=== PATIENT | female | born 1945 | race Caucasian/White ===

== ENCOUNTER 2019-10-31 07:00 | Outpatient (NON) | payer MEDICARE, SELFPAY ==
[2019-10-31 18:39] LABS: SARS-CoV-2 RNA PCR Positive
== END 2019-10-31 07:01 ==
PROVIDERS: Visit Provider Nurse Practitioner
DX: U07.1 COVID-19 (principal)
CPT/HCPCS: 87635; C9803; U0003

== ENCOUNTER 2020-02-21 09:40 | Outpatient (CLI) | payer MEDICARE, SELFPAY ==
--- NOTE | ~2020-02-21 | CT_ITS ---
EXAMINATION: CT abdomen pelvis wo con DATE: 02/21/2020 10:01 INDICATION: Hydronephrosis TECHNIQUE: Computed tomography (CT) of the abdomen and pelvis was performed without intravenous contr ast. Automated exposure control and iterative reconstruction technique were employed. Exam dose: 262 .96 mGy-cm total exam DLP. COMPARISON: None. FINDINGS: There are bilateral fat-containing foramen of Bochdalek hernias. The lung bases are clear of infiltrate or consolidation. Normal heart size. No pericardial or pleural effusion. The liver, gallbladder, bile ducts, spleen, pancreas and pancreatic duct are unremarkable. There is moderate bilateral hydroureteronephrosis. No renal or ureteral calculus is evident. The urinary bladder is unremarkable. There is fusiform dilatation of the infrarenal abdominal aortic procedure 0.9 cm maximal dimension. T here is extensive abdominal aortic and prominent bilateral renal artery calcification as well as prom inent iliac and femoral artery calcifications. No intraperitoneal or retroperitoneal or pelvic mass lesion or adenopathy or ascites is detected. Normal appendix. No evidence of appendicitis. There are numerous diverticula of the sigmoid and descending colon and to a lesser extent transverse and right colon; no CT evidence of diverticulitis. There is an approximately 2 cm wide ventral abdominal wall defect with herniation of a loop of nonobs tructed small bowel. No bowel obstruction, bowel wall thickening, pneumatosis or intraperitoneal free air. There is severe degenerative disc disease at L3-4. There is grade 1 anterolisthesis at L5-S1 due to d egenerative change at the apophyseal joints. Osteosclerotic lesions in the lower right ilium near the roof the acetabulum are noted, possibly bone islands. Small osteosclerotic lesion of the lateral aspect of the left acetabular roof. Several osseous chroni c lesions of the right femoral head. These are present on 11/24/2016, most likely bone islands.. IMPRESSION: Lower anterior to centimeter abdominal wall defect with small bowel herniation, no stran gulation or obstruction. This is noted unchanged since 11/24/2016 Diverticulosis of the colon Moderate bilateral hydroureteronephrosis of uncertain etiology, but stable since 11/24/2016; no urinar y tract calculi are noted. Reviewed, dictated and finalized at [facility]. Reviewed, dictated and finalized at [facility]. 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 This is noted unchanged since Diverticulosis of the colon Moderate bilateral hydroureteronephrosis of uncertain etiology, but stable sinc e 11/24/2016; no urinary tract calculi are noted.
== END 2020-02-21 09:41 | disposition home or self-care (01) ==
PROVIDERS: PCP Family Medicine; Visit Provider Nurse Practitioner Family
DX: R61 Generalized hyperhidrosis (principal); K57.30 Diverticulosis of large intestine without perforation or abscess without bleeding
CPT/HCPCS: 74176

== ENCOUNTER 2020-02-29 12:46 | Outpatient (CLI) | payer MEDICARE, SELFPAY ==
--- NOTE | ~2020-02-29 | NM_ITS ---
EXAMINATION: NM lasix renal scan DATE: 02/29/2020 14:04 INDICATION: Bilateral hydronephrosis. TECHNIQUE: 7.7 mCi Tc-99m MAG3 was administered IV. 40 mg furosemide was administered IV immediately afterward. The patient was scanned in the supine position. A posterior abdominal radionuclide angiog jasiel was obtained. A subsequent time course of static images of the kidneys, ureters, and bladder was obtained. COMPARISON: CT abdomen and pelvis 02/21/2020, Lasix renal scan 07/15/2008 FINDINGS: The posterior abdominal radionuclide angiogram and sequential static images show normal siz e, position, and morphology of the kidneys. Peak renal parenchymal uptake was 5 min in right kidney a nd 3 min in left kidney (normal peak 3-5 minutes). The relative early renal uptake was 51% on the ri ght and 49% on the left (<40% is abnormal). T1/2 for clearance of activity from the right kidney and proximal collecting system was 16 minutes. T1/2 for clearance of activity from the left kidney and proximal collecting system was 12 minutes. Notes on interpretation: T1/2 <10 minutes is normal, 10-15 minutes is low grade obstruction of questi onable clinical significance, 15-20 minutes is partial obstruction that is likely clinically signific ant, >20 minutes is high grade obstruction. Note that false positives may be seen with supine positio omar, dehydration, severely dilated nonobstructed kidney, atonic collecting system, poor renal functi on, and chronic furosemide use. IMPRESSION: 1. Symmetric kidney function. 2. Delayed contrast clearance from right kidney and proximal collecting system, consistent with part ial obstruction that is likely clinically significant. 3. Delayed contrast clearance from left kidney and proximal collecting system, consistent with low gr mariely obstruction of questionable clinical significance. Reviewed, dictated and finalized at [facility]. 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 Symmetric kidney function. 2. Delayed contrast clearance from right kidney and proximal collecting system , consistent with partial obstruction that is likely clinically significant. 3. Delayed contrast clearance from left kidney and proximal collecting system, consistent with low grade obstruction of questionable clinical significance.
== END 2020-02-29 12:47 | disposition home or self-care (01) ==
LOC: ANHIMG 12:49
PROVIDERS: PCP Family Medicine; Visit Provider Urology
DX: N13.30 Unspecified hydronephrosis (principal)
CPT/HCPCS: 78708; A9562; J1940

== ENCOUNTER 2020-08-06 08:52 | Emergency (ER) | payer MEDICARE, SELFPAY ==
--- NOTE | ~2020-08-06 | XR_ITS ---
EXAMINATION: XR hip RT min 3V w AP pelvis, XR femur RT min 2V DATE: 08/06/2020 12:20 INDICATION: Right groin and upper leg pain TECHNIQUE: 1. Anteroposterior view of the pelvis and anteroposterior, frog leg and cross-table lateral views of the affected hip were obtained. 2. Overlapping proximal and distal AP and lateral views of the right femur were obtained. COMPARISON: Right hip radiographs dated 10/01/2010 and right femur MRI dated 10/06/[address] dated and 02/21/2020 FINDINGS: Alignment is normal. No fracture or suspected avascular necrosis. Again seen are couple sclerotic bon e islands in the right supra-acetabular region. Joint space at the right hip and knee appear relative ly preserved. No right knee joint effusion. Multiple surgical clips in the pelvis consistent with lena or lymph node dissections. Small amount of gas within a loop of bowel projecting lower pelvic anterio r wall corresponding to a short segment of herniated bowel within a infraumbilical ventral hernia see n on prior CT studies. Severe facet joint osteoarthritis in the right at L5-S1. IMPRESSION: 1. Right supra-acetabular bone islands. No other osseous abnormality at the right hip or femur. 2. Short segment of gas-filled bowel within a infra umbilical ventral hernia. Reviewed, dictated and finalized at [facility]. IMPRESSION: 1. Right supra-acetabular bone islands. No other osseous abnormality at the [facility] hip or femur. 2. Short segment of gas-filled bowel within a infra umbilical ventral hernia.
--- NOTE | ~2020-08-06 | US_ITS ---
EXAMINATION: US venous doppler LE DATE: 08/06/2020 10:30 INDICATION: Right lower limb pain TECHNIQUE: Grayscale ultrasound images without and with compression and Doppler ultrasound images of the right lower extremity veins were obtained. COMPARISON: None. FINDINGS: The visualized portions of right common femoral vein, profunda (deep) femoral vein, femoral vein, pop liteal vein, peroneal trunk, posterior tibial veins, peroneal veins, gastrocnemius vein and greater s aphenous vein outflow are patent. IMPRESSION: 1. No deep venous thrombosis in the right lower limb. Reviewed, dictated and finalized at location [facility].
[2020-08-06 09:00] VITALS: BP 128/57; PULSE 101; RESP 18; TEMP 36.5; O2SAT 100
--- NOTE | 2020-08-06 10:07 | ED.EXTPRO ---
HPI - Extremity Problem General Chief complaint: Extremity Problem,Nontraumatic <Onelia Mccarty PA-C - Last Filed: 08/06/20 12:51> Stated complaint: right leg pain <EVELIN Aguirre Last Filed: 08/06/20 12:51> Time Seen by Provider: 08/06/20 09:14 <EVELIN Aguirre Last Filed: 08/06/20 12:51> Source: patient <EVELIN Aguirre Last Filed: 08/06/20 12:51> Mode of arrival: ambulatory <EVELIN Aguirre Last Filed: 08/06/20 12:51> Limitations: no limitations <EVELIN Aguirre Last Filed: 08/06/20 12:51> History of Present Illness HPI Narrative: This is a 75-year-old female that presents the emergency department for right leg pain present over the last 3 days. Reports the pain is achy in nature. It is worse when she is up on her feet. Somewhat better with rest. She has been taking anti-inflammatories with some improvement. She saw her primary for this 2 days ago. The pain changed which prompted her to be seen today. Denies any recent injuries or trauma. Does report history of non-Hodgkin's lymphoma with positive lymph nodes in her upper legs. Denies fever, numbness, weakness, edema, or erythema. <EVELIN Aguirre Last Filed: 08/06/20 12:51> Related Data Home medications: Home Medications Medication Instructions Recorded Confirmed cranberry 400 mg capsule 400 mg PO DAILY 09/05/19 multivitamin 1 cap PO DAILY 09/05/19 lactobacillus combination no.8 3 3,000 mmu cells PO DAILY 10/30/19 10/30/19 billion cell capsule cholecalciferol (vitamin D3) 50 50 mcg PO DAILY 08/04/20 mcg (2,000 unit) capsule <EVELIN Aguirre Last Filed: 08/06/20 12:51> Allergies/Adverse reactions: Allergies Allergy/AdvReac Type Severity Reaction Status Date / Time clarithromycin Allergy Severe RASH,DIARRH Verified 08/06/20 09:14 EA Penicillins Allergy Intermediate hives Verified 08/06/20 09:14 azithromycin Allergy Unknown Diarrhea Verified 08/06/20 09:14 Cephalosporins Allergy Unknown RASH,DIARRH Verified 08/06/20 09:14 EA ciprofloxacin Allergy Unknown diarrhea Verified 08/06/20 09:14 Sulfa (Sulfonamide Allergy Unknown Hives Verified 08/06/20 09:14 Antibiotics) PEANUT BUTTER AdvReac Intermediate ABD PAIN Uncoded 08/04/20 11:33 <Onelia Mccarty PA-C - Last Filed: 08/06/20 12:51> Review of Systems Review of Systems: Narrative: CONSTITUTIONAL: Denies fever CARDIOVASCULAR: Denies chest pain, or edema. RESPIRATORY: Denies dyspnea. SKIN: Denies rash MUSCULOSKELETAL: Denies back pain NEUROLOGIC: Denies numbness, or weakness. <Onelia Mccarty PA-C - Last Filed: 08/06/20 12:51> All systems reviewed & are unremarkable except as noted in HPI and below <Onelia Mccarty PA-C - Last Filed: 08/06/20 12:51> [facility] Past Medical History Medical History: Medical History (Updated 08/06/20 @ 12:51 by Onelia Mccarty PA-C) Cervical cancer GERD without esophagitis HTN (hypertension) (07/25/15) Mixed hyperlipidemia Non-Hodgkin lymphoma Postmenopausal <Onelia Mccarty PA-C - Last Filed: 08/06/20 12:51> Surgical History Surgical History: Surgical History H/O total hysterectomy 1997 Hx of section <Onelia Mccarty PA-C - Last Filed: 08/06/20 12:51> Family History Family History: Family History Mother Family history of dementia Father Cancer <Onelia Mccarty PA-C - Last Filed: 08/06/20 12:51> Social History Social History: Social History Smoking packs per day: 1 Smoking cigarettes per day: 20.0 Years smoked: 25 Smoking pack-years: 25.00 Smoking status: Former smoker Alcohol intake: current <Onelia Mccarty PA-C - Last Filed: 08/06/20 12:51> Exam Narrative: Exam Narrative: GENERAL: Well-appearing, well-nou
[2020-08-06 10:26] LABS: Basophils Absolute Auto 0.1 K/mm3 (0.0-0.1); Basophils Percent Auto 0.7 % (0.2-1.2); Eosinophils Absolute Auto 0.2 K/mm3 (0-0.3); Eosinophils Percent Auto 2.6 % (0-4.4); Hematocrit 40.8 % (37.0-47.0); Hemoglobin 13.9 g/dL (12.0-15.0); Immature Granulocyte Absolute 0.02 K/mm3 (0.00-0.031); Immature Granulocyte Percent A 0.3 % (0-0.5); Lymphocytes Absolute Auto 1.69 K/mm3 (0.9-3.2); Mean Corpuscular HGB Conc 34.1 g/dl (32-36); Mean Corpuscular Hemoglobin 29.2 pg (26-34); Mean Corpuscular Volume 85.7 fl (80-100); Mean Platelet Volume 10.1 fl (7.4-10.4); Monocytes Absolute Auto 0.9 K/mm3 (0.1-0.6); Monocytes Percent Auto 11.7 % (2.6-8.5); Neutrophils Absolute Auto 4.5 K/mm3 (1.3-6.7); Neutrophils Percent Auto 61.7 % (45.5-73.1); Platelet Count Result 243 k/mm3 (150-375); Red Blood Count 4.76 M/mm3 (4.2-5.4); Red Cell Distribution Width 11.9 % (11.5-14.5); White Blood Count 7.3 K/mm3 (4.5-10.0)
[2020-08-06] MEDS: ACETAMINOPHEN 500 MG TABLET 1000 MG PO (10:32)
[2020-08-06 10:42] LABS: INR 0.9
[2020-08-06 11:15] LABS: Alanine Aminotransferase 11 U/L (4-35); Albumin Level 4.3 g/dL (3.5-5.1); Alkaline Phosphatase 91 U/L (38-126); Anion Gap 8 mmol/L (8-16); Aspartate Amino Transferase 34 U/L (14-36); Bilirubin,Total 0.4 mg/dL (0.2-1.3); Blood Urea Nitrogen 13 mg/dL (7-17); Calcium 9.9 mg/dL (8.4-10.2); Carbon Dioxide 29 mmol/L (22-30); Chloride 103 mmol/L (98-107); Estimated CRCL calculation 62 ml/min; Estimated Glomerular Filt Rate > 60; Glucose 98 mg/dL (65-105); Magnesium 1.8 mg/dL (1.6-2.3); Sodium 140 mmol/L (137-145)
[2020-08-06 13:00] VITALS: BP 129/59; PULSE 66; RESP 16; O2SAT 97
== END 2020-08-06 13:00 | disposition home or self-care (01) ==
PROVIDERS: Physician Assistant; Emergency Provider Emergency Medicine; PCP Family Medicine
DX: M79.604 Pain in right leg (principal); K21.9 Gastro-esophageal reflux disease without esophagitis; I10 Essential (primary) hypertension; E78.5 Hyperlipidemia, unspecified
CPT/HCPCS: 36415; 73502; 73552; 80053; 83735; 85025; 85610; 85730; 93971; 99284; A9270

== ENCOUNTER 2021-10-03 12:49 | Emergency (ER) | payer MEDICARE, SELFPAY ==
--- NOTE | 2021-10-03 12:59 | ED.FEMALEGU ---
HPI - Female Genitourinary General Chief complaint: Urogenital-Female Stated complaint: uti symptoms Time Seen by Provider: 10/03/21 13:00 Source: patient Mode of arrival: ambulatory Limitations: no limitations History of Present Illness HPI Narrative: 76 yo F presents with c/o urinary frequency, urgency, dysuria, low back pain starting yesterday. Reports that she gets frequent UTIs. Last UTI was September 16 and prior to that it was August 27. Takes a low-dose of antibiotic apparently but is unsure of the name of it. Reports that she has been getting urinary tract infections for several years since getting a hysterectomy. Denies fever chills. No nausea vomiting diarrhea. Took Levaquin for urinary tract infection September 16. Patient reports that she is fairly active and the Levaquin caused her some mild leg pain. All systems reviewed and negative except as noted above. Related Data Home Medications Medication Instructions Recorded Confirmed cranberry 400 mg capsule 400 mg PO DAILY 09/05/19 08/25/21 multivitamin 1 cap PO DAILY 09/05/19 08/25/21 lactobacillus combination no.8 3 3,000 mmu cells PO DAILY 10/30/19 08/25/21 billion cell capsule (Adult Probiotic) cholecalciferol (vitamin D3) 50 50 mcg PO DAILY 08/04/20 08/25/21 mcg (2,000 unit) capsule famotidine 20 mg tablet 20 mg PO DAILY PRN 08/25/21 08/25/21 Allergies Allergy/AdvReac Type Severity Reaction Status Date / Time clarithromycin Allergy Severe RASH,DIARRH Verified 08/25/21 14:06 EA Penicillins Allergy Intermediate hives Verified 08/25/21 14:06 azithromycin Allergy Unknown Diarrhea Verified 08/25/21 14:06 Cephalosporins Allergy Unknown RASH,DIARRH Verified 08/25/21 14:06 EA ciprofloxacin Allergy Unknown diarrhea Verified 08/25/21 14:06 Sulfa (Sulfonamide Allergy Unknown Hives Verified 08/25/21 14:06 Antibiotics) PEANUT BUTTER AdvReac Intermediate ABD PAIN Uncoded 08/25/21 14:06 Review of Systems Review of Systems: CONSTITUTIONAL: Denies fever, chills, or sweats. EYES: Denies visual changes, redness, or discharge. ENT: Denies rhinorrhea, congestion, sore throat, or otalgia. CARDIOVASCULAR: Denies chest pain, palpitations, or edema. RESPIRATORY: Denies cough or dyspnea. GASTROINTESTINAL: Denies abdominal pain, nausea, vomiting, or diarrhea. GENITOURINARY: Reports dysuria, frequency, urgency. Denies hematuria. SKIN: Denies rash or itching. MUSCULOSKELETAL: Denies back pain, joint pain, or myalgia. NEUROLOGIC: Denies headache, numbness, or weakness. PSYCHIATRIC: Denies anxiety or depression. All other systems reviewed are negative, except as documented in HPI. [facility] Past Medical History Medical History Cervical cancer Claudication GERD without esophagitis HTN (hypertension) (07/25/15) Mixed hyperlipidemia Non-Hodgkin lymphoma Postmenopausal UTI (urinary tract infection) Surgical History Surgical History H/O total hysterectomy 1996 Hx of section Family History Family History Mother Family history of dementia Father Cancer Social History Social History Smoking packs per day: 1 Smoking cigarettes per day: 20.0 Years smoked: 25 Smoking pack-years: 25.00 Smoking status: Former smoker Alcohol intake: current Comments At time of signature, agree with nursing past medical, surgical, social and family history. There is no relevant family history pertinent to the presenting complaint. Exam Narrative: GENERAL: This is a well-nourished, well-developed patient, in no apparent distress. HEAD: normocephalic, atraumatic. EYES: PERRL. Sclera clear/white. Vision is grossly intact. EARS: External ears normal NOSE: External nose normal NECK: Neck supple, non-tender without lymphadenopathy, masses or thyrome
[2021-10-03 13:00] VITALS: BP 141/77; RESP 16; TEMP 37.1; O2SAT 97
== END 2021-10-03 13:30 | disposition home or self-care (01) ==
PROVIDERS: Emergency Provider Nurse Practitioner Family; PCP Family Medicine
DX: N39.0 Urinary tract infection, site not specified (principal); Z87.891 Personal history of nicotine dependence; K21.9 Gastro-esophageal reflux disease without esophagitis; I10 Essential (primary) hypertension; E78.2 Mixed hyperlipidemia; Z85.41 Personal history of malignant neoplasm of cervix uteri; Z85.72 Personal history of non-Hodgkin lymphomas; I73.9 Peripheral vascular disease, unspecified
CPT/HCPCS: 81003; 87077; 87086; 87186; 99213; G0463

== ENCOUNTER 2022-01-21 09:07 | Outpatient (CLI) | payer MEDICARE, SELFPAY ==
[2022-01-21 19:26] LABS: Basophils Absolute Auto 0.1 K/mm3 (0.0-0.1); Basophils Percent Auto 0.9 % (0.2-1.2); Eosinophils Absolute Auto 0.1 K/mm3 (0-0.3); Eosinophils Percent Auto 1.4 % (0-4.4); Hematocrit 44.5 % (37.0-47.0); Hemoglobin 14.8 g/dL (12.0-15.0); Immature Granulocyte Absolute 0.02 K/mm3 (0.00-0.031); Immature Granulocyte Percent A 0.3 % (0-0.5); Lymphocytes Absolute Auto 3.54 K/mm3 (0.9-3.2); Lymphocytes Percent Auto 45.6 % (18.3-44.2); Mean Corpuscular HGB Conc 33.3 g/dl (32-36); Mean Corpuscular Volume 87.1 fl (80-100); Monocytes Absolute Auto 0.8 K/mm3 (0.1-0.6); Monocytes Percent Auto 10.3 % (2.6-8.5); Neutrophils Absolute Auto 3.2 K/mm3 (1.3-6.7); Neutrophils Percent Auto 41.5 % (45.5-73.1); Platelet Count Result 207 k/mm3 (150-375); Red Blood Count 5.11 M/mm3 (4.2-5.4); Red Cell Distribution Width 12.8 % (11.5-14.5); White Blood Count 7.8 K/mm3 (4.5-10.0)
[2022-01-21 19:50] LABS: Alanine Aminotransferase 23 U/L (6-35); Albumin Level 4.5 g/dL (3.5-5.1); Alkaline Phosphatase 83 U/L (38-126); Anion Gap 14 mmol/L (8-16); Aspartate Amino Transferase 36 U/L (14-36); Bilirubin,Total 0.4 mg/dL (0.2-1.3); Blood Urea Nitrogen 12 mg/dL (7-17); Calcium 9.5 mg/dL (8.4-10.2); Carbon Dioxide 25 mmol/L (22-30); Chloride 101 mmol/L (98-107); Cholesterol 204 mg/dL (0-200); Estimated Glomerular Filt Rate > 60; Glucose 79 mg/dL (65-110); HDL Direct 39 mg/dL; Potassium 3.8 mmol/L (3.4-5.0); Sodium 140 mmol/L (137-145); Triglycerides 218 mg/dL (<150)
[2022-01-21 20:01] LABS: LDL Cholesterol Direct 93 mg/dL
[2022-01-21 20:02] LABS: Vitamin D 25 Hydroxy 48.5 ng/mL
== END 2022-01-21 09:08 | disposition home or self-care (01) ==
LOC: ANHGOSHLAB 09:12
PROVIDERS: PCP Family Medicine; Visit Provider Nurse Practitioner Family
DX: E78.5 Hyperlipidemia, unspecified (principal); I10 Essential (primary) hypertension; E55.9 Vitamin D deficiency, unspecified
CPT/HCPCS: 36415; 80053; 80061; 82306; 84443; 85025

== ENCOUNTER 2022-08-28 08:01 | Emergency (ER) | payer MEDICARE, SELFPAY ==
--- NOTE | 2022-08-28 08:08 | ED.FEMALEGU ---
HPI - Female Genitourinary General Chief complaint: Urogenital-Female Stated complaint: UTI SYMPTOMS Time Seen by Provider: 08/28/22 08:11 Source: patient, family, RN notes reviewed and old records reviewed Mode of arrival: ambulatory Limitations: no limitations History of Present Illness HPI Narrative: 77 year old female who [facility] with complaints of urinary tract infection symptoms for 2 days which includes urinary frequency and urgency. Patient reports that she took 2 doses of left over CIPRO and tried to get a refill through her urologist and was told they would not refill unless she had urine test. She states that she was told she needed to go to urgent care and get test. Patient also reports that she took one dose of AZO last night. Patient states that she has some perineal pressure with urination denies burning, denies any CVA tenderness but states some low back discomfort. MD elicited complaint: UTI Pertinent past history: other (UTI in past) Onset (ago): day(s) (2) Location of symptoms: urethra (pressure) and low back Treatment prior to arrival: other (2 doses of Cipro and one dose of AZO) Related Data Home Medications Medication Instructions Recorded Confirmed cranberry 400 mg capsule 400 mg PO DAILY 09/05/19 08/28/22 multivitamin 1 cap PO DAILY 09/05/19 08/28/22 lactobacillus combination no.8 3 3,000 mmu cells PO DAILY 10/30/19 08/28/22 billion cell capsule (Adult Probiotic) cholecalciferol (vitamin D3) 50 50 mcg PO DAILY 08/04/20 08/28/22 mcg (2,000 unit) capsule Allergies Allergy/AdvReac Type Severity Reaction Status Date / Time clarithromycin Allergy Severe RASH,DIARRH Verified 08/28/22 08:16 EA Penicillins Allergy Intermediate hives Verified 08/28/22 08:16 azithromycin Allergy Unknown Diarrhea Verified 08/28/22 08:16 Cephalosporins Allergy Unknown RASH,DIARRH Verified 08/28/22 08:16 EA Sulfa (Sulfonamide Allergy Unknown Hives Verified 08/28/22 08:16 Antibiotics) ciprofloxacin AdvReac Unknown diarrhea Verified 08/28/22 08:16 PEANUT BUTTER AdvReac Intermediate ABD PAIN Uncoded 08/28/22 08:16 Review of Systems Review of Systems: CONSTITUTIONAL: Denies fever, chills, did have sweats this morning CARDIOVASCULAR: Denies chest pain, palpitations, or edema. RESPIRATORY: Denies cough or dyspnea. GASTROINTESTINAL: Denies abdominal pain, nausea, vomiting, or diarrhea. GENITOURINARY: Reports perineal pressure, frequency, urgency. Denies flank pain or hematuria. SKIN: Denies rash or itching. MUSCULOSKELETAL: reports low back pain or myalgia. Denies CVA tenderness NEUROLOGIC: Denies headache All systems reviewed & are unremarkable except as noted in HPI and below PMFSH Past Medical History Medical History Cervical cancer Claudication GERD without esophagitis HTN (hypertension) (07/25/15) Mixed hyperlipidemia Non-Hodgkin lymphoma Postmenopausal UTI (urinary tract infection) Surgical History Surgical History H/O total hysterectomy 1996 Hx of section Family History Family History Mother Family history of dementia Father Cancer Social History Social History Smoking packs per day: 1 Smoking cigarettes per day: 20.0 Years smoked: 25 Smoking pack-years: 25.00 Smoking status: Former smoker Alcohol intake: current Alcohol use details: socially Substance use: never Substance use type: does not use Lack of Transportation: No Lack of Food: Never True Current Housing: I Have Housing Concerned About Future Housing: No Difficulty Paying Gas/Electric Bills: No Difficulty Paying for Meds: No Currently Unemployed: No Education: High School Diploma/GED Difficulty w/ Childcare or Family Care: No Living arr
[2022-08-28 08:22] VITALS: BP 161/76; PULSE 67; RESP 16; TEMP 36.2; O2SAT 100
== END 2022-08-28 08:40 | disposition home or self-care (01) ==
PROVIDERS: Emergency Provider Registered Nurse; PCP Family Medicine
DX: R35.0 Frequency of micturition (principal); R39.15 Urgency of urination; M54.50 Low back pain, unspecified; K21.9 Gastro-esophageal reflux disease without esophagitis; I10 Essential (primary) hypertension; E78.2 Mixed hyperlipidemia; Z85.41 Personal history of malignant neoplasm of cervix uteri; Z85.72 Personal history of non-Hodgkin lymphomas; Z90.710 Acquired absence of both cervix and uterus
CPT/HCPCS: 81003; 87086; 99213; G0463

== ENCOUNTER 2023-05-31 11:55 | Outpatient (CLI) | payer MEDICARE, SELFPAY ==
--- NOTE | ~2023-05-31 | XR_ITS ---
Right Knee Technique: AP and lateral views were obtained. Clinical History: Pain Findings: No fracture or dislocation is seen. Osseous alignment is anatomic. Joint spaces are preserv ed without degenerative or erosive change. Soft tissues are unremarkable. No joint effusion is seen. Impression: Unremarkable right knee radiographs. Reviewed, dictated and finalized at location . Impression: Unremarkable right knee radiographs.
== END 2023-05-31 11:56 ==
PROVIDERS: PCP Family Medicine; Visit Provider Nurse Practitioner Family
DX: M25.561 Pain in right knee (principal)
CPT/HCPCS: 73560

== ENCOUNTER 2023-08-02 08:21 | Outpatient (CLI) | payer MEDICARE, SELFPAY ==
[2023-08-02 18:47] LABS: Basophils Absolute Auto 0.1 K/mm3 (0.0-0.1); Basophils Percent Auto 0.9 % (0.2-1.2); Eosinophils Absolute Auto 0.3 K/mm3 (0-0.3); Eosinophils Percent Auto 4.3 % (0-4.4); Hematocrit 44.6 % (37.0-47.0); Hemoglobin 14.4 g/dL (12.0-15.0); Immature Granulocyte Absolute 0.01 K/mm3 (0.00-0.031); Immature Granulocyte Percent A 0.1 % (0-0.5); Lymphocytes Absolute Auto 2.97 K/mm3 (0.9-3.2); Mean Corpuscular HGB Conc 32.3 g/dl (32-36); Mean Corpuscular Hemoglobin 29.2 pg (26-34); Mean Corpuscular Volume 90.5 fl (80-100); Mean Platelet Volume 11.4 fl (7.4-10.4); Monocytes Absolute Auto 0.8 K/mm3 (0.1-0.6); Monocytes Percent Auto 11.1 % (2.6-8.5); Neutrophils Absolute Auto 2.8 K/mm3 (1.3-6.7); Neutrophils Percent Auto 40.6 % (45.5-73.1); Platelet Count Result 198 k/mm3 (150-375); Red Blood Count 4.93 M/mm3 (4.2-5.4); Red Cell Distribution Width 12.8 % (11.5-14.5); White Blood Count 6.9 K/mm3 (4.5-10.0)
[2023-08-02 18:58] LABS: Alanine Aminotransferase 14 U/L (6-35); Albumin Level 4.2 g/dL (3.5-5.1); Alkaline Phosphatase 79 U/L (38-126); Anion Gap 5 mmol/L (4-12); Aspartate Amino Transferase 43 U/L (14-36); Bilirubin,Total 0.5 mg/dL (0.2-1.3); Blood Urea Nitrogen 16 mg/dL (7-17); Calcium 9.3 mg/dL (8.4-10.2); Carbon Dioxide 28 mmol/L (22-30); Chloride 105 mmol/L (98-107); Cholesterol 164 mg/dL (0-200); Estimated Glomerular Filt Rate > 60; Glucose 86 mg/dL (65-110); HDL Direct 39 mg/dL; Potassium 4.4 mmol/L (3.4-5.0); Sodium 138 mmol/L (137-145); Triglycerides 186 mg/dL (<150)
[2023-08-02 19:09] LABS: LDL Cholesterol Direct 93 mg/dL
[2023-08-02 19:13] LABS: D Dimer 0.33 ug/mL (<0.48)
== END 2023-08-02 08:22 | disposition home or self-care (01) ==
PROVIDERS: PCP Family Medicine; Visit Provider Nurse Practitioner Family
DX: M79.89 Other specified soft tissue disorders (principal); Z85.72 Personal history of non-Hodgkin lymphomas; I10 Essential (primary) hypertension; E78.2 Mixed hyperlipidemia
CPT/HCPCS: 36415; 80053; 80061; 85025; 85380

== ENCOUNTER 2023-12-05 09:51 | Outpatient (CLI) | payer MEDICARE, SELFPAY ==
[2023-12-05 14:43] LABS: Hematocrit 45.7 % (37.0-47.0); Hemoglobin 15.2 g/dL (12.0-15.0); Mean Corpuscular HGB Conc 33.3 g/dl (32-36); Mean Corpuscular Volume 90.1 fl (80-100); Mean Platelet Volume 11.6 fl (7.4-10.4); Platelet Count Result 195 k/mm3 (150-375); Red Blood Count 5.07 M/mm3 (4.2-5.4); White Blood Count 7.2 K/mm3 (4.5-10.0)
[2023-12-05 15:04] LABS: Alanine Aminotransferase 14 U/L (6-35); Albumin Level 4.7 g/dL (3.5-5.1); Alkaline Phosphatase 75 U/L (38-126); Anion Gap 8 mmol/L (4-12); Aspartate Amino Transferase 36 U/L (14-36); Bilirubin,Total 0.7 mg/dL (0.2-1.3); Blood Urea Nitrogen 11 mg/dL (7-17); Calcium 9.5 mg/dL (8.4-10.2); Carbon Dioxide 28 mmol/L (22-30); Chloride 100 mmol/L (98-107); Cholesterol 177 mg/dL (0-200); Estimated Glomerular Filt Rate > 60; Glucose 74 mg/dL (65-110); HDL Direct 43 mg/dL; Sodium 136 mmol/L (137-145); Triglycerides 243 mg/dL (<150)
[2023-12-05 15:09] LABS: LDL Cholesterol Direct 84 mg/dL
[2023-12-09 13:39] LABS: Vitamin D 1,25 (OH)2 Total 35 pg/mL (18-72); Vitamin D2 1,25 (OH)2 <8 pg/mL; Vitamin D3 1,25 (OH)2 35 pg/mL
== END 2023-12-05 09:52 | disposition home or self-care (01) ==
LOC: ANHGOSHLAB 09:52
PROVIDERS: PCP Family Medicine; Visit Provider Nurse Practitioner Family
DX: E78.2 Mixed hyperlipidemia (principal); I10 Essential (primary) hypertension; Z85.72 Personal history of non-Hodgkin lymphomas; E55.9 Vitamin D deficiency, unspecified; Z78.0 Asymptomatic menopausal state
CPT/HCPCS: 36415; 80053; 80061; 82652; 84443; 85027

== ENCOUNTER 2024-03-27 07:28 | Inpatient (IN) | payer MEDICARE, SELFPAY ==
--- NOTE | ~2024-03-27 | CT_ITS ---
CT abdomen pelvis w con Ordering provider: Lara Villasenor MD History: 78 years Female with . LEFT FLANK, LEFT ABDOMINAL PAIN . Comparison: February 21, 2020 Technique: CT abdomen and pelvis with IV and without oral contrast. Automated exposure control and it erative reconstruction technique were employed. The dose-length product was 277.74 mGy-cm. 100 mL Omn ipaque 350 was given IV. Findings: VISUALIZED LOWER CHEST: Normal. UPPER ABDOMINAL ORGANS: Liver: Normal. Gallbladder: Normal. Spleen: Normal. Stomach/duodenum: Normal. Pancreas: Normal. Adrenals: Normal. Kidneys: Bilateral hydronephrotic changes with dilated ureters. No stones seen. Stenosis at the level of the ureterovesical junction cannot be excluded. PELVIC ORGANS: The bladder is normal. BOWEL AND MESENTERY: Colon: No evidence of diverticulitis. Fecal material seen in the colon suggestive of constipation. Ap pendix is not demonstrated. Small Bowel: Normal. No obstruction. Small bowel is seen in the anterior abdominal wall hernia sac. Peritoneum/mesentery: No free air or free fluid. No mesenteric lymphadenopathy. RETROPERITONEUM: Dilated mid abdominal aorta measuring 3.1 cm. Mild atheromatous disease of the abdom inal aorta. No retroperitoneal lymphadenopathy. MUSCULOSKELETAL: Superficial soft tissues: Anterior abdominal wall hernia with small bowel content. No definite obstru ction seen. The superficial soft tissues are normal. Bones: Age appropriate degenerative changes of the spine. Bilateral sacroiliacs. Sclerotic areas seen in the right acetabulum unchanged. Anterolisthesis at the level of L4-L5. IMPRESSION: 1. Bilateral hydronephrotic and the right ureter changes increased from previous examination. 2. Anterior abdominal wall hernia with small bowel content. No definite evidence of obstruction. Cli nical correlation and follow-up advised. 3. Right acetabular Sclerotic lesion unchanged from previous examination. 4. 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 Reviewed, dictated and finalized at location A. N [facility] IMPRESSION: 1. Bilateral hydronephrotic and the right ureter changes increased from previo us examination. 2. Anterior abdominal wall hernia with small bowel content. No definite eviden ce of obstruction. Clinical correlation and follow-up advised. 3. Right acetabular Sclerotic lesion unchanged from previous examination. 4. 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
[2024-03-27 07:35] VITALS: BP 184/73; PULSE 95; RESP 18; TEMP 36.6; O2SAT 99
--- NOTE | 2024-03-27 07:55 | ED_ITS ---
HPI - Female Genitourinary General Chief complaint: Urogenital-Female Stated complaint: uti? Time Seen by Provider: 03/27/24 07:54 Source: patient and family Mode of arrival: ambulatory Limitations: no limitations History of Present Illness HPI Narrative: LEFT FLANK PAIN, STEADY, GRADUALLY GETTING WORSE STARTED 24 HOURS AGO. PATIENT SHOT VOLTS NO 3 DAYS AGO. PATIENT DENIES ANY FEVER, CHILLS, NAUSEA, VOMITING, DIARRHEA, CONSTIPATION OR URINARY SYMPTOMS. PATIENT REPORTED PAIN IS DULL ACHING RADIATING TO LEFT LOWER QUADRANT. DENIES AGGRAVATING OR RELIEVING FACTORS. HISTORY OF HYPERLIPIDEMIA. Related Data Home Medications ?Medication ?Instructions ?Recorded ?Confirmed ?Last Taken ?Type multivitamin 1 cap PO DAILY 09/05/19 03/06/24 Unknown History lactobacillus combination no.8 3 3,000 mmu cells PO DAILY 10/30/19 03/06/24 Unknown History billion cell capsule (Adult Probiotic) cholecalciferol (vitamin D3) 50 50 mcg PO DAILY 08/04/20 03/06/24 Unknown History mcg (2,000 unit) capsule cranberry 400 mg capsule 400 mg PO BID 12/05/23 03/06/24 Unknown History Allergies Allergy/AdvReac Type Severity Reaction Status Date / Time clarithromycin Allergy Severe RASH,DIARRH Verified 03/27/24 07:40 EA Penicillins Allergy Intermediate hives Verified 03/27/24 07:40 azithromycin Allergy Unknown Diarrhea Verified 03/27/24 07:40 Cephalosporins Allergy Unknown RASH,DIARRH Verified 03/27/24 07:40 EA Sulfa (Sulfonamide Allergy Unknown Hives Verified 03/27/24 07:40 Antibiotics) ciprofloxacin AdvReac Unknown diarrhea Verified 03/27/24 07:40 PEANUT BUTTER AdvReac Intermediate ABD PAIN Uncoded 03/27/24 07:40 Review of Systems 2 Review of Systems: All systems reviewed & are unremarkable except as noted in HPI and below PMFSH Past Medical History Medical History Lymphedema Hx of cervical cancer (~1996) Cataract UTI (urinary tract infection) Claudication Non-Hodgkin lymphoma HTN (hypertension) (07/25/15) GERD without esophagitis Mixed hyperlipidemia Postmenopausal Surgical History Surgical History H/O total hysterectomy 1996 Hx of section Family History Family History Mother Family history of dementia Father Cancer Social History Social History Social History: Caffeine-occasionally Smoking packs per day: 1 Smoking cigarettes per day: 20.0 Years smoked: 25 Smoking pack-years: 25.00 Smoking status: Former smoker Alcohol intake: current Alcohol use details: socially Substance use: never Substance use type: does not use Lack of Transportation: No Lack of Food: Never True Current Housing: I Have Housing Concerned About Future Housing: No Difficulty Paying Gas/Electric Bills: No Difficulty Paying for Meds: No Currently Unemployed: No Education: High School Diploma/GED Difficulty w/ Childcare or Family Care: No Living arrangements: alone Occupation/Education: retired Gender identity (if verbalized by the patient): Female Agree to blood products: Yes Exam 2 Narrative: GENERAL APPEARANCE: WELL-DEVELOPED, WELL-NOURISHED SKIN: NORMAL COLOR HEAD: NORMOCEPHALIC, NONTRAUMATIC EYES: CLEAR CONJUNCTIVA ENT: OROPHARYNX NORMAL, EARS NORMAL, NOSE NORMAL NECK: SUPPLE, NONTENDER CHEST AND RESPIRATORY: AIRWAY PATENT, NO RESPIRATORY DISTRESS, NO ACCESSORY MUSCLE USE HEART: REGULAR RATE/RHYTHM ABDOMEN: SOFT, SLIGHT TENDERNESS LEFT LOWER QUADRANT, NO ORGANOMEGALY, QUIET BOWEL SOUNDS VASCULAR: NORMAL PERIPHERAL PULSES, NORMAL CAPILLARY REFILL. MUSCULOSKELETAL: DIFFUSE TENDERNESS LEFT LOWER BACK WITH PALPATION, NO BRUISES, NO RASH NEUROLOGIC: ALERT AND ORIENTED ?3, PRODUCTION GRIP IS NORMAL TESTED, NO GROSS MOTOR DEFICIT Course Vital Signs Vital signs: Vital Signs Temperature 36.6 C 03/27/24 07:35 Pulse Rate 95 03/27/24 07:35 Respiratory Rate 18 03/27/24 07:35 Blood Pressure 184/73 H 03/27/24 07:35 Pulse Oximetry 99 03/27/24 07:35 Oxygen Delivery Room Air 03/27/24 07:35 Temperature 36.6 C 03/27/24 09:54 Pulse Rate 66 03/27/24 09:54 Respiratory Rate 16 03/27/24 09:54 Blood Pressure 138/64 03/27/24 09:54 Pulse Oximetry 97 03/27/24 09:54 Oxygen Delivery Room Air 03/27/24 07:35 MDM - Female Genitourinary MDM Narrative Medical decision making narrative: PATIENT CAME TO THE ED WITH LEFT FLANK PAIN, CONSTANT, RADIATING TO LEFT LOWER QUADRANT VITAL SIGNS SHOWING BLOOD PRESSURE 184/73 OTHERWISE INSIGNIFICANT PHYSICAL EXAMINATION POSITIVE FOR LEFT FLANK TENDERNESS AND LEFT LOWER QUADRANT TENDERNESS DIFFERENTIAL DIAGNOSIS INCLUDE URINARY TRACT INFECTION, KIDNEY STONE, COLITIS, CONSTIPATION, DIVERTICULITIS, MALIGNANCY BLOOD WORKUP TODAY INCLUDES CBC, CMP, LIPASE SHOWED WBC 10.3, URINALYSIS SHOWED EVIDENCE OF URINARY TRACT INFECTION CT ABDOMEN AND PELVIS WITH IV CONTRAST SHOWED 1- Bilateral hydronephrotic and the right ureter changes increased from previous examination. 2. Anterior abdominal wall hernia with small bowel content. No definite evidence of obstruction. Clinical correlation and follow-up advised. 3. Right acetabular Sclerotic lesion unchanged from previous examination. 4. 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 ADMIT TO HOSPITALIST FOR IV ANTIBIOTIC BECAUSE OF FAILED OUTPATIENT TREATMENT Differential Diagnosis Differential diagnosis: Likely other ( ABOVE) Medical Records Attestation: I reviewed the patient's medical records. Lab Data Attestation: I reviewed the patient's lab results. 03/27/24 07:47 03/27/24 07:47 Labs: Lab Results 03/27/24 03/27/24 Range/Units 07:47 08:25 WBC 10.3 H (4.5-10.0) K/mm3 RBC 4.87 (4.2-5.4) M/mm3 Hgb 14.4 (12.0-15.0) g/dL Hct 43.4 (37.0-47.0) % MCV 89.1 (80-100) fl MCH 29.6 (26-34) pg MCHC 33.2 (32-36) g/dl RDW 12.6 (11.5-14.5) % Plt Count 210 (150-375) k/mm3 MPV 10.3 (7.4-10.4) fl Immature Gran % (Auto) 0.3 (0-0.5) % Neut % (Auto) 66.0 (45.5-73.1) % Lymph % (Auto) 23.7 (18.3-44.2) % [place] % (Auto) 8.3 (2.6-8.5) % Eos % (Auto) 1.3 (0-4.4) % Baso % (Auto) 0.4 (0.2-1.2) % Lymph # (Auto) 2.43 (0.9-3.2) K/mm3 [place] # (Auto) 0.9 H (0.1-0.6) K/mm3 Eos # (Auto) 0.1 (0-0.3) K/mm3 Baso # (Auto) 0.0 (0.0-0.1) K/mm3 Abs Immat Gran (auto) 0.03 (0.00-0.031) K/mm3 Absolute Neuts (auto) 6.8 H (1.3-6.7) K/mm3 Absolute Nucleated RBC 0.000 (0.0-0.012) K/mm3 Nucleated RBC % 0.0 (0.0-0.2) % Sodium 139 (137-145) mmol/L Potassium 4.5 (3.4-5.0) mmol/L Chloride 103 (98-107) mmol/L Carbon Dioxide 29 (22-30) mmol/L Anion Gap 7 (4-12) mmol/L BUN 12 (7-17) mg/dL Creatinine 0.64 L (0.7-1.0) mg/dL Estim Creat Clear Calc 66 ml/min Estimated GFR > 60 (59 - ) Glucose 95 (65-110) mg/dL Lactic Acid 1.4 (0.7-2.0) mmol/L Calcium 9.4 (8.4-10.2) mg/dL Total Bilirubin 0.6 (0.2-1.3) mg/dL AST 34 (14-36) U/L ALT 17 (6-35) U/L Alkaline Phosphatase 89 (38-126) U/L Total Protein 7.0 (6.3-8.2) g/dL Albumin 4.2 (3.5-5.1) g/dL Lipase 77 (23-300) U/L Urine Color Yellow (Yellow) Urine Appearance Cloudy H (Clear) Urine pH 6.5 (5.0-9.0) Ur Specific [place] 1.006 (1.001-1.035) Urine Protein 3+ H (Negative) mg/dL Urine Glucose (UA) Negative (Negative) mg/dL Urine Ketones Negative (Negative) mg/dL Ur Blood (Man) 3+ H (Negative) Urine Nitrate Negative (Negative) Urine Bilirubin Negative (Negative) Urine Urobilinogen 0.2 (<2.0) mg/dL Add Ur Microanalysis Reviewed Leukocyte Esterase Rfl 3+ H (Negative) FACUNDO/UL Urine RBC 6-10 H (0-2) /hpf Urine WBC >100 H (0-3) /hpf Ur Squamous Epith Cells None seen (Few) /hpf Urine Bacteria None seen /hpf Urine Casts 0-2 Imaging Data Radiologist's impression: Impressions Abdomen/Pelvis CT 03/27/24 09:07 IMPRESSION: 1. Bilateral hydronephrotic and the right ureter changes increased from previous examination. 2. Anterior abdominal wall hernia with small bowel content. No definite evidence of obstruction. Clinical correlation and follow-up advised. 3. Right acetabular Sclerotic lesion unchanged from previous examination. 4. 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 Critical Care Time Critical Care Time Critical Care Time: No Discharge Plan Discharge Clinical Impression: Acute pyelonephritis Patient Disposition: Still a Patient Condition: Stable Patient Language: Prydeinig Prescriptions: No Action multivitamin Capsule 1 cap PO DAILY cranberry 400 mg capsule 400 mg PO BID Rx Instructions: administer with a meal Adult Probiotic 3 billion cell capsule 3,000 mmu cells PO DAILY Rx Instructions: administer with a meal cholecalciferol (vitamin D3) 50 mcg (2,000 unit) capsule 50 mcg PO DAILY simvastatin 20 mg tablet 20 mg PO DAILY Qty: 90 3RF famotidine 20 mg tablet 20 mg PO DAILY Qty: 90 2RF Follow-up/Referrals: Jodee Wilkinson MD [Primary Care Provider] -
[2024-03-27 08:16] LABS: Basophils Percent Auto 0.4 % (0.2-1.2); Eosinophils Absolute Auto 0.1 K/mm3 (0-0.3); Eosinophils Percent Auto 1.3 % (0-4.4); Hematocrit 43.4 % (37.0-47.0); Hemoglobin 14.4 g/dL (12.0-15.0); Immature Granulocyte Absolute 0.03 K/mm3 (0.00-0.031); Immature Granulocyte Percent A 0.3 % (0-0.5); Lymphocytes Absolute Auto 2.43 K/mm3 (0.9-3.2); Lymphocytes Percent Auto 23.7 % (18.3-44.2); Mean Corpuscular HGB Conc 33.2 g/dl (32-36); Mean Corpuscular Hemoglobin 29.6 pg (26-34); Mean Corpuscular Volume 89.1 fl (80-100); Mean Platelet Volume 10.3 fl (7.4-10.4); Monocytes Absolute Auto 0.9 K/mm3 (0.1-0.6); Monocytes Percent Auto 8.3 % (2.6-8.5); Neutrophils Absolute Auto 6.8 K/mm3 (1.3-6.7); Platelet Count Result 210 k/mm3 (150-375); Red Blood Count 4.87 M/mm3 (4.2-5.4); Red Cell Distribution Width 12.6 % (11.5-14.5); White Blood Count 10.3 K/mm3 (4.5-10.0)
[2024-03-27 08:24] LABS: Alanine Aminotransferase 17 U/L (6-35); Albumin Level 4.2 g/dL (3.5-5.1); Alkaline Phosphatase 89 U/L (38-126); Anion Gap 7 mmol/L (4-12); Aspartate Amino Transferase 34 U/L (14-36); Bilirubin,Total 0.6 mg/dL (0.2-1.3); Blood Urea Nitrogen 12 mg/dL (7-17); Calcium 9.4 mg/dL (8.4-10.2); Carbon Dioxide 29 mmol/L (22-30); Chloride 103 mmol/L (98-107); Estimated CRCL calculation 66 ml/min; Estimated Glomerular Filt Rate > 60; Glucose 95 mg/dL (65-110); Potassium 4.5 mmol/L (3.4-5.0); Sodium 139 mmol/L (137-145)
[2024-03-27] MEDS: SODIUM CHLORIDE 0.9% IV 1,000 ML 999 ML IV CONT (08:30)
[2024-03-27 08:31] LABS: Add Urine Microscopic? YES; Appearance Urine Cloudy (Clear); Bacteria Urine None Seen /hpf; Bilirubin Urine Negative (Negative); Blood Urine 3+ (Negative); Color Urine Yellow (Yellow); Glucose Urine UA Negative (Negative); Ketones Urine Negative (Negative); Leukocyte Esterase Ur 3+ LEU/UL (Negative); Need Manual Microscopic Reviewed; Nitrate Urine Negative (Negative); Non Pathogenic Casts 0-2; Protein Urine 3+ mg/dL (Negative); Specific Grav Ur 1.006 (1.001-1.035); Squamous Epithelial Cell Urine None Seen /hpf (Few); Urobilinogen Urine 0.2 mg/dL (<2.0); WBC Urine >100 /hpf (0-3); pH Urine 6.5 (5.0-9.0)
[2024-03-27] MEDS: ONDANSETRON INJ 4 MG/2 ML VIAL IV PUSH (08:31)
[2024-03-27] MEDS: HYDROmorphone HCL INJ (*CRX) 1 MG/ML SYR 0.5 MG IV PUSH (08:31)
[2024-03-27 09:04] LABS: Lactic Acid Reflex 1.4 mmol/L (0.7-2.0); Lipase 77 U/L (23-300)
[2024-03-27 09:54] VITALS: BP 138/64; PULSE 66; RESP 16; TEMP 36.6; O2SAT 97
--- NOTE | 2024-03-27 11:27 | P.CONUR_ITS ---
Assessment and Plan Assessment and plan (1) Recurrent UTI: Code(s): N39.0 - Urinary tract infection, site not specified Status: Acute Assessment and Plan: Hx recurrent UTI on self-start Macrobid. Developed diarrhea last week after taking antibiotics for URI. Long history of antibiotic-induced diarrhea. UA suspicious for UTI, likely 2/2 diarrheal episode. Low suspicion for acute pyelonephritis. Urine culture pending IV ceftriaxone. (2) Bilateral hydronephrosis: Code(s): N13.30 - Unspecified hydronephrosis Status: Acute Assessment and Plan: Chronic, stable dating back to 2017. Patient asymptomatic with normal renal function. Cr 0.64, afebrile. Denies retention issues. Plan - No plan for inpatient urologic surgical intervention - Continue culture-directed antibiotics for suspected UTI - Plan to follow-up in office as an outpatient Urology Consult Note HPI Date Seen: 03/27/24 Time Seen: 11:28 Requesting Physician: Dr. Villasenor Primary Care Provider: Juan Wilkinson MD Consult Narrative Reason for consult: UTI, pyelonephritis, bilateral hydronephrosis Narrative: Salma Murray is a 78 year old female admitted 03/27/24 for evaluation and management of UTI. Patient reports worsening left low back pain after shoveling snow at home. Also with mild left lower abdominal tenderness, onset about 3-4 days ago. She was recently treated for a upper respiratory illness with antibiotics, developed diarrhea. She denies fever, nausea, vomiting, dysuria, flank pain, bloody urine. UA suspicious for UTI. CT AP W/WO CON shows bilateral hydronephrosis with stenosis at the level of UVJ, possible worsening on the right compared to previous scan, no stones, no mass, normal bladder. Pertinent labs: WBC 10.3, HGB 14.4, Cr 0.64. UA: 3+ blood, 3+ LE, 6-10 RBC, >100 WBC. Urological history significant for recurrent UTI on self-start Macrobid. Chronic bilateral hydronephrosis, stable since 2017. She was doing well at her last office visit 08/2023. Review of Systems 2 Constitutional: Constitutional: Reports no additional constitutional complaints Eyes: Eyes: Reports no additional eye complaints ENT: Reports Normal hearing present and Reports nasal congestion Cardiovascular: Cardiovascular: Reports no additional cardiovascular complaints Respiratory: Respiratory: Reports no additional respiratory complaints Gastrointestinal: Gastrointestinal: Reports abdominal pain (LLQ mild), Denies constipation, Reports diarrhea, Denies nausea and Denies vomiting Comments: Last week, now resolved Genitourinary: Genitourinary: Reports as per HPI Musculoskeletal: Musculoskeletal: Reports back pain Comments: Left low back Neurologic: Reports system reviewed and no additional complaints, except as documented Psychiatric: Psychiatric: Reports no additional psychiatric complaints [facility] Past Medical History Medical History (Updated 03/27/24 @ 12:12 by Teena Edwards APRN) Lymphedema Hx of cervical cancer (~1996) Cataract UTI (urinary tract infection) Claudication Non-Hodgkin lymphoma HTN (hypertension) (07/25/15) GERD without esophagitis Mixed hyperlipidemia Postmenopausal Surgical History Surgical History H/O total hysterectomy 1996 Hx of section Family History Family History Mother Family history of dementia Father Cancer Social History Social History Social History: Caffeine-occasionally Smoking packs per day: 1 Smoking cigarettes per day: 20.0 Years smoked: 25 Smoking pack-years: 25.00 Smoking status: Former smoker Alcohol intake: current Alcohol use details: socially Substance use: never Substance use type: does not use Lack of Transportation: No Lack of Food: Never True Current Housing: I Have Housing Concerned About Future Housing: No Difficulty Paying Gas/Electric Bills: No Difficulty Paying for Meds: No Currently Unemployed: No Education: High School Diploma/GED Difficulty w/ Childcare or Family Care: No Living arrangements: alone Occupation/Education: retired Gender identity (if verbalized by the patient): Female Agree to blood products: Yes Meds Home Medications and Allergies Home Medications ?Medication ?Instructions ?Recorded ?Confirmed ?Type multivitamin 1 cap PO DAILY 09/05/19 03/06/24 History lactobacillus combination no.8 3 3,000 mmu cells PO DAILY 10/30/19 03/06/24 History billion cell capsule (Adult Probiotic) cholecalciferol (vitamin D3) 50 50 mcg PO DAILY 08/04/20 03/06/24 History mcg (2,000 unit) capsule cranberry 400 mg capsule 400 mg PO BID 12/05/23 03/06/24 History simvastatin 20 mg tablet 20 mg PO DAILY #90 tabs 12/05/23 03/06/24 Rx famotidine 20 mg tablet 20 mg PO DAILY #90 tabs 02/07/24 03/06/24 Rx Allergies Allergy/AdvReac Type Severity Reaction Status Date / Time clarithromycin Allergy Severe RASH,DIARRH Verified 03/27/24 07:40 EA Penicillins Allergy Intermediate hives Verified 03/27/24 07:40 azithromycin Allergy Unknown Diarrhea Verified 03/27/24 07:40 Sulfa (Sulfonamide Allergy Unknown Hives Verified 03/27/24 07:40 Antibiotics) peanut AdvReac Intermediate Abdominal Verified 03/27/24 10:14 Pain Cephalosporins AdvReac Unknown Diarrhea Verified 03/27/24 10:14 ciprofloxacin AdvReac Unknown diarrhea Verified 03/27/24 07:40 Vital Signs Vital Signs - 24 hr 03/27/24 07:35 03/27/24 09:54 Temperature 97.8 F 97.9 F Pulse Rate 95 66 Respiratory Rate 18 16 Blood Pressure 184/73 H 138/64 Pulse Oximetry 99 97 Oxygen Delivery Room Air Exam 2 Const: General: no acute distress HENMT: Face/Nose/Sinus: Normal nares present Eyes: General: appearance normal, both eyes and all related structures Resp: Effort & Inspection: normal respiratory effort Other: Nasal congestion GI: Other: LLQ mildly tender to palpation : Other: Flanks nontender Skin: General skin exam: normal color Neuro: Speech: normal speech Extrem: General: normal to inspection Psych: Speech and movement: Normal speech and movement present Affect: n ormal affect Results Labs 03/27/24 07:47 03/27/24 07:47 Labs: Short CBC 03/27/24 Range/Units 07:47 WBC 10.3 H (4.5-10.0) K/mm3 Hgb 14.4 (12.0-15.0) g/dL Hct 43.4 (37.0-47.0) % Plt Count 210 (150-375) k/mm3 BMP 03/27/24 07:47 Sodium 139 Potassium 4.5 Chloride 103 Carbon Dioxide 29 BUN 12 Creatinine 0.64 L Glucose 95 Calcium 9.4 Liver Function 03/27/24 Range/Units 07:47 Total Bilirubin 0.6 (0.2-1.3) mg/dL AST 34 (14-36) U/L ALT 17 (6-35) U/L Alkaline Phosphatase 89 (38-126) U/L Albumin 4.2 (3.5-5.1) g/dL Urine 03/27/24 Range/Units 07:47 Urine Color Yellow (Yellow) Urine Appearance Cloudy H (Clear) Urine pH 6.5 (5.0-9.0) Ur Specific [place] 1.006 (1.001-1.035) Urine Protein 3+ H (Negative) mg/dL Urine Glucose (UA) Negative (Negative) mg/dL
--- NOTE | 2024-03-27 11:43 | PC.NURSE ---
Pt tolerated Rocephin without any adverse reaction.
[2024-03-27 11:50] VITALS: BP 137/64; PULSE 69; RESP 18; TEMP 36.7; O2SAT 97
--- NOTE | 2024-03-27 12:15 | ADMGEN ---
This patient, Salma Murray, was admitted to [facility] Surg Room 327-01. Patient/family oriented to hospital policies and general routines including ID bracelet, bed and alarms, visiting hours, pain management, procedures, bathroom and other care routines, personal items, smoking policy, room service/diet, and visiting hours. Information on how to activate the Rapid Response Team has been discussed. Patient/Family are encouraged to report perceived risks to care and to ask questions if they do not understand what they are told or what they should do.
[2024-03-27 12:17] VITALS: BMI 21.8
[2024-03-27] MEDS: SODIUM CHLORIDE 0.9% IV 1,000 ML 125 ML IV CONT (12:24)
--- NOTE | 2024-03-27 13:25 | PM.IMHP ---
H&P: HPI History of Present Illness Date/Time: 03/27/24 13:25 Chief Complaint: Left flank pain. Narrative: This is a 78-year-old female with history of of hypertension, hyperlipidemia, gastroesophageal reflux disease, non-Hodgkin lymphoma, and cervical cancer who presented to the emergency department via private vehicle from home for evaluation of left flank pain. The patient provides the following history. She reports a history of recurrent urinary tract infections and states that she typically gets some after completing a course of antibiotics. About a month ago she had a cut on her hand and was on clindamycin and several weeks ago she was on antibiotics for an upper respiratory infection. Not long after that she started to have urinary symptoms including dysuria and discomfort on her left side. She describes an almost burning like pain in the left lower flank, occasionally radiating into the left lower quadrant. At times it can be severe. Tylenol and heating pad provided her with little benefit. She cannot name any significant aggravating factors. Due to ongoing symptoms she came in for evaluation. With further questioning she reports that she has been shoveling over the last 1 week however she does not think it is related to that. It does not feel like muscle pain or spasm to her. She denies fever, chills, sweats, nausea, vomiting, Hematuria, rash, and pruritus. In the ED: She was afebrile on arrival with stable vital signs. CMP and CBC were pretty unremarkable though her WBC count was slightly elevated at 10.3. Lactic acid level was normal. Urinalysis was positive for 3+ protein, 3+ blood, 3+ leukocyte esterase, 6 to 10 RBC, and greater than 100 WBC. No bacteria were seen on microscopy. CT of the abdomen and pelvis showed bilateral hydronephrotic and right ureteral changes (increased from previous examination), anterior abdominal wall hernia with bowel content without definite evidence of obstruction and other incidental findings. She received ceftriaxone 1 g and is being admitted in this setting for further treatment of suspected urinary tract infection and urology consultation given the CT findings. Review of Systems Review of Systems: 12 systems were reviewed and are negative except for as per HPI. 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 Code status: Full code. Smoking packs per day: 1 Smoking cigarettes per day: 20.0 Years smoked: 25 Smoking pack-years: 25.00 Smoking status: Former smoker Alcohol intake: never Alcohol use details: socially Substance use: never Substance use type: does not use Do You Feel Safe in your Home?: Yes Lack of Transportation: No Lack of Food: Never True Current Housing: I Have Housing Concerned About Future Housing: No Difficulty Paying Gas/Electric Bills: No Difficulty Paying for Meds: No Currently Unemployed: No Education: High School Diploma/GED Difficulty w/ Childcare or Family Care: No Living arrangements: alone Occupation/Education: retired Spiritual care concerns: No (islam) Agree to blood products: Yes Meds Home Medications and Allergies Home Medications ?Medication ?Instructions ?Recorded ?Confirmed ?Type multivitamin 1 cap PO DAILY 09/05/19 03/27/24 History lactobacillus combination no.8 3 3,000 mmu cells PO DAILY 10/30/19 03/27/24 History billion cell capsule (Adult Probiotic) cholecalciferol (vitamin D3) 50 50 mcg PO DAILY 08/04/20 03/27/24 History mcg (2,000 unit) capsule cranberry 400 mg capsule 400 mg PO BID 12/05/23 03/27/24 History simvastatin 20 mg tablet 20 mg PO DAILY #90 tabs 12/05/23 03/27/24 Rx famotidine 20 mg tablet 20 mg PO DAILY PRN heartburn 03/27/24 03/27/24 History Allergies Allergy/AdvReac Type Severity Reaction Status Date / Time clarithromycin Allergy Severe RASH,DIARRH Verified 03/27/24 07:40 EA Penicillins Allergy Intermediate hives Verified 03/27/24 07:40 azithromycin Allergy Unknown Diarrhea Verified 03/27/24 07:40 Sulfa (Sulfonamide Allergy Unknown Hives Verified 03/27/24 07:40 Antibiotics) peanut AdvReac Intermediate Abdominal Verified 03/27/24 10:14 Pain Cephalosporins AdvReac Unknown Diarrhea Verified 03/27/24 10:14 ciprofloxacin AdvReac Unknown diarrhea Verified 03/27/24 07:40 Vital Signs Vital Signs - 24 hr 03/27/24 07:35 03/27/24 09:54 03/27/24 11:50 Temperature 97.8 F 97.9 F 98.0 F Pulse Rate 95 66 69 Respiratory Rate 18 16 18 Blood Pressure 184/73 H 138/64 137/64 Pulse Oximetry 99 97 97 Oxygen Delivery Room Air 03/27/24 12:47 Temperature Pulse Rate Respiratory Rate Blood Pressure Pulse Oximetry Oxygen Delivery Room Air Exam Narrative: General: Well-developed female appearing a bit younger than her stated age sitting up in bed in no distress. Weight: 69 kg. BMI: 21.8. HEENT: PERRL, EOMI. Sclera anicteric. Oral mucosa moist. Oropharynx clear. Neck: Supple. Respiratory: Lungs are clear to auscultation bilaterally. Cardiovascular: Regular rate and rhythm with S1-S2. No murmur, rub, or gallop. Gastrointestinal: Abdomen is soft and nondistended with positive bowel sounds. There is a suprapubic incisional hernia which is reducible and not tender to palpation. She has tenderness to deeper palpation in the left lower flank just above the ilium. No tenderness over the piriformis muscle. Skin: Warm and dry. No rash or lesions on limited exam. Extremities: No cyanosis, clubbing, or edema. Radial and pedal pulses intact. Neurological: Alert. Cranial nerves 2-12 are grossly intact. No gross focal deficits to casual conversation. Psychiatric: Pleasant and cooperative with normal mood and affect. Judgment and insight intact. H&P: Results Labs Labs: Short CBC 03/27/24 Range/Units 07:47 WBC 10.3 H (4.5-10.0) K/mm3 Hgb 14.4 (12.0-15.0) g/dL Hct 43.4 (37.0-47.0) % Plt Count 210 (150-375) k/mm3 [facility] 03/27/24 07:47 Sodium 139 Potassium 4.5 Chloride 103 Carbon Dioxide 29 BUN 12 Creatinine 0.64 L Glucose 95 Calcium 9.4 Liver Function 03/27/24 Range/Units 07:47 Total Bilirubin 0.6 (0.2-1.3) mg/dL AST 34 (14-36) U/L ALT 17 (6-35) U/L Alkaline Phosphatase 89 (38-126) U/L Albumin 4.2 (3.5-5.1) g/dL Urine 03/27/24 Range/Units 07:47 Urine Color Yellow (Yellow) Urine Appearance Cloudy H (Clear) Urine pH 6.5 (5.0-9.0) Ur Specific Julian 1.006 (1.001-1.035) Urine Protein 3+ H (Negative) mg/dL Urine Glucose (UA) Negative (Negative) mg/dL Impressions Abdomen/Pelvis CT 03/27/24 09:07 IMPRESSION: 1. Bilateral hydronephrotic and the right ureter changes increased from previous examination. 2. Anterior abdominal wall hernia with small bowel content. No definite evidence of obstruction. Clinical correlation and follow-up advised. 3. Right acetabular Sclerotic lesion unchanged from previous examination. 4. 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 Assessment and Plan Assessment and plan (1) Left sided abdominal pain: Code(s): R10.9 - Unspecified abdominal pain Status: Acute (2) Urinary tract infection: Code(s): N39.0 - Urinary tract infection, site not specified Status: Inactive (3) Bilateral hydronephrosis: Code(s): N13.30 - Unspecified hydronephrosis Status: Acute (4) Abdominal wall hernia: Code(s): K43.9 - Ventral hernia without obstruction or gangrene Status: Acute Plan The patient presented to the emergency department for evaluation of left flank pain as detailed in HPI. Labs, imaging, EKG, and all reports were personally reviewed. Etiology of her pain is not entirely clear however may very well be musculoskeletal as it seems to be more centered over the left hip joint. She was out shoveling over the weekend but is adamant that her pain is not related to muscle pain as it is similar to the pain she experiences with every urinary tract infection. CT scan shows bilateral hydronephrotic changes which are chronic dating back to 2017 and is not likely the cause of her pain. Pyelonephritis seems less likely. Urinalysis is positive for leukocyte esterase and an increased number of WBC per high-power field however no bacteria were seen on microscopy. Continue ceftriaxone for now, pending urine culture. Pain does not seem to be related to abdominal wall hernia. Her home medications will be reviewed and resumed as appropriate. Findings and treatment plan were discussed with the patient. Questions were solicited and answered to satisfaction. The patient's medical management will be taken over by the hospitalist team in a.m. Quality VTE Prophylaxis VTE prophylaxis: pharmacologic ordered The patient has been admitted under observation status. Hospitalist [facility] Advance Care Plan I have confirmed that the patient's Advanced Care Plan is present, code status is documented, or surrogate decision maker is listed in patient medical record.: Yes Medication Reconciliation I have utilized all available resources to obtain, update and review the patients current medications (includes all prescriptions, OTC, herbals, cannabis, and nutritional supplements).: Yes
[2024-03-27] MEDS: ACETAMINOPHEN 325 MG TABLET 650 MG PO (13:36)
[2024-03-27 14:00] VITALS: BP 142/63; PULSE 65; RESP 20; TEMP 37.1; O2SAT 98
[2024-03-27] MEDS: KETOROLAC 15 MG/ML VIAL (*BKC) IV PUSH (15:54)
[2024-03-27 22:00] VITALS: BP 142/64; PULSE 70; RESP 20; TEMP 37.1; O2SAT 97
[2024-03-28 06:00] VITALS: BP 122/56; PULSE 72; RESP 20; TEMP 37.1; O2SAT 96
[2024-03-28 07:14] LABS: Hematocrit 36.7 % (37.0-47.0); Hemoglobin 11.9 g/dL (12.0-15.0); Mean Corpuscular HGB Conc 32.4 g/dl (32-36); Mean Corpuscular Volume 89.3 fl (80-100); Mean Platelet Volume 10.5 fl (7.4-10.4); Platelet Count Result 166 k/mm3 (150-375); Red Blood Count 4.11 M/mm3 (4.2-5.4); Red Cell Distribution Width 12.7 % (11.5-14.5); White Blood Count 8.6 K/mm3 (4.5-10.0)
[2024-03-28 07:28] LABS: Anion Gap 6 mmol/L (4-12); Blood Urea Nitrogen 8 mg/dL (7-17); Calcium 8.4 mg/dL (8.4-10.2); Carbon Dioxide 26 mmol/L (22-30); Chloride 106 mmol/L (98-107); Estimated CRCL calculation 72 ml/min; Estimated Glomerular Filt Rate > 60; Glucose 91 mg/dL (65-110); Potassium 3.7 mmol/L (3.4-5.0); Sodium 138 mmol/L (137-145)
--- NOTE | 2024-03-28 08:48 | P.PNUR_ITS ---
Progress Note: A&P Assessment and Plan (1) Recurrent UTI: Code(s): N39.0 - Urinary tract infection, site not specified Status: Acute Assessment and Plan: UA suspicious for UTI, urine culture pending on IV ceftriaxone (2) Bilateral hydronephrosis: Code(s): N13.30 - Unspecified hydronephrosis Status: Acute Assessment and Plan: Chronic, stable Plan - No plan for inpatient urologic surgical intervention - Continue culture-directed antibiotics for suspected UTI - Plan to follow-up in office as an outpatient --> recommend renal ultrasound for ongoing surveillance of chronic bilateral hydronephrosis - Rest of management per primary team Urology signing off. Please call with questions. Subjective Subjective Date/Time Seen: 03/28/24 08:48 Interval history: NAEO; Patient comfortable on exam, denies complaint. Wants to go home. Afebrile Mild leukocytosis resolved, WBC 8.6 from 10.3 Renal function stable, Cr 0.6 Urine culture pending on IV ceftriaxone Exam Const: General: no acute distress HENMT: Face/Nose/Sinus: Normal nares present Eyes: General: appearance normal, both eyes and all related structures Resp: Effort & Inspection: normal respiratory effort Other: Nasal congestion GI: Other: LLQ mildly tender to palpation : Other: Flanks nontender Skin: General skin exam: normal color Neuro: Speech: normal speech Extrem: General: normal to inspection Psych: Speech and movement: Normal speech and movement present Affect: normal affect Objective Data Vital Signs Vital Signs: Vital Signs - 24 hr 03/27/24 09:54 03/27/24 11:50 03/27/24 12:47 Temperature 97.9 F 98.0 F Pulse Rate 66 69 Respiratory Rate 16 18 Blood Pressure 138/64 137/64 Pulse Oximetry 97 97 Oxygen Delivery Room Air 03/27/24 14:00 03/27/24 20:00 03/27/24 22:00 Temperature 98.7 F 98.8 F Pulse Rate 65 70 Respiratory Rate 20 20 Blood Pressure 142/63 H 142/64 H Pulse Oximetry 98 97 Oxygen Delivery Room Air 03/28/24 06:00 Temperature 98.7 F Pulse Rate 72 Respiratory Rate 20 Blood Pressure 122/56 L Pulse Oximetry 96 Oxygen Delivery Intake/Output Intake/Output: Intake & Output 03/25/24 03/26/24 03/27/2425 23:59 23:59 23:59 23:59 Intake Total 1530 550 Balance 1530 550 Meds/Results Medications: Active Medications Generic Name Dose Route Start Last Admin Trade Name Freq PRN Reason Stop Dose Admin Acetaminophen 650 mg 03/27/24 11:21 03/27/24 13:36 Acetaminophen 325 Mg Tablet PO 650 mg Q4H PRN Administration Mild Pain (1-3) or Fever Enoxaparin Sodium 40 mg 03/28/24 09:00 Enoxaparin 40 Mg/0.4 Ml Syringe SUB-Q DAILY [facility] Famotidine 20 mg 03/27/24 13:26 Famotidine 20 Mg Tablet PO DAILY PRN heartburn Ceftriaxone Sodium 1 gm in 50 mls @ 100 mls/hr 03/27/24 10:05 03/27/24 11:42 Rocephin 1 Gm/Ns 50 Ml IVPB Infused QAM [facility] Infusion Ketorolac Tromethamine 15 mg 03/27/24 22:22 Ketorolac 15 Mg/Ml Vial (*Bkc) IV PUSH Q6H PRN Pain Rated 4-6 Lactobacillus Acidophilus 4 tablet 03/27/24 09:00 03/27/24 14:44 Acidophilus/Bulgaricus Chewable Tablet BY MOUTH Not Given DAILY [facility] Multivitamins Therapeutic 1 tablet 03/28/24 09:00 Multivitamins Therapeutic Tab (*Bkc) PO DAILY [facility] Non-Formulary Medication 1 each 03/27/24 13:40 Nonformulary Nutritional Supplement XX 03/28/24 13:39 PRN PRN PROTOCOL Ondansetron HCl 4 mg 03/27/24 11:21 Ondansetron Inj 4 Mg/2 Ml Vial IV PUSH Q4H PRN Nausea Simvastatin 20 mg 03/28/24 09:00 Simvastatin 20 Mg Tablet PO DAILY [facility] Vitamin D 2,000 units 03/28/24 09:00 Cholecalciferol 1,000 Units Tablet PO DAILY [facility] Radiology Results: ITS Impressions Abdomen/Pelvis CT 03/27/24 09:07 IMPRESSION: 1. Bilateral hydronephrotic and the right ureter changes increased from previous examination. 2. Anterior abdominal wall hernia with small bowel content. No definite evidence of obstruction. Clinical correlation and follow-up advised. 3. Right acetabular Sclerotic lesion unchanged from previous examination. 4. 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 Labs Labs: Laboratory Results - last 24 hr 03/27/24 03/28/24 08:25 06:54 WBC 8.6 RBC 4.11 L Hgb 11.9 L Hct 36.7 L MCV 89.3 MCH 29.0 MCHC 32.4 RDW 12.7 Plt Count 166 MPV 10.5 H Sodium 138 Potassium 3.7 Chloride 106 Carbon Dioxide 26 Anion Gap 6 BUN 8 Creatinine 0.60 L Estim Creat Clear Calc 72 Estimated GFR > 60 Glucose 91 Lactic Acid 1.4 Calcium 8.4 Lipase 77
[2024-03-28] MEDS: SIMVASTATIN 20 MG TABLET PO (09:24)
[2024-03-28] MEDS: ACIDOPHILUS/BULGARICUS CHEWABLE TABLET 4 TABLET BY MOUTH (09:24)
[2024-03-28] MEDS: MULTIVITAMINS THERAPEUTIC TAB (*BKC) 1 TABLET PO (09:24)
[2024-03-28] MEDS: CHOLECALCIFEROL 1,000 UNITS TABLET 2000 UNITS PO (09:24)
[2024-03-28] MEDS: ENOXAPARIN 40 MG/0.4 ML SYRINGE SUB-Q (09:24)
--- NOTE | 2024-03-28 13:53 | P.PNIM_ITS ---
Progress Note: A&P Assessment and Plan (1) Left sided abdominal pain: Code(s): R10.9 - Unspecified abdominal pain Status: Acute (2) Urinary tract infection: Code(s): N39.0 - Urinary tract infection, site not specified Status: Inactive (3) Bilateral hydronephrosis: Code(s): N13.30 - Unspecified hydronephrosis Status: Acute (4) Abdominal wall hernia: Code(s): K43.9 - Ventral hernia without obstruction or gangrene Status: Acute Plan The patient presented to the emergency department for evaluation of left flank pain UTI CT scan shows bilateral hydronephrotic changes which are chronic dating back to 2017 and is not likely the cause of her pain. Urinalysis is positive for leukocyte esterase and an increased number of WBC per high-power field however no bacteria were seen on microscopy. Pyelonephritis seems possible. Continue ceftriaxone for now, pending urine culture. Appreciate urologist consultation, no surgical intervention now Subjective Date/time seen: 03/28/24 13:53 Interval history: Patient is afebrile blood pressure stable, urine culture pending. Leukocytosis resolved, hemoglobin 9.9, possible due to dehydration. Patient feels better, denies abdomen pain nausea vomiting diarrhea or back pain Exam Narrative: GENERAL: Pleasant, in no acute distress. Well-nourished. - EYES: EOMI. Anicteric. - HENT: Moist mucous membranes. - LUNGS: Clear to auscultation bilateral ly, no wheezing, rhonchi, or rales. - CARDIOVASCULAR: Regular rate and rhyth m. No murmur. No JVD. - ABDOMEN: Soft, bilateral back tenderne ss non-tender and non-distended. No palpable masses. - EXTREMITIES: No edema. Peripheral puls es 2+. Non-tender. - NEUROLOGIC: No focal neurological defi cits. CN II-XII grossly intact. - PSYCHIATRIC: Awake, Alert and oriented x 3. Appropriate mood and affect. - SKIN: No rashes or lesions. Warm. - LYMPH: No cervical lymphadenopathy. Objective Data Vital Signs Vital Signs: Vital Signs - 24 hr 03/27/24 14:00 03/27/24 20:00 03/27/24 22:00 Temperature 98.7 F 98.8 F Pulse Rate 65 70 Respiratory Rate 20 20 Blood Pressure 142/63 H 142/64 H Pulse Oximetry 98 97 Oxygen Delivery Room Air 03/28/24 06:00 Temperature 98.7 F Pulse Rate 72 Respiratory Rate 20 Blood Pressure 122/56 L Pulse Oximetry 96 Oxygen Delivery Intake/Output Intake/Output: Intake & Output 03/25/24 03/26/24 03/27/24 03/28/24 23:59 23:59 23:59 23:59 Intake Total 1530 790 Balance 1530 790 Meds/Results Medications: Active Medications Generic Name Dose Route Start Last Admin Trade Name Freq PRN Reason Stop Dose Admin Acetaminophen 650 mg 03/27/24 11:21 03/27/24 13:36 Acetaminophen 325 Mg Tablet PO 650 mg Q4H PRN Administration Mild Pain (1-3) or Fever Enoxaparin Sodium 40 mg 03/28/24 09:00 03/28/24 09:24 Enoxaparin 40 Mg/0.4 Ml Syringe SUB-Q 40 mg DAILY [facility] Administration Famotidine 20 mg 03/27/24 13:26 Famotidine 20 Mg Tablet PO DAILY PRN heartburn Ceftriaxone Sodium 1 gm in 50 mls @ 100 mls/hr 03/27/24 10:05 03/28/24 09:23 Rocephin 1 Gm/Ns 50 Ml IVPB 100 mls/hr QAM [facility] Administration Ketorolac Tromethamine 15 mg 03/27/24 22:22 Ketorolac 15 Mg/Ml Vial (*Bkc) IV PUSH Q6H PRN Pain Rated 4-6 Lactobacillus Acidophilus 4 tablet 03/27/24 09:00 03/28/24 09:24 Acidophilus/Bulgaricus Chewable Tablet BY MOUTH 4 tablet DAILY [facility] Administration Multivitamins Therapeutic 1 tablet 03/28/24 09:00 03/28/24 09:24 Multivitamins Therapeutic Tab (*Bkc) PO 1 tablet DAILY [facility] Administration Non-Formulary Medication 1 each 03/27/24 13:40 Nonformulary Nutritional Supplement XX 03/28/24 13:39 PRN PRN PROTOCOL Ondansetron HCl 4 mg 03/27/24 11:21 Ondansetron Inj 4 Mg/2 Ml Vial IV PUSH Q4H PRN Nausea Simvastatin 20 mg 03/28/24 09:00 03/28/24 09:24 Simvastatin 20 Mg Tablet PO 20 mg DAILY [facility] Administration Vitamin D 2,000 units 03/28/24 09:00 03/28/24 09:24 Cholecalciferol 1,000 Units Tablet PO 2,000 units DAILY [facility] Administration Radiology Results: ITS Impressions Abdomen/Pelvis CT 03/27/24 09:07 IMPRESSION: 1. Bilateral hydronephrotic and the right ureter changes increased from previous examination. 2. Anterior abdominal wall hernia with small bowel content. No definite evidence of obstruction. Clinical correlation and follow-up advised. 3. Right acetabular Sclerotic lesion unchanged from previous examination. 4. 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 Labs Labs: Laboratory Results - last 24 hr 03/28/24 06:54 WBC 8.6 RBC 4.11 L Hgb 11.9 L Hct 36.7 L MCV 89.3 MCH 29.0 MCHC 32.4 RDW 12.7 Plt Count 166 MPV 10.5 H Sodium 138 Potassium 3.7 Chloride 106 Carbon Dioxide 26 Anion Gap 6 BUN 8 Creatinine 0.60 L Estim Creat Clear Calc 72 Estimated GFR > 60 Glucose 91 Calcium 8.4
[2024-03-28 14:00] VITALS: BP 138/58; PULSE 72; RESP 18; TEMP 36.9; O2SAT 98
[2024-03-28 22:00] VITALS: BP 162/59; PULSE 71; RESP 20; TEMP 37.1; O2SAT 98
[2024-03-29 06:00] VITALS: BP 136/62; PULSE 71; RESP 20; TEMP 36.8; O2SAT 96
[2024-03-29] MEDS: MULTIVITAMINS THERAPEUTIC TAB (*BKC) 1 TABLET PO (08:00)
[2024-03-29] MEDS: CHOLECALCIFEROL 1,000 UNITS TABLET 2000 UNITS PO (08:00)
[2024-03-29] MEDS: SIMVASTATIN 20 MG TABLET PO (08:00)
[2024-03-29] MEDS: ACIDOPHILUS/BULGARICUS CHEWABLE TABLET 4 TABLET BY MOUTH (08:01)
--- NOTE | 2024-03-29 09:51 | P.PNIM_ITS ---
Progress Note: A&P Assessment and Plan (1) Left sided abdominal pain: Code(s): R10.9 - Unspecified abdominal pain Status: Acute (2) Urinary tract infection: Code(s): N39.0 - Urinary tract infection, site not specified Status: Inactive (3) Bilateral hydronephrosis: Code(s): N13.30 - Unspecified hydronephrosis Status: Acute (4) Abdominal wall hernia: Code(s): K43.9 - Ventral hernia without obstruction or gangrene Status: Acute Plan The patient presented to the emergency department for evaluation of left flank pain UTI CT scan shows bilateral hydronephrotic changes which are chronic dating back to 2017 and is not likely the cause of her pain. Urinalysis is positive for leukocyte esterase and an increased number of WBC per high-power field however no bacteria were seen on microscopy. Pyelonephritis seems possible. Continue ceftriaxone for now, no better grows in urine culture. Appreciate urologist consultation, no surgical intervention now Changed to cefdinir p.o. Subjective Date/time seen: 03/29/24 09:51 Interval history: Patient is afebrile blood pressure stable, urine culture pending. Leukocytosis resolved, hemoglobin 9.9, possible due to dehydration. Patient feels better, denies abdomen pain nausea vomiting diarrhea or back pain urine culture has no growth Exam Narrative: GENERAL: Pleasant, in no acute distress. Well-nourished. - EYES: EOMI. Anicteric. - HENT: Moist mucous membranes. - LUNGS: Clear to auscultation bilateral ly, no wheezing, rhonchi, or rales. - CARDIOVASCULAR: Regular rate and rhyth m. No murmur. No JVD. - ABDOMEN: Soft, non-tender and non-dist ended. No palpable masses. - EXTREMITIES: No edema. Peripheral puls es 2+. Non-tender. - NEUROLOGIC: No focal neurological defi cits. CN II-XII grossly intact. - PSYCHIATRIC: Awake, Alert and oriented x 3. Appropriate mood and affect. - SKIN: No rashes or lesions. Warm. - LYMPH: No cervical lymphadenopathy. Objective Data Vital Signs Vital Signs: Vital Signs - 24 hr 03/28/24 14:00 03/28/24 20:00 03/28/24 22:00 Temperature 98.4 F 98.8 F Pulse Rate 72 71 Respiratory Rate 18 20 Blood Pressure 138/58 L 162/59 H Pulse Oximetry 98 98 Oxygen Delivery Room Air 03/29/24 06:00 03/29/24 07:55 Temperature 98.3 F Pulse Rate 71 Respiratory Rate 20 Blood Pressure 136/62 Pulse Oximetry 96 Oxygen Delivery Room Air Intake/Output Intake/Output: Intake & Output 03/26/24 03/27/24 03/28/24 03/29/24 23:59 23:59 23:59 23:59 Intake Total 1530 1320 1380 Balance 1530 1320 1380 Meds/Results Medications: Active Medications Generic Name Dose Route Start Last Admin Trade Name Freq PRN Reason Stop Dose Admin Acetaminophen 650 mg 03/27/24 11:21 03/27/24 13:36 Acetaminophen 325 Mg Tablet PO 650 mg Q4H PRN Administration Mild Pain (1-3) or Fever Enoxaparin Sodium 40 mg 03/28/24 09:00 03/29/24 08:03 Enoxaparin 40 Mg/0.4 Ml Syringe SUB-Q Not Given DAILY [facility] Famotidine 20 mg 03/27/24 13:26 Famotidine 20 Mg Tablet PO DAILY PRN heartburn Ceftriaxone Sodium 1 gm in 50 mls @ 100 mls/hr 03/27/24 10:05 03/29/24 08:02 Rocephin 1 Gm/Ns 50 Ml IVPB 100 mls/hr QAM ANDRE Administration Ketorolac Tromethamine 15 mg 03/27/24 22:22 Ketorolac 15 Mg/Ml Vial (*Bkc) IV PUSH Q6H PRN Pain Rated 4-6 Lactobacillus Acidophilus 4 tablet 03/27/24 09:00 03/29/24 08:01 Acidophilus/Bulgaricus Chewable Tablet BY MOUTH 4 tablet DAILY ANDRE Administration Multivitamins Therapeutic 1 tablet 03/28/24 09:00 03/29/24 08:00 Multivitamins Therapeutic Tab (*Bkc) PO 1 tablet DAILY ANDRE Administration Ondansetron HCl 4 mg 03/27/24 11:21 Ondansetron Inj 4 Mg/2 Ml Vial IV PUSH Q4H PRN Nausea Simvastatin 20 mg 03/28/24 09:00 03/29/24 08:00 Simvastatin 20 Mg Tablet PO 20 mg DAILY ANDRE Administration Vitamin D 2,000 units 03/28/24 09:00 03/29/24 08:00 Cholecalciferol 1,000 Units Tablet PO 2,000 units DAILY ANDRE Administration Radiology Results: ITS Impressions Abdomen/Pelvis CT 03/27/24 09:07 IMPRESSION: 1. Bilateral hydronephrotic and the right ureter changes increased from previous examination. 2. Anterior abdominal wall hernia with small bowel content. No definite evidence of obstruction. Clinical correlation and follow-up advised. 3. Right acetabular Sclerotic lesion unchanged from previous examination. 4. 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 Labs Labs: Laboratory Results - last 24 hr 03/28/24 06:54 TSH (Reflex) 1.070
--- NOTE | 2024-03-29 09:55 | P.DS_ITS ---
DS: Admitting Diagnosis Discharge Date 03/29/24 Admitting Diagnosis (1) Left sided abdominal pain: Code(s): R10.9 - Unspecified abdominal pain Status: Acute (2) Urinary tract infection: Code(s): N39.0 - Urinary tract infection, site not specified Status: Inactive (3) Bilateral hydronephrosis: Code(s): N13.30 - Unspecified hydronephrosis Status: Acute (4) Abdominal wall hernia: Code(s): K43.9 - Ventral hernia without obstruction or gangrene Status: Acute DS: Discharge Diagnosis Discharge Diagnosis (1) Left sided abdominal pain: Code(s): R10.9 - Unspecified abdominal pain Status: Acute (2) Urinary tract infection: Code(s): N39.0 - Urinary tract infection, site not specified Status: Inactive (3) Bilateral hydronephrosis: Code(s): N13.30 - Unspecified hydronephrosis Status: Acute (4) Abdominal wall hernia: Code(s): K43.9 - Ventral hernia without obstruction or gangrene Status: Acute DS: Summary Hospital Course Hospital Course: The patient presented to the emergency department for evaluation of left flank pain.In the ED: She was afebrile on arrival with stable vital signs. CMP and CBC were pretty unremarkable though her WBC count was slightly elevated at 10.3. Lactic acid level was normal. Urinalysis was positive for 3+ protein, 3+ blood, 3+ leukocyte esterase, 6 to 10 RBC, and greater than 100 WBC. No bacteria were seen on microscopy. CT of the abdomen and pelvis showed bilateral hydronephrotic and right ureteral changes (increased from previous examination), anterior abdominal wall hernia with bowel content without definite evidence of obstruction and other incidental findings. She received ceftriaxone 1 g and is being admitted in this setting for further treatment of suspected urinary tract infection and urology consultation given the CT findings. The following med issues have been addressed during hospitalization UTI CT scan shows bilateral hydronephrotic changes which are chronic dating back to 2017 and is not likely the cause of her pain. Urinalysis is positive for leukocyte esterase and an increased number of WBC per high-power field however no bacteria were seen on microscopy. Pyelonephritis seems possible. Continue ceftriaxone for now, no better grows in urine culture. Appreciate urologist consultation, no surgical intervention now Changed to cefdinir p.o. Time Spent with Patient Time attestation: Total time spent providing and/or coordinating discharge services: Exam Narrative: GENERAL: Pleasant, in no acute distress. Well-nourished. - EYES: EOMI. Anicteric. - HENT: Moist mucous membranes. - LUNGS: Clear to auscultation bilateral ly, no wheezing, rhonchi, or rales. - CARDIOVASCULAR: Regular rate and rhyth m. No murmur. No JVD. - ABDOMEN: Soft, non-tender and non-dist ended. No palpable masses. - EXTREMITIES: No edema. Peripheral puls es 2+. Non-tender. - NEUROLOGIC: No focal neurological defi cits. CN II-XII grossly intact. - PSYCHIATRIC: Awake, Alert and oriented x 3. Appropriate mood and affect. - SKIN: No rashes or lesions. Warm. - LYMPH: No cervical lymphadenopathy. DS: Data Data Completed and Pending Labs on day of discharge: Labs from last 24 hours 03/28/24 06:54 TSH (Reflex) 1.070 Discharge Plan Discharge Attending physician on discharge: Tommy Xiao Consulting providers: Yovani Reina Discharging Clinician: Tommy Xiao Anticipated Discharge Date/Time: 03/29/24 10:56 Patient Disposition: Home, Self-Care Activity: as tolerated Diet: as tolerated and heart healthy Patient Instructions: Antibiotic Form Patient Language: Maori Stand Alone Forms: General Discharge Information Follow-up/Referrals: Jessica,JORDY Elkins [Non-Staff] - Call for Appointment (Hospital follow-up visit in 3-4 weeks.) Discharge Medications: New cefdinir 300 mg capsule 300 mg PO Q12H Qty: 8 0RF Continued multivitamin Capsule 1 cap PO DAILY cranberry 400 mg capsule 400 mg PO BID Rx Instructions: administer with a meal Adult Probiotic 3 billion cell capsule 3,000 mmu cells PO DAILY Rx Instructions: administer with a meal cholecalciferol (vitamin D3) 50 mcg (2,000 unit) capsule 50 mcg PO DAILY simvastatin 20 mg tablet 20 mg PO DAILY Qty: 90 3RF famotidine 20 mg tablet 20 mg PO DAILY PRN (Reason: heartburn) Date of admission: 03/28/24 10:49 Primary Care Provider: Jodee Wilkinson Admitting Provider: Trell Gray Attending physician on admission: Tommy Xiao Condition: Stable
--- OUTSIDE RECORDS SUMMARY | 2024-04-03 14:17 | XMS_ITS | Referral Summary ---
Author Organization [facility] Address [address] [place] [address] Phone Care Team Providers Care Gas Reverser Name Role Phone Juan Wilkinson MD Primary Care Provider Encounters Date Type Department Care Team Description 01/30/2024 Telephone [facility] Oncology [address] [place] [address] [address] [place] [address] Jonna Hanna, FROILAN 01/27/2024 Telephone [facility] Oncology [address] [place] [address] [address] [place] [address] Nicol Howe NP 01/24/2024 11:30 AM TELEPHONE APPOINTMENT CLERK Office Visit [facility] Oncology [address] [place] [phone] Nicol Howe NP History of follicular lymphoma (Primary Dx); Vitamin D deficiency; Follicular non-Hodgkin's lymphoma (HCC); Need for prophylactic vaccination and inoculation against influenza 01/24/2024 11:15 AM TELEPHONE APPOINTMENT CLERK Lab [facility] at [address] [address] History of follicular lymphoma; Vitamin D deficiency from Last 3 Months Allergies Active Allergy Reactions Criticality Noted Date Comments Penicillins Hives,Palpitations Medium Medications omeprazole (PriLOSEC) 20 mg capsule Take 1 capsule (20 mg total) by mouth daily 01/21/2022 Active simvastatin (ZOCOR) 20 mg tablet Take 1 tablet (20 mg total) by mouth daily 12/03/2021 Active Active Problems Problem Noted Date Diagnosed Date History of follicular lymphoma 01/23/2018 Immunizations Name Administration Dates Next Due Influenza, Quadrivalent, Jennifer l Culture-based MDCK, Preservative Free, Antibiotic Free, Intramuscular 01/25/2023,02/01/2022,01/30/2021,01/31,02/02/2019,01/25/2018 Influenza, Trivalent, Cell Culture-based MDCK, Preservative Free, Antibiotic Free, Intramuscular 01/24/2024 Influenza, Unspecified 01/25/2017 Social History Tobacco Use Types Packs/Day Years Used Date Smoking Tobacco: Former Cigarettes Q uit: 2013 Smokeless Tobacco: Never Alcohol Use Standard Drinks/Week Comments No 0 (1 standard drink = 0.6 oz pur e alcohol) AUDIT-C Answer Date Recorded Q1: How often do you have a drink containing alc ohol? Monthly or less 02/01/2022 Q2: How many drinks containi ng alcohol do you have on a typical day when you are drinking? 1 or 2 02/01/2022 Frequency of Binge Drinking Not on file 01/13 Comments Unknown Sex and Gender Information Value Date Recorded Sex Assigned at Not on file Legal Sex Female 12:30 AM TELEPHONE APPOINTMENT CLERK Gender Identity Not on file Sexual Orientation Not on file Last Filed Vital Signs Vital Sign Reading Time Taken Comments Blood Pressure 137/71 01/24/2024 11:40 AM TELEPHONE APPOINTMENT CLERK Pulse 68 01/24/2024 11:40 AM TELEPHONE APPOINTMENT CLERK Temperature 36.4 ??C (97.5 ??F) 01/24/2024 11:[address] Respiratory Rate 16 01/24/2024 11:40 AM TELEPHONE APPOINTMENT CLERK Oxygen Saturation 98% 01/24/2024 11:40 AM TELEPHONE APPOINTMENT CLERK Inhaled Oxygen Concentration - - Weight 68.1 kg (150 lb 3.2 oz) 01/24/2024 11:40 AM TELEPHONE APPOINTMENT CLERK Height 177.8 cm (5' 10 ) 01/25/2023 1:48 PM TELEPHONE APPOINTMENT CLERK Body Mass Index 21.55 01/25/2023 1:48 PM TELEPHONE APPOINTMENT CLERK Plan of Treatment Not on file Procedures Procedure Name Priority Date/Time Associated Diagnosis Comments EGFR Routine 01/24/2024 11:31 AM TELEPHONE APPOINTMENT CLERK History of follicular lymphoma DIFFERENTIAL AUTO Routine 01/24/2024 11: 31 AM TELEPHONE APPOINTMENT CLERK History of follicular lymphoma CBC WITH AUTO DIFFERENTIAL Routine 01/24/2024 11:31 AM TELEPHONE APPOINTMENT CLERK History of follicular lymphoma COMPREHENSIVE METABOLIC PANEL Routine 01/24/2024 11:31 AM TELEPHONE APPOINTMENT CLERK History of follicular lymphoma VITAMIN D 25 HYDROXY Routine 01/24/2024 11:31 AM TELEPHONE APPOINTMENT CLERK History of follicular lymphoma Vitamin D deficiency from Last 3 Months Results * eGFR (01/24/2024 11:31 AM TELEPHONE APPOINTMENT CLERK) eGFR >90 >=60 mL/min/1. 73 m2 Comment: Interpretive Data Reference Interval Normal ?>/= 90 mL/min/1.73m2 Mildly decreased* ? 60 - 89 mL/min/1.73m2 Mildly to moderately decreased ?45 - 59 mL/min/1.73m2 Moderately to severely decreased ??30 - 44 mL/min/1.73m2 Severely decreased ?15 - 29 mL/min/1.73m2 Kidney Failure ?< 15 ??mL/min/1.73m2 *Relative to young adult level Estimated glomerular filtration rate is determined by the 2020 CKD-EPI equation recommended by the National Kidney Foundation (A Unifying Approach to GFR Estimation: Recommendations of the NKF-ASK Task Force on Reassessing the Inclusion of Race in Diagnosing Kidney Disease, JASN 202). The CKD-EPI equation should not be used for patients with unstable renal function and has not been validated in children and those over 70. Current interpretive data was last reviewed 2021. Testing performed by: [facility], [address] [place] [address]., [address] Blood 01/24/2024 11:3 1 AM TELEPHONE APPOINTMENT CLERK 01/24/2024 11:33 AM TELEPHONE APPOINTMENT CLERK Nicol Howe NP LAB BLOOD ORDERABLES Final Result [facility] [address] [place] [address] * Differential, auto (01/24/2024 11:31 AM TELEPHONE APPOINTMENT CLERK) Neutrophil abs 3.6 1.5 - 6.5 K/cumm Comment:Testing performed by : [address] [address] Imm gran abs 0.0 0.0 - 0.1 K/cumm [place] Comment:Testing performed by : [address] [address] Lymphocyte abs 3.2 0.8 - 3.3 K/cumm [place] Comment:Testing performed by : [address] [address] Monocyte abs 0.6 0.2 - 0.8 K/cumm [place] Comment:Testing performed by : [address] [address] Eosinophil abs 0.2 0.0 - 0.5 K/cumm [place] Comment:Testing performed by : [address] [address] Basophil abs 0.1 0.0 - 0.1 K/cumm [place] Comment:Testing performed by : [address] [address] Neutrophil pct 47.2 % [facility] Comment: Interpretive Data Percent cell count reference ranges are not reported, since discordance with absolute values may lead to misinterpretation of CBC data. Current Interpretive Data was last revised on 2017. Testing performed by: [address] [address] Imm gran pct 0.3 % [facility] Comment: Interpretive Data Percent cell count reference ranges are not reported, since discordance with absolute values may lead to misinterpretation of CBC data. Current Interpretive Data was last revised on 2017. Testing performed by: [address] [address] Lymphocyte pct 41.6 % [facility] Comment: Interpretive Data Percent cell count reference ranges are not reported, since discordance with absolute values may lead to misinterpretation of CBC data. Current Interpretive Data was last revised on 2017. Testing performed by: [address] [address] Monocyte pct 8.0 % [facility] Comment: Interpretive Data Percent cell count reference ranges are not reported, since discordance with absolute values may lead to misinterpretation of CBC data. Current Interpretive Data was last revised on 2017. Testing performed by: [address] [address] Eosinophil pct 2.2 % [facility] Comment: Interpretive Data Percent cell count reference ranges are not reported, since discordance with absolute values may lead to misinterpretation of CBC data. Current Interpretive Data was last revised on 2017. Testing performed by: [address] [address] Basophil pct 0.7 % [facility] Comment: Interpretive Data Percent cell count reference ranges are not reported, since discordance with absolute values may lead to misinterpretation of CBC data. Current Interpretive Data was last revised on 2017. Testing performed by: [address] [address] Blood 01/24/2024 11:3 1 AM TELEPHONE APPOINTMENT CLERK 01/24/2024 11:33 AM TELEPHONE APPOINTMENT CLERK us Nicol Howe LEAVE MANAGER LAB BLOOD ORDERABLES Final Result [facility] [address] [place] [address] * CBC with auto differential (01/24/2024 11:31 AM TELEPHONE APPOINTMENT CLERK) WBC 7.6 3.8 - 9.9 K/cumm Comment:Testing performed by : [address] [place]., [address] Hgb 14.0 11.9 - 15.5 g/dL [place] Comment:Testing performed by : [address], [address] Hct 40.2 35.6 - 45.5 % [place] Comment:Testing performed by : [address] [address] Plt 217 150 - 400 K/cumm [place] Comment:Testing performed by : [address], [address] MPV 10.5 9.1 - 12.3 fL [place] Comment:Testing performed by : [address], [address] RBC 4.68 3.90 - 5.20 M/cumm [place] Comment:Testing performed by : [address], [address] MCV 85.9 81.3 - 96.4 fL [place] Comment:Testing performed by : [address], [address] MCH 29.9 27.1 - 33.3 pg [place] Comment:Testing performed by : [address] [address] MCHC 34.8 32.3 - 35.7 g/dL [place] Comment:Testing performed by : [address], [address] RDW CV 13.0 11.1 - 14.9 % [place] Comment:Testing performed by : [address], [address] RDW SD 40.1 35.7 - 48.1 fL [place] Comment:Testing performed by : [address], [address] NRBC abs 0.00 0.00 - 0.01 K/cumm [place] Comment:Testing performed by : [address], [address] Blood 01/24/2024 11:3 1 AM TELEPHONE APPOINTMENT CLERK 01/24/2024 11:33 AM TELEPHONE APPOINTMENT CLERK Nicol Howe LEAVE MANAGER LAB BLOOD ORDERABLES Final Result Performing Organization Address City/[facility]/ZIP Co de Phone Number [facility] [address] [address] * Vitamin D 25 hydroxy (01/24/2024 11:31 AM TELEPHONE APPOINTMENT CLERK) Pathologist [facility] Vitamin D 25-OH 35.0 30.0 - 80.0 ng/mL Blood 01/24/2024 11:3 1 AM TELEPHONE APPOINTMENT CLERK 01/24/2024 4:41 PM TELEPHONE APPOINTMENT CLERK Nicol Howe LEAVE MANAGER LAB BLOOD ORDERABLES Final Result Performing Organization Address [facility] de Phone Number [place] [address] [address] * (ABNORMAL) Comprehensive metabolic panel (01/24/2024 11:31 AM TELEPHONE APPOINTMENT CLERK) [facility] Sodium 141 135 - 145 mmol/L Comment:Testing performed by : [address] [address] Potassium, pl 4.0 3.3 - 4.9 mmol/L [place] Comment:Testing performed by : [address] [address] Chloride 104 97 - 110 mmol/L [place] Comment:Testing performed by : [address] [address] CO2 26 22 - 32 mmol/L [place] Comment:Testing performed by : [address] [address] Anion gap 11 2 - 15 mmol/L [place] Comment:Testing performed by : [address] [address] BUN 13 6 - 25 mg/dL [place] Comment:Testing performed by : [address] [address] Creatinine 0.60 0.60 - 1.10 mg/dL [place] Comment:Testing performed by : [address] [place] [address] Glucose 91 70 - 199 mg/dL [place] Comment: Interpretive Data Fasting glucose >/= 126 mg/dl is diagnostic for diabetes. ?? Fasting is defined as no caloric intake for at least 8 hours. Fasting glucose between 100 mg/dl to 125 mg/dl is diagnostic of prediabetes. In a patient with classic symptoms of hyperglycemia or hyperglycemic crisis, a random glucose >/= 200 mg/dl is diagnostic for diabetes. In the absence of unequivocal hyperglycemia, results should be confirmed by repeat testing. The classification and Diagnosis of Diabetes Diabetes Care 2021; 46: S19-S40. Current interpretive data was last revised 2022. Testing performed by: [address] [address] Calcium 9.4 8.5 - 10.3 mg/dL [place] Comment:Testing performed by : [address] [address] Bilirubin, total 0.4 0.1 - 1.2 mg/dL [place] Comment:Testing performed by : [address] [address] Protein, pl 6.3(L) 6.5 - 8.5 g/dL [place] Comment:Testing performed by : [address] [address] Albumin 4.2 3.5 - 5.0 g/dL [place] Comment:Testing performed by : [address] [address] Alk phos 81 40 - 130 Units/L [place] Comment:Testing performed by : [address] [address] ALT 14 7 - 45 Units/L [place] Comment:Testing performed by : [address] [address] AST 23 10 - 45 Units/L [place] Comment:Testing performed by : [address] [address] Blood 01/24/2024 11:3 1 AM TELEPHONE APPOINTMENT CLERK 01/24/2024 11:33 AM TELEPHONE APPOINTMENT CLERK us Nicol Howe LEAVE MANAGER LAB BLOOD ORDERABLES Final Result Performing Organization Address City/State/ZIP Co il Phone Number [facility] [address] [place] [address] from Last 3 Months Insurance [employer] SENIOR SU[employer]LEMENT MEDICARE [employer] S[employer]IOR [employer]MENT Care Teams Gas Reverser Relationship Specialty Start Date End Date Juan Wilkinson MD PCP - General Family Practice 02/01/20
--- OUTSIDE RECORDS SUMMARY | 2024-04-03 14:17 | XMS_ITS | Encounter Summary ---
Author Organization [facility] Address [address] [place] [address] Phone Care Team Providers Care Lead Ramp Service Man Name Role Phone Juan Wilkinson MD Primary Care Provider Encounter Details Date Type Department Care Team (Late st Contact Info) Description 01/30/2024 Telephone [facility] Oncology [facility] [facility] [address] [place] [phone] Jonna Hanna, FROILAN Social History Tobacco Use Types Packs/Day Years [...] on file Legal Sex Female 12:30 AM ELECTRONIC ASSEMBLER Gender Identity Not on file Sexual Orientation Not on file documented as of this encounter Miscellaneous Notes * Telephone Encounter - Jonna Hanna RN - 01/30/2024 1:43 PM ELECTRONIC ASSEMBLER Pt notified to increase Vit D dose 50mcg or 2000iu daily, verb understanding. TRONIC ASSEMBLER documented in this encounter Plan of Treatment Not on file documented as of this encounter Visit Diagnoses Not on filedocumented in this encounter Care Teams Lead Ramp Service Man Relationship Specialty Start Date End Date Juan Wilkinson MD PCP - General Family Practice 02/01/20 documented as of this encounter
--- OUTSIDE RECORDS SUMMARY | 2024-04-03 14:17 | XMS_ITS | Encounter Summary ---
Author Organization [facility] Healthcare Address [address] [place] [address] Care Team Providers Care Nougat Candy Maker Helper Name Role Phone Juan Wilkinson MD Primary Care Provider Encounter Details Date Type Department Care Team (Late st Contact Info) Description 01/24/2024 11:15 AM GERMAN TUTOR Lab [facility] at [address] [address] History of follicular lymphoma; Vitamin D deficiency Social History Tobacco Use Types Packs/Day Years [...] on file Legal Sex Female 12:30 AM GERMAN TUTOR Gender Identity Not on file Sexual Orientation Not on file documented as of this encounter Plan of Treatment Not on file documented as of this encounter Procedures Procedure Name Priority Date/Time Associated Diagnosis Comments EGFR Routine 01/24/2024 11:31 AM GERMAN TUTOR History of follicular lymphoma DIFFERENTIAL AUTO Routine 01/24/2024 11: 31 AM GERMAN TUTOR History of follicular lymphoma CBC WITH AUTO DIFFERENTIAL Routine 01/24/2024 11:31 AM GERMAN TUTOR History of follicular lymphoma VITAMIN D 25 HYDROXY Routine 01/24/2024 11:31 AM GERMAN TUTOR History of follicular lymphoma Vitamin D deficiency COMPREHENSIVE METABOLIC PANEL Routine 01/24/2024 11:31 AM GERMAN TUTOR History of follicular lymphoma documented in this encounter Results * eGFR (01/24/2024 11:31 AM GERMAN TUTOR) eGFR >90 >=60 mL/min/1. 73 m2 Comment: [...] of Race in Diagnosing Kidney Disease, JASN 2020). The CKD-EPI equation should not be used for patients with unstable renal function and has not been validated in children and those over 70. Current interpretive data was last reviewed 2021. Testing performed by: [facility], [address] [place] [address], [place]., [address] Blood 01/24/2024 11:3 1 AM GERMAN TUTOR 01/24/2024 11:33 AM GERMAN TUTOR us Nicol Howe NP LAB BLOOD ORDERABLES Final Result [facility] [address] [facility] Department [place] [address] * Differential, auto (01/24/2024 11:31 AM GERMAN TUTOR) Neutrophil abs 3.6 1.5 - 6.5 K/cumm Comment:Testing performed by : [address] [address] Imm gran abs 0.0 0.0 - 0.1 K/cumm [place] Comment:Testing performed by : [address] [address] Lymphocyte abs 3.2 0.8 - 3.3 K/cumm [place] Comment:Testing performed by : [address] [address] Monocyte abs 0.6 0.2 - 0.8 K/cumm [place] Comment:Testing performed by : [address] [address] Eosinophil abs 0.2 0.0 - 0.5 K/cumm [facility] Comment:Testing performed by : [address] [address] Basophil abs 0.1 0.0 - 0.1 K/cumm [facility] Comment:Testing performed by : [address] [address] Neutrophil pct 47.2 % [facility] Comment: Interpretive Data Percent cell count reference ranges are not reported, since discordance with absolute values may lead to misinterpretation of CBC data. Current Interpretive Data was last revised on 2017. Testing performed by: [address] [address] Imm gran pct 0.3 % [facility] Comment: Interpretive Data Percent cell count reference ranges are not reported, since discordance with absolute values may lead to misinterpretation of CBC data. Current Interpretive Data was last revised on 2017. Testing performed by: [address] [address] Lymphocyte pct 41.6 % [facility] Comment: Interpretive Data Percent cell count reference ranges are not reported, since discordance with absolute values may lead to misinterpretation of CBC data. Current Interpretive Data was last revised on 2017. Testing performed by: [address] [address] Monocyte pct 8.0 % [facility] Comment: Interpretive Data Percent cell count reference ranges are not reported, since discordance with absolute values may lead to misinterpretation of CBC data. Current Interpretive Data was last revised on 2017. Testing performed by: [address] [address] Eosinophil pct 2.2 % [facility] Comment: Interpretive Data Percent cell count reference ranges are not reported, since discordance with absolute values may lead to misinterpretation of CBC data. Current Interpretive Data was last revised on 2017. Testing performed by: [address] [address] Basophil pct 0.7 % [facility] Comment: Interpretive Data Percent cell count reference ranges are not reported, since discordance with absolute values may lead to misinterpretation of CBC data. Current Interpretive Data was last revised on 2017. Testing performed by: [address] [address] Blood 01/24/2024 11:3 1 AM GERMAN TUTOR 01/24/2024 11:33 AM GERMAN TUTOR Nicol Howe CART ATTENDANT LAB BLOOD ORDERABLES Final Result [facility] [address] [facility] Department of Laboratories [place], [place] [id number] * CBC with auto differential (01/24/2024 11:31 AM GERMAN TUTOR) WBC 7.6 3.8 - 9.9 K/cumm Comment:Testing performed by : [address] [address] Hgb 14.0 11.9 - 15.5 g/dL [facility] [place] Comment:Testing performed by : [address] [address] Hct 40.2 35.6 - 45.5 % [facility] Comment:Testing performed by : [address] [address] Plt 217 150 - 400 K/cumm [facility] Comment:Testing performed by : [address] [address] MPV 10.5 9.1 - 12.3 fL [facility] [place] Comment:Testing performed by : [address] [address] RBC 4.68 3.90 - 5.20 M/cumm [facility] Comment:Testing performed by : [address], [address] MCV 85.9 81.3 - 96.4 fL [place] Comment:Testing performed by : [address] [address] MCH 29.9 27.1 - 33.3 pg [place] Comment:Testing performed by : [address] [address] MCHC 34.8 32.3 - 35.7 g/dL [place] Comment:Testing performed by : [address], [address] RDW CV 13.0 11.1 - 14.9 % [facility] Comment:Testing performed by : [address] [address] RDW SD 40.1 35.7 - 48.1 fL [place] Comment:Testing performed by : [address] [address] NRBC abs 0.00 0.00 - 0.01 K/cumm [facility] Comment:Testing performed by : [address] [address] Blood 01/24/2024 11:3 1 AM GERMAN TUTOR 01/24/2024 11:33 AM GERMAN TUTOR us Nciol Howe CART ATTENDANT LAB BLOOD ORDERABLES Final Result [facility] [place] [address] [facility] Department [place] [address] * (ABNORMAL) Comprehensive metabolic panel (01/24/2024 11:31 AM GERMAN TUTOR) Sodium 141 135 - 145 mmol/L Comment:Testing performed by : [address] [address] Potassium, pl 4.0 3.3 - 4.9 mmol/L [place] Comment:Testing performed by : [address] [address] Chloride 104 97 - 110 mmol/L [place] Comment:Testing performed by : [address], [place]., [address] CO2 26 22 - 32 mmol/L [facility] Comment:Testing performed by : [address], [place]., [address] Anion gap 11 2 - 15 mmol/L [facility] Comment:Testing performed by : [address] [address] BUN 13 6 - 25 mg/dL [place] Comment:Testing performed by : [address], [place]., [address] Creatinine 0.60 0.60 - 1.10 mg/dL [facility] Comment:Testing performed by : [address] [address] Glucose 91 70 - 199 mg/dL [facility] [...] was last revised 2022. Testing performed by: [address] [address] Calcium 9.4 8.5 - 10.3 mg/dL [facility] Comment:Testing performed by : [address] [address] Bilirubin, total 0.4 0.1 - 1.2 mg/dL [facility] Comment:Testing performed by : [address] [address] Protein, pl 6.3(L) 6.5 - 8.5 g/dL [place] Comment:Testing performed by : [address] [address] Albumin 4.2 3.5 - 5.0 g/dL [place] Comment:Testing performed by : [address] [address] Alk phos 81 40 - 130 Units/L [place] Comment:Testing performed by : [address] [address] ALT 14 7 - 45 Units/L [place] Comment:Testing performed by : [address], [address] AST 23 10 - 45 Units/L [place] Comment:Testing performed by : [address], [address] Blood 01/24/2024 11:3 1 AM GERMAN TUTOR 01/24/2024 11:33 AM GERMAN TUTOR Nicol Howe NP LAB BLOOD ORDERABLES Final Result Performing Organization Address [facility] Co de Phone Number [place] [phone] [facility] [place] [address] * Vitamin D 25 hydroxy (01/24/2024 11:31 AM GERMAN TUTOR) [facility] Vitamin D 25-OH 35.0 30.0 - 80.0 ng/mL Blood 01/24/2024 11:3 1 AM GERMAN TUTOR 01/24/2024 4:41 PM GERMAN TUTOR Nicol Howe NP LAB BLOOD ORDERABLES Final Result Performing Organization Address City/[facility] Co de Phone Number [place] [phone] [facility] [place] [address] documented in this encounter Visit Diagnoses Diagnosis History of follicular lymphoma Vitamin D deficiency documented in this encounter Orders Appointment Requests Count Last Ordered Date Fi rst Ordered Date ONCBCN LAB APPOINTMENT 1 01/24/2024 documented in this encounter Care Teams Nougat Candy Maker Helper Relationship Specialty Start Date End Date Juan Wilkinson MD PCP - General Family Practice 02/01/20 documented as of this encounter
--- OUTSIDE RECORDS SUMMARY | 2024-04-03 14:17 | XMS_ITS | Clinical Summary ---
Author Organization [facility] Address [address] [facility] [place] [address] Phone Care Team Providers Care Production Assembly Operator Name Role Phone Juan Wilkinson MD Primary Care Provider Allergies Active Allergy Reactions Criticality Noted Date Comments Penicillins Hives,Palpitations Medium Medications omeprazole (PriLOSEC) 20 mg capsule Take 1 capsule (20 mg total) by mouth daily 01/21/2022 Active simvastatin (ZOCOR) 20 mg tablet Take 1 tablet (20 mg total) by mouth daily 12/03/2021 Active Active Problems Problem Noted Date Diagnosed Date History of follicular lymphoma 01/23/2018 Encounters Date Type Department Care Team Description 01/30/2024 Telephone [facility] [address] [place] [address] [address] [place] [address] Jonna Hanna RN 01/27/2024 Telephone [facility] [address] [place] [address] [address] [place] [address] Nicol Howe NP 01/24/2024 11:30 AM FUR OPERATOR Office Visit [facility] [address] [place] [address] [address] [place] [address] Nicol Howe NP History of follicular lymphoma (Primary Dx); Vitamin D deficiency; Follicular non-Hodgkin's lymphoma (HCC); Need for prophylactic vaccination and inoculation against influenza 01/24/2024 11:15 AM FUR OPERATOR Lab [facility] at [address] [id number] History of follicular lymphoma; Vitamin D deficiency from Last 3 Months Immunizations Name Administration Dates Next Due Influenza, Quadrivalent, Jennifer l Culture-based MDCK, Preservative Free, Antibiotic Free, Intramuscular 01/25/2023,02/01/2022,01/30/2021,01/31,02/02/2019,01/25/2018 Influenza, Trivalent, Cell Culture-based MDCK, Preservative Free, Antibiotic Free, Intramuscular 01/24/2024 Influenza, Unspecified 01/25/2017 Surgical History Surgery Date Site/Laterality Comments HYSTERECTOMY OOPHORECTOMY SECTION COLONOSCOPY Medical History Medical History Date Comments Lymphoma (HCC) Cervical cancer (CMS/HCC) (HCC) Hypercholesteremia Family History Medical History Relation Name Comments Lung cancer Father Relation Name Status Comments Father (Age 56) 54 when di agnosed Social History Tobacco Use Types Packs/Day Years [...] on file Legal Sex Female 12:30 AM FUR OPERATOR Gender Identity Not on file Sexual Orientation Not on file Obstetrics History Last Filed Vital Signs Vital Sign Reading Time Taken Comments Blood Pressure 137/71 01/24/2024 11:40 AM FUR OPERATOR Pulse 68 01/24/2024 11:40 AM FUR OPERATOR Temperature 36.4 ??C (97.5 ??F) 01/24/2024 11:[address] Respiratory Rate 16 01/24/2024 11:40 AM FUR OPERATOR Oxygen Saturation 98% 01/24/2024 11:40 AM FUR OPERATOR Inhaled Oxygen Concentration - - Weight 68.1 kg (150 lb 3.2 oz) 01/24/2024 11:40 AM FUR OPERATOR Height 177.8 cm (5' 10 ) 01/25/2023 1:48 PM FUR OPERATOR Body Mass Index 21.55 01/25/2023 1:48 PM FUR OPERATOR Plan of Treatment Health Maintenance Due Date Last Done Comments Depression Screening 1945 Fall Risk Assessment 1945 Hepatitis C Screening 1945 Osteoporosis Screening-Bone Density Scan 1945 Pneumococcal vaccine 65+ (1 of 2 - PCV) 1952 DTaP/Tdap/Td Vaccine (1 - Tdap) 1957 Hepatitis B Screening 1964 Zoster Vaccine (1 of 2) 1965 Well Visit 65+ 07/27/2011 Influenza Vaccine Completed 01/24/2024, , 02/01/2022, Additional history exists Procedures Procedure Name Priority Date/Time Associated Diagnosis Comments EGFR Routine 01/24/2024 11:31 AM FUR OPERATOR History of follicular lymphoma DIFFERENTIAL AUTO Routine 01/24/2024 11: 31 AM FUR OPERATOR History of follicular lymphoma CBC WITH AUTO DIFFERENTIAL Routine 01/24/2024 11:31 AM FUR OPERATOR History of follicular lymphoma COMPREHENSIVE METABOLIC PANEL Routine 01/24/2024 11:31 AM FUR OPERATOR History of follicular lymphoma VITAMIN D 25 HYDROXY Routine 01/24/2024 11:31 AM FUR OPERATOR History of follicular lymphoma Vitamin D deficiency from Last 3 Months Results * eGFR (01/24/2024 11:31 AM FUR OPERATOR) Pathologist [facility] eGFR >90 >=60 mL/min/1. 73 m2 Comment: [...] was last reviewed 2021. Testing performed by: [address] [address] Blood 01/24/2024 11:3 1 AM FUR OPERATOR 01/24/2024 11:33 AM FUR OPERATOR us Nicol Howe BROTHEL KEEPER LAB BLOOD ORDERABLES Final Result [facility] [address] [facility] Department [place] [address] * Differential, auto (01/24/2024 11:31 AM FUR OPERATOR) Neutrophil abs 3.6 1.5 - 6.5 K/cumm Comment:Testing performed by : [address] [address] Imm gran abs 0.0 0.0 - 0.1 K/cumm [place] Comment:Testing performed by : [address] [address] Lymphocyte abs 3.2 0.8 - 3.3 K/cumm [place] Comment:Testing performed by : [address] [address] Monocyte abs 0.6 0.2 - 0.8 K/cumm [place] Comment:Testing performed by : [address] [address] Eosinophil abs 0.2 0.0 - 0.5 K/cumm [facility] Comment:Testing performed by : [address] [address] Basophil abs 0.1 0.0 - 0.1 K/cumm [facility] Comment:Testing performed by : [address] [address] Neutrophil pct 47.2 % [facility] Comment: Interpretive Data Percent cell count reference ranges are not reported, since discordance with absolute values may lead to misinterpretation of CBC data. Current Interpretive Data was last revised on 2017. Testing performed by: [address] [address] Imm gran pct 0.3 % [facility] Comment: Interpretive Data Percent cell count reference ranges are not reported, since discordance with absolute values may lead to misinterpretation of CBC data. Current Interpretive Data was last revised on 2017. Testing performed by: [address] [address] Lymphocyte pct 41.6 % [facility] Comment: Interpretive Data Percent cell count reference ranges are not reported, since discordance with absolute values may lead to misinterpretation of CBC data. Current Interpretive Data was last revised on 2017. Testing performed by: [address] [address] Monocyte pct 8.0 % [facility] Comment: Interpretive Data Percent cell count reference ranges are not reported, since discordance with absolute values may lead to misinterpretation of CBC data. Current Interpretive Data was last revised on 2017. Testing performed by: [address] [address] Eosinophil pct 2.2 % [facility] Comment: Interpretive Data Percent cell count reference ranges are not reported, since discordance with absolute values may lead to misinterpretation of CBC data. Current Interpretive Data was last revised on 2017. Testing performed by: [address] [address] Basophil pct 0.7 % [facility] Comment: Interpretive Data Percent cell count reference ranges are not reported, since discordance with absolute values may lead to misinterpretation of CBC data. Current Interpretive Data was last revised on 2017. Testing performed by: [address] [address] Blood 01/24/2024 11:3 1 AM FUR OPERATOR 01/24/2024 11:33 AM FUR OPERATOR Nicol Howe BROTHEL KEEPER LAB BLOOD ORDERABLES Final Result [facility] [address] [facility] Department [place] [address] * CBC with auto differential (01/24/2024 11:31 AM FUR OPERATOR) WBC 7.6 3.8 - 9.9 K/cumm Comment:Testing performed by : [address] [address] Hgb 14.0 11.9 - 15.5 g/dL [facility] Comment:Testing performed by : [address] [address] Hct 40.2 35.6 - 45.5 % [facility] Comment:Testing performed by : [address] [address] Plt 217 150 - 400 K/cumm [place] Comment:Testing performed by : [address] [address] MPV 10.5 9.1 - 12.3 fL [place] Comment:Testing performed by : [address] [address] RBC 4.68 3.90 - 5.20 M/cumm [place] Comment:Testing performed by : [address] [address] MCV 85.9 81.3 - 96.4 fL [place] Comment:Testing performed by : [address] [address] MCH 29.9 27.1 - 33.3 pg [place] Comment:Testing performed by : [address] [address] MCHC 34.8 32.3 - 35.7 g/dL [facility] [place] Comment:Testing performed by : [address], [address] RDW CV 13.0 11.1 - 14.9 % [facility] [place] Comment:Testing performed by : [address] [address] RDW SD 40.1 35.7 - 48.1 fL [facility] [place] Comment:Testing performed by : [address], [address] NRBC abs 0.00 0.00 - 0.01 K/cumm [place] Comment:Testing performed by : [address], [address] Blood 01/24/2024 11:3 1 AM FUR OPERATOR 01/24/2024 11:33 AM FUR OPERATOR Nicol Howe NP LAB BLOOD ORDERABLES Final Result Performing Organization Address City/[facility] Co de Phone Number [address] [place] [address] * Vitamin D 25 hydroxy (01/24/2024 11:31 AM FUR OPERATOR) [facility] Vitamin D 25-OH 35.0 30.0 - 80.0 ng/mL Blood 01/24/2024 11:3 1 AM FUR OPERATOR 01/24/2024 4:41 PM FUR OPERATOR Nicol Howe BROTHEL KEEPER LAB BLOOD ORDERABLES Final Result Performing Organization Address City/[facility] Co de Phone Number [address] [place] [address] * (ABNORMAL) Comprehensive metabolic panel (01/24/2024 11:31 AM FUR OPERATOR) [facility] Sodium 141 135 - 145 mmol/L Comment:Testing performed by : [address], [address] Potassium, pl 4.0 3.3 - 4.9 mmol/L [place] Comment:Testing performed by : [address], [place]., [address] Chloride 104 97 - 110 mmol/L [place] Comment:Testing performed by : [address], [place]., [address] CO2 26 22 - 32 mmol/L [facility] Comment:Testing performed by : [address], [place]., [address] Anion gap 11 2 - 15 mmol/L [place] Comment:Testing performed by : [address], [place]., [address] BUN 13 6 - 25 mg/dL [facility] Comment:Testing performed by : [address], [place]., [address] Creatinine 0.60 0.60 - 1.10 mg/dL [place] Comment:Testing performed by : [address], [place]., [address] Glucose 91 70 - 199 mg/dL [facility] [...] classification and Diagnosis of Diabetes Diabetes Care 202; 46: S19-S40. Current interpretive data was last revised 2022. Testing performed by: [address] [address] Calcium 9.4 8.5 - 10.3 mg/dL [place] Comment:Testing performed by : [address] [address] Bilirubin, total 0.4 0.1 - 1.2 mg/dL [place] Comment:Testing performed by : [address], [place]., [address] Protein, pl 6.3(L) 6.5 - 8.5 g/dL [place] Comment:Testing performed by : [address], [place]., [address] Albumin 4.2 3.5 - 5.0 g/dL [place] Comment:Testing performed by : [address], [address] Alk phos 81 40 - 130 Units/L [place] Comment:Testing performed by : [address], [address] ALT 14 7 - 45 Units/L [place] Comment:Testing performed by : [address], [address] AST 23 10 - 45 Units/L [place] Comment:Testing performed by : [address], [address] Blood 01/24/2024 11:3 1 AM FUR OPERATOR 01/24/2024 11:33 AM FUR OPERATOR Nicol Howe BROTHEL KEEPER LAB BLOOD ORDERABLES Final Result [facility] [address] [facility] Department [place] [address] from Last 3 Months Insurance MEDICARE [employer]ET[employer] SENIOR SUPPLEMENT MEDICARE [employer] SENIOR SUPPLEMENT Care Teams Production Assembly Operator Relationship Specialty Start Date End Date Juan Wilkinson MD PCP - General Family Practice 02/01/20
--- OUTSIDE RECORDS SUMMARY | 2024-04-03 14:17 | XMS_ITS | Encounter Summary ---
Author Organization [facility] Address [address] [place] [address] Phone Care Team Providers Care Elementary Special Education Teacher Name Role Phone Juan Wilkinson MD Primary Care Provider Encounter Details Date Type Department Care Team (Late st Contact Info) Description 01/27/2024 Telephone [facility] Physicians [facility] Oncology [address] [address] Nicol Howe, MOOSE [address] [facility] [address] [place] [phone] Social History Tobacco Use Types Packs/Day Years [...] on file Legal Sex Female 12:30 AM SWIMMING POOL INSTALLER AND SERVICER Gender Identity Not on file Sexual Orientation Not on file documented as of this encounter Miscellaneous Notes * Telephone Encounter - Marisela Burrows CMA - 01/27/2024 9:49 AM SWIMMING POOL INSTALLER AND SERVICER LM for pt to return my call so that I can tell the pt that her Vitamin D is low and ask how much she is taking. MING POOL INSTALLER AND SERVICER documented in this encounter Plan of Treatment Not on file documented as of this encounter Visit Diagnoses Not on filedocumented in this encounter Care Teams Elementary Special Education Teacher Relationship Specialty Start Date End Date Juan Wilkinson MD PCP - General Family Practice 02/01/20 documented as of this encounter
--- OUTSIDE RECORDS SUMMARY | 2024-04-03 14:17 | XMS_ITS | Encounter Summary ---
Author Organization [facility] Address [address] [place] [address] Phone Care Team Providers Care Pss Delivery Professional Name Role Phone Juan Wilkinson MD Primary Care Provider Encounter Details Date Type Department Care Team (Late st Contact Info) Description 01/24/2024 11:30 AM EXTRACTOR MACHINE OPERATOR Office Visit [facility] [address] [phone] Nicol Howe, MOOSE [address] [id number] History of follicular lymphoma (Primary Dx); Vitamin D deficiency; Follicular non-Hodgkin's lymphoma (HCC); Need for prophylactic vaccination and inoculation against influenza Social History Tobacco Use Types Packs/Day Years [...] on file Legal Sex Female 12:30 AM EXTRACTOR MACHINE OPERATOR Gender Identity Not on file Sexual Orientation Not on file documented as of this encounter Last Filed Vital Signs Vital Sign Reading Time Taken Comments Blood Pressure 137/71 01/24/2024 11:40 AM EXTRACTOR MACHINE OPERATOR Pulse 68 01/24/2024 11:40 AM EXTRACTOR MACHINE OPERATOR Temperature 36.4 ??C (97.5 ??F) 01/24/2024 11:[address] Respiratory Rate 16 01/24/2024 11:40 AM EXTRACTOR MACHINE OPERATOR Oxygen Saturation 98% 01/24/2024 11:40 AM EXTRACTOR MACHINE OPERATOR Inhaled Oxygen Concentration - - Weight 68.1 kg (150 lb 3.2 oz) 01/24/2024 11:40 AM EXTRACTOR MACHINE OPERATOR Height - - Body Mass Index 21.55 01/25/2023 1:48 PM EXTRACTOR MACHINE OPERATOR documented in this encounter Patient Instructions * Patient Instructions* Nicol Howe, MOOSE - 01/24/2024 11:30 AM EXTRACTOR MACHINE OPERATOR Healthy Behavior Recommendations: Next mammogram: annually Next colonoscopy: due now Next Dexa scan: due now Please activate [email or web address] for online communication. If you are uncertain how to access please contactthe [email or web address] support center at: [phone] or [phone]. Cancer Survivorship Program - [facility] ([facility]) -HOT FLASHES: you can trial all three together, or each one separately: vitamin E 400 mg daily, Tart wilder juice 3 oz by mouth once daily, black cohosh and primrose; Estroven (over the counter med) has all three of these in it minus the tart wilder juice. If this is not helpful, please call and wecan discuss prescription medication for it -Achy bones and joints: you may trial tums, 1 tab, 1-2 times daily and quinine water. -Calcium and vitamin D recommendations: calcium 1000 mg daily and vitamin D 1000 international units daily SMOKING CESSATION: -[employer] [address] [place] , [place] Phone: Phone: Web Address: www.lung.org Smokefree.gov Phone: Web Address: www.smokefree.gov [place] Quit Smoking help line: call [phone] Please see this 5 minute video: [email or web address]/videos/xni-[email or web address]/scpdzee-aelgo-xq-improving -lyvrxx-sjtijt-zkymdb-vitoqs-gugqth-uzvewleah/ Rochelle Darden MD, FACS, on Improving Sexual Health During Breast Cancer Treatment ?? Evidence suggests an active lifestyle and achieving and maintaining an ideal body weight (20-25 BMI) is optimal for health. Experts recommend at least 30 minutes of moderate to vigorous activity per day as tolerated, 5 days a week. ?? Eat healthy, including plenty of fresh fruits and vegetables daily. Strive to have 2/3 cup of your plate to be vegetables, fruits, whole grains and beans, while 1/3 or less should be an animal product. Choose fish and chicken and limit red meat and processed meats. - Assess dietary pattern for daily intake of fruits, vegetables, and whole grains, as well as red and processed meats, alcohol, and processed foods or beverages with added fats and/or sugars. Assess timing of meals and snacking habits, portion size, frequency of eating out, and use of added fats and/or sugars to foods or beverages. All survivors should be encouraged to: Follow a predominantly nutrient-rich plant-based diet, including vegetables, fruit, and whole grains.a,b,1 Make informed choices about food to ensure variety and adequate nutrient intake. Limit consumption of red meat such as beef, pork, or ha to no more than 18 ounces (cooked) per week. Eat processed meats such as ham, hot dogs, deli cuts, edward, and sausage sparingly if at all.c Limit consumption of ???fast foods?? and other processed foods that are high in fat, starches, or sugars such as chips, cookies, candy bars, desserts, processed baked goods, sugary cereals, and fried foods. Limit refined sugars to <6 tsp (25 g) for a 2000-calorie daily diet and <9 tsp (38 g) for a 3000-calorie daily diet. One medium cookie has about 2 tsp of sugar; a 12-oz can of a soft drink has about 10 tsp. Track calorie intake. ?Self-monitoring of food and beverage intake has been shown to be an effective strategy for weight management. ?Prolonged periods of fasting may impair adequate caloric and nutrient intake. Drink alcohol sparingly if at all.2,d Lower levels of alcohol consumption are associated with a lower risk of cancer. For patients desiring further recommendations for dietary guidelines: Consider referral to a registered dietitian or water taxi driver. The USDA approximate food plate volumes (https://www.myplate.gov) are: ?Vegetables and fruits should comprise half the volume of food on the plate ?Vegetables: 30% of plate; fruits 20% of plate ?Whole grains: 30% of plate ?Protein: 20% of plate Recommended sources of dietary components: Fat: plant sources such as olive or canola oil, avocados, seeds and nuts, and fatty fishe Carbohydrates: fruits, vegetables, whole grains, and legumes Protein: poultry, fish, legumes, low-fat dairy foods, and nuts While the risks and benefits of soy foods for cancer survivors have been debated for many years, most studies to date show that moderate consumption of soy foods (up to 3 servings per day) are beneficial in promoting overall health and survival, with the strongest evidence existing for the prevention of lung cancer and reduction of breast cancer recurrence. -Practice portion control. Make informed food choices through routine evaluation of food labels. ?Incorporate physical activity, particularly strength training, to assure optimal lean body mass (SPA-1). Track weight, diet, calories, and physical activity routines (eg, journaling, mobile phone apps). ?? Limit alcohol intake to one drink per day or less for a woman and two drinks or less per day fora man. ?? Avoid smoking! ?? Practice sun safety: Use a water resistant sunscreen with SPF of at least 30 to protect against UVA and UVB rays to protect against skin cancer. Apply sunscreen every two hours or after swimming or excessive sweating. Consider using physical barriers whenever possible (ex. Hats, shirts with sleeves, avoid direct sun during peak hours). ?? Keep up-to-date on general health screening tests, including cholesterol, blood pressure and glucose (blood sugar) levels. Please have a primary physician for routine care. You can call [phone] for [facility] Doctors. ?? Get an annual influenza vaccine (flu shot). ?? Get vaccinated with the pneumococcal vaccine if > 64 yrs old, which prevents a type of pneumonia, and re-vaccinated as determined by your primary healthcare team. ?? Get vaccinated with the shingles vaccine if > 60 yrs old ?? COVID19 vaccine recommended. ?? Keep up-to-date on dental and eye exams. Psychological, Emotional, Relational, and Spiritual Aspects of Survivorship: The transition from active treatment to a cancer survivor can be a confusing and emotional time butalso one of personal growth. Survivors often have time to process emotionally what having cancer has meant to them after treatment. Fear of recurrence is a feeling commonly experienced by many survivors after treatment. Some things that might be helpful during this time include: ?? Talk with other cancer survivors by attending a support group. ?? Talk with a professional, either an Forest Fire Equipment Operator or mental health professional. Your oncology team can assist with connecting you to someone who can help with anxiety, depression, etc. ?? There are many normal responses to living with uncertainty and fear of recurrence, but if you find that it prevents you from enjoying life or you have a lot of fear and feel overwhelmed, we recommend you talk with a mental health professional or a [facility] Counselor. [facility] counseling [phone]. ?? There are many online websites which offer resources for spiritual, emotional, and support networks for breast cancer survivors: [employer] and [employer] are a few. ?? [employer]'s iTHRIVE plan is designed to help you heal from cancer treatment, reduce risk of recurrence, and achieve optimal wellness. This is an engaging and easy to use, online platform to create personalized lifestyle-based wellness plans for cancer survivors. https ://www.aicr.org/patients-survivors/ithrive/ Sexual Health: ?? Women should avoid for the first year after completing treatment. Discuss reliable forms of avoiding with your healthcare provider/plant packer. If you are a woman planning to get in the future, you should see a doctor specializing in fertility in cancer survivors. We can refer you to a fertility specialist. ?? For women, chemotherapy agents or endocrine therapy may cause vaginal dryness, painful intercourse, reduced sexual desire, and inability to achieve orgasm. Many of these issues are caused by the sudden onset of menopause, which can occur with cancer therapy or from endocrine therapy. If you are experiencing any of these issues, we can refer you to a specialist. There are several gxsp-qqp-kajvxxs vaginal moisturizers that can be used, such as Replens, NeuEve, coconut oil or extra virgin oliveoil. Late Effects From Cancer Treatment: It is possible to experience some late effects from any of yourcancer treatments. Whether you experience any of these varies between people and types of treatmentyou have received. Symptoms to report to your healthcare provider right away include, but are not limited to, those as noted below: ?? feeling more tired or weak than usual ?? chest pain ?? shortness of breath ?? abdominal pain ?? blood in stool or dark, tarry stool ?? loss of appetite ?? weight loss ?? fever, chills ?? recurrent infections ?? drenching night sweats ?? painless swelling of a lymph node ?? change in breast or chest wall such as a new lump, nodule or rash ?? nipple discharge ?? new pain that does not go away Any of the following symptoms should be brought to the attention of your provider: ?? A brand new symptom. ?? A symptom that does not go away or gets worse. ?? Anything you are worried about that might be related to the cancer coming back. Please activate [email or web address] for online communication. If you are uncertain how to access please contactthe Nutzvieh24 support center at: [phone] or [phone]. LIVE WELL! You can reach the office of Nicol Howe NP at [phone] or access [email or web address] on line. ACTOR MACHINE OPERATOR documented in this encounter Progress Notes * Nicol Howe NP - 01/24/2024 11:30 AM CST Visit Date: 01/24/2024 Requesting Provider: Nicol Parra* Primary Care Physician: Juan Wilkinson MD Linda K Opel 78 y.o. female HPI/Oncologic History: This is a 76-year-old woman who returns today for an annual followup visit. Patient was diagnosed with a malignant lymphoma, follicular Center cell, stage III in 2006. Patient subsequently completed chemotherapy with CVP plus rituximab and then 2 years of maintenancetherapy with rituximab. Patient is never developed evidence of recurrent disease. She reports no new medical issues within the last year. Treatment History: Non-Hodgkin's lymphoma Date of Diagnosis: 10/12/2006 Staging: B-cell neoplasms: follicular lymphoma. Stage at diagnosis: IIIA. Line of therapy: 1st line. CD20 antigen expression: positive. CD30 antigen expression: unknown. ALK re-arrangement (FISH): not performed. HIV status: unknown. Completed Treatment Details Chemotherapy Rituximab>Cyclophosphamide+Vincristine+Prednisone (h/o): Start date: 11/2006, Finish date: 02/2007, Number of cycles: 6, Phase of treatment: initial with palliative intent, Response: complete response. Immunotherapy Rituximab (h/o): Start date: 08/2007, Finish date: 01/2009, Number of cycles: 4, Phase of treatment:adjuvant, Response: complete response. Current status: clinical complete remission INTERVAL HISTORY: She is doing well. Since her last visit, she had issues w/ vertigo and had Dionna maneuver performed. Since that time she has crepitus in her neck and this makes her feel nervous or worried there is something going on. She tells me she saw her PCP 2 weeks ago and her LFT's were high. They are normalhere today. She denies drinking ETOH, taking acetaminophens or herbal supplements; she is on cholesterol medication. She denies any B symptoms. Denies lymphadenopathy or frequent infections. With regards to screening, she has the form for her annual mammogram and dexa scan, but has not scheduled these as of yet. She has not had a colonoscopy in over 10 years and will touch base w/ her PCP for Cologuard. She vapes, but no longer smokes or uses nicotine and is based the age for her screening lung cancer CT. She does all her testing through [facility]. Past Medical History: Diagnosis Date Cervical cancer (CMS/HCC) (HCC) Hypercholesteremia Lymphoma (HCC) Past Surgical History: Procedure Laterality Date SECTION COLONOSCOPY HYSTERECTOMY OOPHORECTOMY Prior to Admission medications Medication Sig Start Date End Date Taking? Authorizing Provider simvastatin (ZOCOR) 10 mg tablet TK 1 T PO QD IN THE [place] 12/18/17 Historical Provider, Allergies Allergen Reactions Penicillins Hives and Palpitations Social History Socioeconomic History Marital status: Spouse name: Not on file Number of children: Not on file Years of education: Not on file Highest education level: Not on file Occupational History Not on file Tobacco Use Smoking status: Former Smoker Packs/day: 0.75 Types: Cigarettes Quit date: 2012 Years since quittin.8 Smokeless tobacco: Never Used Substance and Sexual Activity Alcohol use: No Drug use: No Sexual activity: Defer Other Topics Concern Not on file Social History Narrative Not on file Social Determinants of Health Financial Resource Strain: Not on file Food Insecurity: Not on file Transportation Needs: Not on file Physical Activity: Not on file Stress: Not on file Social Connections: Not on file Intimate Partner Violence: Not on file Housing Stability: Not on file Family History Problem Relation Age of Onset Lung cancer Father Review of Systems: Constitutional: Negative. HENT: Negative. Eyes: Negative. Respiratory: Negative. Cardiovascular: Negative. Gastrointestinal: Negative. Endocrine: Negative. Genitourinary: Negative except for recurrent UTI Musculoskeletal: Negative. Skin: Negative. Neurological: Negative. Hematological: Negative. Psychiatric/Behavioral: Negative. Pain: negative. Objective Vitals BP 137/71 (BP Location: Left arm) Pulse 68 Temp 36.4 ??C (97.5 ??F) (Oral) Resp 16 Wt 68.1 kg (150 lb 3.2 oz) SpO2 98% BMI 21.55 kg/m?? ECO Physical Exam: Constitutional: She is oriented to person, place, and time. She appears well- developed and well-nourished. HENT: Head: Normocephalic. Mouth/Throat: Oropharynx is moist. Eyes: Pupils are equal, round, and reactive to light. Conjunctivae and EOM are normal. Neck: Normal range of motion. Neck supple. Cardiovascular: Normal rate Pulmonary/Chest: Effort normal Abdominal: Soft. LYMPH: negative for cervical, supraclavicular or axillary lymphadenopathy. Musculoskeletal: Normal range of motion. Neurological: She is alert and oriented to person, place, and time. Skin: Skin is warm and dry. Psychiatric: She has a normal mood and affect. Her behavior is normal. Judgment and thought contentnormal. Lab/Radiology/Diagnostic Review: Recent Results (from the past 2 weeks) Comprehensive metabolic panel Collection Time: 01/24/24 11:31 AM Result Value Ref Range Sodium 141 135 - 145 mmol/L Potassium, pl 4.0 3.3 - 4.9 mmol/L Chloride 104 97 - 110 mmol/L CO2 26 22 - 32 mmol/L Anion gap 11 2 - 15 mmol/L BUN 13 6 - 25 mg/dL Creatinine 0.60 0.60 - 1.10 mg/dL Glucose 91 70 - 199 mg/dL Calcium 9.4 8.5 - 10.3 mg/dL Bilirubin, total 0.4 0.1 - 1.2 mg/dL Protein, pl 6.3 (L) 6.5 - 8.5 g/dL Albumin 4.2 3.5 - 5.0 g/dL Alk phos 81 40 - 130 Units/L ALT 14 7 - 45 Units/L AST 23 10 - 45 Units/L CBC with auto differential Collection Time: 01/24/24 11:31 AM Result Value Ref Range WBC 7.6 3.8 - 9.9 K/cumm Hgb 14.0 11.9 - 15.5 g/dL Hct 40.2 35.6 - 45.5 % Plt 217 150 - 400 K/cumm MPV 10.5 9.1 - 12.3 fL RBC 4.68 3.90 - 5.20 M/cumm MCV 85.9 81.3 - 96.4 fL MCH 29.9 27.1 - 33.3 pg MCHC 34.8 32.3 - 35.7 g/dL RDW CV 13.0 11.1 - 14.9 % RDW SD 40.1 35.7 - 48.1 fL NRBC abs 0.00 0.00 - 0.01 K/cumm Differential, auto Collection Time: 01/24/24 11:31 AM Result Value Ref Range Neutrophil abs 3.6 1.5 - 6.5 K/cumm Imm gran abs 0.0 0.0 - 0.1 K/cumm Lymphocyte abs 3.2 0.8 - 3.3 K/cumm Monocyte abs 0.6 0.2 - 0.8 K/cumm Eosinophil abs 0.2 0.0 - 0.5 K/cumm Basophil abs 0.1 0.0 - 0.1 K/cumm Neutrophil pct 47.2 % Imm gran pct 0.3 % Lymphocyte pct 41.6 % Monocyte pct 8.0 % Eosinophil pct 2.2 % Basophil pct 0.7 % eGFR Collection Time: 01/24/24 11:31 AM Result Value Ref Range eGFR >90 >=60 mL/min/1.73 m2 Labs from today reviewed with the patient. Patient Active Problem List Diagnosis Date Noted History of follicular lymphoma 01/23/2018 Assessment/ Plan: Mrs. Murray is a a 77 y.o. female w/ a a h/o treated B-cell lymphoma: Follicular type. Stage IIIA. Incomplete remission. No B symptoms. Continue monitoring her yearly with H&P / CBC CMP and LDH. She is over 17 years out from completion of treatment and is considered cured. We offered to discharge her from oncology, but she prefers to stay with yearly follow up. I will see her back in 1 year. I did discuss with her the need for monitoring her diet, reducing fried and fatty food intake, increasing water intake, avoiding sugary drinks, exercising for 30 minutes a day/10,000 steps a day and doing resistance training 3 times per week. She is due for colonoscopy, dexa scan and mammogram; her PCP is managing. I recommended that she continue to see the eye doctor once a year, dentist every 6-12 months in the oracle solutions architect at least once a year. She will receive the influenza vaccine today. She and family member verbalized understanding. Nicol Howe NP 01/24/2024 ACTOR MACHINE OPERATOR documented in this encounter Plan of Treatment Scheduled Orders Name Type Priority Associated Diagnoses Orde r Schedule Comprehensive metabolic panel Lab Routine History of follicular lymphoma Vitamin D deficiency Follicular non-Hodgkin's lymphoma (HCC) Expected: 01/22/2025, Expires: 07/23/2025 CBC with auto differential Lab Routine History of follicular lymphoma Vitamin D deficiency Follicular non-Hodgkin's lymphoma (HCC) Expected: 01/22/2025, Expires: 07/23/2025 Lactate dehydrogenase (LD) Lab Routine History of follicular lymphoma Vitamin D deficiency Follicular non-Hodgkin's lymphoma (HCC) Expected: 01/22/2025, Expires: 07/23/2025 Vitamin D 25 hydroxy Lab Routine Vitamin D deficiency Expected: 01/22/2025, Expires: 07/23/2025 documented as of this encounter Visit Diagnoses Diagnosis History of follicular lymphoma- Primary Vitamin D deficiency Follicular non-Hodgkin's lymphoma (HCC) Need for prophylactic vaccination and inoculation against influenza documented in this encounter Orders Immunization/Injection Count Last Ordered Date First Ordered Date FLU VACCINE TRI MDCK (6 MOS +) PF - FLUCELVAX 1 01/24/2024 Appointment Requests Count Last Ordered Date Fi rst Ordered Date [facility] CLINIC APPOINTMENT REQUEST 2 024 ON[facility] LAB APPOINTMENT 1 01/24/2024 documented in this encounter Care Teams Pss Delivery Professional Relationship Specialty Start Date End Date Juan Wilkinson MD PCP - General Family Practice 02/01/20 documented as of this encounter
--- OUTSIDE RECORDS SUMMARY | 2024-04-03 14:18 | XMS_ITS | Encounter Summary ---
Author Organization [facility] Address [address] [place] [address] Phone Care Team Providers Care Calender Operator Helper Name Role Phone Juan Wilkinson MD Primary Care Provider Juan Wilkinson MD Unavailable [phone] PodLopez cortez MD Unavailable [phone] Reason for Visit * Reason Comments Follow-up Encounter Details Date Type Department Care Team (Late st Contact Info) Description 02/01/2020 3:00 PM REINSURANCE CLAIMS ANALYST Office Visit [facility] Oncology [address] [place] [address] [address] [place] [address] Lopez Shepherd MD [address] [place] [address] History of follicular lymphoma (Primary Dx); Follicular non-Hodgkin's lymphoma (CMS/HCC); Need for prophylactic vaccination and inoculation against influenza Social History Tobacco Use Types Packs/Day Years Used Date Smoking Tobacco: Former Cigarettes Q uit: 2012 Smokeless Tobacco: Never Alcohol Use Standard Drinks/Week Comments No 0 (1 standard drink = 0.6 oz pur e alcohol) Comments Unknown Sex and Gender Information Value Date Recorded Sex Assigned at Not on file Legal Sex Female 12:30 AM REINSURANCE CLAIMS ANALYST Gender Identity Not on file Sexual Orientation Not on file documented as of this encounter Last Filed Vital Signs Vital Sign Reading Time Taken Comments Blood Pressure 120/63 02/01/2020 3:01 PM REINSURANCE CLAIMS ANALYST Pulse 73 02/01/2020 3:01 PM REINSURANCE CLAIMS ANALYST Temperature 36.6 ??C (97.8 ??F) 02/01/2020 3:01 PM CS T Respiratory Rate 16 02/01/2020 3:01 PM REINSURANCE CLAIMS ANALYST Oxygen Saturation 96% 02/01/2020 3:01 PM REINSURANCE CLAIMS ANALYST Inhaled Oxygen Concentration - - Weight 64 kg (141 lb) 02/01/2020 3:01 PM REINSURANCE CLAIMS ANALYST Height 177.8 cm (5' 10 ) 02/01/2020 3:01 PM REINSURANCE CLAIMS ANALYST Body Mass Index 20.23 02/01/2020 3:01 PM REINSURANCE CLAIMS ANALYST documented in this encounter Progress Notes * Lopez Shepherd MD - 02/01/2020 3:00 PM CST Visit Date: 02/01/2020 Requesting Provider: Lpoez Shepherd MD Primary Care Physician: Mackenzie, Physician Salma Murray 74 y.o. female HPI/ Oncologic history: This is a 72-year-old woman who returns today for an annual followup visit. Patient was diagnosed with a malignant lymphoma, follicular Center cell, stage III in 2006. Patient subsequently completed chemotherapy with CVP plus rituximab and then 2 years of maintenancetherapy with rituximab. Patient is never developed evidence of recurrent disease. She reports no new medical issues within the last year. I did review her old records and Pneumovax is due now Influenza vaccine however is up to date. 01/20/2017, she was evaluated for RUQ abdominal pain, gallbladder sludge, pain resolved .She did have CT abdomen/pelvis chronic mildly enlarged lymph nodes ( PE negative for any palpable adenopathy) 01/25/2018, no new medical problems or new medications, good performance status. 02/02/2019: She is here for follow-up. Her care has been transferred to tx by Dr. [place]. She denies any new medical problems. Denies any fatigue weight loss or night sweats. Her last LDH- was borderline [id number]. Her LDH this visit is normal-222 02/01/2020: No symptoms of weight loss, headache or night sweats. LDH is normal. She does have recurrent UTI for the past 3 months. She has received 3 different antibiotics. Currently on Bactrim. Urine growing Klebsiella pneumoniae. She is due to see a urologist Dr. Craig on . Treatment history: Non-Hodgkin's lymphoma Date of Diagnosis: 10/12/2006 Staging: [...] complete response. Current status: clinical complete remission Past Medical History: Diagnosis Date ??? Cervical cancer (CMS/HCC) ??? Hypercholesteremia ??? Lymphoma (CMS/HCC) Past Surgical History: Procedure Laterality Date ??? SECTION ??? COLONOSCOPY ??? HYSTERECTOMY ??? OOPHORECTOMY Prior to Admission medications Medication Sig Start Date End Date Taking? Authorizing Provider simvastatin (ZOCOR) 10 mg tablet TK 1 T PO QD IN THE [place] 12/18/17 Historical Provider, Allergies Allergen Reactions ??? Penicillins Hives and Palpitations Social History Socioeconomic History ??? Marital status: Spouse name: Not on file ??? Number of children: Not on file ??? Years of education: Not on file ??? Highest education level: Not on file Occupational History ??? Not on file Social Needs ??? Financial resource strain: Not on file ??? Food insecurity Worry: Not on file Inability: Not on file ??? Transportation needs Medical: Not on file Non-medical: Not on file Tobacco Use ??? Smoking status: Former Smoker Packs/day: 0.75 Types: Cigarettes Quit date: 2013 Years since quittin.8 ??? Smokeless tobacco: Never Used Substance and Sexual Activity ??? Alcohol use: No ??? Drug use: No ??? Sexual activity: Defer Lifestyle ??? Physical activity Days per week: Not on file Minutes per session: Not on file ??? Stress: Not on file Relationships ??? Social connections Talks on phone: Not on file Gets together: Not on file Attends buddhism service: Not on file Active member of club or organization: Not on file Attends meetings of clubs or organizations: Not on file Relationship status: Not on file ??? Intimate partner violence Fear of current or ex partner: Not on file Emotionally abused: Not on file Physically abused: Not on file Forced sexual activity: Not on file Other Topics Concern ??? Not on file Social History Narrative ??? Not on file Family History Problem Relation Age of Onset ??? Lung cancer Father Review of Systems: Constitutional: Negative. HENT: Negative. Eyes: Negative. Respiratory: Negative. Cardiovascular: Negative. Gastrointestinal: Negative. Endocrine: Negative. Genitourinary: Negative except for recurrent UTI Musculoskeletal: Negative. Skin: Negative. Neurological: Negative. Hematological: Negative. Psychiatric/Behavioral: Negative. Pain: negative. Objective Vitals BP 120/63 (BP Location: Left arm) Pulse 73 Temp 36.6 ??C (97.8 ??F) (Oral) Resp 16 Ht 177.8 cm (5' 10 ) Wt 64 kg (141 lb) SpO2 96% BMI 20.23 kg/m?? ECOG;0 Physical Exam: Constitutional: She is oriented to person, place, and time. She appears well- developed and well-nourished. HENT: Head: Normocephalic. Right Ear: External ear normal. Left Ear: External ear normal. Mouth/Throat: Oropharynx is clear and moist. Eyes: Pupils are equal, round, and reactive to light. Conjunctivae and EOM are normal. Neck: Normal range of motion. Neck supple. Cardiovascular: Normal rate and regular rhythm. Pulmonary/Chest: Effort normal and breath sounds normal. Abdominal: Soft. Bowel sounds are normal. Musculoskeletal: Normal range of motion. Neurological: She is alert and oriented to person, place, and time. Skin: Skin is warm and dry. Psychiatric: She has a normal mood and affect. Her behavior is normal. Judgment and thought contentnormal. Lab/Radiology/Diagnostic Review: No results found for this or any previous visit (from the past 336 hour(s)). Labs from today reviewed with the patient. Patient Active Problem List Diagnosis Date Noted ??? History of follicular lymphoma 01/23/2018 Assessment/ Plan: B-cell lymphoma: Follicular type. Stage IIIA. In complete remission. No B symptoms. Continue monitoring her yearly with H&P / CBC CMP and LDH. RTC in 1 year after repeat labs Recurrent UTI: Unexplained. Will obtain IgG level. She is due to follow-up with her urologist on 02/23/2020. Lopez Shepherd MD 02/01/2020 Welding Machine Setter completed by using M*Modal Fluency Direct speaking software, therefore, transcriptionvariances may occur SURANCE CLAIMS ANALYST documented in this encounter Miscellaneous Notes * Addendum Note - Aminah Yarbrough RN - 02/01/2020 3:00 PM CSTAddended by: AMINAH YARBROUGH on: 01/28/2021 10:16 AM Modules accepted: Orders SURANCE CLAIMS ANALYST documented in this encounter Plan of Treatment Not on file documented as of this encounter Procedures Procedure Name Priority Date/Time Associated Diagnosis Comments IGG Routine 02/01/2020 2:52 PM REINSURANCE CLAIMS ANALYST History of follicular lymphoma Follicular non-Hodgkin's lymphoma (CMS/HCC) documented in this encounter Results * CBC with auto differential (01/30/2021 9:55 AM REINSURANCE CLAIMS ANALYST) WBC 6.5 3.8 - 9.9 K/cumm [facility] Comment:Testing performed by : [address] [address] Hgb 14.2 11.9 - 15.5 g/dL [facility] Comment:Testing performed by : [address] [address] Hct 40.9 35.6 - 45.5 % [facility] Comment:Testing performed by : [address] [address] Plt 265 150 - 400 K/cumm [facility] Comment:Testing performed by : [address] [address] MPV 10.4 9.1 - 12.3 fL [facility] Comment:Testing performed by : [address] [address] RBC 4.76 3.90 - 5.20 M/cumm [facility] Comment:Testing performed by : [address] [address] MCV 85.9 81.3 - 96.4 fL [facility] Comment:Testing performed by : [address] [address] MCH 29.8 27.1 - 33.3 pg [facility] Comment:Testing performed by : [address] [address] MCHC 34.7 32.3 - 35.7 g/dL [facility] Comment:Testing performed by : [address] [address] RDW CV 12.1 11.1 - 14.9 % [facility] Comment:Testing performed by : [address] [address] RDW SD 38.2 35.7 - 48.1 fL [facility] Comment:Testing performed by : [address], [address] Blood 01/30/2021 9:55 AM REINSURANCE CLAIMS ANALYST 01/30/2021 10:03 AM REINSURANCE CLAIMS ANALYST Lopez Shepherd MD LAB BLOOD ORDERABLES Final Res ult Performing Organization Address [facility] Co de Phone Number [address] [place] [address] * Cortisol (01/30/2021 9:55 AM REINSURANCE CLAIMS ANALYST) [facility] Cortisol 16.4 4.8 - 19.5 mcg/dl [facility] Blood 01/30/2021 9:55 AM REINSURANCE CLAIMS ANALYST 01/30/2021 12:33 PM REINSURANCE CLAIMS ANALYST Lopez Shepherd MD LAB BLOOD ORDERABLES Final Res ult Performing Organization Address [facility] Co de Phone Number [address] [address] * Lactate dehydrogenase (LD) (01/30/2021 9:55 AM REINSURANCE CLAIMS ANALYST) [facility] Lactate dehydrogenase (LDH) 193 100 - 250 Units/L [facility] Comment:Testing performed by : [facility], [address] [place] [address], [place]., [address] Blood 01/30/2021 9:55 AM REINSURANCE CLAIMS ANALYST 01/30/2021 10:04 AM REINSURANCE CLAIMS ANALYST Lopez Shepherd MD LAB BLOOD ORDERABLES Final Res ult [place] [id number] [facility] Department [place] [address] * (ABNORMAL) IgG (02/01/2020 2:52 PM REINSURANCE CLAIMS ANALYST) Pathologist [facility] [place] IgG 579(L) 700 - 1,600 mg/dL [facility] Blood specimen (specimen) 02/01/2020 2:52 PM REINSURANCE CLAIMS ANALYST 02/01/2020 3:50 PM REINSURANCE CLAIMS ANALYST Narrative Resulting Agency Comment RCR Lopez Shepherd MD LAB BLOOD ORDERABLES Final Res ult Performing Organization Address [facility] Co de Phone Number [address] [phone] documented in this encounter Visit Diagnoses Diagnosis History of follicular lymphoma- Primary Follicular non-Hodgkin's lymphoma (HCC) Need for prophylactic vaccination and inoculation against influenza documented in this encounter Historical Medications * This list may reflect changes made after this encounter. trimethoprim (TRIMPEX) 100 mg tablet TK 1 T PO AT BEDTIME. START AFTER COURSE OF ACUTE ANTIBIOTIC FOR URINARY TRACT INFECTION 01/15/2020 3 added in this encounter Orders Immunization/Injection Count Last Ordered Date First Ordered Date FLU VACCINE MDCK QUAD PF 4Y+ IM - FLUCELVAX 1 02/01/2020 Appointment Requests Count Last Ordered Date Fi rst Ordered Date ONCBCN CLINIC APPOINTMENT REQUEST 2 021 02/01/2020 ONCBCN LAB APPOINTMENT 1 01/30/2021 documented in this encounter Care Teams Calender Operator Helper Relationship Specialty Start Date End Date Juan Wilkinson MD PCP - General Family Practice 02/01/20 Juan Wilkinson MD 02/01/20 02/04/20 Lopez Shepherd MD Medical Oncologist/Biofuels Technology Manager Medical Oncology 01/31/19 01/31/22 documented as of this encounter
--- OUTSIDE RECORDS SUMMARY | 2024-04-03 14:18 | XMS_ITS | Encounter Summary ---
Author Organization [facility] Address [address] [place] [address] Phone Care Team Providers Care Experimental Rocket Sled Mechanic Name Role Phone Juan Wilkinson MD Primary Care Provider Helder Bailey MD Unavailable [phone] Reason for Visit * Reason Comments Follow-up Encounter Details Date Type Department Care Team (Late st Contact Info) Description 02/01/2022 12:45 PM RAILROAD SIGNAL AND SWITCH OPERATOR Office Visit [facility] Oncology [address] [place] [address] [address] [place] [address] Helder Bailey MD [facility] [address] [place] [address] History of follicular lymphoma (Primary Dx); Follicular non-Hodgkin's lymphoma (CMS/HCC) (HCC); Need for immunization against influenza Social History Tobacco Use Types [...] on file Legal Sex Female 12:30 AM RAILROAD SIGNAL AND SWITCH OPERATOR Gender Identity Not on file Sexual Orientation Not on file documented as of this encounter Last Filed Vital Signs Vital Sign Reading Time Taken Comments Blood Pressure 117/66 02/01/2022 12:33 PM RAILROAD SIGNAL AND SWITCH OPERATOR Pulse 76 02/01/2022 12:33 PM RAILROAD SIGNAL AND SWITCH OPERATOR Temperature 36.4 ??C (97.5 ??F) 02/01/2022 1 2:33 PM RAILROAD SIGNAL AND SWITCH OPERATOR Respiratory Rate 17 02/01/2022 12:3 3 PM RAILROAD SIGNAL AND SWITCH OPERATOR Oxygen Saturation 95% 02/01/2022 12: 33 PM RAILROAD SIGNAL AND SWITCH OPERATOR Inhaled Oxygen Concentration - - Weight 68.6 kg (151 lb 3.2 oz) 02/02/20 12:33 PM RAILROAD SIGNAL AND SWITCH OPERATOR with shoes Height 177.8 cm (5' 10 ) 02/01/2022 12: 33 PM RAILROAD SIGNAL AND SWITCH OPERATOR Body Mass Index 21.69 02/01/2022 12:33 PM RAILROAD SIGNAL AND SWITCH OPERATOR documented in this encounter Progress Notes * Helder Bailey MD - 02/01/2022 12:45 PM CST Visit Date: 02/01/2022 Requesting Provider: Nicol Howe NP Primary Care Physician: Juan Wilkinson MD Linda K Opel 76 y.o. female HPI/ Oncologic history: This is a 76-year-old woman who returns today for an annual followup visit. Patient was diagnosed with a malignant lymphoma, follicular Center cell, stage III in 2006. Patient subsequently completed chemotherapy with CVP plus rituximab and then 2 years of maintenancetherapy with rituximab. Patient is never developed evidence of recurrent disease. She reports no new medical issues within the last year. Treatment history: Non-Hodgkin's lymphoma Date of Diagnosis: [...] remission INTERVAL HISTORY: She is doing well. She has had a few UTIs since we saw her last. No pain issues. No new medical complaints. Past Medical History: Diagnosis Date Cervical cancer [...] Psychiatric/Behavioral: Negative. Pain: negative. Objective Vitals BP 117/66 (BP Location: Left arm) Pulse 76 Temp 36.4 ??C (97.5 ??F) (Oral) Resp 17 Ht 177.8 cm (5' 10 ) Wt 68.6 kg (151 lb 3.2 oz) SpO2 95% BMI 21.69 kg/m?? ECOG;0 Physical Exam: Constitutional: She is [...] Lab/Radiology/Diagnostic Review: Recent Results (from the past 336 hour(s)) Lactate dehydrogenase (LD) Collection Time: 02/01/22 12:25 PM Result Value Ref Range Lactate dehydrogenase (LDH) 244 100 - 250 Units/L Comprehensive metabolic panel Collection Time: 02/01/22 12:25 PM Result Value Ref Range Sodium 140 135 - 145 mmol/L Potassium, pl 4.4 3.3 - 4.9 mmol/L Chloride 102 97 - 110 mmol/L CO2 25 22 - 32 mmol/L Anion gap 13 2 - 15 mmol/L BUN 12 8 - 25 mg/dL Creatinine 0.60 0.60 - 1.10 mg/dL Glucose 112 70 - 199 mg/dL Calcium 9.5 8.5 - 10.3 mg/dL Bilirubin, total 0.3 0.1 - 1.2 mg/dL Protein, pl 6.7 6.5 - 8.5 g/dL Albumin 4.5 3.5 - 5.0 g/dL Alk phos 90 40 - 130 Units/L ALT 14 7 - 45 Units/L AST 24 10 - 45 Units/L CBC with auto differential Collection Time: 02/01/22 12:25 PM Result Value Ref Range WBC 9.2 3.8 - 9.9 K/cumm Hgb 14.6 11.9 - 15.5 g/dL Hct 43.5 35.6 - 45.5 % Plt 195 150 - 400 K/cumm MPV 10.9 9.1 - 12.3 fL RBC 5.11 3.90 - 5.20 M/cumm MCV 85.1 81.3 - 96.4 fL MCH 28.6 27.1 - 33.3 pg MCHC 33.6 32.3 - 35.7 g/dL RDW CV 12.3 11.1 - 14.9 % RDW SD 38.3 35.7 - 48.1 fL Differential, auto Collection Time: 02/01/22 12:25 PM Result Value Ref Range Neutrophil abs 4.7 1.7 - 6.5 K/cumm Lymphocyte abs 3.5 (H) 0.8 - 3.3 K/cumm Monocyte abs 0.8 0.2 - 0.8 K/cumm Eosinophil abs 0.1 0.0 - 0.5 K/cumm Neutrophil pct 51.0 % Imm gran pct 0.3 % Lymphocyte pct 38.6 % Monocyte pct 8.3 % Eosinophil pct 1.4 % Basophil pct 0.4 % eGFR Collection Time: 02/01/22 12:25 PM Result Value Ref Range eGFR 94 mL/min/1.73 m2 Labs from today reviewed with the patient. Patient Active Problem List Diagnosis Date Noted History of follicular lymphoma 01/23/2018 Assessment/ Plan: B-cell lymphoma: Follicular type. Stage IIIA. In complete remission. No B symptoms. Continue monitoring her yearly with H&P / CBC CMP and LDH. She is over 10 years out from completion of treatment with evidence of ongoing complete response. We offered to discharge her from oncology, but she prefers to stay with yearly follow up. Helder Bailey MD 02/01/2022 ROAD SIGNAL AND SWITCH OPERATOR documented in this encounter Plan of Treatment Not on file documented as of this encounter Results * Lactate dehydrogenase (LD) (01/25/2023 1:37 PM RAILROAD SIGNAL AND SWITCH OPERATOR) Lactate dehydrogenase (LDH) 223 100 - 250 Units/L [facility] Comment:Testing performed by : [facility], [address] [place] [address], [place]., [address] Blood 01/25/2023 1:37 PM RAILROAD SIGNAL AND SWITCH OPERATOR 01/25/2023 1:47 PM RAILROAD SIGNAL AND SWITCH OPERATOR us Helder Bailey MD LAB BLOOD ORDERABLES Final Result [facility] [address] [place] [address] [place] [address] * Comprehensive metabolic panel (01/25/2023 1:37 PM RAILROAD SIGNAL AND SWITCH OPERATOR) Sodium 139 135 - 145 mmol/L [facility] Comment:Testing performed by : [address] [address] Potassium, pl 4.3 3.3 - 4.9 mmol/L [facility] Comment:Testing performed by : [address] [address] Chloride 102 97 - 110 mmol/L [facility] Comment:Testing performed by : [address] [address] CO2 28 22 - 32 mmol/L [facility] Comment:Testing performed by : [address], [place]., [address] Anion gap 9 2 - 15 mmol/L [facility] Comment:Testing performed by : [address] [address] BUN 16 6 - 25 mg/dL [facility] Comment:Testing performed by : [address], [place]., [address] Creatinine 0.70 0.60 - 1.10 mg/dL [facility] Comment:Testing performed by : [address] [address] Glucose 102 70 - 199 mg/dL [facility] Comment: Interpretive [...] was last revised 2022. Testing performed by: [address], [place]., [address] Calcium 9.5 8.5 - 10.3 mg/dL [facility] Comment:Testing performed by : [address] [address] Bilirubin, total 0.3 0.1 - 1.2 mg/dL [facility] Comment:Testing performed by : [address] [address] Protein, pl 6.5 6.5 - 8.5 g/dL [facility] Comment:Testing performed by : [address] [address] Albumin 4.2 3.5 - 5.0 g/dL [facility] Comment:Testing performed by : [address] [address] Alk phos 85 40 - 130 Units/L [facility] Comment:Testing performed by : [address] [address] ALT 17 7 - 45 Units/L [facility] Comment:Testing performed by : [address], [address] AST 27 10 - 45 Units/L [facility] Comment:Testing performed by : [address] [address] Blood 01/25/2023 1:37 PM RAILROAD SIGNAL AND SWITCH OPERATOR 01/25/2023 1:47 PM RAILROAD SIGNAL AND SWITCH OPERATOR Helder Bailey MD LAB BLOOD ORDERABLES Final Result [facility] [address] [facility] Department of Laboratories [place], [place] [id number] * (ABNORMAL) CBC with auto differential (01/25/2023 1:37 PM RAILROAD SIGNAL AND SWITCH OPERATOR) [facility] WBC 8.8 3.8 - 9.9 K/cumm [facility] Comment:Testing performed by : [address] [address] Hgb 13.9 11.9 - 15.5 g/dL [facility] Comment: Interpretive Data A reference range for this assay has not been established for patients with an unknown legal sex. Please refer to the laboratory test catalog for established sex-specific reference intervals. Current interpretive data was last revised on 2022. Testing performed by: [address] [address] Hct 40.9 35.6 - 45.5 % [facility] Comment: Interpretive Data A reference range for this assay has not been established for patients with an unknown legal sex. Please refer to the laboratory test catalog for established sex-specific reference intervals. Current interpretive data was last revised on 2022. Testing performed by: [address] [address] Plt 195 150 - 400 K/cumm [facility] Comment:Testing performed by : [address] [address] MPV 11.1 9.1 - 12.3 fL [facility] Comment:Testing performed by : [address] [address] RBC 4.79 3.90 - 5.20 M/cumm [facility] Comment: Interpretive Data A reference range for this assay has not been established for patients with an unknown legal sex. Please refer to the laboratory test catalog for established sex-specific reference intervals. Current interpretive data was last revised on 2022. Testing performed by: [address] [address] MCV 85.4 81.3 - 96.4 fL [facility] Comment:Testing performed by : [address] [address] MCH 29.0 27.1 - 33.3 pg [facility] Comment:Testing performed by : [address] [address] MCHC 34.0 32.3 - 35.7 g/dL [facility] Comment:Testing performed by : [address] [address] RDW CV 12.3 11.1 - 14.9 % [facility] Comment:Testing performed by : [address] [address] RDW SD 38.1 35.7 - 48.1 fL [facility] Comment:Testing performed by : [address] [address] NRBC abs 0.04(H) 0.00 - 0.01 K/cumm [facility] Comment:Testing performed by : [facility], [address] [place] [address], [place]., [address] Blood 01/25/2023 1:37 PM RAILROAD SIGNAL AND SWITCH OPERATOR 01/25/2023 1:47 PM RAILROAD SIGNAL AND SWITCH OPERATOR us Helder Bailey MD LAB BLOOD ORDERABLES Final Result [facility] [address] [facility] Department [place] [address] documented in this encounter Visit Diagnoses Diagnosis History of follicular lymphoma- Primary Follicular non-Hodgkin's lymphoma (HCC) Need for immunization against influenza Need for prophylactic vaccination and inoculation against influenza documented in this encounter Historical Medications * This list may reflect changes made after this encounter. simvastatin (ZOCOR) 20 mg tablet Take 1 tablet (20 mg total) by mouth daily 12/03/2021 omeprazole (PriLOSEC) 20 mg capsule Take 1 capsule (20 mg total) by mouth daily 01/21/2022 estradioL (ESTRACE) 0.01 % (0.1 mg/gram) vaginal cream USE FINGERTIP AMOUNT AND INSERT IN THE VAGINA 2 NIGHTS PER WEEK 11/05/2021 3 added in this encounter Orders Immunization/Injection Count Last Ordered Date First Ordered Date FLU VACCINE MDCK QUAD PF 2Y+ IM - FLUCELVAX 1 02/01/2022 Appointment Requests Count Last Ordered Date Fi rst Ordered Date ONCBCN CLINIC APPOINTMENT REQUEST 2 023 02/01/2022 ONCBCN LAB APPOINTMENT 1 01/25/2023 documented in this encounter Care Teams Experimental Rocket Sled Mechanic Relationship Specialty Start Date End Date Juan Wilkinson MD PCP - General Family Practice 02/01/20 Helder Bailey MD [address] [facility] [address] [place] [address] Medical Oncologist/Irrigator Valve Pipe Medical Oncology 02/01/22 01/18/24 documented as of this encounter
--- OUTSIDE RECORDS SUMMARY | 2024-04-03 14:18 | XMS_ITS | Encounter Summary ---
Author Organization [facility] Address [address] [place] [address] Phone Care Team Providers Care Nut Sorter Name Role Phone Unavailable Primary Care Provider Unavailabl e Encounter Details Date Type Department Care Team (Late st Contact Info) Description 01/23/2018 Orders Only [facility] Oncology [address] [facility] [place] [id number] Jonna Hanna RN History of follicular lymphoma (Primary Dx) Social History Tobacco Use Types Packs/Day Years Used Date Smoking Tobacco: Former Comments Unknown Sex and Gender Information Value Date Recorded Sex Assigned at Not on file Legal Sex Female 12:30 AM CAMPUS SECURITY DIRECTOR Gender Identity Not on file Sexual Orientation Not on file documented as of this encounter Plan of Treatment Not on file documented as of this encounter Procedures Procedure Name Priority Date/Time Associated Diagnosis Comments LACTATE DEHYDROGENASE Routine 01/25/2018 12:27 PM CAMPUS SECURITY DIRECTOR History of follicular lymphoma COMPREHENSIVE METABOLIC PANEL Routine 01/25/2018 12:27 PM CAMPUS SECURITY DIRECTOR History of follicular lymphoma documented in this encounter Results * (ABNORMAL) Lactate dehydrogenase (LD) (01/25/2018 12:27 PM CAMPUS SECURITY DIRECTOR) Lactate dehydrogenase (LDH) 241(H) 119 - 226 IU/L [facility] - 01 Blood specimen (specimen) 01/25/2018 12:27 PM CAMPUS SECURITY DIRECTOR 01/25/2018 Narrative [facility] - 01/27/2018 8:29 AM CAMPUS SECURITY DIRECTOR Performed at: ??01 - [facility] [address], [place], [place] [id number] Forge Heater: Harvinder Knapp PhD, Phone: [phone] us Lito Birmingham MD LAB BLOOD ORDERABLES Fi nal Result [facility] - 01 * (ABNORMAL) Comprehensive metabolic panel (01/25/2018 12:27 PM CAMPUS SECURITY DIRECTOR) Glucose 81 65 - 99 mg/dL [facility] - 01 BUN 12 8 - 27 mg/dL [facility] - 01 Creatinine, Serum 0.69 0.57 - 1.00 mg/dL [facility] - 01 eGFR If NonAfricn Am 88 >59 mL/min/1.7 3 [facility] - 01 eGFR If Africn Am 101 >59 mL/min/1.7 3 [facility] - 01 BUN/creat ratio 17 12 - 28 [facility] - 01 Sodium 144 134 - 144 mmol/L [facility] - 01 Potassium, sr 4.4 3.5 - 5.2 mmol/L [facility] - 01 Chloride 101 96 - 106 mmol/L [facility] - 01 CO2 21 20 - 29 mmol/L [facility] - 01 Calcium 9.9 8.7 - 10.3 mg/dL [facility] - 01 Protein, sr 6.7 6.0 - 8.5 g/dL [facility] - 01 Albumin 4.9(H) 3.5 - 4.8 g/dL [facility] - 01 Globulin, Total 1.8 1.5 - 4.5 g/dL [facility] - 01 A/G Ratio 2.7(H) 1.2 - 2.2 [facility] - 01 Bilirubin, Total 0.2 0.0 - 1.2 mg/dL [facility] - 01 Alk phos 83 39 - 117 IU/L [facility] - 01 AST 25 0 - 40 IU/L [facility] - 01 ALT 13 0 - 32 IU/L [facility] - 01 Blood specimen (specimen) 01/25/2018 12:27 PM CAMPUS SECURITY DIRECTOR 01/25/2018 Narrative [facility] - 01/27/2018 8:29 AM CAMPUS SECURITY DIRECTOR Performed at: ??01 - [facility] [address], [place], [place] [id number] For[employer] Heater: Harvinder Knapp PhD, Phone: [phone] us Lito Birmingham MD LAB BLOOD ORDERABLES Fi nal Result [facility] - 01 documented in this encounter Visit Diagnoses Diagnosis History of follicular lymphoma- Primary documented in this encounter Orders Lab Orders Without Results Count Last Ordered D ate First Ordered Date CBC WITH AUTO DIFFERENTIAL 1 01/23/2018 Appointment Requests Count Last Ordered Date Fi rst Ordered Date ONCBCN LAB APPOINTMENT 1 01/25/2018 documented in this encounter
--- OUTSIDE RECORDS SUMMARY | 2024-04-03 14:18 | XMS_ITS | Encounter Summary ---
Author Organization [facility] Healthcare Address [address] [place] [address] Care Team Providers Care Handbag Stitcher Name Role Phone Juan Wilkinson MD Primary Care Provider Lopez Shepherd MD Unavailable [phone] Encounter Details Date Type Department Care Team (Late st Contact Info) Description 01/30/2021 9:45 AM GROUP ACTIVITIES AIDE Lab [facility] [address] [place] [id number] History of follicular lymphoma; Follicular non-Hodgkin's lymphoma (CMS/HCC) (HCC) Social History Tobacco Use Types Packs/Day Years Used Date Smoking Tobacco: Former Cigarettes Q uit: 2013 Smokeless Tobacco: Never Alcohol Use Standard Drinks/Week Comments No 0 (1 standard drink = 0.6 oz pur e alcohol) Comments Unknown Sex and Gender Information Value Date Recorded Sex Assigned at Not on file Legal Sex Female 12:30 AM GROUP ACTIVITIES AIDE Gender Identity Not on file Sexual Orientation Not on file documented as of this encounter Plan of Treatment Not on file documented as of this encounter Procedures Procedure Name Priority Date/Time Associated Diagnosis Comments DIFFERENTIAL AUTO Routine 01/30/2021 9:5 5 AM GROUP ACTIVITIES AIDE History of follicular lymphoma Follicular non-Hodgkin's lymphoma (CMS/HCC) (HCC) CBC WITH AUTO DIFFERENTIAL Routine 01/30/2021 9:55 AM GROUP ACTIVITIES AIDE History of follicular lymphoma Follicular non-Hodgkin's lymphoma (CMS/HCC) (HCC) LACTATE DEHYDROGENASE Routine 01/30/2021 9:55 AM GROUP ACTIVITIES AIDE History of follicular lymphoma Follicular non-Hodgkin's lymphoma (CMS/HCC) (HCC) CORTISOL Routine 01/30/2021 9:55 AM GROUP ACTIVITIES AIDE History of follicular lymphoma Follicular non-Hodgkin's lymphoma (CMS/HCC) (HCC) documented in this encounter Results * Differential, auto (01/30/2021 9:55 AM GROUP ACTIVITIES AIDE) Neutrophil abs 3.0 1.7 - 6.5 K/cumm [facility] Comment:Testing performed by : [address] [address] Lymphocyte abs 2.9 0.8 - 3.3 K/cumm [facility] Comment:Testing performed by : [address] [address] Monocyte abs 0.6 0.2 - 0.8 K/cumm [facility] Comment:Testing performed by : [address] [address] Eosinophil abs 0.1 0.0 - 0.5 K/cumm [facility] Comment:Testing performed by : [address] [address] Basophil abs 0.1 0.0 - 0.1 K/cumm [facility] Comment:Testing performed by : [address] [address] Neutrophil pct 45.5 % [facility] Comment: Interpretive Data Percent cell count reference ranges are not reported, since discordance with absolute values may lead to misinterpretation of CBC data. Current Interpretive Data was last revised on 2017. Testing performed by: [address] [address] Imm gran pct 0.3 % [facility] Comment: Interpretive Data Percent cell count reference ranges are not reported, since discordance with absolute values may lead to misinterpretation of CBC data. Current Interpretive Data was last revised on 2017. Testing performed by: [address] [address] Lymphocyte pct 43.8 % [facility] Comment: Interpretive Data Percent cell count reference ranges are not reported, since discordance with absolute values may lead to misinterpretation of CBC data. Current Interpretive Data was last revised on 2017. Testing performed by: [address] [address] Monocyte pct 8.7 % [facility] Comment: Interpretive Data Percent cell count reference ranges are not reported, since discordance with absolute values may lead to misinterpretation of CBC data. Current Interpretive Data was last revised on 2017. Testing performed by: [address] [address] Eosinophil pct 0.9 % [facility] Comment: Interpretive Data Percent cell count reference ranges are not reported, since discordance with absolute values may lead to misinterpretation of CBC data. Current Interpretive Data was last revised on 2017. Testing performed by: [address] [address] Basophil pct 0.8 % [facility] Comment: Interpretive Data Percent cell count reference ranges are not reported, since discordance with absolute values may lead to misinterpretation of CBC data. Current Interpretive Data was last revised on 2017. Testing performed by: [address] [address] Blood 01/30/2021 9:55 AM GROUP ACTIVITIES AIDE 01/30/2021 10:03 AM GROUP ACTIVITIES AIDE us Lopez Shepherd MD LAB BLOOD ORDERABLES Final Res ult [facility] [address] [facility] [place] [address] * Lactate dehydrogenase (LD) (01/30/2021 9:55 AM GROUP ACTIVITIES AIDE) Lactate dehydrogenase (LDH) 193 100 - 250 Units/L [facility] Comment:Testing performed by : [address] [address] Blood 01/30/2021 9:55 AM GROUP ACTIVITIES AIDE 01/30/2021 10:04 AM GROUP ACTIVITIES AIDE us Lopez Shepherd MD LAB BLOOD ORDERABLES Final Res ult [facility] [address] [facility] [place] [address] * Cortisol (01/30/2021 9:55 AM GROUP ACTIVITIES AIDE) Cortisol 16.4 4.8 - 19.5 mcg/dl [facility] Blood 01/30/2021 9:55 AM GROUP ACTIVITIES AIDE 01/30/2021 12:33 PM GROUP ACTIVITIES AIDE us Lopez Shepherd MD LAB BLOOD ORDERABLES Final Res ult Performing Organization Address City/[facility] Co de Phone Number [facility] [address] [facility] [place] [address] * CBC with auto differential (01/30/2021 9:55 AM GROUP ACTIVITIES AIDE) Pathologist [facility] WBC 6.5 3.8 - 9.9 K/cumm [facility] Comment:Testing performed by : [address] [address] Hgb 14.2 11.9 - 15.5 g/dL [facility] Comment:Testing performed by : [address] [address] Hct 40.9 35.6 - 45.5 % [facility] Comment:Testing performed by : [address] [address] Plt 265 150 - 400 K/cumm [facility] Comment:Testing performed by : [address] [address] MPV 10.4 9.1 - 12.3 fL [facility] Comment:Testing performed by : [address] [address] RBC 4.76 3.90 - 5.20 M/cumm [facility] [place] Comment:Testing performed by : [address] [address] MCV 85.9 81.3 - 96.4 fL [facility] Comment:Testing performed by : [address], [address] MCH 29.8 27.1 - 33.3 pg [facility] [place] Comment:Testing performed by : [facility], [address] [place] [address]., [address] MCHC 34.7 32.3 - 35.7 g/dL [facility] [place] Comment:Testing performed by : [address] [address] RDW CV 12.1 11.1 - 14.9 % [facility] Comment:Testing performed by : [address] [address] RDW SD 38.2 35.7 - 48.1 fL [facility] Comment:Testing performed by : [address] [address] Blood 01/30/2021 9:55 AM GROUP ACTIVITIES AIDE 01/30/2021 10:03 AM GROUP ACTIVITIES AIDE us Lopez Shepherd MD LAB BLOOD ORDERABLES Final Res ult [facility] Department [place] [address] documented in this encounter Visit Diagnoses Diagnosis History of follicular lymphoma Follicular non-Hodgkin's lymphoma (HCC) documented in this encounter Orders Appointment Requests Count Last Ordered Date Fi rst Ordered Date ONCBCN LAB APPOINTMENT 1 01/30/2021 documented in this encounter Care Teams Handbag Stitcher Relationship Specialty Start Date End Date Juan Wilkinson MD PCP - General Family Practice 02/01/20 Lopez Shepherd MD Medical Oncologist/Third Hand Medical Oncology 01/31/19 01/31/22 documented as of this encounter
--- OUTSIDE RECORDS SUMMARY | 2024-04-03 14:18 | XMS_ITS | Encounter Summary ---
Author Organization [facility] Facility Care Team Providers Care Founder & Ceo Name Role Phone No, Physician Primary Care Provider [phone] Lopez Shepherd MD Unavailable [phone] Encounter Details Date Type Department Care Team (Latest Contact Info) Description 02/02/2019 Travel Social History Tobacco Use Types Packs/Day Years Used Date Smoking Tobacco: Former Cigarettes Q uit: 2013 Smokeless Tobacco: Never Alcohol Use Standard Drinks/Week Comments No 0 (1 standard drink = 0.6 oz pur e alcohol) Comments Unknown Sex and Gender Information Value Date Recorded Sex Assigned at Not on file Legal Sex Female 12:30 AM PATENT PROSECUTION PARALEGAL Gender Identity Not on file Sexual Orientation Not on file documented as of this encounter Plan of Treatment Not on file documented as of this encounter Visit Diagnoses Not on filedocumented in this encounter Care Teams Founder & Ceo Relationship Specialty Start Date End Date No, Physician PCP - General 01/25/18 01/31/20 Lopez Shepherd MD Medical Oncologist/Emergency Room Physician Assistant Medical Oncology 01/31/19 01/31/22 documented as of this encounter
--- OUTSIDE RECORDS SUMMARY | 2024-04-03 14:18 | XMS_ITS | Encounter Summary ---
Author Organization [facility] Address [address] [place] [address] Phone Care Team Providers Care Junior Media Buyer Name Role Phone Juan Wilkinson MD Primary Care Provider OppeHelder puentes MD Unavailable [phone] Encounter Details Date Type Department Care Team (Late st Contact Info) Description 01/25/2023 1:30 PM TILE FINISHER Lab [facility] Oncology [address] [place] [phone] History of follicular lymphoma Social History Tobacco Use Types Packs/Day Years [...] on file Legal Sex Female 12:30 AM TILE FINISHER Gender Identity Not on file Sexual Orientation Not on file documented as of this encounter Plan of Treatment Not on file documented as of this encounter Visit Diagnoses Diagnosis History of follicular lymphoma documented in this encounter Orders Appointment Requests Count Last Ordered Date Fi rst Ordered Date ONCBCN LAB APPOINTMENT 1 01/25/2023 documented in this encounter Care Teams Junior Media Buyer Relationship Specialty Start Date End Date Juan Wilkinson MD PCP - General Family Practice 02/01/20 OppeltHelder MD [address] [facility] [address] [place] [address] Medical Oncologist/Fixed Interest Dealer Medical Oncology 02/01/22 01/18/24 documented as of this encounter
--- OUTSIDE RECORDS SUMMARY | 2024-04-03 14:18 | XMS_ITS | Encounter Summary ---
Author Organization [facility] Healthcare Address [address] [place] [address] Care Team Providers Care Otr Tanker Truck Driver Name Role Phone Juan Wilkinson MD Primary Care Provider Juan Wilkinson MD Unavailable [phone] Lopez Shepherd MD Unavailable [phone] Encounter Details Date Type Department Care Team (Late st Contact Info) Description 02/01/2020 2:37 PM AGGREGATE CONVEYOR OPERATOR - 02/11/2020 11:59 PM AGGREGATE CONVEYOR OPERATOR Hospital Encounter [facility] INTERIM PodLopez cortez MD [address] [facility] DEPT ONCOLOGY [place], [place] [address] Social History Tobacco Use Types Packs/Day Years Used Date Smoking Tobacco: Never Assessed Comments Unknown Sex and Gender Information Value Date Recorded Sex Assigned at Not on file Legal Sex Female 12:30 AM AGGREGATE CONVEYOR OPERATOR Gender Identity Not on file Sexual Orientation Not on file documented as of this encounter Medications at Time of Discharge simvastatin (ZOCOR) 10 mg tablet TK 1 T PO QD IN THE [place] 0 12/18/2017 3 trimethoprim (TRIMPEX) 100 mg tablet TK 1 T PO AT BEDTIME. START AFTER COURSE OF ACUTE ANTIBIOTIC FOR URINARY TRACT INFECTION 01/15/2020 3 documented as of this encounter Plan of Treatment Not on file documented as of this encounter Visit Diagnoses Not on filedocumented in this encounter Care Teams Otr Tanker Truck Driver Relationship Specialty Start Date End Date Juan Wilkinson MD PCP - General Family Practice 02/01/20 Juan Wilkinson MD 02/01/20 02/04/20 Lopez Shepherd MD Medical Oncologist/Lei Seller Medical Oncology 01/31/19 01/31/22 documented as of this encounter
--- OUTSIDE RECORDS SUMMARY | 2024-04-03 14:18 | XMS_ITS | Encounter Summary ---
Author Organization [facility] Healthcare Address [address] [place] [address] Care Team Providers Care Logging Rafter Laborer Name Role Phone Juan Wilkinson MD Primary Care Provider OppeHelder puentes MD Unavailable [phone] Encounter Details Date Type Department Care Team (Late st Contact Info) Description 01/25/2023 1:45 PM SEAFOOD HARVESTER Lab [facility] Lab [address] [place] [id number] History of follicular lymphoma Social History Tobacco [...] on file Legal Sex Female 12:30 AM SEAFOOD HARVESTER Gender Identity Not on file Sexual Orientation Not on file documented as of this encounter Plan of Treatment Not on file documented as of this encounter Procedures Procedure Name Priority Date/Time Associated Diagnosis Comments EGFR Routine 01/25/2023 1:37 PM SEAFOOD HARVESTER History of follicular lymphoma DIFFERENTIAL AUTO Routine 01/25/2023 1:3 7 PM SEAFOOD HARVESTER History of follicular lymphoma CBC WITH AUTO DIFFERENTIAL Routine 01/25/2023 1:37 PM SEAFOOD HARVESTER History of follicular lymphoma LACTATE DEHYDROGENASE Routine 01/25/2023 1:37 PM SEAFOOD HARVESTER History of follicular lymphoma COMPREHENSIVE METABOLIC PANEL Routine 01/25/2023 1:37 PM SEAFOOD HARVESTER History of follicular lymphoma documented in this encounter Results * eGFR (01/25/2023 1:37 PM SEAFOOD HARVESTER) Pathologist [facility] eGFR 90 mL/min/1. 73 m2 [facility] Comment: Interpretive Data Reference Interval Normal ?>/= [...] was last reviewed 2021. Testing performed by: [facility], [address] [place] [address], [place]., [address] Blood 01/25/2023 1:37 PM SEAFOOD HARVESTER 01/25/2023 1:47 PM SEAFOOD HARVESTER us Helder Bailey MD LAB BLOOD ORDERABLES Final Result [facility] [address] [facility] [place] [address] * (ABNORMAL) Differential, auto (01/25/2023 1:37 PM SEAFOOD HARVESTER) Neutrophil abs 3.5 1.7 - 6.5 K/cumm [facility] Comment:Testing performed by : [address] [address] Lymphocyte abs 4.3(H) 0.8 - 3.3 K/cumm [facility] Comment:Testing performed by : [address] [address] Monocyte abs 0.8 0.2 - 0.8 K/cumm [facility] Comment:Testing performed by : [address] [address] Eosinophil abs 0.2 0.0 - 0.5 K/cumm [facility] Comment:Testing performed by : [address] [address] Basophil abs 0.1 0.0 - 0.1 K/cumm [facility] Comment:Testing performed by : [address] [address] Neutrophil pct 39.8 % [facility] Comment: Interpretive Data Percent cell count reference ranges are not reported, since discordance with absolute values may lead to misinterpretation of CBC data. Current Interpretive Data was last revised on 2017. Testing performed by: [address] [address] Imm gran pct 0.1 % [facility] Comment: Interpretive Data Percent cell count reference ranges are not reported, since discordance with absolute values may lead to misinterpretation of CBC data. Current Interpretive Data was last revised on 2017. Testing performed by: [address] [address] Lymphocyte pct 48.1 % [facility] Comment: Interpretive Data Percent cell count reference ranges are not reported, since discordance with absolute values may lead to misinterpretation of CBC data. Current Interpretive Data was last revised on 2017. Testing performed by: [address] [address] Monocyte pct 9.3 % [facility] Comment: Interpretive Data Percent cell count reference ranges are not reported, since discordance with absolute values may lead to misinterpretation of CBC data. Current Interpretive Data was last revised on 2017. Testing performed by: [address] [address] Eosinophil pct 2.0 % [facility] Comment: Interpretive Data Percent cell count reference ranges are not reported, since discordance with absolute values may lead to misinterpretation of CBC data. Current Interpretive Data was last revised on 2017. Testing performed by: [address] [address] Basophil pct 0.7 % [facility] Comment: Interpretive Data Percent cell count reference ranges are not reported, since discordance with absolute values may lead to misinterpretation of CBC data. Current Interpretive Data was last revised on 2017. Testing performed by: [address] [address] Blood 01/25/2023 1:37 PM SEAFOOD HARVESTER 01/25/2023 1:47 PM SEAFOOD HARVESTER Helder Bailey MD LAB BLOOD ORDERABLES Final Result [facility] [address] [facility] [place] [address] * (ABNORMAL) CBC with auto differential (01/25/2023 1:37 PM SEAFOOD HARVESTER) [facility] WBC 8.8 3.8 - 9.9 K/cumm [facility] Comment:Testing performed by : [address] [address] Hgb 13.9 11.9 - 15.5 g/dL [facility] Comment: Interpretive Data A reference range for this assay has not been established for patients with an unknown legal sex. Please refer to the laboratory test catalog for established sex-specific reference intervals. Current interpretive data was last revised on 2022. Testing performed by: [address] [address] Hct 40.9 35.6 - 45.5 % [facility] Comment: Interpretive Data A reference range for this assay has not been established for patients with an unknown legal sex. Please refer to the laboratory test catalog for established sex-specific reference intervals. Current interpretive data was last revised on 2022. Testing performed by: [address] [address] Plt 195 150 - 400 K/cumm [facility] Comment:Testing performed by : [address] [address] MPV 11.1 9.1 - 12.3 fL [facility] Comment:Testing performed by : [address] [address] RBC 4.79 3.90 - 5.20 M/cumm [facility] Comment: Interpretive Data A reference range for this assay has not been established for patients with an unknown legal sex. Please refer to the laboratory test catalog for established sex-specific reference intervals. Current interpretive data was last revised on 2022. Testing performed by: [address] [address] MCV 85.4 81.3 - 96.4 fL [facility] Comment:Testing performed by : [address] [address] MCH 29.0 27.1 - 33.3 pg [facility] Comment:Testing performed by : [address] [address] MCHC 34.0 32.3 - 35.7 g/dL [facility] Comment:Testing performed by : [address] [address] RDW CV 12.3 11.1 - 14.9 % [facility] Comment:Testing performed by : [address] [address] RDW SD 38.1 35.7 - 48.1 fL [facility] Comment:Testing performed by : [address] [address] NRBC abs 0.04(H) 0.00 - 0.01 K/cumm [facility] [place] Comment:Testing performed by : [address] [address] Blood 01/25/2023 1:37 PM SEAFOOD HARVESTER 01/25/2023 1:47 PM SEAFOOD HARVESTER Helder Bailey MD LAB BLOOD ORDERABLES Final Result Performing Organization Address City/State/[facility] Co pr Phone Number [facility] [address] [facility] Department [place] [address] * Comprehensive metabolic panel (01/25/2023 1:37 PM SEAFOOD HARVESTER) Sodium 139 135 - 145 mmol/L [facility] Comment:Testing performed by : [address] [address] Potassium, pl 4.3 3.3 - 4.9 mmol/L [facility] Comment:Testing performed by : [address] [address] Chloride 102 97 - 110 mmol/L [facility] Comment:Testing performed by : [address] [address] CO2 28 22 - 32 mmol/L [facility] Comment:Testing performed by : [address] [address] Anion gap 9 2 - 15 mmol/L [facility] Comment:Testing performed by : [address] [address] BUN 16 6 - 25 mg/dL [facility] Comment:Testing performed by : [address] [address] Creatinine 0.70 0.60 - 1.10 mg/dL [facility] Comment:Testing performed by : [address] [address] Glucose 102 70 - 199 mg/dL [facility] [...] was last revised 2022. Testing performed by: [address] [address] Calcium 9.5 8.5 - 10.3 mg/dL [facility] Comment:Testing performed by : [address] [address] Bilirubin, total 0.3 0.1 - 1.2 mg/dL [facility] Comment:Testing performed by : [address] [address] Protein, pl 6.5 6.5 - 8.5 g/dL [facility] Comment:Testing performed by : [address] [address] Albumin 4.2 3.5 - 5.0 g/dL [facility] Comment:Testing performed by : [address] [address] Alk phos 85 40 - 130 Units/L [facility] Comment:Testing performed by : [address] [address] ALT 17 7 - 45 Units/L [facility] Comment:Testing performed by : [address] [address] AST 27 10 - 45 Units/L [facility] Comment:Testing performed by : [address] [address] Blood 01/25/2023 1:37 PM SEAFOOD HARVESTER 01/25/2023 1:47 PM SEAFOOD HARVESTER us Helder Bailey MD LAB BLOOD ORDERABLES Final Result [facility] [address] [facility] Department [place] [address] * Lactate dehydrogenase (LD) (01/25/2023 1:37 PM SEAFOOD HARVESTER) Lactate dehydrogenase (LDH) 223 100 - 250 Units/L [facility] [place] Comment:Testing performed by : [facility], [address] [place] [address], [place]., [address] Blood 01/25/2023 1:37 PM SEAFOOD HARVESTER 01/25/2023 1:47 PM SEAFOOD HARVESTER us Helder Bailey MD LAB BLOOD ORDERABLES Final Result [facility] [address] [facility] Department [place] [address] documented in this encounter Visit Diagnoses Diagnosis History of follicular lymphoma documented in this encounter Care Teams Logging Rafter Laborer Relationship Specialty Start Date End Date Juan Wilkinson MD PCP - General Family Practice 02/01/20 Helder Bailey MD [address] [facility] [address] [place] [address] Medical Oncologist/Photographer Assistant Medical Oncology 02/01/22 01/18/24 documented as of this encounter
--- OUTSIDE RECORDS SUMMARY | 2024-04-03 14:18 | XMS_ITS | Encounter Summary ---
Author Organization [facility] Address [address] [place] [address] Phone Care Team Providers Care Hearing Health Technician Name Role Phone No, Physician Primary Care Provider [phone] Lito Birmingham MD Unavailable [phone] Encounter Details Date Type Department Care Team (Late st Contact Info) Description 01/25/2018 Orders Only [facility] Oncology [address] [facility] [place] [id number] Lito Birmingham MD [address] [place], [place] [id number] Social History Tobacco Use Types Packs/Day Years Used Date Smoking Tobacco: Former Cigarettes Q uit: 2013 Smokeless Tobacco: Never Alcohol Use Standard Drinks/Week Comments No 0 (1 standard drink = 0.6 oz pur e alcohol) Comments Unknown Sex and Gender Information Value Date Recorded Sex Assigned at Not on file Legal Sex Female 12:30 AM SALES PLANNING COORDINATOR Gender Identity Not on file Sexual Orientation Not on file documented as of this encounter Plan of Treatment Not on file documented as of this encounter Procedures Procedure Name Priority Date/Time Associated Diagnosis Comments CBC WITH AUTO DIFFERENTIAL Routine 01/25/2018 12:53 PM SALES PLANNING COORDINATOR documented in this encounter Results * (ABNORMAL) CBC with auto differential (01/25/2018 12:53 PM SALES PLANNING COORDINATOR) WBC 8.0 3.4 - 10.8 x10E3/uL [facility] - 01 RBC 5.20 3.77 - 5.28 x10E6/uL [facility] - 01 Hgb 15.3 11.1 - 15.9 g/dL [facility] - 01 Hct 46.0 34.0 - 46.6 % [facility] - 01 MCV 88 79 - 97 fL [facility] - 01 MCH 29.5 26.6 - 33.0 pg [facility] - 01 MCHC 33.3 31.5 - 35.7 g/dL [facility] - 01 Rdw 11.9(L) 12.3 - 15.4 % [facility] - 01 Platelets 234 150 - 379 x10E3/uL [facility] - 01 Neutrophils pct 57 Not Estab. % [facility] - 01 Lymphs pct 35 Not Estab. % [facility] - 01 Monocytes pct 6 Not Estab. % [facility] - 01 Eosinophils pct 2 Not Estab. % [facility] - 01 Basophil pct 0 Not Estab. % [facility] - 01 Neutrophil abs 4.6 1.4 - 7.0 x10E3/uL [facility] - 01 Lymphs (Absolute) 2.8 0.7 - 3.1 x10E3/uL [facility] - 01 Monocyte abs 0.5 0.1 - 0.9 x10E3/uL [facility] - 01 Eosinophils, abs 0.1 0.0 - 0.4 x10E3/uL [facility] - 01 Basophils, abs 0.0 0.0 - 0.2 x10E3/uL [facility] - 01 01/25/2018 12:5 3 PM SALES PLANNING COORDINATOR 01/25/2018 Narrative [facility] - 01/25/2018 1:58 PM SALES PLANNING COORDINATOR Performed at: ??01 - [facility] [address], [place] ??[id number] Research Intern: Galen Dhillon MD, Phone: ??[phone] us Lito Birmingham MD LAB BLOOD ORDERABLES Fi nal Result [facility] - 01 documented in this encounter Visit Diagnoses Not on filedocumented in this encounter Care Teams Hearing Health Technician Relationship Specialty Start Date End Date No, Physician PCP - General 01/25/18 01/31/20 Lito Birmingham MD Medical Oncologist/Drip Molder Hematology and Oncology 01/24/18 01/30/19 documented as of this encounter
--- OUTSIDE RECORDS SUMMARY | 2024-04-03 14:18 | XMS_ITS | Encounter Summary ---
Author Organization [facility] Address [address] [place] [address] Phone Care Team Providers Care Labor Law Professor Name Role Phone No, Physician Primary Care Provider [phone] Lopez Shepherd MD Unavailable [phone] Encounter Details Date Type Department Care Team (Late st Contact Info) Description 02/02/2019 9:30 AM SENIOR VISUAL DESIGNER Lab [facility] Oncology [address] [place] [id number] History of follicular lymphoma (Primary Dx); Follicular non-Hodgkin's lymphoma (CMS/HCC) Social History Tobacco Use Types Packs/Day Years Used Date Smoking Tobacco: Former Cigarettes Q uit: 2013 Smokeless Tobacco: Never Alcohol Use Standard Drinks/Week Comments No 0 (1 standard drink = 0.6 oz pur e alcohol) Comments Unknown Sex and Gender Information Value Date Recorded Sex Assigned at Not on file Legal Sex Female 12:30 AM SENIOR VISUAL DESIGNER Gender Identity Not on file Sexual Orientation Not on file documented as of this encounter Plan of Treatment Scheduled Orders Name Type Priority Associated Diagnoses Orde r Schedule CBC with auto differential Lab Routine History of follicular lymphoma Expected: 02/02/2019, Expires: 02/01/2020 documented as of this encounter Procedures Procedure Name Priority Date/Time Associated Diagnosis Comments LACTATE DEHYDROGENASE Routine 02/02/2019 9:28 AM SENIOR VISUAL DESIGNER History of follicular lymphoma COMPREHENSIVE METABOLIC PANEL Routine 02/02/2019 9:28 AM SENIOR VISUAL DESIGNER History of follicular lymphoma documented in this encounter Results * Lactate dehydrogenase (LD) (02/02/2019 9:28 AM SENIOR VISUAL DESIGNER) Lactate dehydrogenase (LDH) 222 119 - 226 IU/L [facility] - 01 Blood specimen (specimen) 02/02/2019 9:28 AM SENIOR VISUAL DESIGNER 02/02/2019 Narrative [facility] - 02/03/2019 10:35 AM SENIOR VISUAL DESIGNER Performed at: ??01 - [facility] [address] ??[id number] Field Clerk: Harvinder Knapp PhD, Phone: ??[phone] us Lopez Shepherd MD LAB BLOOD ORDERABLES Edited Re sult - Final [facility] - 01 * (ABNORMAL) Comprehensive metabolic panel (02/02/2019 9:28 AM SENIOR VISUAL DESIGNER) Glucose 37(<) 65 - 99 mg/dL [facility] - 01 Comment:Verified by repeat analysis BUN 12 8 - 27 mg/dL [facility] - 01 Creatinine, Serum 0.79 0.57 - 1.00 mg/dL [facility] - 01 eGFR If NonAfricn Am 75 >59 mL/min/1.7 3 [facility] - 01 eGFR If Africn Am 86 >59 mL/min/1.7 3 [facility] - 01 BUN/creat ratio 15 12 - 28 [facility] - 01 Sodium 145(H) 134 - 144 mmol/L [facility] - 01 Potassium, sr 4.1 3.5 - 5.2 mmol/L [facility] - 01 Chloride 103 96 - 106 mmol/L [facility] - 01 CO2 24 20 - 29 mmol/L [facility] - 01 Calcium 10.2 8.7 - 10.3 mg/dL [facility] - 01 Protein, sr 6.7 6.0 - 8.5 g/dL [facility] - 01 Albumin 4.9(H) 3.5 - 4.8 g/dL [facility] - 01 Globulin, Total 1.8 1.5 - 4.5 g/dL [facility] - 01 A/G Ratio 2.7(H) 1.2 - 2.2 [facility] - 01 Bilirubin, Total 0.3 0.0 - 1.2 mg/dL [facility] - 01 Alk phos 90 39 - 117 IU/L [facility] - 01 AST 25 0 - 40 IU/L [facility] - 01 ALT 14 0 - 32 IU/L [facility] - 01 Blood specimen (specimen) 02/02/2019 9:28 AM SENIOR VISUAL DESIGNER 02/02/2019 Narrative [facility] - 02/03/2019 10:35 AM SENIOR VISUAL DESIGNER Performed at: ??01 - [facility] [address] ??[id number] Field Clerk: Harvinder Knapp PhD, Phone: ??[phone] Specimen Comment: Test(s) Glucose called to Dr Piper on 02/03/2019 at 09:40 EST us Lopez Shepherd MD LAB BLOOD ORDERABLES Edited Re franct - Final [facility] - 01 documented in this encounter Visit Diagnoses Diagnosis History of follicular lymphoma- Primary Follicular non-Hodgkin's lymphoma (HCC) documented in this encounter Orders Appointment Requests Count Last Ordered Date Fi rst Ordered Date ONCBCN LAB APPOINTMENT 1 02/02/2019 documented in this encounter Care Teams Labor Law Professor Relationship Specialty Start Date End Date No, Physician PCP - General 01/25/18 01/31/20 Lopez Shepherd MD Medical Oncologist/Emergency Dept Tech Medical Oncology 01/31/19 01/31/22 documented as of this encounter
--- OUTSIDE RECORDS SUMMARY | 2024-04-03 14:18 | XMS_ITS | Encounter Summary ---
Author Organization [facility] Address [address] [place] [address] Phone Care Team Providers Care Braille Operator Name Role Phone Juan Wilkinson MD Primary Care Provider Helder Bailey MD Unavailable [phone] Reason for Visit * Reason Comments Follow-up Encounter Details Date Type Department Care Team (Late st Contact Info) Description 01/25/2023 2:00 PM PSYCHIATRIC NURSE Office Visit [facility] Oncology [address] [place] [phone] Nicol Howe, MOOSE [facility] [address] History of follicular lymphoma (Primary Dx); Vitamin D deficiency; Need for prophylactic vaccination and inoculation against [...] on file Legal Sex Female 12:30 AM PSYCHIATRIC NURSE Gender Identity Not on file Sexual Orientation Not on file documented as of this encounter Last Filed Vital Signs Vital Sign Reading Time Taken Comments Blood Pressure 137/77 01/25/2023 1:48 PM PSYCHIATRIC NURSE Pulse 62 01/25/2023 1:48 PM PSYCHIATRIC NURSE Temperature 36.2 ??C (97.2 ??F) 01/25/2023 1:48 PM CS T Respiratory Rate 18 01/25/2023 1:48 PM PSYCHIATRIC NURSE Oxygen Saturation 97% 01/25/2023 1:48 PM PSYCHIATRIC NURSE Inhaled Oxygen Concentration - - Weight 71.5 kg (157 lb 9.6 oz) 01/25/2023 1:48 P M PSYCHIATRIC NURSE Height 177.8 cm (5' 10 ) 01/25/2023 1:48 PM PSYCHIATRIC NURSE Body Mass Index 22.61 01/25/2023 1:48 PM PSYCHIATRIC NURSE documented in this encounter Patient Instructions * Patient Instructions* Nicol Howe, MOOSE - 01/25/2023 2:00 PM PSYCHIATRIC NURSE Healthy Behavior Recommendations: -Calcium and vitamin D recommendations: calcium 1000 mg daily and vitamin D 1000 international units daily ?? Evidence suggests an active lifestyle and [...] Consider referral to a registered dietitian or drum sprayer. The USDA approximate food plate volumes (https://www.myplate.gov) [...] physician for routine care. You can call [phone] for [facility] Doctors. ?? Get an annual influenza [...] ?? Talk with a professional, either an Litigation Attorney or mental health professional. Your oncology team [...] with a mental health professional or a [facility] Counselor. [facility] counseling [phone]. ?? There are many online websites which offer resources for spiritual, emotional, and support networks for breast cancer survivors: cancer.MyJobMatcher.com and faiththroughfire.org are a few. ?? [place] [employer]'s iTHRIVE plan is designed to help you heal from cancer treatment, reduce risk of recurrence, and achieve optimal wellness. This is an engaging and easy to use, online platform to create personalized lifestyle-based wellness plans for cancer survivors. https ://www.aicr.org/patients-survivors/dariuszridemetrio/ Sexual Health: ?? Women should avoid for the first year after completing treatment. Discuss reliable forms of avoiding with your healthcare provider/sustainability project coordinator. If you are a woman planning to [...] you to a specialist. There are several eyna-kjx-vncrnkj vaginal moisturizers that can be used, such [...] to the cancer coming back. Please activate [employer] for online communication. If you are uncertain how to access please contactthe [email or web address] center at: [phone] or [phone]. LIVE WELL! You can reach the office of Nicol Howe NP at [phone] or access [employer] on line. HIATRIC NURSE documented in this encounter Progress Notes * Nicol Howe NP - 01/25/2023 2:00 PM CST Visit Date: 01/25/2023 Requesting Provider: Helder Bailey MD Primary Care Physician: Juan Wilkinson MD Linda K Opel 77 y.o. female HPI/Oncologic History: This is a [...] few UTIs since we saw her last. She follows withUrology. She was prescribed an estrogen cream, however was 400 [id number] could not afford. She does take a probiotic. She takes a cranberry pill in the morning, however I have asked her to switchto at night. She denies any B symptoms or lymphadenopathy. We did discuss that she could be released back to the care of her primary because she is more than 16 years out from diagnosis, however at this time she would like to stay with our office. Past Medical History: Diagnosis Date Cervical cancer [...] Psychiatric/Behavioral: Negative. Pain: negative. Objective Vitals BP 137/77 (BP Location: Left arm) Pulse 62 Temp 36.2 ??C (97.2 ??F) (Oral) Resp 18 Ht 177.8 cm (5' 10 ) Wt 71.5 kg (157 lb 9.6 oz) SpO2 97% BMI 22.61 kg/m?? ECOG;0 Physical Exam: Constitutional: She is [...] 336 hour(s)) Lactate dehydrogenase (LD) Collection Time: 01/25/23 1:37 PM Result Value Ref Range Lactate dehydrogenase (LDH) 223 100 - 250 Units/L Comprehensive metabolic panel Collection Time: 01/25/23 1:37 PM Result Value Ref Range Sodium 139 135 - 145 mmol/L Potassium, pl 4.3 3.3 - 4.9 mmol/L Chloride 102 97 - 110 mmol/L CO2 28 22 - 32 mmol/L Anion gap 9 2 - 15 mmol/L BUN 16 6 - 25 mg/dL Creatinine 0.70 0.60 - 1.10 mg/dL Glucose 102 70 - 199 mg/dL Calcium 9.5 8.5 - 10.3 mg/dL Bilirubin, total 0.3 0.1 - 1.2 mg/dL Protein, pl 6.5 6.5 - 8.5 g/dL Albumin 4.2 3.5 - 5.0 g/dL Alk phos 85 40 - 130 Units/L ALT 17 7 - 45 Units/L AST 27 10 - 45 Units/L CBC with auto differential Collection Time: 01/25/23 1:37 PM Result Value Ref Range WBC 8.8 3.8 - 9.9 K/cumm Hgb 13.9 11.9 - 15.5 g/dL Hct 40.9 35.6 - 45.5 % Plt 195 150 - 400 K/cumm MPV 11.1 9.1 - 12.3 fL RBC 4.79 3.90 - 5.20 M/cumm MCV 85.4 81.3 - 96.4 fL MCH 29.0 27.1 - 33.3 pg MCHC 34.0 32.3 - 35.7 g/dL RDW CV 12.3 11.1 - 14.9 % RDW SD 38.1 35.7 - 48.1 fL NRBC abs 0.04 (H) 0.00 - 0.01 K/cumm Differential, auto Collection Time: 01/25/23 1:37 PM Result Value Ref Range Neutrophil abs 3.5 1.7 - 6.5 K/cumm Lymphocyte abs 4.3 (H) 0.8 - 3.3 K/cumm Monocyte abs 0.8 0.2 - 0.8 K/cumm Eosinophil abs 0.2 0.0 - 0.5 K/cumm Basophil abs 0.1 0.0 - 0.1 K/cumm Neutrophil pct 39.8 % Imm gran pct 0.1 % Lymphocyte pct 48.1 % Monocyte pct 9.3 % Eosinophil pct 2.0 % Basophil pct 0.7 % eGFR Collection Time: 01/25/23 1:37 PM Result Value Ref Range eGFR 90 mL/min/1.73 m2 Labs from today reviewed with the patient. Patient Active Problem List Diagnosis Date Noted History of follicular lymphoma 01/23/2018 Assessment/ Plan: Mrs. Murray is a a 77 y.o. female w/ a a h/o treated B-cell lymphoma: Follicular type. Stage IIIA. Incomplete remission. No B symptoms. Continue monitoring her yearly with H&P / CBC CMP and LDH. She is over 16 years out from completion of treatment with [...] sugary drinks, exercising for 30 minutes a day/10,000steps a day and doing resistance training 3 times per week. She is up-to-date on her colonoscopy and mammogram. I recommended that she continue to see the eye doctor once a year, dentist every 6-12 months in the boiler service technician at least once a year. She will receive the influenza vaccine today. She and family member verbalized understanding. Nicol Howe NP 01/25/2023 HIATRIC NURSE documented in this encounter Plan of Treatment Not on file documented as of this encounter Results * Vitamin D 25 hydroxy (01/24/2024 11:31 AM PSYCHIATRIC NURSE) Vitamin D 25-OH 35.0 30.0 - 80.0 ng/mL Blood 01/24/2024 11:3 1 AM PSYCHIATRIC NURSE 01/24/2024 4:41 PM PSYCHIATRIC NURSE Nicol Howe NP LAB BLOOD ORDERABLES Final Result [facility] [address] [facility] Department [place] [address] * (ABNORMAL) Comprehensive metabolic panel (01/24/2024 11:31 AM PSYCHIATRIC NURSE) Sodium 141 135 - 145 mmol/L Comment:Testing performed by : [address] [address] Potassium, pl 4.0 3.3 - 4.9 mmol/L [facility] Comment:Testing performed by : [address] [address] Chloride 104 97 - 110 mmol/L [facility] Comment:Testing performed by : [address] [address] CO2 26 22 - 32 mmol/L [facility] Comment:Testing performed by : [address] [address] Anion gap 11 2 - 15 mmol/L [facility] Comment:Testing performed by : [address] [address] BUN 13 6 - 25 mg/dL [facility] Comment:Testing performed by : [address] [address] Creatinine 0.60 0.60 - 1.10 mg/dL [facility] Comment:Testing performed by : [address] [address] Glucose 91 70 - 199 mg/dL [facility] [...] was last revised 2022. Testing performed by: [address] [address] Calcium 9.4 8.5 - 10.3 mg/dL [facility] Comment:Testing performed by : [address] [address] Bilirubin, total 0.4 0.1 - 1.2 mg/dL [facility] Comment:Testing performed by : [address] [address] Protein, pl 6.3(L) 6.5 - 8.5 g/dL [facility] Comment:Testing performed by : [address] [address] Albumin 4.2 3.5 - 5.0 g/dL [facility] Comment:Testing performed by : [address] [address] Alk phos 81 40 - 130 Units/L [facility] Comment:Testing performed by : [address] [address] ALT 14 7 - 45 Units/L [facility] Comment:Testing performed by : [address] [address] AST 23 10 - 45 Units/L [facility] Comment:Testing performed by : [address] [address] Blood 01/24/2024 11:3 1 AM PSYCHIATRIC NURSE 01/24/2024 11:33 AM PSYCHIATRIC NURSE us Nicol Howe MANAGER [employer] LAB BLOOD ORDERABLES Final Result [facility] [address] [facility] Department [place] [address] * CBC with auto differential (01/24/2024 11:31 AM PSYCHIATRIC NURSE) WBC 7.6 3.8 - 9.9 K/cumm Comment:Testing performed by : [address] [address] Hgb 14.0 11.9 - 15.5 g/dL [facility] Comment:Testing performed by : [address], [address] Hct 40.2 35.6 - 45.5 % [facility] Comment:Testing performed by : [address] [address] Plt 217 150 - 400 K/cumm [facility] Comment:Testing performed by : [address], [address] MPV 10.5 9.1 - 12.3 fL [facility] Comment:Testing performed by : [address], [address] RBC 4.68 3.90 - 5.20 M/cumm [facility] Comment:Testing performed by : [address], [address] MCV 85.9 81.3 - 96.4 fL [facility] Comment:Testing performed by : [address], [address] MCH 29.9 27.1 - 33.3 pg [facility] Comment:Testing performed by : [address], [address] MCHC 34.8 32.3 - 35.7 g/dL [facility] Comment:Testing performed by : [address], [address] RDW CV 13.0 11.1 - 14.9 % [facility] Comment:Testing performed by : [address], [address] RDW SD 40.1 35.7 - 48.1 fL [facility] Comment:Testing performed by : [address], [address] NRBC abs 0.00 0.00 - 0.01 K/cumm [facility] Comment:Testing performed by : [address], [address] Blood 01/24/2024 11:3 1 AM PSYCHIATRIC NURSE 01/24/2024 11:33 AM PSYCHIATRIC NURSE Nicol Davilamack MANAGER [employer] LAB BLOOD ORDERABLES Final Result [facility] [address] [facility] Department [place] [address] documented in this encounter Visit Diagnoses Diagnosis History of follicular lymphoma- Primary Vitamin D deficiency Need for prophylactic vaccination and inoculation against influenza documented in this encounter Discontinued Medications Medication Sig Discontinue Reason Start Date End Da te simvastatin (ZOCOR) 10 mg tablet TK 1 T PO QD IN THE LASHAWN 12/18/2017 01/25/2023 trimethoprim (TRIMPEX) 100 mg tablet TK 1 T PO AT BEDTIME. START AFTER COURSE OF ACUTE ANTIBIOTIC FOR URINARY TRACT INFECTION 01/15/2020 01/25/2023 estradioL (ESTRACE) 0.01 % (0.1 mg/gram) vaginal cream USE FINGERTIP AMOUNT AND INSERT IN THE VAGINA 2 NIGHTS PER WEEK 11/05/2021 01/25/2023 documented as of this encounter Orders Immunization/Injection Count Last Ordered Date First Ordered Date FLU VACCINE MDCK QUAD PF 6 M OS + - FLUCELVAX QUAD 1 01/25/2023 Appointment Requests Count Last Ordered Date Fi rst Ordered Date ONCBCN CLINIC APPOINTMENT REQUEST 2 024 01/25/2023 ONCBCN LAB APPOINTMENT 1 01/24/2024 documented in this encounter Care Teams Braille Operator Relationship Specialty Start Date End Date Juan Wilkinson MD PCP - General Family Practice 02/01/20 Helder Bailey MD [address] [facility] [address] [place] [address] Medical Oncologist/Outsole Cementer Medical Oncology 02/01/22 01/18/24 documented as of this encounter
--- OUTSIDE RECORDS SUMMARY | 2024-04-03 14:18 | XMS_ITS | Encounter Summary ---
Author Organization [facility] Address [address] [place] [address] Phone Care Team Providers Care Natural Fabricator Name Role Phone No, Physician Primary Care Provider [phone] Juan Wilkinson MD Primary Care Provider Juan Wilkinson MD Unavailable [phone] Lopez Shepherd MD Unavailable [phone] Reason for Visit * Reason Comments Follow-up Encounter Details Date Type Department Care Team (Late st Contact Info) Description 02/02/2019 10:00 AM PHOTO CHECKER Office Visit [facility] Oncology [address] [facility] [place] [address] [place] [address] Lopez Shepherd MD [address] [facility] [address] History of follicular lymphoma (Primary Dx); Follicular non-Hodgkin's lymphoma (CMS/HCC); Need for immunization against influenza Social History Tobacco Use Types Packs/Day Years Used Date Smoking Tobacco: Former Cigarettes Q uit: 2013 Smokeless Tobacco: Never Alcohol Use Standard Drinks/Week Comments No 0 (1 standard drink = 0.6 oz pur e alcohol) Comments Unknown Sex and Gender Information Value Date Recorded Sex Assigned at Not on file Legal Sex Female 12:30 AM PHOTO CHECKER Gender Identity Not on file Sexual Orientation Not on file documented as of this encounter Last Filed Vital Signs Vital Sign Reading Time Taken Comments Blood Pressure 142/56 02/02/2019 9:48 AM PHOTO CHECKER Pulse 71 02/02/2019 9:48 AM PHOTO CHECKER Temperature 36.6 ??C (97.8 ??F) 02/02/2019 9:48 AM CS T Respiratory Rate 16 02/02/2019 9:48 AM PHOTO CHECKER Oxygen Saturation 97% 02/02/2019 9:48 AM PHOTO CHECKER Inhaled Oxygen Concentration - - Weight 65 kg (143 lb 3.2 oz) 02/02/2019 9:48 AM PHOTO CHECKER Height 177.8 cm (5' 10 ) 02/02/2019 9:48 AM PHOTO CHECKER Body Mass Index 20.55 02/02/2019 9:48 AM PHOTO CHECKER documented in this encounter Progress Notes * Lopez Shepherd MD - 02/02/2019 10:00 AM CST Visit Date: 02/02/2019 Requesting Provider: Lito Birmingham MD Primary Care Physician: Physician Mackenzie Murray 73 y.o. female HPI/ Oncologic history: This is [...] palpable adenopathy) 01/25/2018, no new medical problems no r new medications, good performance status. 02/02/2019: Payton is here for follow-up. Her care has been transferred to me by Dr. Birmingham. She denies any new medical problems. Denies any fatigue weight loss or night sweats. Her last LDH- was borderline [id number]. Her LDH this visit is normal-222 Treatment history: Nonn-Hodgkin's lymphoma Date of Diagnosis: 10/12/2006 Staging: B-cell [...] resource strain: Not on file ??? Food insecurity: Worry: Not on file Inability: Not on file ??? Transportation needs: Medical: Not on file Non-medical: Not on file Tobacco Use ??? Smoking status: Former Smoker Packs/day: 0.75 Types: Cigarettes Last attempt to quit: 2013 Years since quittin.9 ??? Smokeless tobacco: Never Used Substance and Sexual Activity ??? Alcohol use: No ??? Drug use: No ??? Sexual activity: Defer Lifestyle ??? Physical activity: Days per week: Not on file Minutes per session: Not on file ??? Stress: Not on file Relationships ??? Social connections: Talks on phone: Not on file Gets together: Not on file Attends orthodox service: Not on file Active member of club or organization: Not on file Attends meetings of clubs or organizations: Not on file Relationship status: Not on file ??? Intimate partner violence: Fear of current or ex partner: Not [...] Cardiovascular: Negative. Gastrointestinal: Negative. Endocrine: Negative. Genitourinary: Negative. Musculoskeletal: Negative. Skin: Negative. Neurological: Negative. Hematological: Negative. Psychiatric/Behavioral: Negative. Pain: negative. Objective Vitals: Vitals BP 142/56 (BP Location: Left arm) Pulse 71 Temp 36.6 ??C (97.8 ??F) (Oral) Resp 16 Ht 177.8 cm (5' 10 ) Wt 65 kg (143 lb 3.2 oz) SpO2 97% BMI 20.55 kg/m?? ECOG;0 Physical Exam: Constitutional: She is [...] Recent Results (from the past 336 hour(s)) CBC with auto differential Collection Time: 02/02/19 9:30 AM Result Value Ref Range WBC 6.9 3.4 - 10.8 x10E3/uL RBC 5.11 3.77 - 5.28 x10E6/uL Hgb 15.2 11.1 - 15.9 g/dL Hct 45.4 34.0 - 46.6 % MCV 89 79 - 97 fL MCH 29.7 26.6 - 33.0 pg MCHC 33.5 31.5 - 35.7 g/dL Rdw 12.8 12.3 - 15.4 % Platelets 207 150 - 450 x10E3/uL Neutrophils 48 Not Estab. % Lymphs 40 Not Estab. % Monocytes 10 Not Estab. % Eosinophils 1 Not Estab. % Basophil pct 1 Not Estab. % Neutrophil abs 3.3 1.4 - 7.0 x10E3/uL Lymphs (Absolute) 2.8 0.7 - 3.1 x10E3/uL Monocyte abs 0.7 0.1 - 0.9 x10E3/uL Eosinophils, abs 0.1 0.0 - 0.4 x10E3/uL Basophils, abs 0.0 0.0 - 0.2 x10E3/uL Patient Active Problem List Diagnosis Date Noted ??? History of follicular lymphoma 01/23/2018 Assessment/ Plan: B-cell lymphoma: Follicular type. Stage IIIA. In complete remission. Continue monitoring her yearly with H&P / CBC CMP and LDH. RTC in 1 year after repeat labs Lopez Shepherd MD 02/02/2019 Diagnostics Sales Developer completed by using [employer] Direct speaking software, therefore, transcriptionvariances may occur O CHECKER documented in this encounter Miscellaneous Notes * Addendum Note - Shellie Murray CLT - 02/02/2019 10:00 AM CSTAddended by: SHELLIE MURRAY on: 02/01/2020 02:43 PM Modules accepted: Orders O CHECKER * Addendum Note - Shellie Murray CLT - 02/02/2019 10:00 AM CSTAddended by: SHELLIE MURRAY on: 02/01/2020 02:43 PM Modules accepted: Orders O CHECKER * Addendum Note - Shellie Murray CLT - 02/02/2019 10:00 AM CSTAddended by: SHELLIE MURRAY on: 02/01/2020 02:43 PM Modules accepted: Orders O CHECKER documented in this encounter Plan of Treatment Not on file documented as of this encounter Procedures Procedure Name Priority Date/Time Associated Diagnosis Comments CBC WITH AUTO DIFFERENTIAL Routine 02/01/2020 2:52 PM PHOTO CHECKER History of follicular lymphoma Follicular non-Hodgkin's lymphoma (CMS/HCC) LACTATE DEHYDROGENASE Routine 02/01/2020 2:52 PM PHOTO CHECKER History of follicular lymphoma Follicular non-Hodgkin's lymphoma (CMS/HCC) COMPREHENSIVE METABOLIC PANEL Routine 02/01/2020 2:52 PM PHOTO CHECKER History of follicular lymphoma Follicular non-Hodgkin's lymphoma (CMS/HCC) documented in this encounter Results * CBC with auto differential (02/01/2020 2:52 PM PHOTO CHECKER) WBC 8.1 3.8 - 9.9 X10 3/ul [facility] RBC 4.78 3.90 - 5.20 x10 6/ul [facility] Hemoglobin 14.0 11.9 - 15.5 g/dL [facility] Hct 40.7 35.6 - 45.5 % [facility] MCV 85.1 81.3 - 96.4 [facility] MCH 29.3 27.1 - 33.3 pg [facility] MCHC 34.4 32.3 - 35.7 g/dl [facility] RDW 13.1 11.1 - 14.9 % [facility] Plt Count 237 150 - 400 x10 3/ul [facility] MPV 10.5 9.1 - 12.3 [facility] Neut % 52.2 % [facility] Immature Gran % 0.1 % [facility] Lymph % 38.6 % [facility] Yadkin % 7.5 % [facility] Eos % 1.0 % [facility] AUTO BASO % 0.6 % [facility] NEUTROPHIL ABS # 4.2 1.7 - 6.5 x10 3/ul [facility] Immature Gran # 0.0 0.0 - 0.1 x10 3/ul [facility] Absolute Lymphs (auto) 3.1 0.8 - 3.3 x10 3/ul [facility] Absolute Monos (auto) 0.6 0.2 - 0.8 x10 3/ul [facility] Absolute Eos (auto) 0.1 0.0 - 0.5 x10 3/ul [facility] BASOPHIL ABS # 0.1 0.0 - 0.1 x10 3/ul [facility] Nucleat RBC Rel Count 0.0 #/100WBC [facility] NRBC abs 0.00 0.00 - 0.01 x10 3/ul [facility] Absolute Neutrophils 4,200 200 - 8,000 /ul [facility] Blood specimen (specimen) 02/01/2020 2:52 PM PHOTO CHECKER 02/01/2020 2:58 PM PHOTO CHECKER Narrative Resulting Agency Comment RCR us Lopez Shepherd MD LAB BLOOD ORDERABLES [place] [address] * (ABNORMAL) Comprehensive metabolic panel (02/01/2020 2:52 PM PHOTO CHECKER) Sodium 139 135 - 145 mmol/L [facility] Potassium 4.3 3.3 - 5.1 mmol/L [facility] Chloride 101 96 - 108 mmol/L [facility] Carbon Dioxide 29 22 - 32 mmol/L [facility] Anion Gap 9 7 - 16 [facility] Glucose 116(H) 70 - 100 mg/dL [facility] BUN 18 8 - 25 mg/dL [facility] Creatinine 0.9 0.5 - 1.1 mg/dL [facility] Comment: NOTE: Estimated GFR (Cockroft-Gault) will NOT be calculated unless patient Height and Weight were entered. Also, Kidney Disease Stage (GFR) and Estimated GFR (Cockroft-Gault) will NOT be calculated if Creatinine result is <0.2. Kidney Disease Stage 65 mL/MIN [facility] Comment: NOTE; ??The GFR is an estimated value using the creatinine, sex, age, and race of the patient. THE Estimated Kidney Disease GFR is validated for AGES 18-70 YEARS STAGE ?mL/Min ?DESCRIPTION ??1 ?90 mL/min or more ?Normal or elevated GFR ??2 ? 60-89 mL/min ?Mildly decreased GFR ??3 ? 30-59 mL/min ?Moderately decreased GFR ??4 ? 15-29 mL/min ?Severely decreased GFR ??5 ? <15 mL/min ? Kidney failure or on dialysis Calcium 10.1 8.6 - 10.3 mg/dL [facility] Total Protein 6.9 6.4 - 8.3 g/dL [facility] Albumin 4.4 3.5 - 5.0 g/dL [facility] Globulin 2.5 2.3 - 3.5 gm/dL [facility] Albumin/Globulin Ratio 1.8 1.1 - 1.8 [facility] Total Bilirubin 0.3 0.0 - 1.2 mg/dL [facility] AST 21 0 - 32 U/L [facility] ALT 10 0 - 33 U/L [facility] Alkaline Phosphatase 90 35 - 104 U/L [facility] Blood specimen (specimen) 02/01/2020 2:52 PM PHOTO CHECKER 02/01/2020 2:58 PM PHOTO CHECKER Narrative Resulting Agency Comment RCR us Lopez Shepherd MD LAB BLOOD ORDERABLES Final Res ult [facility] [address] [place] [address] [address] [place] [address] * Lactate dehydrogenase (LD) (02/01/2020 2:52 PM PHOTO CHECKER) Lactate Dehydrogenase 210 100 - 250 U/L [facility] Blood specimen (specimen) 02/01/2020 2:52 PM PHOTO CHECKER 02/01/2020 2:58 PM PHOTO CHECKER Narrative Resulting Agency Comment RCR us Lopez Shepherd MD LAB BLOOD ORDERABLES Final Res ult [facility] [address] [address] documented in this encounter Visit Diagnoses Diagnosis History of follicular lymphoma- Primary Follicular non-Hodgkin's lymphoma (HCC) Need for immunization against influenza Need for prophylactic vaccination and inoculation against influenza documented in this encounter Orders Immunization/Injection Count Last Ordered Date First Ordered Date FLU VACCINE MDCK QUAD PF 4Y+ IM - FLUCELVAX 1 02/02/2019 Appointment Requests Count Last Ordered Date Fi rst Ordered Date ONCBCN CLINIC APPOINTMENT REQUEST 2 020 02/02/2019 ONCBCN LAB APPOINTMENT 1 02/01/2020 documented in this encounter Care Teams Natural Fabricator Relationship Specialty Start Date End Date No, Physician PCP - General 01/25/18 01/31/20 Juan Wilkinson MD PCP - General Family Practice 02/01/20 Juan Wilkinson MD 02/01/20 02/04/20 Lopez Shepherd MD Medical Oncologist/Machine Pecan Gatherer Medical Oncology 01/31/19 01/31/22 documented as of this encounter
--- OUTSIDE RECORDS SUMMARY | 2024-04-03 14:18 | XMS_ITS | Encounter Summary ---
Author Organization [facility] Address [address] [place] [address] Phone Care Team Providers Care Computer Tape Librarian Name Role Phone Juan Wilkinson MD Primary Care Provider Juan Wilkinson MD Unavailable [phone] Lopez Shepherd MD Unavailable [phone] Encounter Details Date Type Department Care Team (Late st Contact Info) Description 02/01/2020 2:30 PM PSYCHOLOGY PHYSICIAN Lab [facility] Oncology [address] [place] [address] [place] [phone] History of follicular lymphoma; Follicular non-Hodgkin's lymphoma (CMS/HCC) Social History Tobacco Use Types Packs/Day Years Used Date Smoking Tobacco: Former Cigarettes Q uit: 2013 Smokeless Tobacco: Never Alcohol Use Standard Drinks/Week Comments No 0 (1 standard drink = 0.6 oz pur e alcohol) Comments Unknown Sex and Gender Information Value Date Recorded Sex Assigned at Not on file Legal Sex Female 12:30 AM PSYCHOLOGY PHYSICIAN Gender Identity Not on file Sexual Orientation Not on file documented as of this encounter Plan of Treatment Not on file documented as of this encounter Visit Diagnoses Diagnosis History of follicular lymphoma Follicular non-Hodgkin's lymphoma (HCC) documented in this encounter Orders Appointment Requests Count Last Ordered Date Fi rst Ordered Date ONCBCN LAB APPOINTMENT 1 02/01/2020 documented in this encounter Care Teams Computer Tape Librarian Relationship Specialty Start Date End Date Juan Wilkinson MD PCP - General Family Practice 02/01/20 Juan Wilkinson MD 02/01/20 02/04/20 Lopez Shepherd MD Medical Oncologist/Header Boss Medical Oncology 01/31/19 01/31/22 documented as of this encounter
--- OUTSIDE RECORDS SUMMARY | 2024-04-03 14:18 | XMS_ITS | Encounter Summary ---
Author Organization [facility] Address [address] [place] [address] Phone Care Team Providers Care Vocational Education Teacher Name Role Phone Juan Wilkinson MD Primary Care Provider Lopez Shepherd MD Unavailable [phone] Reason for Visit * Reason Comments Follow-up Encounter Details Date Type Department Care Team (Late st Contact Info) Description 01/30/2021 10:15 AM TINTER PHOTOGRAPH Office Visit [facility] Oncology [address] [address] Nicol Howe, MOOSE [facility] [address] Need for prophylactic vaccination and inoculation against influenza (Primary Dx); History of follicular lymphoma; Follicular non-Hodgkin's lymphoma [...] on file Legal Sex Female 12:30 AM TINTER PHOTOGRAPH Gender Identity Not on file Sexual Orientation Not on file documented as of this encounter Last Filed Vital Signs Vital Sign Reading Time Taken Comments Blood Pressure 132/69 01/30/2021 10:14 AM TINTER PHOTOGRAPH Pulse 72 01/30/2021 10:14 AM TINTER PHOTOGRAPH Temperature 36.6 ??C (97.8 ??F) 01/30/2021 10:[address] Respiratory Rate 16 01/30/2021 10:14 AM TINTER PHOTOGRAPH Oxygen Saturation 97% 01/30/2021 10:14 AM TINTER PHOTOGRAPH Inhaled Oxygen Concentration - - Weight 64.2 kg (141 lb 9.6 oz) 01/30/2021 10:14 AM TINTER PHOTOGRAPH Height 177.8 cm (5' 10 ) 01/30/2021 10:14 AM TINTER PHOTOGRAPH Body Mass Index 20.32 01/30/2021 10:14 AM TINTER PHOTOGRAPH documented in this encounter Progress Notes * Nicol Howe, AUDITOR - 01/30/2021 10:15 AM CST Visit Date: 01/30/2021 Requesting Provider: Lopez Shepherd MD Primary Care Physician: Juan Wilkinson MD Linda K Opel 75 y.o. female HPI/ Oncologic history: This is [...] follow-up. Her care has been transferred to [place] by Dr. Birmingham. She denies any new medical problems. Denies any fatigue weight loss or night sweats. Her last LDH- was borderline [id number]. Her LDH this visit is normal-222 02/01/2020: No symptoms of weight loss, headache or night sweats. LDH is normal. She does have recurrent UTI for the past 3 months. She has received 3 different antibiotics. Currently on Bactrim. Urine growing Klebsiella pneumoniae. She is due to see a urologist Dr. Craig on . 01/30/21: She is overall feeling well. She has had her booster from [employer] and would like to get herinfluenza vaccine today. She denies any recent fever chills, night sweats, lymphadenopathy, shortness of breath, unintentional weight loss. 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 She has not had any complicationwith this in the last 2 years. She is followed by Urology and has been on a maintenance antibiotic for some time. She saw him 2 months ago in the discuss potentially tapering her off of the antibiotic. She stop the antibiotic herself within the last 2 weeks. Treatment history: Non-Hodgkin's lymphoma Date of Diagnosis: [...] History: Diagnosis Date ??? Cervical cancer (CMS/HCC) (HCC) ??? Hypercholesteremia ??? Lymphoma (CMS/HCC) (HCC) Past Surgical History: Procedure Laterality Date ??? [...] file Occupational History ??? Not on file Tobacco Use ??? Smoking status: Former Smoker Packs/day: 0.75 Types: Cigarettes Quit date: 2013 Years since quittin.8 ??? Smokeless tobacco: Never Used Substance and Sexual Activity ??? Alcohol use: No ??? Drug use: No ??? Sexual activity: Defer Other Topics Concern ??? Not on file Social History Narrative ??? Not on file Social Determinants of Health [...] Psychiatric/Behavioral: Negative. Pain: negative. Objective Vitals BP 132/69 (BP Location: Left arm) Pulse 72 Temp 36.6 ??C (97.8 ??F) (Oral) Resp 16 Ht 177.8 cm (5' 10 ) Wt 64.2 kg (141 lb 9.6 oz) SpO2 97% BMI 20.32 kg/m?? ECOG;0 Physical Exam: Constitutional: She is [...] hour(s)) CBC with auto differential Collection Time: 01/30/21 9:55 AM Result Value Ref Range WBC 6.5 3.8 - 9.9 K/cumm Hgb 14.2 11.9 - 15.5 g/dL Hct 40.9 35.6 - 45.5 % Plt 265 150 - 400 K/cumm MPV 10.4 9.1 - 12.3 fL RBC 4.76 3.90 - 5.20 M/cumm MCV 85.9 81.3 - 96.4 fL MCH 29.8 27.1 - 33.3 pg MCHC 34.7 32.3 - 35.7 g/dL RDW CV 12.1 11.1 - 14.9 % RDW SD 38.2 35.7 - 48.1 fL Cortisol Collection Time: 01/30/21 9:55 AM Result Value Ref Range Cortisol 16.4 4.8 - 19.5 mcg/dl Lactate dehydrogenase (LD) Collection Time: 01/30/21 9:55 AM Result Value Ref Range Lactate dehydrogenase (LDH) 193 100 - 250 Units/L Differential, auto Collection Time: 01/30/21 9:55 AM Result Value Ref Range Neutrophil abs 3.0 1.7 - 6.5 K/cumm Lymphocyte abs 2.9 0.8 - 3.3 K/cumm Monocyte abs 0.6 0.2 - 0.8 K/cumm Eosinophil abs 0.1 0.0 - 0.5 K/cumm Basophil abs 0.1 0.0 - 0.1 K/cumm Neutrophil pct 45.5 % Imm gran pct 0.3 % Lymphocyte pct 43.8 % Monocyte pct 8.7 % Eosinophil pct 0.9 % Basophil pct 0.8 % Labs from today reviewed with the patient. Patient Active Problem List Diagnosis Date Noted ??? History of follicular lymphoma 01/23/2018 Assessment/ Plan: B-cell lymphoma: Follicular type. Stage IIIA. In complete remission. No B symptoms. Continue monitoring her yearly with H&P / CBC CMP and LDH. RTC in 1 year after repeat labs Preventative medicine: Receive influenza vaccine today. Nicol Howe NP 01/30/2021 Storage Management Consultant completed by using [employer] Direct speaking software, therefore, transcriptionvariances may occur ER PHOTOGRAPH documented in this encounter Plan of Treatment Not on file documented as of this encounter Results * Lactate dehydrogenase (LD) (02/01/2022 12:25 PM TINTER PHOTOGRAPH) Lactate dehydrogenase (LDH) 244 100 - 250 Units/L [facility] Comment: HEMOLYZED: Hemolysis interferes with the above test. Testing performed by: [address] [address] Blood 02/01/2022 12:2 5 PM TINTER PHOTOGRAPH 02/01/2022 12:27 PM TINTER PHOTOGRAPH Nicol Howe AUDITOR LAB BLOOD ORDERABLES Final Result [facility] [address] [facility] Department of Laboratories [place], [place] [id number] * Comprehensive metabolic panel (02/01/2022 12:25 PM TINTER PHOTOGRAPH) Pathologist [facility] Sodium 140 135 - 145 mmol/L [facility] Comment:Testing performed by : [address] [address] Potassium, pl 4.4 3.3 - 4.9 mmol/L [facility] Comment:Testing performed by : [address] [address] Chloride 102 97 - 110 mmol/L [facility] Comment:Testing performed by : [address] [address] CO2 25 22 - 32 mmol/L [facility] Comment:Testing performed by : [address] [address] Anion gap 13 2 - 15 mmol/L [facility] Comment:Testing performed by : [address] [address] BUN 12 8 - 25 mg/dL [facility] Comment:Testing performed by : [address] [address] Creatinine 0.60 0.60 - 1.10 mg/dL [facility] Comment:Testing performed by : [address] [address] Glucose 112 70 - 199 mg/dL [facility] Comment: Interpretive [...] classification and Diagnosis of Diabetes Diabetes Care 2017;40 (Suppl. 1):S11. Current interpretive data was last revised 2017. Testing performed by: [address] [address] Calcium 9.5 8.5 - 10.3 mg/dL [facility] Comment:Testing performed by : [address] [address] Bilirubin, total 0.3 0.1 - 1.2 mg/dL [facility] Comment:Testing performed by : [address] [address] Protein, pl 6.7 6.5 - 8.5 g/dL [facility] Comment:Testing performed by : [address] [address] Albumin 4.5 3.5 - 5.0 g/dL [facility] Comment:Testing performed by : [address] [address] Alk phos 90 40 - 130 Units/L [facility] Comment:Testing performed by : [address] [address] ALT 14 7 - 45 Units/L [facility] Comment:Testing performed by : [address] [address] AST 24 10 - 45 Units/L [facility] Comment:Testing performed by : [address] [address] Blood 02/01/2022 12:2 5 PM TINTER PHOTOGRAPH 02/01/2022 12:27 PM TINTER PHOTOGRAPH us Nicol Howe AUDITOR LAB BLOOD ORDERABLES Final Result [facility] [address] [facility] Department [place] [address] * CBC with auto differential (02/01/2022 12:25 PM TINTER PHOTOGRAPH) WBC 9.2 3.8 - 9.9 K/cumm [facility] Comment:Testing performed by : [address] [address] Hgb 14.6 11.9 - 15.5 g/dL [facility] Comment:Testing performed by : [address] [address] Hct 43.5 35.6 - 45.5 % [facility] Comment:Testing performed by : [address] [address] Plt 195 150 - 400 K/cumm [facility] Comment:Testing performed by : [address] [address] MPV 10.9 9.1 - 12.3 fL [facility] Comment:Testing performed by : [address] [address] RBC 5.11 3.90 - 5.20 M/cumm [facility] Comment:Testing performed by : [address] [address] MCV 85.1 81.3 - 96.4 fL [facility] Comment:Testing performed by : [address] [address] MCH 28.6 27.1 - 33.3 pg [facility] Comment:Testing performed by : [address] [address] MCHC 33.6 32.3 - 35.7 g/dL [facility] Comment:Testing performed by : [address] [address] RDW CV 12.3 11.1 - 14.9 % [facility] Comment:Testing performed by : [address] [address] RDW SD 38.3 35.7 - 48.1 fL [facility] Comment:Testing performed by : [address], [place]., [address] Blood 02/01/2022 12:2 5 PM TINTER PHOTOGRAPH 02/01/2022 12:27 PM TINTER PHOTOGRAPH Nicol Howe AUDITOR LAB BLOOD ORDERABLES Final Result [facility] [address] [facility] [place] [address] documented in this encounter Visit Diagnoses Diagnosis Need for prophylactic vaccination and inoculation against influenza- Primary History of follicular lymphoma Follicular non-Hodgkin's lymphoma (HCC) documented in this encounter Orders Immunization/Injection Count Last Ordered Date First Ordered Date FLU VACCINE MDCK QUAD PF 2Y+ IM - FLUCELVAX 1 01/30/2021 Appointment Requests Count Last Ordered Date Fi rst Ordered Date ONCBCN CLINIC APPOINTMENT REQUEST 2 022 01/30/2021 ONCBCN LAB APPOINTMENT 1 02/01/2022 documented in this encounter Care Teams Vocational Education Teacher Relationship Specialty Start Date End Date Juan Wilkinson MD PCP - General Family Practice 02/01/20 Lopez Shepherd MD Medical Oncologist/Child Psychology Teacher Medical Oncology 01/31/19 01/31/22 documented as of this encounter
--- OUTSIDE RECORDS SUMMARY | 2024-04-03 14:18 | XMS_ITS | Encounter Summary ---
Author Organization [facility] Address [address] [place] [address] Phone Care Team Providers Care Pusher Operator Name Role Phone No, Physician Primary Care Provider [phone] Lito Birmingham MD Unavailable [phone] Encounter Details Date Type Department Care Team (Late st Contact Info) Description 01/25/2018 12:30 PM ELECTRONIC LAB TECHNICIAN Lab [facility] Oncology [address] [place] [phone] History of follicular lymphoma Social History Tobacco Use Types Packs/Day Years Used Date Smoking Tobacco: Former Cigarettes Q uit: 2013 Smokeless Tobacco: Never Alcohol Use Standard Drinks/Week Comments No 0 (1 standard drink = 0.6 oz pur e alcohol) Comments Unknown Sex and Gender Information Value Date Recorded Sex Assigned at Not on file Legal Sex Female 12:30 AM ELECTRONIC LAB TECHNICIAN Gender Identity Not on file Sexual Orientation Not on file documented as of this encounter Plan of Treatment Not on file documented as of this encounter Visit Diagnoses Diagnosis History of follicular lymphoma documented in this encounter Orders Appointment Requests Count Last Ordered Date Fi rst Ordered Date ONCBCN LAB APPOINTMENT 1 01/25/2018 documented in this encounter Care Teams Pusher Operator Relationship Specialty Start Date End Date No, Physician PCP - General 01/25/18 01/31/20 Lito Birmingham MD Medical Oncologist/Printed Circuit Board Assembler Hematology and Oncology 01/24/18 01/30/19 documented as of this encounter
--- OUTSIDE RECORDS SUMMARY | 2024-04-03 14:18 | XMS_ITS | Encounter Summary ---
Author Organization [facility] Address [address] [place] [address] Phone Care Team Providers Care Color Artist Name Role Phone No, Physician Primary Care Provider [phone] Lopez Shepherd MD Unavailable [phone] Encounter Details Date Type Department Care Team (Late st Contact Info) Description 02/02/2019 Orders Only [facility] Oncology [address] [facility] [place] [address] [place] [phone] Lopez Shepherd MD [address] [place] [address] Social History Tobacco Use Types Packs/Day Years Used Date Smoking Tobacco: Former Cigarettes Q uit: 2013 Smokeless Tobacco: Never Alcohol Use Standard Drinks/Week Comments No 0 (1 standard drink = 0.6 oz pur e alcohol) Comments Unknown Sex and Gender Information Value Date Recorded Sex Assigned at Not on file Legal Sex Female 12:30 AM SPARES SCHEDULER Gender Identity Not on file Sexual Orientation Not on file documented as of this encounter Plan of Treatment Not on file documented as of this encounter Procedures Procedure Name Priority Date/Time Associated Diagnosis Comments CBC WITH AUTO DIFFERENTIAL Routine 02/02/2019 9:30 AM SPARES SCHEDULER documented in this encounter Results * CBC with auto differential (02/02/2019 9:30 AM SPARES SCHEDULER) WBC 6.9 3.4 - 10.8 x10E3/uL [facility] - 01 RBC 5.11 3.77 - 5.28 x10E6/uL [facility] - 01 Hgb 15.2 11.1 - 15.9 g/dL [facility] - 01 Hct 45.4 34.0 - 46.6 % [facility] - 01 MCV 89 79 - 97 fL [facility] - 01 MCH 29.7 26.6 - 33.0 pg [facility] - 01 MCHC 33.5 31.5 - 35.7 g/dL [facility] - 01 Rdw 12.8 12.3 - 15.4 % [facility] - 01 Platelets 207 150 - 450 x10E3/uL [facility] - 01 Neutrophils pct 48 Not Estab. % [facility] - 01 Lymphs pct 40 Not Estab. % [facility] - 01 Monocytes pct 10 Not Estab. % [facility] - 01 Eosinophils pct 1 Not Estab. % [facility] - 01 Basophil pct 1 Not Estab. % [facility] - 01 Neutrophil abs 3.3 1.4 - 7.0 x10E3/uL [facility] - 01 Lymphs (Absolute) 2.8 0.7 - 3.1 x10E3/uL [facility] - 01 Monocyte abs 0.7 0.1 - 0.9 x10E3/uL [facility] - 01 Eosinophils, abs 0.1 0.0 - 0.4 x10E3/uL [facility] - 01 Basophils, abs 0.0 0.0 - 0.2 x10E3/uL [facility] - 01 02/02/2019 9:30 AM SPARES SCHEDULER 02/02/2019 Narrative [facility] - 02/02/2019 10:38 AM SPARES SCHEDULER Performed at: ??01 - [facility] [address] [place], [place] [id number] Publicity Manager: Galen Dhillon MD, Phone: ??[phone] us Lopez Shepherd MD LAB BLOOD ORDERABLES Final Res ult [facility] - 01 documented in this encounter Visit Diagnoses Not on filedocumented in this encounter Care Teams Color Artist Relationship Specialty Start Date End Date No, Physician PCP - General 01/25/18 01/31/20 Lopez Shepherd MD Medical Oncologist/Face Cleaner Medical Oncology 01/31/19 01/31/22 documented as of this encounter
--- OUTSIDE RECORDS SUMMARY | 2024-04-03 14:18 | XMS_ITS | Encounter Summary ---
Author Organization [facility] Address [address] [place] [address] Phone Care Team Providers Care Telesales Manager Name Role Phone Juan Wilkinson MD Primary Care Provider Lopez Shepherd MD Unavailable [phone] Encounter Details Date Type Department Care Team (Late st Contact Info) Description 02/05/2020 Telephone [facility] Oncology [facility] [address] [place] [address] Aminah Shannon, RN Social History Tobacco Use Types Packs/Day Years Used Date Smoking Tobacco: Former Cigarettes Q uit: 2013 Smokeless Tobacco: Never Alcohol Use Standard Drinks/Week Comments No 0 (1 standard drink = 0.6 oz pur e alcohol) Comments Unknown Sex and Gender Information Value Date Recorded Sex Assigned at Not on file Legal Sex Female 12:30 AM INSURANCE SALES SUPERVISOR Gender Identity Not on file Sexual Orientation Not on file documented as of this encounter Miscellaneous Notes * Telephone Encounter - Aminah Shannon RN - 02/05/2020 2:[address] Shepherd informed patient that IgG level is slightly low and he wants to see what the urology evaluation shows. Patient is scheduled with Dr Lars Craig, [facility] of [facility] in [place] office on02/12/2020 RANCE SALES SUPERVISOR * Telephone Encounter - Aminah Shannon RN - 02/05/2020 9:45 AM CST Patient called asking about IgG results from 02/01/20. Please review and let me know if there are any recommendations. RANCE SALES SUPERVISOR documented in this encounter Plan of Treatment Not on file documented as of this encounter Visit Diagnoses Not on filedocumented in this encounter Care Teams Telesales Manager Relationship Specialty Start Date End Date Juan Wilkinson MD PCP - General Family Practice 02/01/20 Lopez Shepherd MD Medical Oncologist/Stock Supervisor Medical Oncology 01/31/19 01/31/22 documented as of this encounter
--- OUTSIDE RECORDS SUMMARY | 2024-04-03 14:18 | XMS_ITS | Encounter Summary ---
Author Organization [facility] Address [address] [place] [address] Phone Care Team Providers Care Doctor Assistant Name Role Phone No, Physician Primary Care Provider [phone] Lito Birmingham MD Unavailable [phone] Reason for Visit * Reason Comments Follow-up 1 year follow-up Lymphoma Encounter Details Date Type Department Care Team (Late st Contact Info) Description 01/25/2018 1:00 PM SANDING MACHINE OPERATOR Office Visit [facility] Oncology [address] [facility] [place] [address] Lito Birmingham MD [address] [place], [place] [id number] Follicular non-Hodgkin's lymphoma (CMS/HCC) (Primary Dx) Social History Tobacco Use Types Packs/Day Years Used Date Smoking Tobacco: Former Cigarettes Q uit: 2013 Smokeless Tobacco: Never Alcohol Use Standard Drinks/Week Comments No 0 (1 standard drink = 0.6 oz pur e alcohol) Comments Unknown Sex and Gender Information Value Date Recorded Sex Assigned at Not on file Legal Sex Female 12:30 AM SANDING MACHINE OPERATOR Gender Identity Not on file Sexual Orientation Not on file documented as of this encounter Last Filed Vital Signs Vital Sign Reading Time Taken Comments Blood Pressure 124/53 01/25/2018 1:00 PM SANDING MACHINE OPERATOR Pulse 75 01/25/2018 1:00 PM SANDING MACHINE OPERATOR Temperature 36.7 ??C (98 ??F) 01/25/2018 1:00 PM SANDING MACHINE OPERATOR Respiratory Rate - - Oxygen Saturation - - Inhaled Oxygen Concentration - - Weight 64.2 kg (141 lb 9.6 oz) 01/25/2018 1:00 P M SANDING MACHINE OPERATOR Height 177.8 cm (5' 10 ) 01/25/2018 1:00 PM SANDING MACHINE OPERATOR Body Mass Index 20.32 01/25/2018 1:00 PM SANDING MACHINE OPERATOR documented in this encounter Progress Notes * Lito Birmingham MD - 01/25/2018 1:00 PM CST Patient ID: Salma Murray is a 72 y.o. female. Referring Physician: Physician No No address on file Primary Care Provider: Physician No Assessment/Plan No evidence of recurrent lymphoma, S/P R-CVP and then maintenance rituximab Patient Active Problem List Diagnosis ??? History of follicular lymphoma Cancer Staging Information: Cancer Staging No matching staging information was found for the patient. There are no diagnoses linked to this encounter. Subjective Interval History: No history exists. Interval Notes: I have reviewed: allergies, current medications, past family history, past medical history, past social history, past surgical history and problem list HPI This is a 72-year-old woman who returns [...] no r new medications, good performance status. Review of Systems Constitutional: Negative. HENT: Negative. Eyes: Negative. Respiratory: Negative. Cardiovascular: Negative. Gastrointestinal: Negative. Endocrine: Negative. Genitourinary: Negative. Musculoskeletal: Negative. Skin: Negative. Neurological: Negative. Hematological: Negative. Psychiatric/Behavioral: Negative. Pain: negative. Objective Physical Exam: Vital Signs for this encounter: BSA: 1.78 meters squared BP 124/53 (BP Location: Left arm) Pulse 75 Temp 36.7 ??C (98 ??F) (Oral) Ht 177.8 cm (5' 10 ) Wt 64.2 kg (141 lb 9.6 oz) BMI 20.32 kg/m?? Physical Exam Constitutional: She is oriented to person, place, [...] behavior is normal. Judgment and thought contentnormal. Vitals reviewed. Performance Status: Asymptomatic Results: WBC Date Value Ref Range Status 01/25/2018 8.0 3.4 - 10.8 x10E3/uL Final Hgb Date Value Ref Range Status 01/25/2018 15.3 11.1 - 15.9 g/dL Final Hct Date Value Ref Range Status 01/25/2018 46.0 34.0 - 46.6 % Final Platelets Date Value Ref Range Status 01/25/2018 234 150 - 379 x10E3/uL Final ING MACHINE OPERATOR documented in this encounter Miscellaneous Notes * Addendum Note - Jonna Wakefield RN - 01/25/2018 1:00 PM CSTAddended by: JONNA WAKEFIELD on: 01/25/2018 01:37 PM Modules accepted: Orders ING MACHINE OPERATOR * Addendum Note - Amber Hudson MA - 01/25/2018 1:00 PM CSTAddended by: AMBER HUDSON on: 01/25/2018 02:35 PM Modules accepted: Orders ING MACHINE OPERATOR documented in this encounter Plan of Treatment Not on file documented as of this encounter Visit Diagnoses Diagnosis Follicular non-Hodgkin's lymphoma (HCC)- Primary documented in this encounter Historical Medications * This list may reflect changes made after this encounter. simvastatin (ZOCOR) 10 mg tablet TK 1 T PO QD IN THE [place] 0 12/18/2017 01/25/2023 added in this encounter Orders Lab Orders Without Results Count Last Ordered D ate First Ordered Date CBC WITH AUTO DIFFERENTIAL 1 01/25/2018 COMPREHENSIVE METABOLIC PANEL 1 01/25/2018 LACTATE DEHYDROGENASE 1 01/25/2018 Immunization/Injection Count Last Ordered Date First Ordered Date FLU VACCINE MDCK QUAD PF 4Y+ IM - FLUCELVAX 1 01/25/2018 Appointment Requests Count Last Ordered Date Fi rst Ordered Date ONCBCN CLINIC APPOINTMENT REQUEST 1 019 ONCBCN LAB APPOINTMENT 1 02/02/2019 documented in this encounter Care Teams Doctor Assistant Relationship Specialty Start Date End Date No, Physician PCP - General 01/25/18 01/31/20 Lito Birmingham MD Medical Oncologist/Foreign Food Specialty Cook Hematology and Oncology 01/24/18 01/30/19 documented as of this encounter
--- OUTSIDE RECORDS SUMMARY | 2024-04-03 14:18 | XMS_ITS | Encounter Summary ---
Author Organization [facility] Healthcare Address [address] [place] [address] Care Team Providers Care Help Desk Specialist Name Role Phone Juan Wilkinson MD Primary Care Provider OppeHelder puentes MD Unavailable [phone] Encounter Details Date Type Department Care Team (Late st Contact Info) Description 02/01/2022 12:30 PM WHEAT COMBINE DRIVER Lab [facility] [place] [facility] [address] [place] [id number] History of follicular lymphoma; Follicular non-Hodgkin's lymphoma [...] on file Legal Sex Female 12:30 AM WHEAT COMBINE DRIVER Gender Identity Not on file Sexual Orientation Not on file documented as of this encounter Plan of Treatment Not on file documented as of this encounter Procedures Procedure Name Priority Date/Time Associated Diagnosis Comments EGFR Routine 02/01/2022 12:25 PM WHEAT COMBINE DRIVER History of follicular lymphoma Follicular non-Hodgkin's lymphoma (CMS/HCC) (HCC) DIFFERENTIAL AUTO Routine 02/01/2022 12: 25 PM WHEAT COMBINE DRIVER History of follicular lymphoma Follicular non-Hodgkin's lymphoma (CMS/HCC) (HCC) CBC WITH AUTO DIFFERENTIAL Routine 02/01/2022 12:25 PM WHEAT COMBINE DRIVER History of follicular lymphoma Follicular non-Hodgkin's lymphoma (CMS/HCC) (HCC) LACTATE DEHYDROGENASE Routine 02/01/2022 12:25 PM WHEAT COMBINE DRIVER History of follicular lymphoma Follicular non-Hodgkin's lymphoma (CMS/HCC) (HCC) COMPREHENSIVE METABOLIC PANEL Routine 02/01/2022 12:25 PM WHEAT COMBINE DRIVER History of follicular lymphoma Follicular non-Hodgkin's lymphoma (CMS/HCC) (HCC) documented in this encounter Results * eGFR (02/01/2022 12:25 PM WHEAT COMBINE DRIVER) [facility] eGFR 94 mL/min/1. 73 m2 [facility] Comment: Interpretive Data Reference Interval Normal ?>/= [...] was last reviewed 2021. Testing performed by: [address] [address] Blood 02/01/2022 12:2 5 PM WHEAT COMBINE DRIVER 02/01/2022 12:27 PM WHEAT COMBINE DRIVER Nicol Howe [employer] LAB BLOOD ORDERABLES Final Result [facility] [address] [facility] Department [place] [address] * (ABNORMAL) Differential, auto (02/01/2022 12:25 PM WHEAT COMBINE DRIVER) Neutrophil abs 4.7 1.7 - 6.5 K/cumm [facility] Comment:Testing performed by : [address] [address] Lymphocyte abs 3.5(H) 0.8 - 3.3 K/cumm [facility] Comment:Testing performed by : [address] [address] Monocyte abs 0.8 0.2 - 0.8 K/cumm [place] Comment:Testing performed by : [address] [address] Eosinophil abs 0.1 0.0 - 0.5 K/cumm [facility] Comment:Testing performed by : [address] [address] Neutrophil pct 51.0 % [facility] Comment: Interpretive Data Percent cell count reference ranges are not reported, since discordance with absolute values may lead to misinterpretation of CBC data. Current Interpretive Data was last revised on 2017. Testing performed by: [address] [address] Imm gran pct 0.3 % [facility] Comment: Interpretive Data Percent cell count reference ranges are not reported, since discordance with absolute values may lead to misinterpretation of CBC data. Current Interpretive Data was last revised on 2017. Testing performed by: [address] [address] Lymphocyte pct 38.6 % [facility] Comment: Interpretive Data Percent cell count reference ranges are not reported, since discordance with absolute values may lead to misinterpretation of CBC data. Current Interpretive Data was last revised on 2017. Testing performed by: [address] [address] Monocyte pct 8.3 % [facility] Comment: Interpretive Data Percent cell count reference ranges are not reported, since discordance with absolute values may lead to misinterpretation of CBC data. Current Interpretive Data was last revised on 2017. Testing performed by: [address] [address] Eosinophil pct 1.4 % [facility] Comment: Interpretive Data Percent cell count reference ranges are not reported, since discordance with absolute values may lead to misinterpretation of CBC data. Current Interpretive Data was last revised on 2017. Testing performed by: [address] [address] Basophil pct 0.4 % [facility] Comment: Interpretive Data Percent cell count reference ranges are not reported, since discordance with absolute values may lead to misinterpretation of CBC data. Current Interpretive Data was last revised on 2017. Testing performed by: [address] [address] Blood 02/01/2022 12:2 5 PM WHEAT COMBINE DRIVER 02/01/2022 12:27 PM WHEAT COMBINE DRIVER Nicol Howe [employer] LAB BLOOD ORDERABLES Final Result [facility] [address] [facility] Department of Laboratories [place], [place] [id number] * CBC with auto differential (02/01/2022 12:25 PM WHEAT COMBINE DRIVER) WBC 9.2 3.8 - 9.9 K/cumm [facility] Comment:Testing performed by : [address] [address] Hgb 14.6 11.9 - 15.5 g/dL [facility] Comment:Testing performed by : [address] [address] Hct 43.5 35.6 - 45.5 % [facility] Comment:Testing performed by : [address] [address] Plt 195 150 - 400 K/cumm [facility] Comment:Testing performed by : [address] [address] MPV 10.9 9.1 - 12.3 fL [place] Comment:Testing performed by : [address] [address] RBC 5.11 3.90 - 5.20 M/cumm [facility] Comment:Testing performed by : [address], [address] MCV 85.1 81.3 - 96.4 fL [place] Comment:Testing performed by : [address] [address] MCH 28.6 27.1 - 33.3 pg [facility] Comment:Testing performed by : [address] [address] MCHC 33.6 32.3 - 35.7 g/dL [facility] Comment:Testing performed by : [address], [address] RDW CV 12.3 11.1 - 14.9 % [facility] Comment:Testing performed by : [address] [address] RDW SD 38.3 35.7 - 48.1 fL [place] Comment:Testing performed by : [address] [address] Blood 02/01/2022 12:2 5 PM WHEAT COMBINE DRIVER 02/01/2022 12:27 PM WHEAT COMBINE DRIVER Nicol Howe [employer] LAB BLOOD ORDERABLES Final Result [facility] [address] [facility] Department of Laboratories [place], [place] [id number] * Comprehensive metabolic panel (02/01/2022 12:25 PM WHEAT COMBINE DRIVER) Sodium 140 135 - 145 mmol/L [facility] Comment:Testing performed by : [address] [address] Potassium, pl 4.4 3.3 - 4.9 mmol/L [facility] Comment:Testing performed by : [address], [place]., [address] Chloride 102 97 - 110 mmol/L [facility] Comment:Testing performed by : [address], [place]., [address] CO2 25 22 - 32 mmol/L [facility] Comment:Testing performed by : [address], [place]., [address] Anion gap 13 2 - 15 mmol/L [facility] Comment:Testing performed by : [address], [place]., [address] BUN 12 8 - 25 mg/dL [facility] Comment:Testing performed by : [address], [place]., [address] Creatinine 0.60 0.60 - 1.10 mg/dL [facility] Comment:Testing performed by : [address], [place]., [address] Glucose 112 70 - 199 mg/dL [facility] Comment: Interpretive Data Fasting glucose >/= 126 [...] was last revised 2017. Testing performed by: [address], [place]., [address] Calcium 9.5 8.5 - 10.3 mg/dL [facility] Comment:Testing performed by : [address], [place]., [address] Bilirubin, total 0.3 0.1 - 1.2 mg/dL [facility] Comment:Testing performed by : [address] [address] Protein, pl 6.7 6.5 - 8.5 g/dL [facility] Comment:Testing performed by : [address] [address] Albumin 4.5 3.5 - 5.0 g/dL [place] Comment:Testing performed by : [address] [address] Alk phos 90 40 - 130 Units/L [place] Comment:Testing performed by : [address] [address] ALT 14 7 - 45 Units/L [place] Comment:Testing performed by : [address] [address] AST 24 10 - 45 Units/L [place] Comment:Testing performed by : [address] [address] Blood 02/01/2022 12:2 5 PM WHEAT COMBINE DRIVER 02/01/2022 12:27 PM WHEAT COMBINE DRIVER Nicol Howe NP LAB BLOOD ORDERABLES Final Result Performing Organization Address [facility] Co de Phone Number [address] [place] [address] * Lactate dehydrogenase (LD) (02/01/2022 12:25 PM WHEAT COMBINE DRIVER) Lactate dehydrogenase (LDH) 244 100 - 250 Units/L [facility] Comment: HEMOLYZED: Hemolysis interferes with the above test. Testing performed by: [address] [address] Blood 02/01/2022 12:2 5 PM WHEAT COMBINE DRIVER 02/01/2022 12:27 PM WHEAT COMBINE DRIVER Nicol Howe NP LAB BLOOD ORDERABLES Final Result Performing Organization Address City/[facility] Co de Phone Number [address] [place] [address] documented in this encounter Visit Diagnoses Diagnosis History of follicular lymphoma Follicular non-Hodgkin's lymphoma (HCC) documented in this encounter Orders Appointment Requests Count Last Ordered Date Fi rst Ordered Date ONCBCN LAB APPOINTMENT 1 02/01/2022 documented in this encounter Care Teams Help Desk Specialist Relationship Specialty Start Date End Date Juan Wilkinson MD PCP - General Family Practice 02/01/20 OppeltHelder MD [address] [facility] [address] [place] [address] Medical Oncologist/[facility] 02/01/22 01/18/24 documented as of this encounter
--- OUTSIDE RECORDS SUMMARY | 2024-04-03 17:09 | XMS_ITS | Clinical Summary ---
Author Organization [facility] Address [address] [facility] [place] [address] Phone Care Team Providers Care Signal And Communications Maintainer Name Role Phone Juan Wilkinson MD Primary [...] Type Department Care Team Description 01/30/2024 Telephone [facility] [address] [place] [address] [address] [place] [address] Jonna Hanna RN 01/27/2024 Telephone [facility] [address] [place] [address] [address] [place] [address] Nicol Howe NP 01/24/2024 11:30 AM DYE AUTOMATION OPERATOR Office Visit [facility] [address] [place] [address] [address] [place] [address] Nicol Howe NP History of follicular lymphoma (Primary Dx); Vitamin D deficiency; Follicular non-Hodgkin's lymphoma (HCC); Need for prophylactic vaccination and inoculation against influenza 01/24/2024 11:15 AM DYE AUTOMATION OPERATOR Lab [facility] at [address] [id number] History of follicular lymphoma; Vitamin D deficiency [...] on file Legal Sex Female 12:30 AM DYE AUTOMATION OPERATOR Gender Identity Not on file Sexual Orientation Not on file Obstetrics History Last Filed Vital Signs Vital Sign Reading Time Taken Comments Blood Pressure 137/71 01/24/2024 11:40 AM DYE AUTOMATION OPERATOR Pulse 68 01/24/2024 11:40 AM DYE AUTOMATION OPERATOR Temperature 36.4 ??C (97.5 ??F) 01/24/2024 11:[address] Respiratory Rate 16 01/24/2024 11:40 AM DYE AUTOMATION OPERATOR Oxygen Saturation 98% 01/24/2024 11:40 AM DYE AUTOMATION OPERATOR Inhaled Oxygen Concentration - - Weight 68.1 kg (150 lb 3.2 oz) 01/24/2024 11:40 AM DYE AUTOMATION OPERATOR Height 177.8 cm (5' 10 ) 01/25/2023 1:48 PM DYE AUTOMATION OPERATOR Body Mass Index 21.55 01/25/2023 1:48 PM DYE AUTOMATION OPERATOR Plan of Treatment Health Maintenance Due [...] Diagnosis Comments EGFR Routine 01/24/2024 11:31 AM DYE AUTOMATION OPERATOR History of follicular lymphoma DIFFERENTIAL AUTO Routine 01/24/2024 11: 31 AM DYE AUTOMATION OPERATOR History of follicular lymphoma CBC WITH AUTO DIFFERENTIAL Routine 01/24/2024 11:31 AM DYE AUTOMATION OPERATOR History of follicular lymphoma COMPREHENSIVE METABOLIC PANEL Routine 01/24/2024 11:31 AM DYE AUTOMATION OPERATOR History of follicular lymphoma VITAMIN D 25 HYDROXY Routine 01/24/2024 11:31 AM DYE AUTOMATION OPERATOR History of follicular lymphoma Vitamin D deficiency from Last 3 Months Results * eGFR (01/24/2024 11:31 AM DYE AUTOMATION OPERATOR) Pathologist [facility] eGFR >90 >=60 mL/min/1. 73 m2 Comment: [...] was last reviewed 2021. Testing performed by: [address] [address] Blood 01/24/2024 11:3 1 AM DYE AUTOMATION OPERATOR 01/24/2024 11:33 AM DYE AUTOMATION OPERATOR us Nicol Howe [employer]ENT LAB BLOOD ORDERABLES Final Result [facility] [address] [facility] Department [place] [address] * Differential, auto (01/24/2024 11:31 AM DYE AUTOMATION OPERATOR) Neutrophil abs 3.6 1.5 - 6.5 K/cumm Comment:Testing performed by : [address] [address] Imm gran abs 0.0 0.0 - 0.1 K/cumm [place] Comment:Testing performed by : [address] [address] Lymphocyte abs 3.2 0.8 - 3.3 K/cumm [place] Comment:Testing performed by : [address] [address] Monocyte abs 0.6 0.2 - 0.8 K/cumm [place] Comment:Testing performed by : [address] [address] Eosinophil abs 0.2 0.0 - 0.5 K/cumm [facility] Comment:Testing performed by : [address] [address] Basophil abs 0.1 0.0 - 0.1 K/cumm [facility] Comment:Testing performed by : [address] [address] Neutrophil pct 47.2 % [facility] Comment: Interpretive Data Percent cell count reference ranges are not reported, since discordance with absolute values may lead to misinterpretation of CBC data. Current Interpretive Data was last revised on 2017. Testing performed by: [address] [address] Imm gran pct 0.3 % [facility] Comment: Interpretive Data Percent cell count reference ranges are not reported, since discordance with absolute values may lead to misinterpretation of CBC data. Current Interpretive Data was last revised on 2017. Testing performed by: [address] [address] Lymphocyte pct 41.6 % [facility] Comment: Interpretive Data Percent cell count reference ranges are not reported, since discordance with absolute values may lead to misinterpretation of CBC data. Current Interpretive Data was last revised on 2017. Testing performed by: [address] [address] Monocyte pct 8.0 % [facility] Comment: Interpretive Data Percent cell count reference ranges are not reported, since discordance with absolute values may lead to misinterpretation of CBC data. Current Interpretive Data was last revised on 2017. Testing performed by: [address] [address] Eosinophil pct 2.2 % [facility] Comment: Interpretive Data Percent cell count reference ranges are not reported, since discordance with absolute values may lead to misinterpretation of CBC data. Current Interpretive Data was last revised on 2017. Testing performed by: [address] [address] Basophil pct 0.7 % [facility] Comment: Interpretive Data Percent cell count reference ranges are not reported, since discordance with absolute values may lead to misinterpretation of CBC data. Current Interpretive Data was last revised on 2017. Testing performed by: [address] [address] Blood 01/24/2024 11:3 1 AM DYE AUTOMATION OPERATOR 01/24/2024 11:33 AM DYE AUTOMATION OPERATOR Nicol Howe S[employer]IOR [employer] AGENT LAB BLOOD ORDERABLES Final Result [facility] [address] [facility] Department [place] [address] * CBC with auto differential (01/24/2024 11:31 AM DYE AUTOMATION OPERATOR) WBC 7.6 3.8 - 9.9 K/cumm Comment:Testing performed by : [address] [address] Hgb 14.0 11.9 - 15.5 g/dL [facility] Comment:Testing performed by : [address] [address] Hct 40.2 35.6 - 45.5 % [facility] Comment:Testing performed by : [address] [address] Plt 217 150 - 400 K/cumm [facility] Comment:Testing performed by : [address] [address] MPV 10.5 9.1 - 12.3 fL [place] Comment:Testing performed by : [address] [address] RBC 4.68 3.90 - 5.20 M/cumm [facility] Comment:Testing performed by : [address] [address] MCV 85.9 81.3 - 96.4 fL [place] Comment:Testing performed by : [address] [address] MCH 29.9 27.1 - 33.3 pg [facility] Comment:Testing performed by : [address] [address] MCHC 34.8 32.3 - 35.7 g/dL [facility] Comment:Testing performed by : [address], [address] RDW CV 13.0 11.1 - 14.9 % [facility] Comment:Testing performed by : [address] [address] RDW SD 40.1 35.7 - 48.1 fL [facility] Comment:Testing performed by : [address], [address] NRBC abs 0.00 0.00 - 0.01 K/cumm [facility] Comment:Testing performed by : [address], [address] Blood 01/24/2024 11:3 1 AM DYE AUTOMATION OPERATOR 01/24/2024 11:33 AM DYE AUTOMATION OPERATOR Nicol Howe NP LAB BLOOD ORDERABLES Final Result Performing Organization Address City/[facility] Co de Phone Number [address] [place] [address] * Vitamin D 25 hydroxy (01/24/2024 11:31 AM DYE AUTOMATION OPERATOR) [facility] Vitamin D 25-OH 35.0 30.0 - 80.0 ng/mL Blood 01/24/2024 11:3 1 AM DYE AUTOMATION OPERATOR 01/24/2024 4:41 PM DYE AUTOMATION OPERATOR Nicol Howe S[employer]IOR [employer] AGENT LAB BLOOD ORDERABLES Final Result Performing Organization Address [facility] Co de Phone Number [address] [place] [address] * (ABNORMAL) Comprehensive metabolic panel (01/24/2024 11:31 AM DYE AUTOMATION OPERATOR) [facility] Sodium 141 135 - 145 mmol/L Comment:Testing performed by : [address], [address] Potassium, pl 4.0 3.3 - 4.9 mmol/L [facility] Comment:Testing performed by : [address], [place]., [address] Chloride 104 97 - 110 mmol/L [facility] Comment:Testing performed by : [address], [place]., [address] CO2 26 22 - 32 mmol/L [facility] Comment:Testing performed by : [address], [place]., [address] Anion gap 11 2 - 15 mmol/L [facility] Comment:Testing performed by : [address], [place]., [address] BUN 13 6 - 25 mg/dL [facility] Comment:Testing performed by : [address], [place]., [address] Creatinine 0.60 0.60 - 1.10 mg/dL [facility] Comment:Testing performed by : [address], [place]., [address] Glucose 91 70 - 199 mg/dL [facility] [...] was last revised 2022. Testing performed by: [address] [address] Calcium 9.4 8.5 - 10.3 mg/dL [facility] Comment:Testing performed by : [address] [address] Bilirubin, total 0.4 0.1 - 1.2 mg/dL [facility] Comment:Testing performed by : [address], [place]., [address] Protein, pl 6.3(L) 6.5 - 8.5 g/dL [facility] Comment:Testing performed by : [address], [place]., [address] Albumin 4.2 3.5 - 5.0 g/dL [facility] Comment:Testing performed by : [address], [address] Alk phos 81 40 - 130 Units/L [facility] Comment:Testing performed by : [address], [address] ALT 14 7 - 45 Units/L [facility] Comment:Testing performed by : [address], [address] AST 23 10 - 45 Units/L [facility] Comment:Testing performed by : [address], [address] Blood 01/24/2024 11:3 1 AM DYE AUTOMATION OPERATOR 01/24/2024 11:33 AM DYE AUTOMATION OPERATOR Nicol Howe SENIOR COMMISSARY AGENT LAB BLOOD ORDERABLES Final Result [facility] [address] [facility] Department [place] [address] from Last 3 Months Insurance MEDICARE [employer] SENIOR SUPPLEMENT MEDICARE [employer] SENIOR SUPPLEMENT Care Teams Signal And Communications Maintainer Relationship Specialty Start Date End Date Juan Wilkinson MD PCP - General Family Practice 02/01/20
--- OUTSIDE RECORDS SUMMARY | 2024-04-03 17:10 | XMS_ITS | Encounter Summary ---
Author Organization [facility] Address [address] [place] [address] Phone Care Team Providers Care Outside Sales Account Executive Name Role Phone Juan Wilkinson MD Primary Care Provider Lopez Shepherd MD Unavailable [phone] Reason for Visit * Reason Comments Follow-up Encounter Details Date Type Department Care Team (Late st Contact Info) Description 01/30/2021 10:15 AM SUPERVISOR ASSEMBLY AND PACKING Office Visit [facility] On[facility] [address] [address] Nicol Howe, MOOSE [facility] [address] Need for prophylactic vaccination and [...] on file Legal Sex Female 12:30 AM SUPERVISOR ASSEMBLY AND PACKING Gender Identity Not on file Sexual Orientation Not on file documented as of this encounter Last Filed Vital Signs Vital Sign Reading Time Taken Comments Blood Pressure 132/69 01/30/2021 10:14 AM SUPERVISOR ASSEMBLY AND PACKING Pulse 72 01/30/2021 10:14 AM SUPERVISOR ASSEMBLY AND PACKING Temperature 36.6 ??C (97.8 ??F) 01/30/2021 10:[address] Respiratory Rate 16 01/30/2021 10:14 AM SUPERVISOR ASSEMBLY AND PACKING Oxygen Saturation 97% 01/30/2021 10:14 AM SUPERVISOR ASSEMBLY AND PACKING Inhaled Oxygen Concentration - - Weight 64.2 kg (141 lb 9.6 oz) 01/30/2021 10:14 AM SUPERVISOR ASSEMBLY AND PACKING Height 177.8 cm (5' 10 ) 01/30/2021 10:14 AM SUPERVISOR ASSEMBLY AND PACKING Body Mass Index 20.32 01/30/2021 10:14 AM SUPERVISOR ASSEMBLY AND PACKING documented in this encounter Progress Notes * Nicol Howe, JUKEBOX ROUTEMAN - 01/30/2021 10:15 AM CST Visit Date: [...] follow-up. Her care has been transferred to pr by Dr. [place]. She denies any new medical problems. Denies any fatigue weight loss or night sweats. Her last LDH- was borderline [id number]. Her LDH this visit is normal-222 02/01/2020: [...] well. She has had her booster from [employer] and would like to get herinfluenza vaccine [...] influenza vaccine today. Nicol Howe NP 01/30/2021 Supervisor Special Education completed by using Captive Media Direct speaking software, therefore, transcriptionvariances may occur RVISOR ASSEMBLY AND PACKING documented in this encounter Plan of Treatment Not on file documented as of this encounter Results * Lactate dehydrogenase (LD) (02/01/2022 12:25 PM SUPERVISOR ASSEMBLY AND PACKING) Lactate dehydrogenase (LDH) 244 100 - 250 Units/L [facility] Comment: HEMOLYZED: Hemolysis interferes with the above test. Testing performed by: [address] [address] Blood 02/01/2022 12:2 5 PM SUPERVISOR ASSEMBLY AND PACKING 02/01/2022 12:27 PM SUPERVISOR ASSEMBLY AND PACKING Nicol Howe JUKEBOX ROUTEMAN LAB BLOOD ORDERABLES Final Result [facility] [address] [facility] Department of Laboratories [place], [place] [id number] * Comprehensive metabolic panel (02/01/2022 12:25 PM SUPERVISOR ASSEMBLY AND PACKING) Pathologist [facility] Sodium 140 135 - 145 mmol/L [facility] Comment:Testing performed by : [address] [address] Potassium, pl 4.4 3.3 - 4.9 mmol/L [facility] Comment:Testing performed by : [address] [address] Chloride 102 97 - 110 mmol/L [facility] Comment:Testing performed by : [address] [address] CO2 25 22 - 32 mmol/L [facility] Comment:Testing performed by : [address] [address] Anion gap 13 2 - 15 mmol/L [facility] Comment:Testing performed by : [address] [address] BUN 12 8 - 25 mg/dL [facility] Comment:Testing performed by : [address] [address] Creatinine 0.60 0.60 - 1.10 mg/dL [facility] Comment:Testing performed by : [address] [address] Glucose 112 70 - 199 mg/dL L[facility]NA [...] was last revised 2017. Testing performed by: [address] [address] Calcium 9.5 8.5 - 10.3 mg/dL [facility] Comment:Testing performed by : [address] [address] Bilirubin, total 0.3 0.1 - 1.2 mg/dL [facility] Comment:Testing performed by : [address] [address] Protein, pl 6.7 6.5 - 8.5 g/dL [facility] Comment:Testing performed by : [address] [address] Albumin 4.5 3.5 - 5.0 g/dL [facility] Comment:Testing performed by : [address] [address] Alk phos 90 40 - 130 Units/L [facility] Comment:Testing performed by : [address] [address] ALT 14 7 - 45 Units/L [facility] Comment:Testing performed by : [address] [address] AST 24 10 - 45 Units/L [facility] Comment:Testing performed by : [address] [address] Blood 02/01/2022 12:2 5 PM SUPERVISOR ASSEMBLY AND PACKING 02/01/2022 12:27 PM SUPERVISOR ASSEMBLY AND PACKING us Nicol Howe JUKEBOX ROUTEMAN LAB BLOOD ORDERABLES Final Result [facility] [address] [facility] Department [place] [address] * CBC with auto differential (02/01/2022 12:25 PM SUPERVISOR ASSEMBLY AND PACKING) WBC 9.2 3.8 - 9.9 K/cumm [facility] Comment:Testing performed by : [address] [address] Hgb 14.6 11.9 - 15.5 g/dL [facility] Comment:Testing performed by : [address] [address] Hct 43.5 35.6 - 45.5 % [facility] Comment:Testing performed by : [address] [address] Plt 195 150 - 400 K/cumm [facility] Comment:Testing performed by : [address] [address] MPV 10.9 9.1 - 12.3 fL [facility] Comment:Testing performed by : [address] [address] RBC 5.11 3.90 - 5.20 M/cumm [facility] Comment:Testing performed by : [address] [address] MCV 85.1 81.3 - 96.4 fL [facility] Comment:Testing performed by : [address] [address] MCH 28.6 27.1 - 33.3 pg [facility] Comment:Testing performed by : [address] [address] MCHC 33.6 32.3 - 35.7 g/dL [facility] Comment:Testing performed by : [address] [address] RDW CV 12.3 11.1 - 14.9 % [facility] Comment:Testing performed by : [address] [address] RDW SD 38.3 35.7 - 48.1 fL [facility] Comment:Testing performed by : [address], [place]., [address] Blood 02/01/2022 12:2 5 PM SUPERVISOR ASSEMBLY AND PACKING 02/01/2022 12:27 PM SUPERVISOR ASSEMBLY AND PACKING Nicol Howe JUKEBOX ROUTEMAN LAB BLOOD ORDERABLES Final Result [facility] [address] [facility] Department [place] [address] documented in this encounter Visit Diagnoses Diagnosis [...] 02/01/2022 documented in this encounter Care Teams Outside Sales Account Executive Relationship Specialty Start Date End Date Juan Wilkinson MD PCP - General Family Practice 02/01/20 Lopez Shepherd MD Medical Oncologist/Enrollment Advisor Medical Oncology 01/31/19 01/31/22 documented as of this encounter
--- OUTSIDE RECORDS SUMMARY | 2024-04-03 17:10 | XMS_ITS | Encounter Summary ---
Author Organization [facility] Address [address] [place] [address] Phone Care Team Providers Care Synthetic Staple Extruder Name Role Phone Juan Wilkinson MD Primary Care Provider Helder Bailey MD Unavailable [phone] Reason for Visit * Reason Comments Follow-up Encounter Details Date Type Department Care Team (Late st Contact Info) Description 02/01/2022 12:45 PM EGYPTOLOGIST Office Visit [facility] [address] [place] [address] [address] [place] [address] Helder Bailey MD [facility] [address] [place] [address] History of follicular lymphoma (Primary [...] on file Legal Sex Female 12:30 AM EGYPTOLOGIST Gender Identity Not on file Sexual Orientation Not on file documented as of this encounter Last Filed Vital Signs Vital Sign Reading Time Taken Comments Blood Pressure 117/66 02/01/2022 12:33 PM EGYPTOLOGIST Pulse 76 02/01/2022 12:33 PM EGYPTOLOGIST Temperature 36.4 ??C (97.5 ??F) 02/01/2022 1 2:33 PM EGYPTOLOGIST Respiratory Rate 17 02/01/2022 12:3 3 PM EGYPTOLOGIST Oxygen Saturation 95% 02/01/2022 12: 33 PM EGYPTOLOGIST Inhaled Oxygen Concentration - - Weight 68.6 kg (151 lb 3.2 oz) 02/02/20 12:33 PM EGYPTOLOGIST with shoes Height 177.8 cm (5' 10 ) 02/01/2022 12: 33 PM EGYPTOLOGIST Body Mass Index 21.69 02/01/2022 12:33 PM EGYPTOLOGIST documented in this encounter Progress Notes * [...] yearly follow up. Helder Bailey MD 02/01/2022 TOLOGIST documented in this encounter Plan of Treatment Not on file documented as of this encounter Results * Lactate dehydrogenase (LD) (01/25/2023 1:37 PM EGYPTOLOGIST) Lactate dehydrogenase (LDH) 223 100 - 250 Units/L [facility] Comment:Testing performed by : [facility], [address] [place] [address], [place]., [address] Blood 01/25/2023 1:37 PM EGYPTOLOGIST 01/25/2023 1:47 PM EGYPTOLOGIST us Helder Bailey MD LAB BLOOD ORDERABLES Final Result [facility] [place] [address] [place] [address] Department [place] [address] * Comprehensive metabolic panel (01/25/2023 1:37 PM EGYPTOLOGIST) Sodium 139 135 - 145 mmol/L [facility] Comment:Testing performed by : [address] [address] Potassium, pl 4.3 3.3 - 4.9 mmol/L [facility] Comment:Testing performed by : [address] [address] Chloride 102 97 - 110 mmol/L [facility] Comment:Testing performed by : [address] [address] CO2 28 22 - 32 mmol/L [facility] Comment:Testing performed by : [address], [place]., [address] Anion gap 9 2 - 15 mmol/L [facility] Comment:Testing performed by : [address] [address] BUN 16 6 - 25 mg/dL [facility] Comment:Testing performed by : [address], [place]., [address] Creatinine 0.70 0.60 - 1.10 mg/dL [facility] Comment:Testing performed by : [address] [address] Glucose 102 70 - 199 mg/dL [facility] [...] was last revised 2022. Testing performed by: [address], [place]., [address] Calcium 9.5 8.5 - 10.3 mg/dL [facility] Comment:Testing performed by : [address] [address] Bilirubin, total 0.3 0.1 - 1.2 mg/dL [facility] Comment:Testing performed by : [address] [address] Protein, pl 6.5 6.5 - 8.5 g/dL [facility] Comment:Testing performed by : [address] [address] Albumin 4.2 3.5 - 5.0 g/dL [facility] Comment:Testing performed by : [address] [address] Alk phos 85 40 - 130 Units/L [facility] Comment:Testing performed by : [address] [address] ALT 17 7 - 45 Units/L [facility] Comment:Testing performed by : [address], [address] AST 27 10 - 45 Units/L [facility] Comment:Testing performed by : [address] [address] Blood 01/25/2023 1:37 PM EGYPTOLOGIST 01/25/2023 1:47 PM EGYPTOLOGIST Helder Bailey MD LAB BLOOD ORDERABLES Final Result [facility] [address] [facility] Department of Laboratories [place], [place] [id number] * (ABNORMAL) CBC with auto differential (01/25/2023 1:37 PM EGYPTOLOGIST) [facility] WBC 8.8 3.8 - 9.9 K/cumm [facility] Comment:Testing performed by : [address] [address] Hgb 13.9 11.9 - 15.5 g/dL [facility] Comment: Interpretive Data A reference range for this assay has not been established for patients with an unknown legal sex. Please refer to the laboratory test catalog for established sex-specific reference intervals. Current interpretive data was last revised on 2022. Testing performed by: [address] [address] Hct 40.9 35.6 - 45.5 % [facility] Comment: Interpretive Data A reference range for this assay has not been established for patients with an unknown legal sex. Please refer to the laboratory test catalog for established sex-specific reference intervals. Current interpretive data was last revised on 2022. Testing performed by: [address] [address] Plt 195 150 - 400 K/cumm [facility] Comment:Testing performed by : [address] [address] MPV 11.1 9.1 - 12.3 fL [facility] Comment:Testing performed by : [address] [address] RBC 4.79 3.90 - 5.20 M/cumm [facility] Comment: Interpretive Data A reference range for this assay has not been established for patients with an unknown legal sex. Please refer to the laboratory test catalog for established sex-specific reference intervals. Current interpretive data was last revised on 2022. Testing performed by: [address] [address] MCV 85.4 81.3 - 96.4 fL [facility] Comment:Testing performed by : [address] [address] MCH 29.0 27.1 - 33.3 pg [facility] Comment:Testing performed by : [address] [address] MCHC 34.0 32.3 - 35.7 g/dL [facility] Comment:Testing performed by : [address] [address] RDW CV 12.3 11.1 - 14.9 % [facility] Comment:Testing performed by : [address] [address] RDW SD 38.1 35.7 - 48.1 fL [facility] Comment:Testing performed by : [address] [address] NRBC abs 0.04(H) 0.00 - 0.01 K/cumm [facility] Comment:Testing performed by : [facility], [address] [place] [address], [place]., [address] Blood 01/25/2023 1:37 PM EGYPTOLOGIST 01/25/2023 1:47 PM EGYPTOLOGIST us Helder Bailey MD LAB BLOOD ORDERABLES Final Result [facility] [address] [facility] Department [place] [address] documented in this encounter Visit Diagnoses Diagnosis [...] 01/25/2023 documented in this encounter Care Teams Synthetic Staple Extruder Relationship Specialty Start Date End Date Juan Wilkinson MD PCP - General Family Practice 02/01/20 Helder Bailey MD [address] [facility] [address] [place] [address] Medical Oncologist/Relay Man Medical Oncology 02/01/22 01/18/24 documented as of this encounter
--- OUTSIDE RECORDS SUMMARY | 2024-04-03 17:10 | XMS_ITS | Encounter Summary ---
Author Organization [facility] Address [address] [place] [address] Phone Care Team Providers Care Pizza Maker Name Role Phone No, Physician Primary Care Provider [phone] Lopez Shepherd MD Unavailable [phone] Encounter Details Date Type Department Care Team (Late st Contact Info) Description 02/02/2019 9:30 AM DRESS OPERATOR Lab [facility] [address] [facility] [place] [address] History of follicular lymphoma (Primary Dx); Follicular [...] on file Legal Sex Female 12:30 AM DRESS OPERATOR Gender Identity Not on file Sexual Orientation Not on file documented as of this encounter Plan of Treatment Scheduled Orders Name Type Priority Associated Diagnoses Orde r Schedule CBC with auto differential Lab Routine History of follicular lymphoma Expected: 02/02/2019, Expires: 02/01/2020 documented as of this encounter Procedures Procedure Name Priority Date/Time Associated Diagnosis Comments LACTATE DEHYDROGENASE Routine 02/02/2019 9:28 AM DRESS OPERATOR History of follicular lymphoma COMPREHENSIVE METABOLIC PANEL Routine 02/02/2019 9:28 AM DRESS OPERATOR History of follicular lymphoma documented in this encounter Results * Lactate dehydrogenase (LD) (02/02/2019 9:28 AM DRESS OPERATOR) Lactate dehydrogenase (LDH) 222 119 - 226 IU/L [facility] - 01 Blood specimen (specimen) 02/02/2019 9:28 AM DRESS OPERATOR 02/02/2019 Narrative [facility] - 02/03/2019 10:35 AM DRESS OPERATOR Performed at: ??01 - [facility] [address] ??[id number] Aerial Survey Technician: Harvinder Knapp PhD, Phone: ??[phone] us Lopez Shepherd MD LAB BLOOD ORDERABLES Edited Re sult - Final [facility] - 01 * (ABNORMAL) Comprehensive metabolic panel (02/02/2019 9:28 AM DRESS OPERATOR) Glucose 37(<) 65 - 99 mg/dL [facility] [...] 01 Blood specimen (specimen) 02/02/2019 9:28 AM DRESS OPERATOR 02/02/2019 Narrative [facility] - 02/03/2019 10:35 AM DRESS OPERATOR Performed at: ??01 - [facility] [address] ??[id number] Aerial Survey Technician: Harvinder Knapp PhD, Phone: ??[phone] Specimen Comment: Test(s) Glucose called to Dr [...] 02/02/2019 documented in this encounter Care Teams Pizza Maker Relationship Specialty Start Date End Date No, Physician PCP - General 01/25/18 01/31/20 Lopez Shepherd MD Medical Oncologist/Diver'S Tender Medical Oncology 01/31/19 01/31/22 documented as of this encounter
--- OUTSIDE RECORDS SUMMARY | 2024-04-03 17:10 | XMS_ITS | Encounter Summary ---
Author Organization [facility] Address [address] [place] [address] Care Team Providers Care Disability Benefits Specialist Name Role Phone Juan Wilkinson MD Primary Care Provider Juan Wilkinson MD Unavailable [phone] Lopez Shepherd MD Unavailable [phone] Encounter Details Date Type Department Care Team (Late st Contact Info) Description 02/01/2020 2:37 PM POLISH MAKER - 02/11/2020 11:59 PM POLISH MAKER Hospital Encounter [facility] INTERIM PodLopez cortez MD [address] [facility] DEPT ONCOLOGY [place], [place] [address] Social History Tobacco Use Types Packs/Day Years Used Date Smoking Tobacco: Never Assessed Comments Unknown Sex and Gender Information Value Date Recorded Sex Assigned at Not on file Legal Sex Female 12:30 AM POLISH MAKER Gender Identity Not on file Sexual Orientation [...] on filedocumented in this encounter Care Teams Disability Benefits Specialist Relationship Specialty Start Date End Date Juan Wilkinson MD PCP - General Family Practice 02/01/20 Juan Wilkinson MD 02/01/20 02/04/20 Lopez Shepherd MD Medical Oncologist/Homeowner Association Manager Medical Oncology 01/31/19 01/31/22 documented as of this encounter
--- OUTSIDE RECORDS SUMMARY | 2024-04-03 17:10 | XMS_ITS | Encounter Summary ---
Author Organization [facility] Address [address] [place] [address] Phone Care Team Providers Care Pneumatic Press Hand Name Role Phone Juan Wilkinson MD Primary Care Provider OppeHelder puentes MD Unavailable [phone] Encounter Details Date Type Department Care Team (Late st Contact Info) Description 01/25/2023 1:30 PM TEACHER AIDE Lab [facility] Oncology [address] [place] [address] History of follicular lymphoma Social History [...] on file Legal Sex Female 12:30 AM TEACHER AIDE Gender Identity Not on file Sexual Orientation Not on file documented as of this encounter Plan of Treatment Not on file documented as of this encounter Visit Diagnoses Diagnosis History of follicular lymphoma documented in this encounter Orders Appointment Requests Count Last Ordered Date Fi rst Ordered Date ONCBCN LAB APPOINTMENT 1 01/25/2023 documented in this encounter Care Teams Pneumatic Press Hand Relationship Specialty Start Date End Date Juan Wilkinson MD PCP - General Family Practice 02/01/20 OppeltHelder MD [address] [facility] [address] [place] [address] Medical Oncologist/Rivet Heater Gas Medical Oncology 02/01/22 01/18/24 documented as of this encounter
--- OUTSIDE RECORDS SUMMARY | 2024-04-03 17:10 | XMS_ITS | Encounter Summary ---
Author Organization [facility] Address [address] [place] [address] Phone Care Team Providers Care Relations Mgr Name Role Phone Juan Wilkinson MD Primary Care Provider Encounter Details Date Type Department Care Team (Late st Contact Info) Description 01/24/2024 11:30 AM IRRIGATION SYSTEM OPERATOR Office Visit [facility] On[facility] [address] [phone] Nicol Howe, MOOSE [address] [address] History of follicular lymphoma (Primary [...] on file Legal Sex Female 12:30 AM IRRIGATION SYSTEM OPERATOR Gender Identity Not on file Sexual Orientation Not on file documented as of this encounter Last Filed Vital Signs Vital Sign Reading Time Taken Comments Blood Pressure 137/71 01/24/2024 11:40 AM IRRIGATION SYSTEM OPERATOR Pulse 68 01/24/2024 11:40 AM IRRIGATION SYSTEM OPERATOR Temperature 36.4 ??C (97.5 ??F) 01/24/2024 11:[address] Respiratory Rate 16 01/24/2024 11:40 AM IRRIGATION SYSTEM OPERATOR Oxygen Saturation 98% 01/24/2024 11:40 AM IRRIGATION SYSTEM OPERATOR Inhaled Oxygen Concentration - - Weight 68.1 kg (150 lb 3.2 oz) 01/24/2024 11:40 AM IRRIGATION SYSTEM OPERATOR Height - - Body Mass Index 21.55 01/25/2023 1:48 PM IRRIGATION SYSTEM OPERATOR documented in this encounter Patient Instructions * Patient Instructions* Nicol Howe, MOOSE - 01/24/2024 11:30 AM IRRIGATION SYSTEM OPERATOR Healthy Behavior Recommendations: Next mammogram: annually Next colonoscopy: due now Next Dexa scan: due now Please activate AtlanteTrek for online communication. If you are uncertain how to access please contactthe AtlanteT[employer] support center at: [phone] or [phone]. Cancer Survivorship Program - [facility] Cancer [place] ([facility]) -HOT FLASHES: you can trial all three [...] D 1000 international units daily SMOKING CESSATION: -[employer] [address] [place] , [place] Phone: Phone: Web Address: www.lung.org Smokefree.gov Phone: Web Address: www.smokefree.gov [place] Quit Smoking help line: call 554-240-4705 Please see this 5 minute video: [email or web address]/[email or web address]-[email or web address]-ffbbx-yj-[email or web address] -jezmcr-vuwioi-ophxwv-dwvied-saudnj-mcdycokom/ Rochelle Darden MD, FACS, on Improving Sexual [...] Consider referral to a registered dietitian or jute bag cutting machine operator. The USDA approximate food plate volumes (https://www.myplate.gov) [...] physician for routine care. You can call 899-GOK-UUNT for [facility]. ?? Get an annual influenza vaccine [...] ?? Talk with a professional, either an Lockstitch Pocket Setter or mental health professional. Your oncology team [...] with a mental health professional or a [facility] Counselor. [facility] counseling [phone]. ?? There are many online websites which offer resources for spiritual, emotional, and support networks for breast cancer survivors: Sherpaa and b3 bio.Semafone are a few. ?? [employer]'s iTHRIVE plan is designed [...] reliable forms of avoiding with your healthcare provider/criminal justice department chair. If you are a woman planning to [...] you to a specialist. There are several vwxv-cem-qnrqrjz vaginal moisturizers that can be used, such [...] to the cancer coming back. Please activate AtlanteTrek for online communication. If you are uncertain how to access please contactthe Atlante[employer] support center at: [phone] or [phone]. LIVE WELL! You can reach the office of Nicol Howe NP at [phone] or access [employer] on line. GATION SYSTEM OPERATOR documented in this encounter Progress Notes [...] CT. She does all her testing through [facility]. 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 She will receive the influenza vaccine today. She and family member verbalized understanding. Nicol Howe NP 01/24/2024 GATION SYSTEM OPERATOR documented in this encounter Plan of [...] 01/24/2024 documented in this encounter Care Teams Relations Mgr Relationship Specialty Start Date End Date Juan Wilkinson MD PCP - General Family Practice 02/01/20 documented as of this encounter
--- OUTSIDE RECORDS SUMMARY | 2024-04-03 17:10 | XMS_ITS | Encounter Summary ---
Author Organization [facility] Healthcare Address [address] [place] [address] Care Team Providers Care Elementary Librarian Name Role Phone Juan Wilkinson MD Primary Care Provider Lopez Shepherd MD Unavailable Encounter Details Date Type Department Care Team (Late st Contact Info) Description 01/30/2021 9:45 AM STOCK SORTER Lab [facility] Lab [address] [place] [id number] History of follicular lymphoma; Follicular non-Hodgkin's lymphoma [...] on file Legal Sex Female 12:30 AM STOCK SORTER Gender Identity Not on file Sexual Orientation Not on file documented as of this encounter Plan of Treatment Not on file documented as of this encounter Procedures Procedure Name Priority Date/Time Associated Diagnosis Comments DIFFERENTIAL AUTO Routine 01/30/2021 9:5 5 AM STOCK SORTER History of follicular lymphoma Follicular non-Hodgkin's lymphoma (CMS/HCC) (HCC) CBC WITH AUTO DIFFERENTIAL Routine 01/30/2021 9:55 AM STOCK SORTER History of follicular lymphoma Follicular non-Hodgkin's lymphoma (CMS/HCC) (HCC) LACTATE DEHYDROGENASE Routine 01/30/2021 9:55 AM STOCK SORTER History of follicular lymphoma Follicular non-Hodgkin's lymphoma (CMS/HCC) (HCC) CORTISOL Routine 01/30/2021 9:55 AM STOCK SORTER History of follicular lymphoma Follicular non-Hodgkin's lymphoma (CMS/HCC) (HCC) documented in this encounter Results * Differential, auto (01/30/2021 9:55 AM STOCK SORTER) Neutrophil abs 3.0 1.7 - 6.5 K/cumm [place] Comment:Testing performed by : [address] [address] Lymphocyte abs 2.9 0.8 - 3.3 K/cumm [place] Comment:Testing performed by : [address] [address] Monocyte abs 0.6 0.2 - 0.8 K/cumm [place] Comment:Testing performed by : [address] [address] Eosinophil abs 0.1 0.0 - 0.5 K/cumm [place] Comment:Testing performed by : [address] [address] Basophil abs 0.1 0.0 - 0.1 K/cumm [place] Comment:Testing performed by : [address] [address] Neutrophil pct 45.5 % [place] Comment: Interpretive Data Percent cell count reference ranges are not reported, since discordance with absolute values may lead to misinterpretation of CBC data. Current Interpretive Data was last revised on 2017. Testing performed by: [address] [address] Imm gran pct 0.3 % [place] Comment: Interpretive Data Percent cell count reference ranges are not reported, since discordance with absolute values may lead to misinterpretation of CBC data. Current Interpretive Data was last revised on 2017. Testing performed by: [address] [address] Lymphocyte pct 43.8 % [place] Comment: Interpretive Data Percent cell count reference ranges are not reported, since discordance with absolute values may lead to misinterpretation of CBC data. Current Interpretive Data was last revised on 2017. Testing performed by: [address] [address] Monocyte pct 8.7 % [place] Comment: Interpretive Data Percent cell count reference ranges are not reported, since discordance with absolute values may lead to misinterpretation of CBC data. Current Interpretive Data was last revised on 2017. Testing performed by: [address] [address] Eosinophil pct 0.9 % [place] Comment: Interpretive Data Percent cell count reference ranges are not reported, since discordance with absolute values may lead to misinterpretation of CBC data. Current Interpretive Data was last revised on 2017. Testing performed by: [address] [address] Basophil pct 0.8 % [place] Comment: Interpretive Data Percent cell count reference ranges are not reported, since discordance with absolute values may lead to misinterpretation of CBC data. Current Interpretive Data was last revised on 2017. Testing performed by: [address] [address] Blood 01/30/2021 9:55 AM STOCK SORTER 01/30/2021 10:03 AM STOCK SORTER us Lopez Shepherd MD LAB BLOOD ORDERABLES Final Res ult [place] [address] [facility] Department [place] [address] * Lactate dehydrogenase (LD) (01/30/2021 9:55 AM STOCK SORTER) Lactate dehydrogenase (LDH) 193 100 - 250 Units/L [place] Comment:Testing performed by : [address] [address] Blood 01/30/2021 9:55 AM STOCK SORTER 01/30/2021 10:04 AM STOCK SORTER us Lopez Shepherd MD LAB BLOOD ORDERABLES Final Res ult [place] [address] [facility] [place] [address] * Cortisol (01/30/2021 9:55 AM STOCK SORTER) Cortisol 16.4 4.8 - 19.5 mcg/dl [place] Blood 01/30/2021 9:55 AM STOCK SORTER 01/30/2021 12:33 PM STOCK SORTER us Lopez Shepherd MD LAB BLOOD ORDERABLES Final Res ult Performing Organization Address City/[facility] Co de Phone Number [place] [address] [facility] [address] * CBC with auto differential (01/30/2021 9:55 AM STOCK SORTER) Pathologist [facility] WBC 6.5 3.8 - 9.9 K/cumm [place] Comment:Testing performed by : [address] [address] Hgb 14.2 11.9 - 15.5 g/dL [place] Comment:Testing performed by : [address] [address] Hct 40.9 35.6 - 45.5 % [place] Comment:Testing performed by : [address] [address] Plt 265 150 - 400 K/cumm [place] Comment:Testing performed by : [address] [address] MPV 10.4 9.1 - 12.3 fL [place] Comment:Testing performed by : [address] [address] RBC 4.76 3.90 - 5.20 M/cumm [place] Comment:Testing performed by : [address] [address] MCV 85.9 81.3 - 96.4 fL [place] Comment:Testing performed by : [address], [address] MCH 29.8 27.1 - 33.3 pg [place] Comment:Testing performed by : [facility], [address] [place] [address]., [address] MCHC 34.7 32.3 - 35.7 g/dL [place] Comment:Testing performed by : [address] [address] RDW CV 12.1 11.1 - 14.9 % [place] Comment:Testing performed by : [address] [address] RDW SD 38.2 35.7 - 48.1 fL [place] Comment:Testing performed by : [address] [address] Blood 01/30/2021 9:55 AM STOCK SORTER 01/30/2021 10:03 AM STOCK SORTER us Lopez Shepherd MD LAB BLOOD ORDERABLES Final Res ult [place] [facility] Department [place] [address] documented in this encounter Visit Diagnoses Diagnosis History of follicular lymphoma Follicular non-Hodgkin's lymphoma (HCC) documented in this encounter Orders Appointment Requests Count Last Ordered Date Fi rst Ordered Date ONCBCN LAB APPOINTMENT 1 01/30/2021 documented in this encounter Care Teams Elementary Librarian Relationship Specialty Start Date End Date Juan Wilkinson MD PCP - General Family Practice 02/01/20 Lopez Shepherd MD Medical Oncologist/Hand Cementer Medical Oncology 01/31/19 01/31/22 documented as of this encounter
--- OUTSIDE RECORDS SUMMARY | 2024-04-03 17:10 | XMS_ITS | Encounter Summary ---
Author Organization [facility] Healthcare Address [address] [place] [address] Care Team Providers Care Medical Affairs Manager Name Role Phone Juan Wilkinson MD Primary Care Provider OppeHelder puentes MD Unavailable [phone] Encounter Details Date Type Department Care Team (Late st Contact Info) Description 02/01/2022 12:30 PM HIDE TRIMMER Lab [facility] Lab [address] [place] [address] History of follicular lymphoma; Follicular non-Hodgkin's lymphoma [...] on file Legal Sex Female 12:30 AM HIDE TRIMMER Gender Identity Not on file Sexual Orientation Not on file documented as of this encounter Plan of Treatment Not on file documented as of this encounter Procedures Procedure Name Priority Date/Time Associated Diagnosis Comments EGFR Routine 02/01/2022 12:25 PM HIDE TRIMMER History of follicular lymphoma Follicular non-Hodgkin's lymphoma (CMS/HCC) (HCC) DIFFERENTIAL AUTO Routine 02/01/2022 12: 25 PM HIDE TRIMMER History of follicular lymphoma Follicular non-Hodgkin's lymphoma (CMS/HCC) (HCC) CBC WITH AUTO DIFFERENTIAL Routine 02/01/2022 12:25 PM HIDE TRIMMER History of follicular lymphoma Follicular non-Hodgkin's lymphoma (CMS/HCC) (HCC) LACTATE DEHYDROGENASE Routine 02/01/2022 12:25 PM HIDE TRIMMER History of follicular lymphoma Follicular non-Hodgkin's lymphoma (CMS/HCC) (HCC) COMPREHENSIVE METABOLIC PANEL Routine 02/01/2022 12:25 PM HIDE TRIMMER History of follicular lymphoma Follicular non-Hodgkin's lymphoma (CMS/HCC) (HCC) documented in this encounter Results * eGFR (02/01/2022 12:25 PM HIDE TRIMMER) [facility] eGFR 94 mL/min/1. 73 m2 [place] [...] was last reviewed 2021. Testing performed by: [address] [address] Blood 02/01/2022 12:2 5 PM HIDE TRIMMER 02/01/2022 12:27 PM HIDE TRIMMER Nicol Howe PODIATRIC MEDICINE PROFESSOR LAB BLOOD ORDERABLES Final Result [place] [address] [facility] Department [place] [address] * (ABNORMAL) Differential, auto (02/01/2022 12:25 PM HIDE TRIMMER) Neutrophil abs 4.7 1.7 - 6.5 K/cumm [place] Comment:Testing performed by : [address] [address] Lymphocyte abs 3.5(H) 0.8 - 3.3 K/cumm [place] Comment:Testing performed by : [address] [address] Monocyte abs 0.8 0.2 - 0.8 K/cumm [place] Comment:Testing performed by : [address] [address] Eosinophil abs 0.1 0.0 - 0.5 K/cumm [place] Comment:Testing performed by : [address] [address] Neutrophil pct 51.0 % [place] Comment: Interpretive Data Percent cell count reference ranges are not reported, since discordance with absolute values may lead to misinterpretation of CBC data. Current Interpretive Data was last revised on 2017. Testing performed by: [address] [address] Imm gran pct 0.3 % [place] Comment: Interpretive Data Percent cell count reference ranges are not reported, since discordance with absolute values may lead to misinterpretation of CBC data. Current Interpretive Data was last revised on 2017. Testing performed by: [address] [address] Lymphocyte pct 38.6 % [place] Comment: Interpretive Data Percent cell count reference ranges are not reported, since discordance with absolute values may lead to misinterpretation of CBC data. Current Interpretive Data was last revised on 2017. Testing performed by: [address] [address] Monocyte pct 8.3 % [place] Comment: Interpretive Data Percent cell count reference ranges are not reported, since discordance with absolute values may lead to misinterpretation of CBC data. Current Interpretive Data was last revised on 2017. Testing performed by: [address] [address] Eosinophil pct 1.4 % [place] Comment: Interpretive Data Percent cell count reference ranges are not reported, since discordance with absolute values may lead to misinterpretation of CBC data. Current Interpretive Data was last revised on 2017. Testing performed by: [address] [address] Basophil pct 0.4 % [place] Comment: Interpretive Data Percent cell count reference ranges are not reported, since discordance with absolute values may lead to misinterpretation of CBC data. Current Interpretive Data was last revised on 2017. Testing performed by: [address] [address] Blood 02/01/2022 12:2 5 PM HIDE TRIMMER 02/01/2022 12:27 PM HIDE TRIMMER Nicol Howe PODIATRIC MEDICINE PROFESSOR LAB BLOOD ORDERABLES Final Result [place] [address] [facility] Department of Laboratories [place], [place] [id number] * CBC with auto differential (02/01/2022 12:25 PM HIDE TRIMMER) WBC 9.2 3.8 - 9.9 K/cumm [place] Comment:Testing performed by : [address] [address] Hgb 14.6 11.9 - 15.5 g/dL [place] Comment:Testing performed by : [address] [address] Hct 43.5 35.6 - 45.5 % [place] Comment:Testing performed by : [address] [address] Plt 195 150 - 400 K/cumm [place] Comment:Testing performed by : [address] [address] MPV 10.9 9.1 - 12.3 fL [place] Comment:Testing performed by : [address] [address] RBC 5.11 3.90 - 5.20 M/cumm [place] Comment:Testing performed by : [address], [address] MCV 85.1 81.3 - 96.4 fL [place] Comment:Testing performed by : [address] [address] MCH 28.6 27.1 - 33.3 pg [place] Comment:Testing performed by : [address] [address] MCHC 33.6 32.3 - 35.7 g/dL [place] Comment:Testing performed by : [address], [address] RDW CV 12.3 11.1 - 14.9 % [place] Comment:Testing performed by : [address] [address] RDW SD 38.3 35.7 - 48.1 fL [place] Comment:Testing performed by : [address] [address] Blood 02/01/2022 12:2 5 PM HIDE TRIMMER 02/01/2022 12:27 PM HIDE TRIMMER Nicol Howe PODIATRIC MEDICINE PROFESSOR LAB BLOOD ORDERABLES Final Result [facility] [address] [facility] Department of Laboratories [place], [place] [id number] * Comprehensive metabolic panel (02/01/2022 12:25 PM HIDE TRIMMER) Sodium 140 135 - 145 mmol/L [place] Comment:Testing performed by : [address] [address] Potassium, pl 4.4 3.3 - 4.9 mmol/L [place] Comment:Testing performed by : [address], [place]., [address] Chloride 102 97 - 110 mmol/L [place] Comment:Testing performed by : [address], [place]., [address] CO2 25 22 - 32 mmol/L [place] Comment:Testing performed by : [address], [place]., [address] Anion gap 13 2 - 15 mmol/L [place] Comment:Testing performed by : [address], [place]., [address] BUN 12 8 - 25 mg/dL [place] Comment:Testing performed by : [address], [place]., [address] Creatinine 0.60 0.60 - 1.10 mg/dL [place] Comment:Testing performed by : [address], [place]., [address] Glucose 112 70 - 199 mg/dL [facility] Comment: Interpretive Data Fasting glucose >/= 126 [...] was last revised 2017. Testing performed by: [address], [place]., [address] Calcium 9.5 8.5 - 10.3 mg/dL [place] Comment:Testing performed by : [address], [place]., [address] Bilirubin, total 0.3 0.1 - 1.2 mg/dL [place] Comment:Testing performed by : [address] [address] Protein, pl 6.7 6.5 - 8.5 g/dL [place] Comment:Testing performed by : [address] [address] Albumin 4.5 3.5 - 5.0 g/dL [place] Comment:Testing performed by : [address] [address] Alk phos 90 40 - 130 Units/L [place] Comment:Testing performed by : [address] [address] ALT 14 7 - 45 Units/L [place] Comment:Testing performed by : [address] [address] AST 24 10 - 45 Units/L [place] Comment:Testing performed by : [address] [address] Blood 02/01/2022 12:2 5 PM HIDE TRIMMER 02/01/2022 12:27 PM HIDE TRIMMER Nicol Howe NP LAB BLOOD ORDERABLES Final Result Performing Organization Address [facility] Co de Phone Number [address] [place] [address] * Lactate dehydrogenase (LD) (02/01/2022 12:25 PM HIDE TRIMMER) Lactate dehydrogenase (LDH) 244 100 - 250 Units/L [place] Comment: HEMOLYZED: Hemolysis interferes with the above test. Testing performed by: [address] [address] Blood 02/01/2022 12:2 5 PM HIDE TRIMMER 02/01/2022 12:27 PM HIDE TRIMMER Nicol Howe NP LAB BLOOD ORDERABLES Final Result Performing Organization Address City/[facility] Co de Phone Number [address] [place] [address] documented in this encounter Visit Diagnoses Diagnosis History of follicular lymphoma Follicular non-Hodgkin's lymphoma (HCC) documented in this encounter Orders Appointment Requests Count Last Ordered Date Fi rst Ordered Date ONCBCN LAB APPOINTMENT 1 02/01/2022 documented in this encounter Care Teams Medical Affairs Manager Relationship Specialty Start Date End Date Juan Wilkinson MD PCP - General Family Practice 02/01/20 OppeltHelder MD [address] [facility] [address] [place] [address] Medical Oncologist/Joiners Supervisor Medical Oncology 02/01/22 01/18/24 documented as of this encounter
--- OUTSIDE RECORDS SUMMARY | 2024-04-03 17:10 | XMS_ITS | Encounter Summary ---
Author Organization [facility] Address [address] [place] [address] Phone Care Team Providers Care Optician Name Role Phone Juan Wilkinson MD Primary Care Provider Juan Wilkinson MD Unavailable [phone] PodLopez cortez MD Unavailable [phone] Reason for Visit * Reason Comments Follow-up Encounter Details Date Type Department Care Team (Late st Contact Info) Description 02/01/2020 3:00 PM LOCKER ATTENDANT Office Visit [facility] Oncology [address] [place] [address] [address] [place] [address] Lopez Shepherd MD [address] [place] [address] History of follicular lymphoma (Primary [...] on file Legal Sex Female 12:30 AM LOCKER ATTENDANT Gender Identity Not on file Sexual Orientation Not on file documented as of this encounter Last Filed Vital Signs Vital Sign Reading Time Taken Comments Blood Pressure 120/63 02/01/2020 3:01 PM LOCKER ATTENDANT Pulse 73 02/01/2020 3:01 PM LOCKER ATTENDANT Temperature 36.6 ??C (97.8 ??F) 02/01/2020 3:01 PM CS T Respiratory Rate 16 02/01/2020 3:01 PM LOCKER ATTENDANT Oxygen Saturation 96% 02/01/2020 3:01 PM LOCKER ATTENDANT Inhaled Oxygen Concentration - - Weight 64 kg (141 lb) 02/01/2020 3:01 PM LOCKER ATTENDANT Height 177.8 cm (5' 10 ) 02/01/2020 3:01 PM LOCKER ATTENDANT Body Mass Index 20.23 02/01/2020 3:01 PM LOCKER ATTENDANT documented in this encounter Progress Notes * Lopez Shepherd MD - 02/01/2020 3:00 PM CST Visit Date: 02/01/2020 Requesting Provider: Lopez Shepherd MD Primary Care Physician: Mackenzie, Physician [...] follow-up. [place] been transferred [place] by [place]. [place]. She denies any new medical problems. Denies any fatigue weight loss or night sweats. Her last LDH- was borderline [id number]. Her LDH this visit is normal-222 02/01/2020: [...] file Gets together: Not on file Attends spiritism service: Not on file Active member of [...] urologist on 02/23/2020. Lopez Shepherd MD 02/01/2020 Radiology Transcriptionist completed by using M*Modal Fluency Direct speaking software, therefore, transcriptionvariances may occur ER ATTENDANT documented in this encounter Miscellaneous Notes * Addendum Note - Aminah Yarbrough RN - 02/01/2020 3:00 PM CSTAddended by: AMINAH YARBROUGH on: 01/28/2021 10:16 AM Modules accepted: Orders ER ATTENDANT documented in this encounter Plan of Treatment Not on file documented as of this encounter Procedures Procedure Name Priority Date/Time Associated Diagnosis Comments IGG Routine 02/01/2020 2:52 PM LOCKER ATTENDANT History of follicular lymphoma Follicular non-Hodgkin's lymphoma (CMS/HCC) documented in this encounter Results * CBC with auto differential (01/30/2021 9:55 AM LOCKER ATTENDANT) WBC 6.5 3.8 - 9.9 K/cumm [place] Comment:Testing performed by : [address] [address] Hgb 14.2 11.9 - 15.5 g/dL [place] Comment:Testing performed by : [address] [address] Hct 40.9 35.6 - 45.5 % [place] Comment:Testing performed by : [address] [address] Plt 265 150 - 400 K/cumm [place] Comment:Testing performed by : [address] [address] MPV 10.4 9.1 - 12.3 fL [place] Comment:Testing performed by : [address] [address] RBC 4.76 3.90 - 5.20 M/cumm [place] Comment:Testing performed by : [address] [address] MCV 85.9 81.3 - 96.4 fL [place] Comment:Testing performed by : [address] [address] MCH 29.8 27.1 - 33.3 pg [place] Comment:Testing performed by : [address] [address] MCHC 34.7 32.3 - 35.7 g/dL [place] Comment:Testing performed by : [address] [address] RDW CV 12.1 11.1 - 14.9 % [place] Comment:Testing performed by : [address] [address] RDW SD 38.2 35.7 - 48.1 fL [place] Comment:Testing performed by : [address], [address] Blood 01/30/2021 9:55 AM LOCKER ATTENDANT 01/30/2021 10:03 AM LOCKER ATTENDANT Lopez Shepherd MD LAB BLOOD ORDERABLES Final Res ult Performing Organization Address [facility] Co de Phone Number [address] [employer] [place] [address] * Cortisol (01/30/2021 9:55 AM LOCKER ATTENDANT) [facility] Cortisol 16.4 4.8 - 19.5 mcg/dl [place] Blood 01/30/2021 9:55 AM LOCKER ATTENDANT 01/30/2021 12:33 PM LOCKER ATTENDANT Lopez Shepherd MD LAB BLOOD ORDERABLES Final Res ult Performing Organization Address City/[facility] Co de Phone Number [address] [address] * Lactate dehydrogenase (LD) (01/30/2021 9:55 AM LOCKER ATTENDANT) [facility] Lactate dehydrogenase (LDH) 193 100 - 250 Units/L [place] Comment:Testing performed by : [facility], [address] [place] [address], [place]., [address] Blood 01/30/2021 9:55 AM LOCKER ATTENDANT 01/30/2021 10:04 AM LOCKER ATTENDANT Lopez Shepherd MD LAB BLOOD ORDERABLES Final Res ult [place] [id number] [facility] Department [place] [address] * (ABNORMAL) IgG (02/01/2020 2:52 PM LOCKER ATTENDANT) Pathologist [facility] IgG 579(L) 700 - 1,600 mg/dL [facility][NOTE 2] Blood specimen (specimen) 02/01/2020 2:52 PM LOCKER ATTENDANT 02/01/2020 3:50 PM LOCKER ATTENDANT Narrative Resulting Agency Comment RCR Lopez Shepherd MD LAB BLOOD ORDERABLES Final Res ult Performing Organization Address [facility] Co de Phone Number [address] [phone] documented in this encounter Visit Diagnoses Diagnosis [...] 01/30/2021 documented in this encounter Care Teams Optician Relationship Specialty Start Date End Date Juan Wilkinson MD PCP - General Family Practice 02/01/20 Juan Wilkinosn MD 02/01/20 02/04/20 Lopez Shepherd MD Medical Oncologist/Neurology Technologist Medical Oncology 01/31/19 01/31/22 documented as of this encounter
--- OUTSIDE RECORDS SUMMARY | 2024-04-03 17:10 | XMS_ITS | Encounter Summary ---
Author Organization [facility] Healthcare Address [address] [place] [address] Care Team Providers Care Court Usher Name Role Phone Juan Wilkinson MD Primary Care Provider Encounter Details Date Type Department Care Team (Late st Contact Info) Description 01/24/2024 11:15 AM BEARING INSPECTOR Lab [facility] at [address] [address] History of follicular lymphoma; Vitamin D deficiency [...] on file Legal Sex Female 12:30 AM BEARING INSPECTOR Gender Identity Not on file Sexual Orientation Not on file documented as of this encounter Plan of Treatment Not on file documented as of this encounter Procedures Procedure Name Priority Date/Time Associated Diagnosis Comments EGFR Routine 01/24/2024 11:31 AM BEARING INSPECTOR History of follicular lymphoma DIFFERENTIAL AUTO Routine 01/24/2024 11: 31 AM BEARING INSPECTOR History of follicular lymphoma CBC WITH AUTO DIFFERENTIAL Routine 01/24/2024 11:31 AM BEARING INSPECTOR History of follicular lymphoma VITAMIN D 25 HYDROXY Routine 01/24/2024 11:31 AM BEARING INSPECTOR History of follicular lymphoma Vitamin D deficiency COMPREHENSIVE METABOLIC PANEL Routine 01/24/2024 11:31 AM BEARING INSPECTOR History of follicular lymphoma documented in this encounter Results * eGFR (01/24/2024 11:31 AM BEARING INSPECTOR) eGFR >90 >=60 mL/min/1. 73 m2 Comment: [...] was last reviewed 2021. Testing performed by: [facility], [address] [place] [address], [place]., [address] Blood 01/24/2024 11:3 1 AM BEARING INSPECTOR 01/24/2024 11:33 AM BEARING INSPECTOR us Nicol Howe NP LAB BLOOD ORDERABLES Final Result [facility] [address] [facility] Department [place] [address] * Differential, auto (01/24/2024 11:31 AM BEARING INSPECTOR) Neutrophil abs 3.6 1.5 - 6.5 K/cumm Comment:Testing performed by : [address] [address] Imm gran abs 0.0 0.0 - 0.1 K/cumm [facility] Comment:Testing performed by : [address] [address] Lymphocyte abs 3.2 0.8 - 3.3 K/cumm [facility] Comment:Testing performed by : [address] [address] Monocyte abs 0.6 0.2 - 0.8 K/cumm [facility] Comment:Testing performed by : [address] [address] Eosinophil abs 0.2 0.0 - 0.5 K/cumm [facility] Comment:Testing performed by : [address] [address] Basophil abs 0.1 0.0 - 0.1 K/cumm [facility] Comment:Testing performed by : [address] [address] Neutrophil pct 47.2 % [facility] Comment: Interpretive Data Percent cell count reference ranges are not reported, since discordance with absolute values may lead to misinterpretation of CBC data. Current Interpretive Data was last revised on 2017. Testing performed by: [address] [address] Imm gran pct 0.3 % [facility] Comment: Interpretive Data Percent cell count reference ranges are not reported, since discordance with absolute values may lead to misinterpretation of CBC data. Current Interpretive Data was last revised on 2017. Testing performed by: [address] [address] Lymphocyte pct 41.6 % [facility] Comment: Interpretive Data Percent cell count reference ranges are not reported, since discordance with absolute values may lead to misinterpretation of CBC data. Current Interpretive Data was last revised on 2017. Testing performed by: [address] [address] Monocyte pct 8.0 % [facility] Comment: Interpretive Data Percent cell count reference ranges are not reported, since discordance with absolute values may lead to misinterpretation of CBC data. Current Interpretive Data was last revised on 2017. Testing performed by: [address] [address] Eosinophil pct 2.2 % [facility] Comment: Interpretive Data Percent cell count reference ranges are not reported, since discordance with absolute values may lead to misinterpretation of CBC data. Current Interpretive Data was last revised on 2017. Testing performed by: [address] [address] Basophil pct 0.7 % [facility] Comment: Interpretive Data Percent cell count reference ranges are not reported, since discordance with absolute values may lead to misinterpretation of CBC data. Current Interpretive Data was last revised on 2017. Testing performed by: [address] [address] Blood 01/24/2024 11:3 1 AM BEARING INSPECTOR 01/24/2024 11:33 AM BEARING INSPECTOR Nicol Howe BLOWER INSTALLER LAB BLOOD ORDERABLES Final Result [facility] [address] [facility] Department of Laboratories [place], [place] [id number] * CBC with auto differential (01/24/2024 11:31 AM BEARING INSPECTOR) WBC 7.6 3.8 - 9.9 K/cumm Comment:Testing performed by : [address] [address] Hgb 14.0 11.9 - 15.5 g/dL [facility] Comment:Testing performed by : [address] [address] Hct 40.2 35.6 - 45.5 % [facility] Comment:Testing performed by : [address] [address] Plt 217 150 - 400 K/cumm [facility] Comment:Testing performed by : [address] [address] MPV 10.5 9.1 - 12.3 fL [facility] Comment:Testing performed by : [address] [address] RBC 4.68 3.90 - 5.20 M/cumm [facility] Comment:Testing performed by : [address], [address] MCV 85.9 81.3 - 96.4 fL [facility] Comment:Testing performed by : [address] [address] MCH 29.9 27.1 - 33.3 pg [facility] Comment:Testing performed by : [address] [address] MCHC 34.8 32.3 - 35.7 g/dL [facility] Comment:Testing performed by : [address], [address] RDW CV 13.0 11.1 - 14.9 % [facility] Comment:Testing performed by : [address] [address] RDW SD 40.1 35.7 - 48.1 fL [facility] Comment:Testing performed by : [address] [address] NRBC abs 0.00 0.00 - 0.01 K/cumm [facility] Comment:Testing performed by : [address] [address] Blood 01/24/2024 11:3 1 AM BEARING INSPECTOR 01/24/2024 11:33 AM BEARING INSPECTOR us Nicol Howe BLOWER INSTALLER LAB BLOOD ORDERABLES Final Result [facility] [address] [facility] Department [place] [address] * (ABNORMAL) Comprehensive metabolic panel (01/24/2024 11:31 AM BEARING INSPECTOR) Sodium 141 135 - 145 mmol/L Comment:Testing performed by : [address] [address] Potassium, pl 4.0 3.3 - 4.9 mmol/L [facility] Comment:Testing performed by : [address] [address] Chloride 104 97 - 110 mmol/L [facility] Comment:Testing performed by : [address], [place]., [address] CO2 26 22 - 32 mmol/L [facility] Comment:Testing performed by : [address], [place]., [address] Anion gap 11 2 - 15 mmol/L [facility] Comment:Testing performed by : [address] [address] BUN 13 6 - 25 mg/dL [facility] Comment:Testing performed by : [address], [place]., [address] Creatinine 0.60 0.60 - 1.10 mg/dL [facility] Comment:Testing performed by : [address] [address] Glucose 91 70 - 199 mg/dL [facility] [...] was last revised 2022. Testing performed by: [address] [address] Calcium 9.4 8.5 - 10.3 mg/dL [facility] Comment:Testing performed by : [address] [address] Bilirubin, total 0.4 0.1 - 1.2 mg/dL [facility] Comment:Testing performed by : [address] [address] Protein, pl 6.3(L) 6.5 - 8.5 g/dL [facility] Comment:Testing performed by : [address] [address] Albumin 4.2 3.5 - 5.0 g/dL [facility] Comment:Testing performed by : [address] [address] Alk phos 81 40 - 130 Units/L [facility] Comment:Testing performed by : [address] [address] ALT 14 7 - 45 Units/L [facility] Comment:Testing performed by : [address], [address] AST 23 10 - 45 Units/L [facility] Comment:Testing performed by : [address], [address] Blood 01/24/2024 11:3 1 AM BEARING INSPECTOR 01/24/2024 11:33 AM BEARING INSPECTOR Nicol Howe NP LAB BLOOD ORDERABLES Final Result Performing Organization Address [facility] Co de Phone Number [place] [phone] [facility] [place] [address] * Vitamin D 25 hydroxy (01/24/2024 11:31 AM BEARING INSPECTOR) [facility] Vitamin D 25-OH 35.0 30.0 - 80.0 ng/mL Blood 01/24/2024 11:3 1 AM BEARING INSPECTOR 01/24/2024 4:41 PM BEARING INSPECTOR Nicol Howe NP LAB BLOOD ORDERABLES Final Result Performing Organization Address City/[facility] Co de Phone Number [place] [phone] [facility] [place] [address] documented in this encounter Visit Diagnoses Diagnosis History of follicular lymphoma Vitamin D deficiency documented in this encounter Orders Appointment Requests Count Last Ordered Date Fi rst Ordered Date ONCBCN LAB APPOINTMENT 1 01/24/2024 documented in this encounter Care Teams Court Usher Relationship Specialty Start Date End Date Juan Wilkinson MD PCP - General Family Practice 02/01/20 documented as of this encounter
--- OUTSIDE RECORDS SUMMARY | 2024-04-03 17:10 | XMS_ITS | Encounter Summary ---
Author Organization [facility] Address [address] [place] [address] Phone Care Team Providers Care Tool And Gauge Inspector Name Role Phone No, Physician Primary Care Provider [phone] Lopez Shepherd MD Unavailable [phone] Encounter Details Date Type Department Care Team (Late st Contact Info) Description 02/02/2019 Orders Only [facility] Physicians [facility] [address] [place] [id number] Lopez Shepherd MD [address] [place] [address] Social History Tobacco Use Types Packs/Day Years Used Date Smoking Tobacco: Former Cigarettes Q uit: 2013 Smokeless Tobacco: Never Alcohol Use Standard Drinks/Week Comments No 0 (1 standard drink = 0.6 oz pur e alcohol) Comments Unknown Sex and Gender Information Value Date Recorded Sex Assigned at Not on file Legal Sex Female 12:30 AM GRAIN ORIGINATION SPECIALIST Gender Identity Not on file Sexual Orientation Not on file documented as of this encounter Plan of Treatment Not on file documented as of this encounter Procedures Procedure Name Priority Date/Time Associated Diagnosis Comments CBC WITH AUTO DIFFERENTIAL Routine 02/02/2019 9:30 AM GRAIN ORIGINATION SPECIALIST documented in this encounter Results * CBC with auto differential (02/02/2019 9:30 AM GRAIN ORIGINATION SPECIALIST) WBC 6.9 3.4 - 10.8 x10E3/uL [facility] [...] x10E3/uL [facility] - 01 02/02/2019 9:30 AM GRAIN ORIGINATION SPECIALIST 02/02/2019 Narrative [facility] - 02/02/2019 10:38 AM GRAIN ORIGINATION SPECIALIST Performed at: ??01 - [facility] [address] [place], [place] ??[id number] Server Manager: Galen Dhillon MD, Phone: ??[phone] us Lopez Shepherd MD LAB BLOOD ORDERABLES Final Res ult [facility] - 01 documented in this encounter Visit Diagnoses Not on filedocumented in this encounter Care Teams Tool And Gauge Inspector Relationship Specialty Start Date End Date No, Physician PCP - General 01/25/18 01/31/20 Lopez Shepherd MD Medical Oncologist/Sap Abap Programmer Medical Oncology 01/31/19 01/31/22 documented as of this encounter
--- OUTSIDE RECORDS SUMMARY | 2024-04-03 17:10 | XMS_ITS | Encounter Summary ---
Author Organization [facility] Address [address] [place] [address] Phone Care Team Providers Care Observer Helper Name Role Phone No, Physician Primary Care Provider [phone] Juan Wilkinson MD Primary Care Provider Juan Wilkinson MD Unavailable [phone] Lopez Shepherd MD Unavailable [phone] Reason for Visit * Reason Comments Follow-up Encounter Details Date Type Department Care Team (Late st Contact Info) Description 02/02/2019 10:00 AM POLITICAL THEORY PROFESSOR Office Visit [facility] [address] [place] [address] [place] [address] Lopez Shepherd MD [address] [facility] [place] [address] History of follicular lymphoma (Primary [...] on file Legal Sex Female 12:30 AM POLITICAL THEORY PROFESSOR Gender Identity Not on file Sexual Orientation Not on file documented as of this encounter Last Filed Vital Signs Vital Sign Reading Time Taken Comments Blood Pressure 142/56 02/02/2019 9:48 AM POLITICAL THEORY PROFESSOR Pulse 71 02/02/2019 9:48 AM POLITICAL THEORY PROFESSOR Temperature 36.6 ??C (97.8 ??F) 02/02/2019 9:48 AM CS T Respiratory Rate 16 02/02/2019 9:48 AM POLITICAL THEORY PROFESSOR Oxygen Saturation 97% 02/02/2019 9:48 AM POLITICAL THEORY PROFESSOR Inhaled Oxygen Concentration - - Weight 65 kg (143 lb 3.2 oz) 02/02/2019 9:48 AM POLITICAL THEORY PROFESSOR Height 177.8 cm (5' 10 ) 02/02/2019 9:48 AM POLITICAL THEORY PROFESSOR Body Mass Index 20.55 02/02/2019 9:48 AM POLITICAL THEORY PROFESSOR documented in this encounter Progress Notes * [...] night sweats. Her last LDH- was borderline [id number]. Her LDH this visit is normal-222 Treatment [...] file Gets together: Not on file Attends confucianism service: Not on file Active member of [...] after repeat labs Lopez Shepherd MD 02/02/2019 Forestry Conservation Worker completed by using [employer] [facility] Direct speaking software, therefore, transcriptionvariances may occur TICAL THEORY PROFESSOR documented in this encounter Miscellaneous Notes * Addendum Note - Shellie Murray CLT - 02/02/2019 10:00 AM CSTAddended by: SHELLIE MURRAY on: 02/01/2020 02:43 PM Modules accepted: Orders TICAL THEORY PROFESSOR * Addendum Note - Shellie Murray CLT - 02/02/2019 10:00 AM CSTAddended by: SHELLIE MURRAY on: 02/01/2020 02:43 PM Modules accepted: Orders TICAL THEORY PROFESSOR * Addendum Note - Shellie Murray CLT - 02/02/2019 10:00 AM CSTAddended by: SHELLIE MURRAY on: 02/01/2020 02:43 PM Modules accepted: Orders TICAL THEORY PROFESSOR documented in this encounter Plan of Treatment Not on file documented as of this encounter Procedures Procedure Name Priority Date/Time Associated Diagnosis Comments CBC WITH AUTO DIFFERENTIAL Routine 02/01/2020 2:52 PM POLITICAL THEORY PROFESSOR History of follicular lymphoma Follicular non-Hodgkin's lymphoma (CMS/HCC) LACTATE DEHYDROGENASE Routine 02/01/2020 2:52 PM POLITICAL THEORY PROFESSOR History of follicular lymphoma Follicular non-Hodgkin's lymphoma (CMS/HCC) COMPREHENSIVE METABOLIC PANEL Routine 02/01/2020 2:52 PM POLITICAL THEORY PROFESSOR History of follicular lymphoma Follicular non-Hodgkin's lymphoma (CMS/HCC) documented in this encounter Results * CBC with auto differential (02/01/2020 2:52 PM POLITICAL THEORY PROFESSOR) WBC 8.1 3.8 - 9.9 X10 3/ul [facility] RBC 4.78 3.90 - 5.20 x10 6/ul [facility] Hemoglobin 14.0 11.9 - 15.5 g/dL [facility] Hct 40.7 35.6 - 45.5 % [facility] MCV 85.1 81.3 - 96.4 [facility] MCH 29.3 27.1 - 33.3 pg [facility] MCHC 34.4 32.3 - 35.7 g/dl [facility] RDW 13.1 11.1 - 14.9 % [facility] Plt Count 237 150 - 400 x10 3/ul [facility] MPV 10.5 9.1 - 12.3 [facility] Neut % 52.2 % [facility] Immature Gran % 0.1 % [facility] Lymph % 38.6 % [facility] [place] % 7.5 % [facility] Eos % 1.0 % [facility] AUTO BASO % 0.6 % [facility] NEUTROPHIL ABS # 4.2 1.7 - 6.5 x10 3/ul [facility] Immature Gran # 0.0 0.0 - 0.1 x10 3/ul [facility] Absolute Lymphs (auto) 3.1 0.8 - 3.3 x10 3/ul [facility] Absolute Monos (auto) 0.6 0.2 - 0.8 x10 3/ul [facility] Absolute Eos (auto) 0.1 0.0 - 0.5 x10 3/ul [facility] BASOPHIL ABS # 0.1 0.0 - 0.1 x10 3/ul [facility] Nucleat RBC Rel Count 0.0 #/100WBC [facility] NRBC abs 0.00 0.00 - 0.01 x10 3/ul [facility] Absolute Neutrophils 4,200 200 - 8,000 /ul [facility] Blood specimen (specimen) 02/01/2020 2:52 PM POLITICAL THEORY PROFESSOR 02/01/2020 2:58 PM POLITICAL THEORY PROFESSOR Narrative Resulting Agency Comment RCR us Lopez Shepherd MD LAB BLOOD [place] [address] * (ABNORMAL) Comprehensive metabolic panel (02/01/2020 2:52 PM POLITICAL THEORY PROFESSOR) Sodium 139 135 - 145 mmol/L [facility] Potassium 4.3 3.3 - 5.1 mmol/L [facility] Chloride 101 96 - 108 mmol/L [facility] Carbon Dioxide 29 22 - 32 mmol/L [facility] Anion Gap 9 7 - 16 [facility] Glucose 116(H) 70 - 100 mg/dL [facility] BUN 18 8 - 25 mg/dL [facility] Creatinine 0.9 0.5 - 1.1 mg/dL [facility] Comment: NOTE: Estimated GFR (Cockroft-Gault) will NOT be calculated unless patient Height and Weight were entered. Also, Kidney Disease Stage (GFR) and Estimated GFR (Cockroft-Gault) will NOT be calculated if Creatinine result is <0.2. Kidney Disease Stage 65 mL/MIN [facility] Comment: NOTE; ??The GFR is an estimated [...] dialysis Calcium 10.1 8.6 - 10.3 mg/dL [facility] Total Protein 6.9 6.4 - 8.3 g/dL [facility] Albumin 4.4 3.5 - 5.0 g/dL [facility] Globulin 2.5 2.3 - 3.5 gm/dL [facility] Albumin/Globulin Ratio 1.8 1.1 - 1.8 [facility] Total Bilirubin 0.3 0.0 - 1.2 mg/dL [facility] AST 21 0 - 32 U/L [facility] ALT 10 0 - 33 U/L [facility] Alkaline Phosphatase 90 35 - 104 U/L [facility] Blood specimen (specimen) 02/01/2020 2:52 PM POLITICAL THEORY PROFESSOR 02/01/2020 2:58 PM POLITICAL THEORY PROFESSOR Narrative Resulting Agency Comment RCR us Lopez Shepherd MD LAB BLOOD ORDERABLES Final Res ult [facility] [address] [place] [address] [address] [place] [address] * Lactate dehydrogenase (LD) (02/01/2020 2:52 PM POLITICAL THEORY PROFESSOR) Lactate Dehydrogenase 210 100 - 250 U/L [facility] Blood specimen (specimen) 02/01/2020 2:52 PM POLITICAL THEORY PROFESSOR 02/01/2020 2:58 PM POLITICAL THEORY PROFESSOR Narrative Resulting Agency Comment RCR us Lopez Shepherd MD LAB BLOOD ORDERABLES Final Res ult [facility] [address] [address] documented in this encounter Visit Diagnoses Diagnosis [...] 02/01/2020 documented in this encounter Care Teams Observer Helper Relationship Specialty Start Date End Date No, Physician PCP - General 01/25/18 01/31/20 Juan Wilkinson MD PCP - General Family Practice 02/01/20 Juan Wilkinson MD 02/01/20 02/04/20 Lopez Shepherd MD Medical Oncologist/Relish Blender Medical Oncology 01/31/19 01/31/22 documented as of this encounter
--- OUTSIDE RECORDS SUMMARY | 2024-04-03 17:10 | XMS_ITS | Encounter Summary ---
Author Organization [facility] Address [address] [place] [address] Phone Care Team Providers Care Tank Tender Name Role Phone Juan Wilkinson MD Primary Care Provider Juan Wilkinson MD Unavailable [phone] Lopez Shepherd MD Unavailable Encounter Details Date Type Department Care Team (Late st Contact Info) Description 02/01/2020 2:30 PM MATERIALS COORDINATOR Lab [facility] [address] [place] [address] [place] [phone] History of follicular lymphoma; Follicular non-Hodgkin's [...] on file Legal Sex Female 12:30 AM MATERIALS COORDINATOR Gender Identity Not on file Sexual [...] 02/01/2020 documented in this encounter Care Teams Tank Tender Relationship Specialty Start Date End Date Juan Wilkinson MD PCP - General Family Practice 02/01/20 Juan Wilkinson MD 02/01/20 02/04/20 Lopez Shepherd MD Medical Oncologist/Wool Merchant Medical Oncology 01/31/19 01/31/22 documented as of this encounter
--- OUTSIDE RECORDS SUMMARY | 2024-04-03 17:10 | XMS_ITS | Encounter Summary ---
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
--- OUTSIDE RECORDS SUMMARY | 2024-04-03 17:10 | XMS_ITS | Referral Summary ---
Author Organization [facility] Address [address] [facility] [place] [address] Phone Care Team Providers Care Axle And Frame Mechanic Name Role Phone Juan Wilkinson MD Primary Care Provider Encounters Date Type Department Care Team Description 01/30/2024 Telephone [facility] [address] [place] [address] [address] [place] [address] Jonna Hanna, FROILAN 01/27/2024 Telephone [facility] [address] [place] [address] [address] [place] [address] Nicol Howe NP 01/24/2024 11:30 AM AIR CARGO SPECIALIST Office Visit [facility] [address] [place] [phone] Nicol Howe NP History of follicular lymphoma (Primary Dx); Vitamin D deficiency; Follicular non-Hodgkin's lymphoma (HCC); Need for prophylactic vaccination and inoculation against influenza 01/24/2024 11:15 AM AIR CARGO SPECIALIST Lab [facility] at [address] [address] History of follicular lymphoma; Vitamin [...] on file Legal Sex Female 12:30 AM AIR CARGO SPECIALIST Gender Identity Not on file Sexual Orientation Not on file Last Filed Vital Signs Vital Sign Reading Time Taken Comments Blood Pressure 137/71 01/24/2024 11:40 AM AIR CARGO SPECIALIST Pulse 68 01/24/2024 11:40 AM AIR CARGO SPECIALIST Temperature 36.4 ??C (97.5 ??F) 01/24/2024 11:[address] Respiratory Rate 16 01/24/2024 11:40 AM AIR CARGO SPECIALIST Oxygen Saturation 98% 01/24/2024 11:40 AM AIR CARGO SPECIALIST Inhaled Oxygen Concentration - - Weight 68.1 kg (150 lb 3.2 oz) 01/24/2024 11:40 AM AIR CARGO SPECIALIST Height 177.8 cm (5' 10 ) 01/25/2023 1:48 PM AIR CARGO SPECIALIST Body Mass Index 21.55 01/25/2023 1:48 PM AIR CARGO SPECIALIST Plan of Treatment Not on file Procedures Procedure Name Priority Date/Time Associated Diagnosis Comments EGFR Routine 01/24/2024 11:31 AM AIR CARGO SPECIALIST History of follicular lymphoma DIFFERENTIAL AUTO Routine 01/24/2024 11: 31 AM AIR CARGO SPECIALIST History of follicular lymphoma CBC WITH AUTO DIFFERENTIAL Routine 01/24/2024 11:31 AM AIR CARGO SPECIALIST History of follicular lymphoma COMPREHENSIVE METABOLIC PANEL Routine 01/24/2024 11:31 AM AIR CARGO SPECIALIST History of follicular lymphoma VITAMIN D 25 HYDROXY Routine 01/24/2024 11:31 AM AIR CARGO SPECIALIST History of follicular lymphoma Vitamin D deficiency from Last 3 Months Results * eGFR (01/24/2024 11:31 AM AIR CARGO SPECIALIST) eGFR >90 >=60 mL/min/1. 73 m2 Comment: [...] was last reviewed 2021. Testing performed by: [facility], [address] [place] [address]., [address] Blood 01/24/2024 11:3 1 AM AIR CARGO SPECIALIST 01/24/2024 11:33 AM AIR CARGO SPECIALIST Nicol Howe NP LAB BLOOD ORDERABLES Final Result [facility] [address] [facility] Department [place] [address] * Differential, auto (01/24/2024 11:31 AM AIR CARGO SPECIALIST) Neutrophil abs 3.6 1.5 - 6.5 K/cumm Comment:Testing performed by : [address] [address] Imm gran abs 0.0 0.0 - 0.1 K/cumm [place] Comment:Testing performed by : [address] [address] Lymphocyte abs 3.2 0.8 - 3.3 K/cumm [place] Comment:Testing performed by : [address] [address] Monocyte abs 0.6 0.2 - 0.8 K/cumm [place] Comment:Testing performed by : [address] [address] Eosinophil abs 0.2 0.0 - 0.5 K/cumm [place] Comment:Testing performed by : [address] [address] Basophil abs 0.1 0.0 - 0.1 K/cumm [place] Comment:Testing performed by : [address] [address] Neutrophil pct 47.2 % [place] Comment: Interpretive Data Percent cell count reference ranges are not reported, since discordance with absolute values may lead to misinterpretation of CBC data. Current Interpretive Data was last revised on 2017. Testing performed by: [address] [address] Imm gran pct 0.3 % [place] Comment: Interpretive Data Percent cell count reference ranges are not reported, since discordance with absolute values may lead to misinterpretation of CBC data. Current Interpretive Data was last revised on 2017. Testing performed by: [address] [address] Lymphocyte pct 41.6 % [facility] Comment: Interpretive Data Percent cell count reference ranges are not reported, since discordance with absolute values may lead to misinterpretation of CBC data. Current Interpretive Data was last revised on 2017. Testing performed by: [address] [address] Monocyte pct 8.0 % [facility] Comment: Interpretive Data Percent cell count reference ranges are not reported, since discordance with absolute values may lead to misinterpretation of CBC data. Current Interpretive Data was last revised on 2017. Testing performed by: [address] [address] Eosinophil pct 2.2 % [facility] Comment: Interpretive Data Percent cell count reference ranges are not reported, since discordance with absolute values may lead to misinterpretation of CBC data. Current Interpretive Data was last revised on 2017. Testing performed by: [address] [address] Basophil pct 0.7 % [facility] Comment: Interpretive Data Percent cell count reference ranges are not reported, since discordance with absolute values may lead to misinterpretation of CBC data. Current Interpretive Data was last revised on 2017. Testing performed by: [address] [address] Blood 01/24/2024 11:3 1 AM AIR CARGO SPECIALIST 01/24/2024 11:33 AM AIR CARGO SPECIALIST us Nicol Howe CUT TOBACCO BULKER LAB BLOOD ORDERABLES Final Result [facility] [address] [facility] Department [place] [address] * CBC with auto differential (01/24/2024 11:31 AM AIR CARGO SPECIALIST) WBC 7.6 3.8 - 9.9 K/cumm Comment:Testing performed by : [address] [place]., [address] Hgb 14.0 11.9 - 15.5 g/dL [place] Comment:Testing performed by : [address], [address] Hct 40.2 35.6 - 45.5 % [place] Comment:Testing performed by : [address] [address] Plt 217 150 - 400 K/cumm [place] Comment:Testing performed by : [address], [address] MPV 10.5 9.1 - 12.3 fL [place] Comment:Testing performed by : [address], [address] RBC 4.68 3.90 - 5.20 M/cumm [place] Comment:Testing performed by : [address], [address] MCV 85.9 81.3 - 96.4 fL [place] Comment:Testing performed by : [address], [address] MCH 29.9 27.1 - 33.3 pg [place] Comment:Testing performed by : [address] [address] MCHC 34.8 32.3 - 35.7 g/dL [place] Comment:Testing performed by : [address], [address] RDW CV 13.0 11.1 - 14.9 % [place] Comment:Testing performed by : [address], [address] RDW SD 40.1 35.7 - 48.1 fL [place] Comment:Testing performed by : [address], [address] NRBC abs 0.00 0.00 - 0.01 K/cumm [place] Comment:Testing performed by : [address], [address] Blood 01/24/2024 11:3 1 AM AIR CARGO SPECIALIST 01/24/2024 11:33 AM AIR CARGO SPECIALIST Nicol Howe CUT TOBACCO BULKER LAB BLOOD ORDERABLES Final Result Performing Organization Address City/[facility]/ZIP Co de Phone Number LILLIA[place] [address] [address] * Vitamin D 25 hydroxy (01/24/2024 11:31 AM AIR CARGO SPECIALIST) Pathologist [facility] Vitamin D 25-OH 35.0 30.0 - 80.0 ng/mL Blood 01/24/2024 11:3 1 AM AIR CARGO SPECIALIST 01/24/2024 4:41 PM AIR CARGO SPECIALIST Nicol Howe CUT TOBACCO BULKER LAB BLOOD ORDERABLES Final Result Performing Organization Address [facility] de Phone Number LILLIANA [address] [address] * (ABNORMAL) Comprehensive metabolic panel (01/24/2024 11:31 AM AIR CARGO SPECIALIST) [facility] Sodium 141 135 - 145 mmol/L Comment:Testing performed by : [address] [address] Potassium, pl 4.0 3.3 - 4.9 mmol/L [place] Comment:Testing performed by : [address] [address] Chloride 104 97 - 110 mmol/L [place] Comment:Testing performed by : [address] [address] CO2 26 22 - 32 mmol/L [place] Comment:Testing performed by : [address] [address] Anion gap 11 2 - 15 mmol/L [place] Comment:Testing performed by : [address] [address] BUN 13 6 - 25 mg/dL [place] Comment:Testing performed by : [address] [address] Creatinine 0.60 0.60 - 1.10 mg/dL [place] Comment:Testing performed by : [address] [place]., [address] Glucose 91 70 - 199 mg/dL [place]NA [...] was last revised 2022. Testing performed by: [address] [address] Calcium 9.4 8.5 - 10.3 mg/dL [place] Comment:Testing performed by : [address] [address] Bilirubin, total 0.4 0.1 - 1.2 mg/dL [place] Comment:Testing performed by : [address] [address] Protein, pl 6.3(L) 6.5 - 8.5 g/dL [place] Comment:Testing performed by : [address] [address] Albumin 4.2 3.5 - 5.0 g/dL [place] Comment:Testing performed by : [address] [address] Alk phos 81 40 - 130 Units/L [place] Comment:Testing performed by : [address] [address] ALT 14 7 - 45 Units/L [place] Comment:Testing performed by : [address] [address] AST 23 10 - 45 Units/L [place] Comment:Testing performed by : [address] [address] Blood 01/24/2024 11:3 1 AM AIR CARGO SPECIALIST 01/24/2024 11:33 AM AIR CARGO SPECIALIST us Nicol Howe CUT TOBACCO BULKER LAB BLOOD ORDERABLES Final Result Performing Organization Address City/State/ZIP Co [place] Phone Number [place] [address] [facility] Department [place] [address] from Last 3 Months Insurance [employer] SENIOR SUPPLEMENT MEDICARE [employer] S[employer]IOR [employer] Care Teams Axle And Frame Mechanic Relationship Specialty Start Date End Date Juan Wilkinson MD PCP - General Family Practice 02/01/20
--- OUTSIDE RECORDS SUMMARY | 2024-04-03 17:10 | XMS_ITS | Encounter Summary ---
Author Organization [facility] Address [address] [place] [address] Phone Care Team Providers Care Business Education Instructor Name Role Phone Juan Wilkinson MD Primary Care Provider Encounter Details Date Type Department Care Team (Late st Contact Info) Description 01/30/2024 Telephone [facility] On[facility] [address] [place] [address] Jonna Hanna, FROILAN Social History Tobacco [...] on file 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 STS' BOOKING REPRESENTATIVE documented in this encounter Plan of Treatment Not on file documented as of this encounter Visit Diagnoses Not on filedocumented in this encounter Care Teams Business Education Instructor Relationship Specialty Start Date End Date Juan Wilkinson MD PCP - General Family Practice 02/01/20 documented as of this encounter
--- OUTSIDE RECORDS SUMMARY | 2024-04-03 17:10 | XMS_ITS | Encounter Summary ---
Author Organization [facility] Address [address] [place] [address] Care Team Providers Care Grinder Set Up Operator Jig Name Role Phone Juan Wilkinson MD Primary Care Provider OppeHelder puentes MD Unavailable [phone] Encounter Details Date Type Department Care Team (Late st Contact Info) Description 01/25/2023 1:45 PM FILLING STATION LABORER Lab [facility] Lab [address] [place] [id number] History of follicular lymphoma Social History Tobacco [...] on file Legal Sex Female 12:30 AM FILLING STATION LABORER Gender Identity Not on file Sexual Orientation Not on file documented as of this encounter Plan of Treatment Not on file documented as of this encounter Procedures Procedure Name Priority Date/Time Associated Diagnosis Comments EGFR Routine 01/25/2023 1:37 PM FILLING STATION LABORER History of follicular lymphoma DIFFERENTIAL AUTO Routine 01/25/2023 1:3 7 PM FILLING STATION LABORER History of follicular lymphoma CBC WITH AUTO DIFFERENTIAL Routine 01/25/2023 1:37 PM FILLING STATION LABORER History of follicular lymphoma LACTATE DEHYDROGENASE Routine 01/25/2023 1:37 PM FILLING STATION LABORER History of follicular lymphoma COMPREHENSIVE METABOLIC PANEL Routine 01/25/2023 1:37 PM FILLING STATION LABORER History of follicular lymphoma documented in this encounter Results * eGFR (01/25/2023 1:37 PM FILLING STATION LABORER) Pathologist [facility] eGFR 90 mL/min/1. 73 m2 [place] Comment: [...] was last reviewed 2021. Testing performed by: [facility], [address] [place] [address], [place]., [address] Blood 01/25/2023 1:37 PM FILLING STATION LABORER 01/25/2023 1:47 PM FILLING STATION LABORER us Helder Bailey MD LAB BLOOD ORDERABLES Final Result [facility] [address] [facility] Department [place] [address] * (ABNORMAL) Differential, auto (01/25/2023 1:37 PM FILLING STATION LABORER) Neutrophil abs 3.5 1.7 - 6.5 K/cumm [place] Comment:Testing performed by : [address] [address] Lymphocyte abs 4.3(H) 0.8 - 3.3 K/cumm [place] Comment:Testing performed by : [address] [address] Monocyte abs 0.8 0.2 - 0.8 K/cumm [place] Comment:Testing performed by : [address] [address] Eosinophil abs 0.2 0.0 - 0.5 K/cumm [place] Comment:Testing performed by : [address] [address] Basophil abs 0.1 0.0 - 0.1 K/cumm [place] Comment:Testing performed by : [address] [address] Neutrophil pct 39.8 % [place] Comment: Interpretive Data Percent cell count reference ranges are not reported, since discordance with absolute values may lead to misinterpretation of CBC data. Current Interpretive Data was last revised on 2017. Testing performed by: [address] [address] Imm gran pct 0.1 % [place] Comment: Interpretive Data Percent cell count reference ranges are not reported, since discordance with absolute values may lead to misinterpretation of CBC data. Current Interpretive Data was last revised on 2017. Testing performed by: [address] [address] Lymphocyte pct 48.1 % [place] Comment: Interpretive Data Percent cell count reference ranges are not reported, since discordance with absolute values may lead to misinterpretation of CBC data. Current Interpretive Data was last revised on 2017. Testing performed by: [address] [address] Monocyte pct 9.3 % [place] Comment: Interpretive Data Percent cell count reference ranges are not reported, since discordance with absolute values may lead to misinterpretation of CBC data. Current Interpretive Data was last revised on 2017. Testing performed by: [address] [address] Eosinophil pct 2.0 % [place] Comment: Interpretive Data Percent cell count reference ranges are not reported, since discordance with absolute values may lead to misinterpretation of CBC data. Current Interpretive Data was last revised on 2017. Testing performed by: [address] [address] Basophil pct 0.7 % [place] Comment: Interpretive Data Percent cell count reference ranges are not reported, since discordance with absolute values may lead to misinterpretation of CBC data. Current Interpretive Data was last revised on 2017. Testing performed by: [address] [address] Blood 01/25/2023 1:37 PM FILLING STATION LABORER 01/25/2023 1:47 PM FILLING STATION LABORER Helder Bailey MD LAB BLOOD ORDERABLES Final Result [facility] [address] [facility] Department [place] [address] * (ABNORMAL) CBC with auto differential (01/25/2023 1:37 PM FILLING STATION LABORER) [facility] WBC 8.8 3.8 - 9.9 K/cumm [place] Comment:Testing performed by : [address] [address] Hgb 13.9 11.9 - 15.5 g/dL [place] Comment: Interpretive Data A reference range for this assay has not been established for patients with an unknown legal sex. Please refer to the laboratory test catalog for established sex-specific reference intervals. Current interpretive data was last revised on 2022. Testing performed by: [address] [address] Hct 40.9 35.6 - 45.5 % [place] Comment: Interpretive Data A reference range for this assay has not been established for patients with an unknown legal sex. Please refer to the laboratory test catalog for established sex-specific reference intervals. Current interpretive data was last revised on 2022. Testing performed by: [address] [address] Plt 195 150 - 400 K/cumm [place] Comment:Testing performed by : [address] [address] MPV 11.1 9.1 - 12.3 fL [place] Comment:Testing performed by : [address] [address] RBC 4.79 3.90 - 5.20 M/cumm [place] Comment: Interpretive Data A reference range for this assay has not been established for patients with an unknown legal sex. Please refer to the laboratory test catalog for established sex-specific reference intervals. Current interpretive data was last revised on 2022. Testing performed by: [address] [address] MCV 85.4 81.3 - 96.4 fL [place] Comment:Testing performed by : [address] [address] MCH 29.0 27.1 - 33.3 pg [place] Comment:Testing performed by : [address] [address] MCHC 34.0 32.3 - 35.7 g/dL [place] Comment:Testing performed by : [address] [address] RDW CV 12.3 11.1 - 14.9 % [place] Comment:Testing performed by : [address] [address] RDW SD 38.1 35.7 - 48.1 fL [place] Comment:Testing performed by : [address] [address] NRBC abs 0.04(H) 0.00 - 0.01 K/cumm [place] [place] Comment:Testing performed by : [address] [address] Blood 01/25/2023 1:37 PM FILLING STATION LABORER 01/25/2023 1:47 PM FILLING STATION LABORER Helder Bailey MD LAB BLOOD ORDERABLES Final Result Performing Organization Address City/State/[facility] Co [place] Phone Number [place] [address] [facility] Department [place] [address] * Comprehensive metabolic panel (01/25/2023 1:37 PM FILLING STATION LABORER) Sodium 139 135 - 145 mmol/L [place] Comment:Testing performed by : [address] [address] Potassium, pl 4.3 3.3 - 4.9 mmol/L [place] Comment:Testing performed by : [address] [address] Chloride 102 97 - 110 mmol/L [place] Comment:Testing performed by : [address] [address] CO2 28 22 - 32 mmol/L [place] Comment:Testing performed by : [address] [address] Anion gap 9 2 - 15 mmol/L [place] Comment:Testing performed by : [address] [address] BUN 16 6 - 25 mg/dL [place] Comment:Testing performed by : [address] [address] Creatinine 0.70 0.60 - 1.10 mg/dL [place] Comment:Testing performed by : [address] [address] Glucose 102 70 - 199 mg/dL [place] Comment: Interpretive Data Fasting glucose >/= 126 [...] was last revised 2022. Testing performed by: [address] [address] Calcium 9.5 8.5 - 10.3 mg/dL [place] Comment:Testing performed by : [address] [address] Bilirubin, total 0.3 0.1 - 1.2 mg/dL [place] Comment:Testing performed by : [address] [address] Protein, pl 6.5 6.5 - 8.5 g/dL [place] Comment:Testing performed by : [address] [address] Albumin 4.2 3.5 - 5.0 g/dL [place] Comment:Testing performed by : [address] [address] Alk phos 85 40 - 130 Units/L [place] Comment:Testing performed by : [address] [address] ALT 17 7 - 45 Units/L [place] Comment:Testing performed by : [address] [address] AST 27 10 - 45 Units/L [place] Comment:Testing performed by : [address] [address] Blood 01/25/2023 1:37 PM FILLING STATION LABORER 01/25/2023 1:47 PM FILLING STATION LABORER us Helder Bailey MD LAB BLOOD ORDERABLES Final Result [facility] [address] [facility] Department [place] [address] * Lactate dehydrogenase (LD) (01/25/2023 1:37 PM FILLING STATION LABORER) Lactate dehydrogenase (LDH) 223 100 - 250 Units/L [place] [place] Comment:Testing performed by : [facility], [address] [place] [address], [place]., [address] Blood 01/25/2023 1:37 PM FILLING STATION LABORER 01/25/2023 1:47 PM FILLING STATION LABORER us Helder Bailey MD LAB BLOOD ORDERABLES Final Result [facility] [address] [facility] Department [place] [address] documented in this encounter Visit Diagnoses Diagnosis History of follicular lymphoma documented in this encounter Care Teams Grinder Set Up Operator Jig Relationship Specialty Start Date End Date Juan Wilkinson MD PCP - General Family Practice 02/01/20 Helder Bailey MD [address] [facility] [address] [place] [address] Medical Oncologist/[employer] Counsel[employer] Medical Oncology 02/01/22 01/18/24 documented as of this encounter
--- OUTSIDE RECORDS SUMMARY | 2024-04-03 17:10 | XMS_ITS | Encounter Summary ---
Author Organization [facility] Address [address] [place] [address] Phone Care Team Providers Care Range Technician Name Role Phone Juan Wilkinson MD Primary Care Provider Lopez Shepherd MD Unavailable [phone] Encounter Details Date Type Department Care Team (Late st Contact Info) Description 02/05/2020 Telephone [facility] [address] [place] [address] Aminah Shannon, RN Social History Tobacco Use Types Packs/Day Years Used Date Smoking Tobacco: Former Cigarettes Q uit: 2013 Smokeless Tobacco: Never Alcohol Use Standard Drinks/Week Comments No 0 (1 standard drink = 0.6 oz pur e alcohol) Comments Unknown Sex and Gender Information Value Date Recorded Sex Assigned at Not on file Legal Sex Female 12:30 AM PRINCIPAL GIFTS OFFICER Gender Identity Not on file Sexual Orientation Not on file documented as of this encounter Miscellaneous Notes * Telephone Encounter - Aminah Shannon RN - 02/05/2020 2:[address] Shepherd informed patient that IgG level is slightly low and he wants to see what the urology evaluation shows. Patient is scheduled with Dr Lars Craig, [facility] in [place] office on02/12/2020 CIPAL GIFTS OFFICER * Telephone Encounter - Aminah Shannon RN - 02/05/2020 9:45 AM CST Patient called asking about IgG results from 02/01/20. Please review and let me know if there are any recommendations. CIPAL GIFTS OFFICER documented in this encounter Plan of Treatment Not on file documented as of this encounter Visit Diagnoses Not on filedocumented in this encounter Care Teams Range Technician Relationship Specialty Start Date End Date Juan Wilkinson MD PCP - General Family Practice 02/01/20 Lopez Shepherd MD Medical Oncologist/Clerical Investigator Medical Oncology 01/31/19 01/31/22 documented as of this encounter
--- OUTSIDE RECORDS SUMMARY | 2024-04-03 17:10 | XMS_ITS | Encounter Summary ---
Author Organization [facility] [place] Address [address] [place] [address] Phone Care Team Providers Care Regulatory Coordinator Name Role Phone Juan Wilkinson MD Primary Care Provider Encounter Details Date Type Department Care Team (Late st Contact Info) Description 01/27/2024 Telephone [facility] Physicians [facility] Oncology [address] [address] Nicol Howe, MOOSE [address] [facility] [address] [place] [address] Social History Tobacco Use Types Packs/Day [...] on file Legal Sex Female 12:30 AM FABRICATION DEPARTMENT SUPERVISOR Gender Identity Not on file Sexual Orientation Not on file documented as of this encounter Miscellaneous Notes * Telephone Encounter - Marisela Burrows CMA - 01/27/2024 9:49 AM FABRICATION DEPARTMENT SUPERVISOR LM for pt to return my call so that I can tell the pt that her Vitamin D is low and ask how much she is taking. ICATION DEPARTMENT SUPERVISOR documented in this encounter Plan of Treatment Not on file documented as of this encounter Visit Diagnoses Not on filedocumented in this encounter Care Teams Regulatory Coordinator Relationship Specialty Start Date End Date Juan Wilkinson MD PCP - General Family Practice 02/01/20 documented as of this encounter
--- OUTSIDE RECORDS SUMMARY | 2024-04-03 17:10 | XMS_ITS | Encounter Summary ---
Author Organization [facility] Address [address] [place] [address] Phone Care Team Providers Care Network Control Operator Name Role Phone Juan Wilkinson MD Primary Care Provider Helder Bailey MD Unavailable [phone] Reason for Visit * Reason Comments Follow-up Encounter Details Date Type Department Care Team (Late st Contact Info) Description 01/25/2023 2:00 PM CORRECTIONS NURSE Office Visit [facility] Oncology [address] [place] [phone] Nicol Howe, MOOSE [facility] [address] History of follicular lymphoma (Primary [...] on file Legal Sex Female 12:30 AM CORRECTIONS NURSE Gender Identity Not on file Sexual Orientation Not on file documented as of this encounter Last Filed Vital Signs Vital Sign Reading Time Taken Comments Blood Pressure 137/77 01/25/2023 1:48 PM CORRECTIONS NURSE Pulse 62 01/25/2023 1:48 PM CORRECTIONS NURSE Temperature 36.2 ??C (97.2 ??F) 01/25/2023 1:48 PM CS T Respiratory Rate 18 01/25/2023 1:48 PM CORRECTIONS NURSE Oxygen Saturation 97% 01/25/2023 1:48 PM CORRECTIONS NURSE Inhaled Oxygen Concentration - - Weight 71.5 kg (157 lb 9.6 oz) 01/25/2023 1:48 P M CORRECTIONS NURSE Height 177.8 cm (5' 10 ) 01/25/2023 1:48 PM CORRECTIONS NURSE Body Mass Index 22.61 01/25/2023 1:48 PM CORRECTIONS NURSE documented in this encounter Patient Instructions * Patient Instructions* Nicol Hwoe, MOOSE - 01/25/2023 2:00 PM CORRECTIONS NURSE Healthy Behavior Recommendations: -Calcium and vitamin [...] Consider referral to a registered dietitian or dental laboratory technology teacher. The USDA approximate food plate volumes (https://www.myplate.gov) [...] physician for routine care. You can call [phone] for [facility] Doctors. ?? Get an annual influenza [...] ?? Talk with a professional, either an Men'S Basketball Coach or mental health professional. Your oncology team [...] with a mental health professional or a [facility] Counselor. [facility] counseling [phone]. ?? There are many online websites which offer resources for spiritual, emotional, and support networks for breast cancer survivors: cancer.Ziftit and faiththroughfire.org are a few. ?? [employer]'s iTHRIVE plan is designed [...] reliable forms of avoiding with your healthcare provider/professor of musicology. If you are a woman planning to [...] you to a specialist. There are several iyvc-jdi-iipsikx vaginal moisturizers that can be used, such [...] to the cancer coming back. Please activate Narus for online communication. If you are uncertain how to access please contactthe [facility] at: [phone] or [phone]. LIVE WELL! You can reach the office of Nicol Howe NP at [phone] or access [employer] on line. ECTIONS NURSE documented in this encounter Progress Notes [...] prescribed an estrogen cream, however was 400 ksa-vz-ouesms could not afford. She does take a [...] year, dentist every 6-12 months in the heat treater head at least once a year. She will receive the influenza vaccine today. She and family member verbalized understanding. Nicol Howe NP 01/25/2023 ECTIONS NURSE documented in this encounter Plan of Treatment Not on file documented as of this encounter Results * Vitamin D 25 hydroxy (01/24/2024 11:31 AM CORRECTIONS NURSE) Vitamin D 25-OH 35.0 30.0 - 80.0 ng/mL Blood 01/24/2024 11:3 1 AM CORRECTIONS NURSE 01/24/2024 4:41 PM CORRECTIONS NURSE Nicol Howe NP LAB BLOOD ORDERABLES Final Result [facility] [address] [facility] Department [place] [address] * (ABNORMAL) Comprehensive metabolic panel (01/24/2024 11:31 AM CORRECTIONS NURSE) Sodium 141 135 - 145 mmol/L Comment:Testing performed by : [address] [address] Potassium, pl 4.0 3.3 - 4.9 mmol/L [facility] Comment:Testing performed by : [address] [address] Chloride 104 97 - 110 mmol/L [facility] Comment:Testing performed by : [address] [address] CO2 26 22 - 32 mmol/L [facility] Comment:Testing performed by : [address] [address] Anion gap 11 2 - 15 mmol/L [facility] Comment:Testing performed by : [address] [address] BUN 13 6 - 25 mg/dL [facility] Comment:Testing performed by : [address] [address] Creatinine 0.60 0.60 - 1.10 mg/dL [facility] Comment:Testing performed by : [address] [address] Glucose 91 70 - 199 mg/dL [facility] [...] was last revised 2022. Testing performed by: [address] [address] Calcium 9.4 8.5 - 10.3 mg/dL [facility] Comment:Testing performed by : [address] [address] Bilirubin, total 0.4 0.1 - 1.2 mg/dL [facility] Comment:Testing performed by : [address] [address] Protein, pl 6.3(L) 6.5 - 8.5 g/dL [facility] Comment:Testing performed by : [address] [address] Albumin 4.2 3.5 - 5.0 g/dL [facility] Comment:Testing performed by : [address] [address] Alk phos 81 40 - 130 Units/L [facility] Comment:Testing performed by : [address] [address] ALT 14 7 - 45 Units/L [facility] Comment:Testing performed by : [address] [address] AST 23 10 - 45 Units/L [facility] Comment:Testing performed by : [address] [address] Blood 01/24/2024 11:3 1 AM CORRECTIONS NURSE 01/24/2024 11:33 AM CORRECTIONS NURSE us Nicol Howe ELECTRIC SHIPYARD OPERATOR LAB BLOOD ORDERABLES Final Result [facility] [address] [facility] Department [place] [address] * CBC with auto differential (01/24/2024 11:31 AM CORRECTIONS NURSE) WBC 7.6 3.8 - 9.9 K/cumm Comment:Testing performed by : [address] [address] Hgb 14.0 11.9 - 15.5 g/dL [facility] Comment:Testing performed by : [address], [address] Hct 40.2 35.6 - 45.5 % [facility] Comment:Testing performed by : [address] [address] Plt 217 150 - 400 K/cumm [facility] Comment:Testing performed by : [address], [address] MPV 10.5 9.1 - 12.3 fL [facility] Comment:Testing performed by : [address], [address] RBC 4.68 3.90 - 5.20 M/cumm [facility] Comment:Testing performed by : [address], [address] MCV 85.9 81.3 - 96.4 fL [facility] Comment:Testing performed by : [address], [address] MCH 29.9 27.1 - 33.3 pg [facility] Comment:Testing performed by : [address], [address] MCHC 34.8 32.3 - 35.7 g/dL [facility] Comment:Testing performed by : [address], [address] RDW CV 13.0 11.1 - 14.9 % [facility] Comment:Testing performed by : [address], [address] RDW SD 40.1 35.7 - 48.1 fL [facility] Comment:Testing performed by : [address], [address] NRBC abs 0.00 0.00 - 0.01 K/cumm [facility] Comment:Testing performed by : [address], [address] Blood 01/24/2024 11:3 1 AM CORRECTIONS NURSE 01/24/2024 11:33 AM CORRECTIONS NURSE Nicol Davilamack ELECTRIC SHIPYARD OPERATOR LAB BLOOD ORDERABLES Final Result [facility] [address] [facility] Department [place] [address] documented in this encounter Visit [...] 01/24/2024 documented in this encounter Care Teams Network Control Operator Relationship Specialty Start Date End Date Juan Wilkinson MD PCP - General Family Practice 02/01/20 Helder Bailey MD [address] [facility] [address] [place] [address] Medical Oncologist/Crossing Supervisor Medical Oncology 02/01/22 01/18/24 documented as of this encounter
--- OUTSIDE RECORDS SUMMARY | 2024-04-03 17:11 | XMS_ITS | Encounter Summary ---
Author Organization [facility] Address [address] [place] [address] Phone Care Team Providers Care Elementary Summer School Teacher Name Role Phone No, Physician Primary Care Provider [phone] Lito Birmingham MD Unavailable [phone] Encounter Details Date Type Department Care Team (Late st Contact Info) Description 01/25/2018 12:30 PM OPERATIONS EXAMINER Lab [facility] Oncology [address] [place] [phone] History of follicular lymphoma Social History Tobacco Use Types Packs/Day Years Used Date Smoking Tobacco: Former Cigarettes Q uit: 2013 Smokeless Tobacco: Never Alcohol Use Standard Drinks/Week Comments No 0 (1 standard drink = 0.6 oz pur e alcohol) Comments Unknown Sex and Gender Information Value Date Recorded Sex Assigned at Not on file Legal Sex Female 12:30 AM OPERATIONS EXAMINER Gender Identity Not on file Sexual Orientation Not on file documented as of this encounter Plan of Treatment Not on file documented as of this encounter Visit Diagnoses Diagnosis History of follicular lymphoma documented in this encounter Orders Appointment Requests Count Last Ordered Date Fi rst Ordered Date ONCBCN LAB APPOINTMENT 1 01/25/2018 documented in this encounter Care Teams Elementary Summer School Teacher Relationship Specialty Start Date End Date No, Physician PCP - General 01/25/18 01/31/20 Lito Birmingham MD Medical Oncologist/Motor Coach Operator Hematology and Oncology 01/24/18 01/30/19 documented as of this encounter
--- OUTSIDE RECORDS SUMMARY | 2024-04-03 17:11 | XMS_ITS | Encounter Summary ---
Author Organization [facility] Address [address] [place] [address] Phone Care Team Providers Care Handbag Framer Name Role Phone No, Physician Primary Care Provider [phone] Lito Birmingham MD Unavailable [phone] Encounter Details Date Type Department Care Team (Late st Contact Info) Description 01/25/2018 Orders Only [facility] Oncology [address] [facility] [place] [phone] Lito Birmingham MD [address] [place], [place] [id number] Social History Tobacco Use Types Packs/Day Years Used Date Smoking Tobacco: Former Cigarettes Q uit: 2013 Smokeless Tobacco: Never Alcohol Use Standard Drinks/Week Comments No 0 (1 standard drink = 0.6 oz pur e alcohol) Comments Unknown Sex and Gender Information Value Date Recorded Sex Assigned at Not on file Legal Sex Female 12:30 AM PLUMBER AND TINNER Gender Identity Not on file Sexual Orientation Not on file documented as of this encounter Plan of Treatment Not on file documented as of this encounter Procedures Procedure Name Priority Date/Time Associated Diagnosis Comments CBC WITH AUTO DIFFERENTIAL Routine 01/25/2018 12:53 PM PLUMBER AND TINNER documented in this encounter Results * (ABNORMAL) CBC with auto differential (01/25/2018 12:53 PM PLUMBER AND TINNER) WBC 8.0 3.4 - 10.8 x10E3/uL [facility] [...] [facility] - 01 01/25/2018 12:5 3 PM PLUMBER AND TINNER 01/25/2018 Narrative [facility] - 01/25/2018 1:58 PM PLUMBER AND TINNER Performed at: ??01 - [facility] [address] [place], [place] ??[id number] Director Of Strategic Partnerships: Galen Dhillon MD, Phone: ??[phone] us Lito Birmingham MD LAB BLOOD ORDERABLES Fi nal Result [facility] 01 documented in this encounter Visit Diagnoses Not on filedocumented in this encounter Care Teams Handbag Framer Relationship Specialty Start Date End Date No, Physician PCP - General 01/25/18 01/31/20 Lito Birmingham MD Medical Oncologist/Chemical Process Project Engineer Hematology and Oncology 01/24/18 01/30/19 documented as of this encounter
--- OUTSIDE RECORDS SUMMARY | 2024-04-03 17:11 | XMS_ITS | Encounter Summary ---
Author Organization [facility] Address [address] [place] [address] Phone Care Team Providers Care Detector Car Operator Name Role Phone No, Physician Primary Care Provider [phone] Lito Birmingham MD Unavailable Reason for Visit * Reason Comments Follow-up 1 year follow-up Lymphoma Encounter Details Date Type Department Care Team (Late st Contact Info) Description 01/25/2018 1:00 PM BOX PRINTING MACHINE OPERATOR Office Visit [facility] Oncology [address] [facility] [place] [address] Lito Birmingham MD [address] [place], [place] [phone] Follicular non-Hodgkin's lymphoma (CMS/HCC) (Primary Dx) Social History Tobacco Use Types Packs/Day Years Used Date Smoking Tobacco: Former Cigarettes Q uit: 2013 Smokeless Tobacco: Never Alcohol Use Standard Drinks/Week Comments No 0 (1 standard drink = 0.6 oz pur e alcohol) Comments Unknown Sex and Gender Information Value Date Recorded Sex Assigned at Not on file Legal Sex Female 12:30 AM BOX PRINTING MACHINE OPERATOR Gender Identity Not on file Sexual Orientation Not on file documented as of this encounter Last Filed Vital Signs Vital Sign Reading Time Taken Comments Blood Pressure 124/53 01/25/2018 1:00 PM BOX PRINTING MACHINE OPERATOR Pulse 75 01/25/2018 1:00 PM BOX PRINTING MACHINE OPERATOR Temperature 36.7 ??C (98 ??F) 01/25/2018 1:00 PM BOX PRINTING MACHINE OPERATOR Respiratory Rate - - Oxygen Saturation - - Inhaled Oxygen Concentration - - Weight 64.2 kg (141 lb 9.6 oz) 01/25/2018 1:00 P M BOX PRINTING MACHINE OPERATOR Height 177.8 cm (5' 10 ) 01/25/2018 1:00 PM BOX PRINTING MACHINE OPERATOR Body Mass Index 20.32 01/25/2018 1:00 PM BOX PRINTING MACHINE OPERATOR documented in this encounter Progress [...] 01/25/2018 234 150 - 379 x10E3/uL Final PRINTING MACHINE OPERATOR documented in this encounter Miscellaneous Notes * Addendum Note - Jonna Wakefield RN - 01/25/2018 1:00 PM CSTAddended by: JONNA WAKEFIELD on: 01/25/2018 01:37 PM Modules accepted: Orders PRINTING MACHINE OPERATOR * Addendum Note - Amber Hudson MA - 01/25/2018 1:00 PM CSTAddended by: AMBER HUDSON on: 01/25/2018 02:35 PM Modules accepted: Orders PRINTING MACHINE OPERATOR documented in this encounter Plan [...] 02/02/2019 documented in this encounter Care Teams Detector Car Operator Relationship Specialty Start Date End Date No, Physician PCP - General 01/25/18 01/31/20 Lito Birmingham MD Medical Oncologist/Intervention Manager Hematology and Oncology 01/24/18 01/30/19 documented as of this encounter
--- OUTSIDE RECORDS SUMMARY | 2024-04-03 17:11 | XMS_ITS | Encounter Summary ---
Author Organization [facility] Address [address] [place] [address] Phone Care Team Providers Care Fitness Center Attendant Name Role Phone Unavailable Primary Care Provider Unavailabl e Encounter Details Date Type Department Care Team (Late st Contact Info) Description 01/23/2018 Orders Only [facility] Oncology [address] [facility] [place] [phone] Jonna Hanna RN History of follicular lymphoma (Primary Dx) Social History Tobacco Use Types Packs/Day Years Used Date Smoking Tobacco: Former Comments Unknown Sex and Gender Information Value Date Recorded Sex Assigned at Not on file Legal Sex Female 12:30 AM PRINT LINE INSPECTOR Gender Identity Not on file Sexual Orientation Not on file documented as of this encounter Plan of Treatment Not on file documented as of this encounter Procedures Procedure Name Priority Date/Time Associated Diagnosis Comments LACTATE DEHYDROGENASE Routine 01/25/2018 12:27 PM PRINT LINE INSPECTOR History of follicular lymphoma COMPREHENSIVE METABOLIC PANEL Routine 01/25/2018 12:27 PM PRINT LINE INSPECTOR History of follicular lymphoma documented in this encounter Results * (ABNORMAL) Lactate dehydrogenase (LD) (01/25/2018 12:27 PM PRINT LINE INSPECTOR) Lactate dehydrogenase (LDH) 241(H) 119 - 226 IU/L [facility] - 01 Blood specimen (specimen) 01/25/2018 12:27 PM PRINT LINE INSPECTOR 01/25/2018 Narrative [facility] - 01/27/2018 8:29 AM PRINT LINE INSPECTOR Performed at: ??01 - [facility] [address], [place], [place] [id number] Cullet Crusher And Washer: Harvinder Knapp PhD, Phone: ??[phone] us Lito Birmingham MD LAB BLOOD ORDERABLES Fi nal Result [facility] - 01 * (ABNORMAL) Comprehensive metabolic panel (01/25/2018 12:27 PM PRINT LINE INSPECTOR) Glucose 81 65 - 99 mg/dL [facility] [...] 01 Blood specimen (specimen) 01/25/2018 12:27 PM PRINT LINE INSPECTOR 01/25/2018 Narrative [facility] - 01/27/2018 8:29 AM PRINT LINE INSPECTOR Performed at: ??01 - [facility] [address], [place], [place] ??[id number] Cullet Crusher And Washer: Harvinder Knapp PhD, Phone: ??[phone] us Lito Birmingham MD LAB BLOOD ORDERABLES [...]
== END 2024-03-29 10:45 | disposition home or self-care (01) | DRG 690 ==
LOC: ANHED 11:33 → ANH3MEDSUR 11:49
PROVIDERS: Physician Assistant; Admitting Provider Internal Medicine; Emergency Provider Emergency Medicine; PCP Family Medicine; Visit Provider Hospitalist
DX: N39.0 Urinary tract infection, site not specified (principal); N13.30 Unspecified hydronephrosis; K43.9 Ventral hernia without obstruction or gangrene; R10.9 Unspecified abdominal pain; N10 Acute pyelonephritis; I10 Essential (primary) hypertension; K21.9 Gastro-esophageal reflux disease without esophagitis; E78.2 Mixed hyperlipidemia; Z85.72 Personal history of non-Hodgkin lymphomas; Z87.891 Personal history of nicotine dependence; Z85.41 Personal history of malignant neoplasm of cervix uteri
CPT/HCPCS: 36415; 74177; 80048; 80053; 81001; 83605; 83690; 84443; 85025; 85027; 87086; 96361; 96365; 96372; 96374; 96375; 96376; 99285; A9270; G0378; J0696; J1171; J1650; J1885; J2405; J7030; Q9967

== ENCOUNTER 2024-04-17 07:41 | Outpatient (CLI) | payer MEDICARE, SELFPAY ==
--- NOTE | ~2024-04-17 | CT_ITS ---
EXAMINATION: CT soft tissue neck chest w DATE: 04/17/2024 08:37 INDICATION: Localized enlarged lymph nodes TECHNIQUE: Computed tomography (CT) of the neck and chest was performed with 75 mL Omnipaque-350 intr avenous contrast. Automated exposure control and iterative reconstruction technique were employed. Th e dose-length product was 602.64 mGy-cm. COMPARISON: Neck CT dated 09/19/[address] abdomen and pelvis dated 03/27/2024 FINDINGS: Neck: Changes of bilateral intraocular lens replacement. Orbits are otherwise normal. The paranasal sinuse s, mastoid air cells and middle ear cavities are clear. Submandibular and parotid glands are symmetr ic. Thyroid gland is unremarkable. There are scattered normal-sized lymph nodes in the neck, no lymph adenopathy. No masses identified. There is atherosclerotic calcifications at the bilateral carotid b ulbs with 0% stenosis of the left carotid bulb relative to normal distal artery lumen diameter (NASCE T criteria) and 65% stenosis on the right. Mild cervical spondylosis. Chest: Mild emphysema with mild right and minimal left apical pleural-parenchymal scarring. No pneumonia, pu lmonary edema, suspicious pulmonary nodules or pleural effusion. Heart size is normal. Atheroscleroti c coronary artery calcification. Thoracic aorta is normal in caliber with no dissection. No pathologi tramaine enlarged thoracic lymphadenopathy. Unchanged moderate bilateral hydronephrosis. Mild thoracic s pondylosis. IMPRESSION: 1. No pathologically enlarged cervical or thoracic lymph nodes. 2. Atherosclerotic calcifications at the bilateral carotid bulbs with 0% stenosis on the left and wit h moderate, 65% stenosis on the right. 3. Mild emphysema. 4. Unchanged moderate bilateral hydronephrosis. Reviewed, dictated and finalized at location A. ROOM HAND IMPRESSION: 1. No pathologically enlarged cervical or thoracic lymph nodes. 2. Atherosclerotic calcifications at the bilateral carotid bulbs with 0% stenos is on the left and with moderate, 65% stenosis on the right. 3. Mild emphysema. 4. Unchanged moderate bilateral hydronephrosis.
--- OUTSIDE RECORDS SUMMARY | 2024-04-17 07:44 | XMS_ITS | Referral Summary ---
Author Organization [facility] Address [address] [facility] [place] [address] Phone Care Team Providers Care Cuprous Chloride Helper Name Role Phone Juan Wilkinson MD Primary Care Provider Encounters Date Type Department Care Team Description 01/30/2024 Telephone [facility] Oncology [address] [place] [address] [address] [place] [address] Jonna Hanna, FROILAN 01/27/2024 Telephone [facility] Oncology [address] [place] [address] [address] [place] [address] Nicol Howe NP 01/24/2024 11:30 AM BREAST WORKER Office Visit [facility] Oncology [address] [place] [address] Nicol Howe NP History of follicular lymphoma (Primary Dx); Vitamin D deficiency; Follicular non-Hodgkin's lymphoma (HCC); Need for prophylactic vaccination and inoculation against influenza 01/24/2024 11:15 AM BREAST WORKER Lab [facility] at [address] [address] History of follicular lymphoma; Vitamin [...] on file Legal Sex Female 12:30 AM BREAST WORKER Gender Identity Not on file Sexual Orientation Not on file Last Filed Vital Signs Vital Sign Reading Time Taken Comments Blood Pressure 137/71 01/24/2024 11:40 AM BREAST WORKER Pulse 68 01/24/2024 11:40 AM BREAST WORKER Temperature 36.4 ??C (97.5 ??F) 01/24/2024 11:[address] Respiratory Rate 16 01/24/2024 11:40 AM BREAST WORKER Oxygen Saturation 98% 01/24/2024 11:40 AM BREAST WORKER Inhaled Oxygen Concentration - - Weight 68.1 kg (150 lb 3.2 oz) 01/24/2024 11:40 AM BREAST WORKER Height 177.8 cm (5' 10 ) 01/25/2023 1:48 PM BREAST WORKER Body Mass Index 21.55 01/25/2023 1:48 PM BREAST WORKER Plan of Treatment Not on file Procedures Procedure Name Priority Date/Time Associated Diagnosis Comments EGFR Routine 01/24/2024 11:31 AM BREAST WORKER History of follicular lymphoma DIFFERENTIAL AUTO Routine 01/24/2024 11: 31 AM BREAST WORKER History of follicular lymphoma CBC WITH AUTO DIFFERENTIAL Routine 01/24/2024 11:31 AM BREAST WORKER History of follicular lymphoma COMPREHENSIVE METABOLIC PANEL Routine 01/24/2024 11:31 AM BREAST WORKER History of follicular lymphoma VITAMIN D 25 HYDROXY Routine 01/24/2024 11:31 AM BREAST WORKER History of follicular lymphoma Vitamin D deficiency from Last 3 Months Results * eGFR (01/24/2024 11:31 AM BREAST WORKER) eGFR >90 >=60 mL/min/1. 73 m2 Comment: [...] was last reviewed 2021. Testing performed by: [facility], [address] [place] [address]., [id number] Blood 01/24/2024 11:3 1 AM BREAST WORKER 01/24/2024 11:33 AM BREAST WORKER Nicol Howe NP LAB BLOOD ORDERABLES Final Result [facility] [address] [facility] [place] [address] * Differential, auto (01/24/2024 11:31 AM BREAST WORKER) Neutrophil abs 3.6 1.5 - 6.5 K/cumm Comment:Testing performed by : [address] [address] Imm gran abs 0.0 0.0 - 0.1 K/cumm [place] Comment:Testing performed by : [address] [address] Lymphocyte abs 3.2 0.8 - 3.3 K/cumm [place] Comment:Testing performed by : [address] [address] Monocyte abs 0.6 0.2 - 0.8 K/cumm [place] Comment:Testing performed by : [address] [address] Eosinophil abs 0.2 0.0 - 0.5 K/cumm [place] Comment:Testing performed by : [address] [address] Basophil abs 0.1 0.0 - 0.1 K/cumm [place] Comment:Testing performed by : [address] [address] Neutrophil pct 47.2 % [place] Comment: Interpretive Data Percent cell count reference ranges are not reported, since discordance with absolute values may lead to misinterpretation of CBC data. Current Interpretive Data was last revised on 2017. Testing performed by: [address] [address] Imm gran pct 0.3 % [place] Comment: Interpretive Data Percent cell count reference ranges are not reported, since discordance with absolute values may lead to misinterpretation of CBC data. Current Interpretive Data was last revised on 2017. Testing performed by: [address] [address] Lymphocyte pct 41.6 % [facility] Comment: Interpretive Data Percent cell count reference ranges are not reported, since discordance with absolute values may lead to misinterpretation of CBC data. Current Interpretive Data was last revised on 2017. Testing performed by: [address] [address] Monocyte pct 8.0 % [facility] Comment: Interpretive Data Percent cell count reference ranges are not reported, since discordance with absolute values may lead to misinterpretation of CBC data. Current Interpretive Data was last revised on 2017. Testing performed by: [address] [address] Eosinophil pct 2.2 % [facility] Comment: Interpretive Data Percent cell count reference ranges are not reported, since discordance with absolute values may lead to misinterpretation of CBC data. Current Interpretive Data was last revised on 2017. Testing performed by: [address] [address] Basophil pct 0.7 % [facility] Comment: Interpretive Data Percent cell count reference ranges are not reported, since discordance with absolute values may lead to misinterpretation of CBC data. Current Interpretive Data was last revised on 2017. Testing performed by: [address] [address] Blood 01/24/2024 11:3 1 AM BREAST WORKER 01/24/2024 11:33 AM BREAST WORKER us Nicol Howe TRANSPORT TECHNICIAN LAB BLOOD ORDERABLES Final Result [facility] [address] [facility] [place] [address] * CBC with auto differential (01/24/2024 11:31 AM BREAST WORKER) WBC 7.6 3.8 - 9.9 K/cumm Comment:Testing performed by : [address] [place]., [address] Hgb 14.0 11.9 - 15.5 g/dL [place] Comment:Testing performed by : [address], [address] Hct 40.2 35.6 - 45.5 % [place] Comment:Testing performed by : [address] [address] Plt 217 150 - 400 K/cumm [place] Comment:Testing performed by : [address], [address] MPV 10.5 9.1 - 12.3 fL [place] Comment:Testing performed by : [address], [address] RBC 4.68 3.90 - 5.20 M/cumm [place] Comment:Testing performed by : [address], [address] MCV 85.9 81.3 - 96.4 fL [place] Comment:Testing performed by : [address], [address] MCH 29.9 27.1 - 33.3 pg [place] Comment:Testing performed by : [address] [address] MCHC 34.8 32.3 - 35.7 g/dL [place] Comment:Testing performed by : [address], [address] RDW CV 13.0 11.1 - 14.9 % [place] Comment:Testing performed by : [address], [address] RDW SD 40.1 35.7 - 48.1 fL [place] Comment:Testing performed by : [address], [address] NRBC abs 0.00 0.00 - 0.01 K/cumm [place] Comment:Testing performed by : [address], [address] Blood 01/24/2024 11:3 1 AM BREAST WORKER 01/24/2024 11:33 AM BREAST WORKER Nicol Howe TRANSPORT TECHNICIAN LAB BLOOD ORDERABLES Final Result Performing Organization Address City/[facility]/ZIP Co de Phone Number [place] [address] [address] * Vitamin D 25 hydroxy (01/24/2024 11:31 AM BREAST WORKER) Pathologist [facility] Vitamin D 25-OH 35.0 30.0 - 80.0 ng/mL Blood 01/24/2024 11:3 1 AM BREAST WORKER 01/24/2024 4:41 PM BREAST WORKER Nicol Howe TRANSPORT TECHNICIAN LAB BLOOD ORDERABLES Final Result Performing Organization Address [facility] de Phone Number [place] [address] [address] * (ABNORMAL) Comprehensive metabolic panel (01/24/2024 11:31 AM BREAST WORKER) [facility] Sodium 141 135 - 145 mmol/L Comment:Testing performed by : [address] [address] Potassium, pl 4.0 3.3 - 4.9 mmol/L [place] Comment:Testing performed by : [address] [address] Chloride 104 97 - 110 mmol/L [place] Comment:Testing performed by : [address] [address] CO2 26 22 - 32 mmol/L [place] Comment:Testing performed by : [address] [address] Anion gap 11 2 - 15 mmol/L [place] Comment:Testing performed by : [address] [address] BUN 13 6 - 25 mg/dL [place] Comment:Testing performed by : [address] [address] Creatinine 0.60 0.60 - 1.10 mg/dL [place] Comment:Testing performed by : [address] [place] [address] Glucose 91 70 - 199 mg/dL [place] [...] was last revised 2022. Testing performed by: [address] [address] Calcium 9.4 8.5 - 10.3 mg/dL [place] Comment:Testing performed by : [address] [address] Bilirubin, total 0.4 0.1 - 1.2 mg/dL [place] Comment:Testing performed by : [address] [address] Protein, pl 6.3(L) 6.5 - 8.5 g/dL [place] Comment:Testing performed by : [address] [address] Albumin 4.2 3.5 - 5.0 g/dL [place] Comment:Testing performed by : [address] [address] Alk phos 81 40 - 130 Units/L [place] Comment:Testing performed by : [address] [address] ALT 14 7 - 45 Units/L [place] Comment:Testing performed by : [address] [address] AST 23 10 - 45 Units/L [place] Comment:Testing performed by : [address] [address] Blood 01/24/2024 11:3 1 AM BREAST WORKER 01/24/2024 11:33 AM BREAST WORKER us Nicol Howe TRANSPORT TECHNICIAN LAB BLOOD ORDERABLES Final Result Performing Organization Address City/State/ZIP Co fl Phone Number [place] [address] [facility] [place] [address] from Last 3 Months Insurance [employer] SENIOR SUPPLEMENT MEDICARE [employer] SENIOR SU[employer]LEMENT Care Teams Cuprous Chloride Helper Relationship Specialty Start Date End Date Juan Wilkinson MD PCP - General Family Practice 02/01/20
--- OUTSIDE RECORDS SUMMARY | 2024-04-17 07:45 | XMS_ITS | Clinical Summary ---
Author Organization [facility] Address [address] [place] [address] Phone Care Team Providers Care Conservation Policy Analyst Name Role Phone Juan Wilkinson MD Primary [...] Type Department Care Team Description 01/30/2024 Telephone [facility] Oncology [address] [place] [address] [address] [place] [address] Jonna Hanna RN 01/27/2024 Telephone [facility] Oncology [address] [place] [address] [address] [place] [address] Nicol Howe NP 01/24/2024 11:30 AM BLOW MOLDING MACHINE OPERATOR Office Visit [facility] Oncology [address] [place] [address] [address] [place] [address] Nicol Howe NP History of follicular lymphoma (Primary Dx); Vitamin D deficiency; Follicular non-Hodgkin's lymphoma (HCC); Need for prophylactic vaccination and inoculation against influenza 01/24/2024 11:15 AM BLOW MOLDING MACHINE OPERATOR Lab [facility] at [address] [id number] History of follicular lymphoma; Vitamin D deficiency [...] on file Legal Sex Female 12:30 AM BLOW MOLDING MACHINE OPERATOR Gender Identity Not on file Sexual Orientation Not on file Obstetrics History Last Filed Vital Signs Vital Sign Reading Time Taken Comments Blood Pressure 137/71 01/24/2024 11:40 AM BLOW MOLDING MACHINE OPERATOR Pulse 68 01/24/2024 11:40 AM BLOW MOLDING MACHINE OPERATOR Temperature 36.4 ??C (97.5 ??F) 01/24/2024 11:[address] Respiratory Rate 16 01/24/2024 11:40 AM BLOW MOLDING MACHINE OPERATOR Oxygen Saturation 98% 01/24/2024 11:40 AM BLOW MOLDING MACHINE OPERATOR Inhaled Oxygen Concentration - - Weight 68.1 kg (150 lb 3.2 oz) 01/24/2024 11:40 AM BLOW MOLDING MACHINE OPERATOR Height 177.8 cm (5' 10 ) 01/25/2023 1:48 PM BLOW MOLDING MACHINE OPERATOR Body Mass Index 21.55 01/25/2023 1:48 PM BLOW MOLDING MACHINE OPERATOR Plan of Treatment Health Maintenance Due [...] Diagnosis Comments EGFR Routine 01/24/2024 11:31 AM BLOW MOLDING MACHINE OPERATOR History of follicular lymphoma DIFFERENTIAL AUTO Routine 01/24/2024 11: 31 AM BLOW MOLDING MACHINE OPERATOR History of follicular lymphoma CBC WITH AUTO DIFFERENTIAL Routine 01/24/2024 11:31 AM BLOW MOLDING MACHINE OPERATOR History of follicular lymphoma COMPREHENSIVE METABOLIC PANEL Routine 01/24/2024 11:31 AM BLOW MOLDING MACHINE OPERATOR History of follicular lymphoma VITAMIN D 25 HYDROXY Routine 01/24/2024 11:31 AM BLOW MOLDING MACHINE OPERATOR History of follicular lymphoma Vitamin D deficiency from Last 3 Months Results * eGFR (01/24/2024 11:31 AM BLOW MOLDING MACHINE OPERATOR) Pathologist [facility] eGFR >90 >=60 [...] was last reviewed 2021. Testing performed by: [address] [address] Blood 01/24/2024 11:3 1 AM BLOW MOLDING MACHINE OPERATOR 01/24/2024 11:33 AM BLOW MOLDING MACHINE OPERATOR us Nicol Howe ASW/ASUW TACTICAL AIR CONTROLLER LAB BLOOD ORDERABLES Final Result [facility] [address] [facility] Department [place] [address] * Differential, auto (01/24/2024 11:31 AM BLOW MOLDING MACHINE OPERATOR) Neutrophil abs 3.6 1.5 - 6.5 K/cumm Comment:Testing performed by : [address] [address] Imm gran abs 0.0 0.0 - 0.1 K/cumm [place] Comment:Testing performed by : [address] [address] Lymphocyte abs 3.2 0.8 - 3.3 K/cumm [place] Comment:Testing performed by : [address] [address] Monocyte abs 0.6 0.2 - 0.8 K/cumm [place] Comment:Testing performed by : [address] [address] Eosinophil abs 0.2 0.0 - 0.5 K/cumm [facility] Comment:Testing performed by : [address] [address] Basophil abs 0.1 0.0 - 0.1 K/cumm [facility] Comment:Testing performed by : [address] [address] Neutrophil pct 47.2 % [facility] Comment: Interpretive Data Percent cell count reference ranges are not reported, since discordance with absolute values may lead to misinterpretation of CBC data. Current Interpretive Data was last revised on 2017. Testing performed by: [address] [address] Imm gran pct 0.3 % [facility] Comment: Interpretive Data Percent cell count reference ranges are not reported, since discordance with absolute values may lead to misinterpretation of CBC data. Current Interpretive Data was last revised on 2017. Testing performed by: [address] [address] Lymphocyte pct 41.6 % [facility] Comment: Interpretive Data Percent cell count reference ranges are not reported, since discordance with absolute values may lead to misinterpretation of CBC data. Current Interpretive Data was last revised on 2017. Testing performed by: [address] [address] Monocyte pct 8.0 % [facility] Comment: Interpretive Data Percent cell count reference ranges are not reported, since discordance with absolute values may lead to misinterpretation of CBC data. Current Interpretive Data was last revised on 2017. Testing performed by: [address] [address] Eosinophil pct 2.2 % [facility] Comment: Interpretive Data Percent cell count reference ranges are not reported, since discordance with absolute values may lead to misinterpretation of CBC data. Current Interpretive Data was last revised on 2017. Testing performed by: [address] [address] Basophil pct 0.7 % [facility] Comment: Interpretive Data Percent cell count reference ranges are not reported, since discordance with absolute values may lead to misinterpretation of CBC data. Current Interpretive Data was last revised on 2017. Testing performed by: [address] [address] Blood 01/24/2024 11:3 1 AM BLOW MOLDING MACHINE OPERATOR 01/24/2024 11:33 AM BLOW MOLDING MACHINE OPERATOR Nicol Howe ASW/ASUW TACTICAL AIR CONTROLLER LAB BLOOD ORDERABLES Final Result [facility] [address] [facility] Department [place] [address] * CBC with auto differential (01/24/2024 11:31 AM BLOW MOLDING MACHINE OPERATOR) WBC 7.6 3.8 - 9.9 K/cumm Comment:Testing performed by : [address] [address] Hgb 14.0 11.9 - 15.5 g/dL [place] Comment:Testing performed by : [address] [address] Hct 40.2 35.6 - 45.5 % [place] Comment:Testing performed by : [address] [address] Plt 217 150 - 400 K/cumm [place] Comment:Testing performed by : [address] [address] MPV 10.5 9.1 - 12.3 fL [place] Comment:Testing performed by : [address] [address] RBC 4.68 3.90 - 5.20 M/cumm [place] Comment:Testing performed by : [address] [address] MCV 85.9 81.3 - 96.4 fL [place] Comment:Testing performed by : [address] [address] MCH 29.9 27.1 - 33.3 pg [place] Comment:Testing performed by : [address] [address] MCHC 34.8 32.3 - 35.7 g/dL [facility] Comment:Testing performed by : [address], [address] RDW CV 13.0 11.1 - 14.9 % [facility] Comment:Testing performed by : [address] [address] RDW SD 40.1 35.7 - 48.1 fL [facility] Comment:Testing performed by : [address], [address] NRBC abs 0.00 0.00 - 0.01 K/cumm [place] Comment:Testing performed by : [address], [address] Blood 01/24/2024 11:3 1 AM BLOW MOLDING MACHINE OPERATOR 01/24/2024 11:33 AM BLOW MOLDING MACHINE OPERATOR Nicol Howe NP LAB BLOOD ORDERABLES Final Result Performing Organization Address City/[facility] Co de Phone Number [address] [place] [address] * Vitamin D 25 hydroxy (01/24/2024 11:31 AM BLOW MOLDING MACHINE OPERATOR) [facility] Vitamin D 25-OH 35.0 30.0 - 80.0 ng/mL Blood 01/24/2024 11:3 1 AM BLOW MOLDING MACHINE OPERATOR 01/24/2024 4:41 PM BLOW MOLDING MACHINE OPERATOR Nciol Howe ASW/ASUW TACTICAL AIR CONTROLLER LAB BLOOD ORDERABLES Final Result Performing Organization Address City/[facility] Co de Phone Number [address] [place] [address] * (ABNORMAL) Comprehensive metabolic panel (01/24/2024 11:31 AM BLOW MOLDING MACHINE OPERATOR) [facility] Sodium 141 135 - 145 mmol/L Comment:Testing performed by : [address], [address] Potassium, pl 4.0 3.3 - 4.9 mmol/L [place] Comment:Testing performed by : [address], [place]., [address] Chloride 104 97 - 110 mmol/L [place] Comment:Testing performed by : [address], [place]., [address] CO2 26 22 - 32 mmol/L [place] Comment:Testing performed by : [address], [place]., [address] Anion gap 11 2 - 15 mmol/L [place] Comment:Testing performed by : [address], [place]., [address] BUN 13 6 - 25 mg/dL [place] Comment:Testing performed by : [address], [place]., [address] Creatinine 0.60 0.60 - 1.10 mg/dL [place] Comment:Testing performed by : [address], [place]., [address] Glucose 91 70 - 199 mg/dL [place] [...] was last revised 2022. Testing performed by: [address] [address] Calcium 9.4 8.5 - 10.3 mg/dL [place] Comment:Testing performed by : [address] [address] Bilirubin, total 0.4 0.1 - 1.2 mg/dL [place] Comment:Testing performed by : [address], [place]., [address] Protein, pl 6.3(L) 6.5 - 8.5 g/dL [place] Comment:Testing performed by : [address], [place]., [address] Albumin 4.2 3.5 - 5.0 g/dL [place] Comment:Testing performed by : [address], [address] Alk phos 81 40 - 130 Units/L [place] Comment:Testing performed by : [address], [address] ALT 14 7 - 45 Units/L [place] Comment:Testing performed by : [address], [address] AST 23 10 - 45 Units/L [place] Comment:Testing performed by : [address], [address] Blood 01/24/2024 11:3 1 AM BLOW MOLDING MACHINE OPERATOR 01/24/2024 11:33 AM BLOW MOLDING MACHINE OPERATOR Nicol Howe ASW/ASUW TACTICAL AIR CONTROLLER LAB BLOOD ORDERABLES Final Result [facility] [address] [facility] Department [place] [address] from Last 3 Months Insurance MEDICARE [employer] SENIOR SUPPLEMENT MEDICARE [employer] SENIOR SUPPLEMENT Care Teams Conservation Policy Analyst Relationship Specialty Start Date End Date Juan Wilkinson MD PCP - General Family Practice 02/01/20
== END 2024-04-17 07:42 | disposition home or self-care (01) ==
PROVIDERS: PCP Family Medicine; Visit Provider Nurse Practitioner Family
DX: R59.0 Localized enlarged lymph nodes (principal); I65.21 Occlusion and stenosis of right carotid artery; J43.9 Emphysema, unspecified; N13.30 Unspecified hydronephrosis; Z85.72 Personal history of non-Hodgkin lymphomas
CPT/HCPCS: 70491; 71260; Q9967

== ENCOUNTER 2024-05-15 23:49 | Inpatient (IN) | payer MEDICARE, SELFPAY ==
--- NOTE | ~2024-05-15 | CT_ITS ---
CT of the Abdomen and Pelvis: Indication: Abdominal pain Technique: 2.5 mm axial scans were obtained through the abdomen and pelvis following intravenous adm inistration of 100 cc of Omnipaque 350. Dose reduction technique was used on this scan by utilizing a utomated exposure control and iterative reconstruction technique. The dose-length product (DLP) was 3 14.73 mGy-cm. COMPARISON: 03/27/2024 Findings: Scans through the lung bases are unremarkable. There is periportal edema and mild gallbladder wall thickening, nonspecific findings. No hepatic mass lesion seen. No radiopaque gallstones seen. The spleen, pancreas, adrenal glands are within normal l imits. There is moderate to severe bilateral hydroureteronephrosis, extending to the urinary bladder. No evidence of aortic aneurysm. No lymphadenopathy. There is a low midline ventral hernia containing several loops of small bowel, with the hernia neck a t the level of the hip joints. No bowel obstruction or bowel wall thickening. Images through the pelvis were performed. Urinary bladder unremarkable. Status post hysterectomy. No pelvic mass seen. No ascites. Impression: Periportal edema mild gallbladder wall thickening, nonspecific findings. Correlate with LFTs. Conside r right upper quadrant ultrasound as indicated. Low midline ventral hernia containing several small bowel loops, as detailed above. No bowel obstruct ion or bowel wall thickening. Moderate to severe bilateral hydronephrosis, unchanged. Reviewed, dictated and finalized at [facility]. RT/EXPORT ANALYST Impression: Periportal edema mild gallbladder wall thickening, nonspecific findings. Correl ate with LFTs. Consider right upper quadrant ultrasound as indicated. Low midline ventral hernia containing several small bowel loops, as detailed ab ove. No bowel obstruction or bowel wall thickening. Moderate to severe bilateral hydronephrosis, unchanged.
--- NOTE | ~2024-05-15 | XR_ITS ---
EXAMINATION: XR fluoroscopy no charge DATE: 05/17/2024 15:27 INDICATION: Cholelithiasis. Unsuccessful ERCP TECHNIQUE: A single spot fluoroscopic image of the right upper quadrant was obtained during endoscopi c retrograde cholangiopancreatography (ERCP) performed by Dr. Salazar. Radiologist was not present for the imaging or procedure. The amount of fluoroscopy time used during this procedure was 0.3 minutes. Total DAP was 0.0657 mGym^2 COMPARISON: None. FINDINGS/IMPRESSION: Endoscope projects over right upper quadrant and in the expected position of the proximal duodenum. P lease refer to the ERCP procedure note for additional details. Reviewed, dictated and finalized at location L. ISH COLLECTOR
--- NOTE | ~2024-05-15 | MR_ITS ---
EXAMINATION: MR MRCP wo/w con/w 3D wo ind DATE: 05/17/2024 08:10 INDICATION: Right upper quadrant abdominal pain. Abnormal liver function tests. TECHNIQUE: Magnetic resonance imaging (MRI) of the abdomen was performed without and with 14 mL Multi Nicolasa intravenous contrast. Sequences included coronal T2-weighted FS FSE, coronal T2-weighted FSE, a xial T1-weighted LAVA, coronal FS FIESTA, axial dual-echo T1-weighted SPGR, coronal lava-FLEX, sagitt al T2-weighted FSE, axial T2-weighted FSE, and axial DWI. Thick-slab T2-weighted FSE images were obta ined for magnetic resonance cholangiopancreatography (MRCP). Maximum intensity projection 3-D reconst ructions of the volumetric data were created by the technologist. Postcontrast sequences included cor onal LAVA-flex and time course of axial T1-weighted LAVA. COMPARISON: CT abdomen and pelvis 05/16/2024, 03/27/2024, 02/21/2020 FINDINGS: ABDOMEN MRI: The liver demonstrates periportal edema. The gallbladder is normal in size. Gallbladder wall thickening is noted. The spleen is normal. 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 The adrenal gla nds are normal. There are cysts in the kidneys measuring up to 4 mm. There is moderate bilateral hydr onephrosis and hydroureter. The bladder is distended. There are no dilated loops of bowel. 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 There are no pathologically enlarged lymph nodes. Ther e is no free intraperitoneal fluid. ABDOMEN MRCP: The common duct is dilated to 11 mm. There is an 8 mm stone in the common bile duct. IMPRESSION: 1. 8 mm stone in the common bile duct with common duct dilatation. 2. Periportal edema. Gallbladder wall thickening may be secondary to interstitial edema or acute or c hronic cholecystitis. 3. Chronic bilateral moderate hydronephrosis. 4. 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 Reviewed, dictated and finalized at location [] [facility] IMPRESSION: 1. 8 mm stone in the common bile duct with common duct dilatation. 2. Periportal edema. Gallbladder wall thickening may be secondary to interstiti al edema or acute or chronic cholecystitis. 3. Chronic bilateral moderate hydronephrosis. 4. 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
--- OUTSIDE RECORDS SUMMARY | 2024-05-15 23:52 | XMS_ITS | Clinical Summary ---
Author Organization [facility] Address [address] [place] [address] Phone Care Team Providers Care Church Supervisor Name Role Phone Juan Wilkinson MD Primary [...] Date History of follicular lymphoma 01/23/2018 Immunizations Immunization Administration Dates Next Due Influenza, Quadrivalent, Jennifer [...] on file Legal Sex Female 12:30 AM DISTRIBUTION OPERATIONS SUPERVISOR Gender Identity Not on file Sexual Orientation Not on file Obstetrics History Last Filed Vital Signs Vital Sign Reading Time Taken Comments Blood Pressure 137/71 01/24/2024 11:40 AM DISTRIBUTION OPERATIONS SUPERVISOR Pulse 68 01/24/2024 11:40 AM DISTRIBUTION OPERATIONS SUPERVISOR Temperature 36.4 C (97.5 F) 01/24/2024 11:40 AM DISTRIBUTION OPERATIONS SUPERVISOR Respiratory Rate 16 01/24/2024 11:40 AM DISTRIBUTION OPERATIONS SUPERVISOR Oxygen Saturation 98% 01/24/2024 11:40 AM DISTRIBUTION OPERATIONS SUPERVISOR Inhaled Oxygen Concentration - - Weight 68.1 kg (150 lb 3.2 oz) 01/24/2024 11:40 AM DISTRIBUTION OPERATIONS SUPERVISOR Height 177.8 cm (5' 10 ) 01/25/2023 1:48 PM DISTRIBUTION OPERATIONS SUPERVISOR Body Mass Index 21.55 01/25/2023 1:48 PM DISTRIBUTION OPERATIONS SUPERVISOR Plan of Treatment Health Maintenance Due Date Last Done Comments Depression Screening 1945 Fall Risk Assessment 1945 Hepatitis C Screening 1945 Osteoporosis Screening-Bone Density Scan 1946 DTaP/Tdap/Td Vaccine (1 - Tdap) 1957 Hepatitis B Screening 1964 Pneumococcal vaccine 65+ (1 of 2 - PCV) 1965 Zoster Vaccine (1 of 2) 1965 Well Visit 65+ 07/27/2011 Influenza Vaccine Completed 01/24/2024, , 02/01/2022, Additional history exists Insurance MEDICARE T SENIOR SUPPLEMENT MEDICARE [facility] SENIOR SUPPLEMENT Care Teams Church Supervisor Relationship Specialty Start Date End Date Juan Wilkinson MD PCP - General Family Practice 02/01/20
--- OUTSIDE RECORDS SUMMARY | 2024-05-15 23:52 | XMS_ITS | Referral Summary ---
Author Organization [facility] Address [address] [place] [address] Phone Care Team Providers Care Water Pollution Control Inspector Name Role Phone Juan Wilkinson MD Primary [...] on file Legal Sex Female 12:30 AM WORKDAY FINANCIALS CONSULTANT Gender Identity Not on file Sexual Orientation Not on file Last Filed Vital Signs Vital Sign Reading Time Taken Comments Blood Pressure 137/71 01/24/2024 11:40 AM WORKDAY FINANCIALS CONSULTANT Pulse 68 01/24/2024 11:40 AM WORKDAY FINANCIALS CONSULTANT Temperature 36.4 C (97.5 F) 01/24/2024 11:40 AM WORKDAY FINANCIALS CONSULTANT Respiratory Rate 16 01/24/2024 11:40 AM WORKDAY FINANCIALS CONSULTANT Oxygen Saturation 98% 01/24/2024 11:40 AM WORKDAY FINANCIALS CONSULTANT Inhaled Oxygen Concentration - - Weight 68.1 kg (150 lb 3.2 oz) 01/24/2024 11:40 AM WORKDAY FINANCIALS CONSULTANT Height 177.8 cm (5' 10 ) 01/25/2023 1:48 PM WORKDAY FINANCIALS CONSULTANT Body Mass Index 21.55 01/25/2023 1:48 PM WORKDAY FINANCIALS CONSULTANT Plan of Treatment Not on file Insurance MEDICARE [employer] S[place] [address] [employer] SENIOR SU[employer]LEMENT Care Teams Water Pollution Control Inspector Relationship Specialty Start Date End Date Juan Wilkinson MD PCP - General Family Practice 02/01/20
[2024-05-15 23:55] VITALS: BP 119/75; PULSE 79; RESP 20; TEMP 36.8; O2SAT 96
[2024-05-16 03:55] LABS: Basophils Percent Auto 0.2 % (0.2-1.2); Eosinophils Percent Auto 0.1 % (0-4.4); Hematocrit 40.4 % (37.0-47.0); Hemoglobin 13.5 g/dL (12.0-15.0); Immature Granulocyte Absolute 0.02 K/mm3 (0.00-0.031); Immature Granulocyte Percent A 0.2 % (0-0.5); Lymphocytes Percent Auto 7.1 % (18.3-44.2); Mean Corpuscular HGB Conc 33.4 g/dl (32-36); Mean Corpuscular Volume 86.7 fl (80-100); Mean Platelet Volume 10.1 fl (7.4-10.4); Monocytes Absolute Auto 0.9 K/mm3 (0.1-0.6); Monocytes Percent Auto 8.7 % (2.6-8.5); Neutrophils Absolute Auto 8.3 K/mm3 (1.3-6.7); Neutrophils Percent Auto 83.7 % (45.5-73.1); Platelet Count Result 172 k/mm3 (150-375); Red Blood Count 4.66 M/mm3 (4.2-5.4); White Blood Count 9.9 K/mm3 (4.5-10.0)
[2024-05-16 04:07] LABS: Alanine Aminotransferase 226 U/L (6-35); Albumin Level 4.2 g/dL (3.5-5.1); Alkaline Phosphatase 167 U/L (38-126); Anion Gap 11 mmol/L (4-12); Aspartate Amino Transferase 548 U/L (14-36); Bilirubin,Total 2.5 mg/dL (0.2-1.3); Blood Urea Nitrogen 14 mg/dL (7-17); Calcium 9.5 mg/dL (8.4-10.2); Carbon Dioxide 27 mmol/L (22-30); Chloride 98 mmol/L (98-107); Estimated CRCL calculation 61 ml/min; Estimated Glomerular Filt Rate > 60; Glucose 156 mg/dL (65-110); Lipase 88 U/L (23-300); Potassium 4.4 mmol/L (3.4-5.0); Sodium 136 mmol/L (137-145)
[2024-05-16 04:09] LABS: Add Urine Microscopic? YES; Appearance Urine Clear (Clear); Bacteria Urine 2+ /hpf; Bilirubin Urine Negative (Negative); Blood Urine Negative (Negative); Color Urine Dark Yellow (Yellow); Glucose Urine UA Negative (Negative); Hyaline Casts Urine Present /lpf; Ketones Urine Negative (Negative); Leukocyte Esterase Ur 1+ LEU/UL (Negative); Need Manual Microscopic Reviewed; Nitrate Urine Negative (Negative); Protein Urine 1+ mg/dL (Negative); Specific Grav Ur 1.013 (1.001-1.035); Squamous Epithelial Cell Urine Occasional /hpf (Few); WBC Urine 21-50 /hpf (0-3); pH Urine 8.5 (5.0-9.0)
[2024-05-16] MEDS: ONDANSETRON INJ 4 MG/2 ML VIAL IV PUSH (04:10)
[2024-05-16] MEDS: SODIUM CHLORIDE 0.9% IV 1,000 ML 999 ML IV CONT (04:10)
[2024-05-16 04:31] LABS: Influenza A QL RT-PCR Negative (Negative); Influenza B QL RT-PCR Negative (Negative); RSV RNA, RT-PCR Negative (Negative); SARS-CoV-2 RNA PCR Negative (Negative)
--- OUTSIDE RECORDS SUMMARY | 2024-05-16 04:42 | XMS_ITS | Clinical Summary ---
Author Organization [facility] Address [address] [place] [address] Phone Care Team Providers Care Licensed Physical Therapist Name Role Phone Juan Wilkinson MD Primary [...] History Date Comments Lymphoma (HCC) Cervical cancer (HCC) Hypercholesteremia Family History Medical History Relation [...] on file Legal Sex Female 12:30 AM COMMUNICATIONS DEPARTMENT CHAIRPERSON Gender Identity Not on file Sexual Orientation Not on file Obstetrics History Last Filed Vital Signs Vital Sign Reading Time Taken Comments Blood Pressure 137/71 01/24/2024 11:40 AM COMMUNICATIONS DEPARTMENT CHAIRPERSON Pulse 68 01/24/2024 11:40 AM COMMUNICATIONS DEPARTMENT CHAIRPERSON Temperature 36.4 C (97.5 F) 01/24/2024 11:40 AM COMMUNICATIONS DEPARTMENT CHAIRPERSON Respiratory Rate 16 01/24/2024 11:40 AM COMMUNICATIONS DEPARTMENT CHAIRPERSON Oxygen Saturation 98% 01/24/2024 11:40 AM COMMUNICATIONS DEPARTMENT CHAIRPERSON Inhaled Oxygen Concentration - - Weight 68.1 kg (150 lb 3.2 oz) 01/24/2024 11:40 AM COMMUNICATIONS DEPARTMENT CHAIRPERSON Height 177.8 cm (5' 10 ) 01/25/2023 1:48 PM COMMUNICATIONS DEPARTMENT CHAIRPERSON Body Mass Index 21.55 01/25/2023 1:48 PM COMMUNICATIONS DEPARTMENT CHAIRPERSON Plan of Treatment Health Maintenance Due Date [...] , 02/01/2022, Additional history exists Insurance MEDICARE AET SENIOR SUPPLEMENT MEDICARE AET SENIOR SUPPLEMENT Care Teams Licensed Physical Therapist Relationship Specialty Start Date End Date Juan Wilkinson MD PCP - General Family Practice 02/01/20
--- OUTSIDE RECORDS SUMMARY | 2024-05-16 04:42 | XMS_ITS | Referral Summary ---
Author Organization [facility] Address [address] [place] [address] Phone Care Team Providers Care Podiatry Teacher Name Role Phone Juan Wilkinson MD [...] on file Legal Sex Female 12:30 AM AUDIOVISUAL TECHNICIAN Gender Identity Not on file Sexual Orientation Not on file Last Filed Vital Signs Vital Sign Reading Time Taken Comments Blood Pressure 137/71 01/24/2024 11:40 AM AUDIOVISUAL TECHNICIAN Pulse 68 01/24/2024 11:40 AM AUDIOVISUAL TECHNICIAN Temperature 36.4 C (97.5 F) 01/24/2024 11:40 AM AUDIOVISUAL TECHNICIAN Respiratory Rate 16 01/24/2024 11:40 AM AUDIOVISUAL TECHNICIAN Oxygen Saturation 98% 01/24/2024 11:40 AM AUDIOVISUAL TECHNICIAN Inhaled Oxygen Concentration - - Weight 68.1 kg (150 lb 3.2 oz) 01/24/2024 11:40 AM AUDIOVISUAL TECHNICIAN Height 177.8 cm (5' 10 ) 01/25/2023 1:48 PM AUDIOVISUAL TECHNICIAN Body Mass Index 21.55 01/25/2023 1:48 PM AUDIOVISUAL TECHNICIAN Plan of Treatment Not on file Insurance MEDICARE [facility] Address: [address] [address] [place] [address] [employer] SENIOR SUPPLEMENT MEDICARE [employer] SENIOR SUPPLEMENT Care Teams Podiatry Teacher Relationship Specialty Start Date End Date Juan Wilkinson MD PCP - General Family Practice 02/01/20
--- NOTE | 2024-05-16 05:59 | ED_ITS ---
HPI - General Adult General Chief complaint: Abdominal Pain Stated complaint: abd pain Time Seen by Provider: 05/16/24 03:52 History of Present Illness HPI narrative: Patient 78-year-old female who presents emergency department with chief complaint of abdominal pain patient reports started in the right lower quadrant reports that started around 8:00 p.m. also had some vomiting with this the patient reports that she has had no diarrhea or constipation patient proves treated last week for upper respiratory infection and also had recently been treated for UTI and is currently on cefdinir Related Data Home Medications ?Medication ?Instructions ?Recorded ?Confirmed ?Last Taken ?Type multivitamin 1 cap PO DAILY 09/05/19 05/16/24 05/15/24 08:00 History lactobacillus combination no.8 3 3,000 mmu cells PO DAILY 10/30/19 05/16/24 05/15/24 08:00 History billion cell capsule (Adult Probiotic) cholecalciferol (vitamin D3) 50 50 mcg PO DAILY 08/04/20 05/16/24 05/14/24 14:30 History mcg (2,000 unit) capsule cranberry 400 mg capsule 400 mg PO BID 12/05/23 05/16/24 05/15/24 10:31 History famotidine 20 mg tablet 20 mg PO DAILY PRN heartburn 03/27/24 05/16/24 Unknown History simvastatin 20 mg tablet 20 mg PO QPM 05/16/24 05/16/24 05/14/24 20:26 History Allergies Allergy/AdvReac Type Severity Reaction Status Date / Time clarithromycin Allergy Severe RASH,DIARRH Verified 03/27/24 07:40 EA Penicillins Allergy Intermediate hives Verified 05/15/24 23:50 azithromycin Allergy Unknown Diarrhea Verified 05/15/24 23:50 Sulfa (Sulfonamide Allergy Unknown Hives Verified 05/15/24 23:50 Antibiotics) peanut AdvReac Intermediate Abdominal Verified 03/27/24 10:14 Pain Cephalosporins AdvReac Unknown Diarrhea Verified 05/15/24 23:50 ciprofloxacin AdvReac Unknown diarrhea Verified 05/15/24 23:50 Review of Systems 2 Review of Systems: A 10 system review of systems was completed on the patient and is negative except for what is stated in the HPI. Nursing and ancillary documentation was reviewed. 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 Code status: Full code. Smoking packs per day: 1 Smoking cigarettes per day: 20.0 Years smoked: 25 Smoking pack-years: 25.00 Smoking status: Current every day smoker Tobacco type: e-cigarettes/vaping Alcohol intake: never Alcohol use details: socially Substance use: never Substance use type: does not use Do You Feel Safe in your Home?: Yes Lack of Transportation: No Lack of Food: Never True Current Housing: I Have Housing Concerned About Future Housing: No Difficulty Paying Gas/Electric Bills: No Difficulty Paying for Meds: No Currently Unemployed: No Education: High School Diploma/GED Difficulty w/ Childcare or Family Care: No Living arrangements: alone Occupation/Education: retired Spiritual care concerns: No (samaritan) Agree to blood products: Yes Exam 2 Narrative: GENERAL: Well-appearing, well-nourished, and in no acute distress. HEAD: Normocephalic, atraumatic. EYES: PERRLA and EOMI. ENT: Nares clear, no rhinorrhea or epistaxis. Mucous membranes moist. NECK: Supple. CHEST: Clear to auscultation. No respiratory distress. HEART: Regular rate and rhythm. No murmur heard. Normal peripheral pulses. ABDOMEN: Soft, nontender, nondistended, normal active bowel sounds. EXTREMITIES: Normal range of motion. No edema. SKIN: Warm, dry, no rash. NEURO: No focal deficits. Alert and oriented x3. PSYCH: Normal mood and affect. Course Vital Signs Vital signs: Vital Signs Temperature 36.8 C 05/15/24 23:55 Pulse Rate 79 05/15/24 23:55 Respiratory Rate 20 05/15/24 23:55 Blood Pressure 119/75 05/15/24 23:55 Pulse Oximetry 96 05/15/24 23:55 Oxygen Delivery Room Air 05/15/24 23:55 Temperature 36.9 C 05/16/24 21:03 Pulse Rate 68 05/16/24 21:03 Respiratory Rate 18 05/16/24 21:03 Blood Pressure 134/52 L 05/16/24 21:03 Pulse Oximetry 96 05/16/24 21:03 Oxygen Delivery Room Air 05/16/24 18:36 Medical Decision Making MDM Narrative Medical decision making narrative: Differential diagnosis includes biliary colic choledocholithiasis, intra- abdominal infection, Laboratory studies were obtained on the patient showed a white count of 9.9 electrolytes showed a bilirubin of 2.5 AST and ALT were elevated at 548 and 226 urinalysis showed 21-[address] scan did show evidence of thickening of the gallbladder the patient was started on ceftriaxone and Flagyl as she has significant allergies The case was discussed with GI and surgery Vital Signs Vital Signs: Vital Signs Temperature 36.8 C 05/15/24 23:55 Pulse Rate 79 05/15/24 23:55 Respiratory Rate 20 05/15/24 23:55 Blood Pressure 119/75 05/15/24 23:55 Pulse Oximetry 96 05/15/24 23:55 Oxygen Delivery Room Air 05/15/24 23:55 Temperature 36.9 C 05/16/24 21:03 Pulse Rate 68 05/16/24 21:03 Respiratory Rate 18 05/16/24 21:03 Blood Pressure 134/52 L 05/16/24 21:03 Pulse Oximetry 96 05/16/24 21:03 Oxygen Delivery Room Air 05/16/24 18:36 Lab Data 05/16/24 03:48 05/16/24 03:48 Labs: Lab Results 05/16/24 05/16/24 Range/Units 03:48 03:54 WBC 9.9 (4.5-10.0) K/mm3 RBC 4.66 (4.2-5.4) M/mm3 Hgb 13.5 (12.0-15.0) g/dL Hct 40.4 (37.0-47.0) % MCV 86.7 (80-100) fl MCH 29.0 (26-34) pg MCHC 33.4 (32-36) g/dl RDW 13.0 (11.5-14.5) % Plt Count 172 (150-375) k/mm3 MPV 10.1 (7.4-10.4) fl Immature Gran % (Auto) 0.2 (0-0.5) % Neut % (Auto) 83.7 H (45.5-73.1) % Lymph % (Auto) 7.1 L (18.3-44.2) % [place] % (Auto) 8.7 H (2.6-8.5) % Eos % (Auto) 0.1 (0-4.4) % Baso % (Auto) 0.2 (0.2-1.2) % Lymph # (Auto) 0.70 L (0.9-3.2) K/mm3 [place] # (Auto) 0.9 H (0.1-0.6) K/mm3 Eos # (Auto) 0.0 (0-0.3) K/mm3 Baso # (Auto) 0.0 (0.0-0.1) K/mm3 Abs Immat Gran (auto) 0.02 (0.00-0.031) K/mm3 Absolute Neuts (auto) 8.3 H (1.3-6.7) K/mm3 Absolute Nucleated RBC 0.000 (0.0-0.012) K/mm3 Nucleated RBC % 0.0 (0.0-0.2) % Sodium 136 L (137-145) mmol/L Potassium 4.4 (3.4-5.0) mmol/L Chloride 98 (98-107) mmol/L Carbon Dioxide 27 (22-30) mmol/L Anion Gap 11 (4-12) mmol/L BUN 14 D (7-17) mg/dL Creatinine 0.72 (0.7-1.0) mg/dL Estim Creat Clear Calc 61 ml/min Estimated GFR > 60 (59 - ) Glucose 156 H (65-110) mg/dL Calcium 9.5 (8.4-10.2) mg/dL Total Bilirubin 2.5 H (0.2-1.3) mg/dL AST 548 H (14-36) U/L ALT 226 H (6-35) U/L Alkaline Phosphatase 167 H (38-126) U/L Total Protein 7.0 (6.3-8.2) g/dL Albumin 4.2 (3.5-5.1) g/dL Lipase 88 (23-300) U/L Urine Color Dark yellow (Yellow) Urine Appearance Clear (Clear) Urine pH 8.5 (5.0-9.0) Ur Specific [place] 1.013 (1.001-1.035) Urine Protein 1+ H (Negative) mg/dL Urine Glucose (UA) Negative (Negative) mg/dL Urine Ketones Negative (Negative) mg/dL Ur Blood (Man) Negative (Negative) Urine Nitrate Negative (Negative) Urine Bilirubin Negative (Negative) Urine Urobilinogen 1.0 (<2.0) mg/dL Add Ur Microanalysis Reviewed Leukocyte Esterase Rfl 1+ H (Negative) FACUNDO/UL Urine RBC 3-5 H (0-2) /hpf Urine WBC 21-50 H (0-3) /hpf Ur Squamous Epith Cells Occasional (Few) /hpf Urine Bacteria 2+ H /hpf Urine Casts 11-20 Hyaline Casts Present (None) /lpf Influenza A (RT-PCR) Negative (Negative) Influenza B (RT-PCR) Negative (Negative) RSV (RT-PCR) Negative (Negative) SARS-CoV-2 RNA (RT-PCR) Negative (Negative) Discharge Plan Discharge Clinical Impression: Abdominal pain, acute, right upper quadrant, Elevated liver enzymes Patient Disposition: Still a Patient Condition: Stable
[2024-05-16 07:14] VITALS: BP 106/42; PULSE 63; RESP 14; O2SAT 96
[2024-05-16 07:53] VITALS: BP 116/58; PULSE 66; RESP 18; O2SAT 97
--- NOTE | 2024-05-16 07:54 | P.HP_ITS ---
H&P: HPI History of Present Illness Date/Time: 05/16/24 07:54 Chief Complaint: Left flank pain. Narrative: 78-year-old female with history of of hypertension, hyperlipidemia, gastroesophageal reflux disease, non-Hodgkin lymphoma, and cervical cancer present ED with a chief complaint of right lower quadrant pain. Patient started have right lower quadrant pain of the 8:00 p.m. yesterday, associated based naus ea vomiting, patient does not have diarrhea. Patient denies headache, chest pain, shortness of breath, focal weakness. Patient was recently admitted hospital because of UTI pyelonephritis and hydronephrosis Patient was discharged home on March 29 with cefdinir. Upon arrival to ED, blood pressure stable on the lower side, afebrile, no O2 desaturation on room air. CBC unremarkable, chemistry showed increased total bilirubin 2.5, elevated liver enzymes, AST 548, ALT 226, alk-phos 167. CT showed a per portal edema and mild gallbladder wall thickening, midline ventral hernia containing several small bowel loops no bowel obstruction, moderate to severe bilateral hydronephrosis unchanged Review of Systems Review of Systems: 12 systems were reviewed and are negativ e except for as per HPI. 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 Code status: Full code. Smoking packs per day: 1 Smoking cigarettes per day: 20.0 Years smoked: 25 Smoking pack-years: 25.00 Smoking status: Current every day smoker Tobacco type: e-cigarettes/vaping Alcohol intake: never Alcohol use details: socially Substance use: never Substance use type: does not use Do You Feel Safe in your Home?: Yes Lack of Transportation: No Lack of Food: Never True Current Housing: I Have Housing Concerned About Future Housing: No Difficulty Paying Gas/Electric Bills: No Difficulty Paying for Meds: No Currently Unemployed: No Education: High School Diploma/GED Difficulty w/ Childcare or Family Care: No Living arrangements: alone Occupation/Education: retired Spiritual care concerns: No (holiness) Agree to blood products: Yes Meds Home Medications and Allergies Home Medications ?Medication ?Instructions ?Recorded ?Confirmed ?Type multivitamin 1 cap PO DAILY 09/05/19 05/16/24 History lactobacillus combination no.8 3 3,000 mmu cells PO DAILY 10/30/19 05/16/24 History billion cell capsule (Adult Probiotic) cholecalciferol (vitamin D3) 50 50 mcg PO DAILY 08/04/20 05/16/24 History mcg (2,000 unit) capsule cranberry 400 mg capsule 400 mg PO BID 12/05/23 05/16/24 History famotidine 20 mg tablet 20 mg PO DAILY PRN heartburn 03/27/24 05/16/24 History cefdinir 300 mg capsule 300 mg PO Q12H #8 caps 03/29/24 05/16/24 Rx simvastatin 20 mg tablet 20 mg PO QPM 05/16/24 05/16/24 History Allergies Allergy/AdvReac Type Severity Reaction Status Date / Time clarithromycin Allergy Severe RASH,DIARRH Verified 03/27/24 07:40 EA Penicillins Allergy Intermediate hives Verified 05/15/24 23:50 azithromycin Allergy Unknown Diarrhea Verified 05/15/24 23:50 Sulfa (Sulfonamide Allergy Unknown Hives Verified 05/15/24 23:50 Antibiotics) peanut AdvReac Intermediate Abdominal Verified 03/27/24 10:14 Pain Cephalosporins AdvReac Unknown Diarrhea Verified 05/15/24 23:50 ciprofloxacin AdvReac Unknown diarrhea Verified 05/15/24 23:50 Vital Signs Vital Signs - 24 hr 05/15/24 23:55 05/16/24 07:14 05/16/24 07:53 Temperature 98.3 F Pulse Rate 79 63 66 Respiratory Rate 20 14 18 Blood Pressure 119/75 106/42 L 116/58 L Pulse Oximetry 96 96 97 Oxygen Delivery Room Air Exam Narrative: GENERAL: Ill-appearing in no acute distress. Well-nourished. - EYES: EOMI. Anicteric. - HENT: Moist mucous membranes. - LUNGS: Clear to auscultation bilateral ly, no wheezing, rhonchi, or rales. - CARDIOVASCULAR: Regular rate and rhyth m. No murmur. No JVD. - ABDOMEN: Soft, right abdominal tender and non-distended. No palpable masses. - EXTREMITIES: No edema. Peripheral puls es 2+. Non-tender. - NEUROLOGIC: No focal neurological defi cits. CN II-XII grossly intact. - PSYCHIATRIC: Awake, Alert and oriented x 3. Appropriate mood and affect. - SKIN: No rashes or lesions. Warm. - LYMPH: No cervical lymphadenopathy. H&P: Results Labs Labs: Short CBC 05/16/24 Range/Units 03:48 WBC 9.9 (4.5-10.0) K/mm3 Hgb 13.5 (12.0-15.0) g/dL Hct 40.4 (37.0-47.0) % Plt Count 172 (150-375) k/mm3 BMP 05/16/24 03:48 Sodium 136 L Potassium 4.4 Chloride 98 Carbon Dioxide 27 BUN 14 D Creatinine 0.72 Glucose 156 H Calcium 9.5 Liver Function 05/16/24 Range/Units 03:48 Total Bilirubin 2.5 H (0.2-1.3) mg/dL AST 548 H (14-36) U/L ALT 226 H (6-35) U/L Alkaline Phosphatase 167 H (38-126) U/L Albumin 4.2 (3.5-5.1) g/dL Urine 05/16/24 Range/Units 03:54 Urine Color Dark yellow (Yellow) Urine Appearance Clear (Clear) Urine pH 8.5 (5.0-9.0) Ur Specific [place] 1.013 (1.001-1.035) Urine Protein 1+ H (Negative) mg/dL Urine Glucose (UA) Negative (Negative) mg/dL Assessment and Plan Assessment and plan (1) Urinary tract infection: Code(s): N39.0 - Urinary tract infection, site not specified Status: Inactive (2) Bilateral hydronephrosis: Code(s): N13.30 - Unspecified hydronephrosis Status: Acute (3) Abdominal wall hernia: Code(s): K43.9 - Ventral hernia without obstruction or gangrene Status: Acute (4) Right lateral abdominal pain: Code(s): R10.9 - Unspecified abdominal pain Status: Acute Plan Right lateral abdomen pain, elevated liver enzymes Patient had a sudden onset abdomen pain since yesterday evening, associated with nausea vomiting chemistry showed increased total bilirubin 2.5, elevated liver enzymes, AST 548, ALT 226, alk-phos 167. CT showed a per portal edema and mild gallbladder wall thickening Suspecting biliary obstruction, acute cholangitis? Patient received ceftriaxone and metronidazole in the ED, patient is allergic to penicillin and cephalosporin change to meropenem 1 g q.8 hour Pending MRCP Keep patient p.o. Start fluid resuscitation Consult GI and general surgeon for evaluation treatment Abdominal hernia CT showed midline ventral hernia containing several small bowel loops no bowel obstruction Monitor Bilateral hydronephrosis CT scan showed moderate to severe bilateral hydronephrosis unchanged Follow urinalysis Essential hypertension Hold hypertension medication blood pressure on lower side Hold rest home medication during p.o. Quality VTE Prophylaxis VTE prophylaxis: pharmacologic ordered The patient has been admitted under observation status. Hospitalist [facility] Advance Care Plan I have confirmed that the patient's Advanced Care Plan is present, code status is documented, or surrogate decision maker is listed in patient medical record.: Yes Medication Reconciliation I have utilized all available resources to obtain, update and review the patients current medications (includes all prescriptions, OTC, herbals, cannabis, and nutritional supplements).: Yes
[2024-05-16 08:40] VITALS: BP 119/49; PULSE 63; RESP 16; TEMP 36.4; O2SAT 98
[2024-05-16 10:01] VITALS: BMI 21.4
--- NOTE | 2024-05-16 10:06 | PM.CNGS ---
Assessment and Plan Assessment and plan (1) Right upper quadrant pain: Code(s): R10.11 - Right upper quadrant pain Status: Acute Assessment and Plan: Patient presents with postprandial right upper quadrant abdominal pain last night. CT scan of the abdomen and pelvis showed some periportal edema with mild gallbladder wall thickening, but no gallstones evident on CT. LFTs are elevated with a total bilirubin of 2.5. No biliary dilation on CT scan. GI has been consulted. MRCP has been ordered. We will await the results of the MRCP to determine further planning. (2) Transaminitis: Code(s): R74.01 - Elevation of levels of liver transaminase levels Status: Acute Assessment and Plan: See plan above. GI has been consulted. If MRCP shows cholelithiasis with choledocholithiasis, then patient would need ERCP and interval cholecystectomy. (3) Abnormal CT of the abdomen: Code(s): R93.5 - Abnormal findings on diagnostic imaging of other abdominal regions, including retroperitoneum Status: Acute (4) Incisional hernia: Code(s): K43.2 - Incisional hernia without obstruction or gangrene Status: Chronic Assessment and Plan: Patient has a lower abdominal incisional hernia from her hysterectomy incision. This hernia is chronic, asymptomatic, and reducible. There is no indication for urgent surgical management. Patient has been aware of the hernia for many years and has opted to avoid any surgery and monitor the hernia. (5) HTN (hypertension): Onset Date: 07/25/15 Qualifiers: Hypertension type: essential hypertension Qualified Code(s): I10 - Essential (primary) hypertension Code(s): I10 - Essential (primary) hypertension Status: Acute (6) History of non-Hodgkin's lymphoma: Code(s): Z85.72 - Personal history of non-Hodgkin lymphomas Status: Acute Assessment and Plan: Diagnosed with non-Hodgkin's lymphoma 17 years ago and treated with chemotherapy. Continues to follow with oncology yearly. (7) Hx of cervical cancer: Onset Date: ~1996 Code(s): Z85.41 - Personal history of malignant neoplasm of cervix uteri Status: Acute Assessment and Plan: Status post total abdominal hysterectomy over 20 years ago Plan I have discussed the patient's case and plan of care with Dr. Olivas. Thank you for allowing us to see the patient in consultation and we will continue to follow along with you. History of Present Illness Consult details Consult date: 05/16/24 Reason for consult: other (Right upper quadrant pain, elevated liver enzymes) Requesting physician: Jesus Colvin MD Narrative: This is a 78-year-old woman with PMH hyperlipidemia, recurrent UTIs, and GERD, who we have been asked to see in surgical consultation for right upper quadrant abdominal pain and elevated liver enzymes. She reports testing positive for influenza 9 days ago. She had a cough with malaise and generalized weakness. She reports having abdominal soreness over the past week from all the coughing. She actually began to feel better yesterday, and about 3 hours after eating dinner, she developed right upper quadrant abdominal pain. This was different than the abdominal soreness she had been experiencing. She had eaten poached eggs, yogurt, and applesauce for dinner. She tried taking Pepto-Bismol without relief. Due to her persistent pain, she came into the ED for evaluation. Vital signs are stable in the ED. Labs showed a white blood cell count of 9900, total bilirubin 2.5, AST 548, ALT 226, alk-phos 167, and lipase 88. CT scan of the abdomen and pelvis showed periportal edema with mild gallbladder wall thickening, no CT evident gallstones, low midline ventral hernia containing several small bowel loops without obstruction or bowel wall thickening, and moderate to severe bilateral hydronephrosis that is unchanged from previous CT in March. She was admitted in this setting. GI was also consulted. MRCP has been ordered. She reports having what she thought was a gallbladder attack about 10 years ago. She denies ever being told she has gallstones. There is a right upper quadrant abdominal ultrasound from 2017 in her EMR that showed an 8 mm gallbladder polyp, but no evident cholelithiasis. She reports having 2 previous , as well as a total abdominal hysterectomy 27 years ago for cervical cancer. She also has a history of non-Hodgkin's lymphoma that was treated with chemotherapy about 17 years ago. This morning, she reports her abdominal pain has nearly resolved. She feels like tenderness in the right upper quadrant, but no abdominal pain. She is no longer feeling nauseous, but did vomit after arrival in the ED. She denies any dark-colored urine or acholic stools. 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 Code status: Full code. Smoking packs per day: 1 Smoking cigarettes per day: 20.0 Years smoked: 25 Smoking pack-years: 25.00 Smoking status: Former smoker Alcohol intake: never Alcohol use details: socially Substance use: never Substance use type: does not use Do You Feel Safe in your Home?: Yes Lack of Transportation: No Lack of Food: Never True Current Housing: I Have Housing Concerned About Future Housing: No Difficulty Paying Gas/Electric Bills: No Difficulty Paying for Meds: No Currently Unemployed: No Education: High School Diploma/GED Difficulty w/ Childcare or Family Care: No Living arrangements: alone Occupation/Education: retired 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) Agree to blood products: Yes Meds Home Medications and Allergies Home Medications ?Medication ?Instructions ?Recorded ?Confirmed ?Type multivitamin 1 cap PO DAILY 09/05/19 03/27/24 History lactobacillus combination no.8 3 3,000 mmu cells PO DAILY 10/30/19 03/27/24 History billion cell capsule (Adult Probiotic) cholecalciferol (vitamin D3) 50 50 mcg PO DAILY 08/04/20 03/27/24 History mcg (2,000 unit) capsule cranberry 400 mg capsule 400 mg PO BID 12/05/23 03/27/24 History simvastatin 20 mg tablet 20 mg PO DAILY #90 tabs 12/05/23 03/27/24 Rx famotidine 20 mg tablet 20 mg PO DAILY PRN heartburn 03/27/24 03/27/24 History cefdinir 300 mg capsule 300 mg PO Q12H #8 caps 03/29/24 Rx codeine 10 mg-guaifenesin 200 mg/5 5 ml PO Q8H PRN cough #200 mL 05/08/24 Rx mL oral liquid Allergies Allergy/AdvReac Type Severity Reaction Status Date / Time clarithromycin Allergy Severe RASH,DIARRH Verified 03/27/24 07:40 EA Penicillins Allergy Intermediate hives Verified 05/15/24 23:50 azithromycin Allergy Unknown Diarrhea Verified 05/15/24 23:50 Sulfa (Sulfonamide Allergy Unknown Hives Verified 05/15/24 23:50 Antibiotics) peanut AdvReac Intermediate Abdominal Verified 03/27/24 10:14 Pain Cephalosporins AdvReac Unknown Diarrhea Verified 05/15/24 23:50 ciprofloxacin AdvReac Unknown diarrhea Verified 05/15/24 23:50 Vital Signs Vital Signs - 24 hr 05/15/24 23:55 05/16/24 07:14 05/16/24 07:53 Temperature 98.3 F Pulse Rate 79 63 66 Respiratory Rate 20 14 18 Blood Pressure 119/75 106/42 L 116/58 L Pulse Oximetry 96 96 97 Oxygen Delivery Room Air Exam Const: General: comfortable and no acute distress Nutritional Appearance: average body habitus Orientation/consciousness: patient oriented x3 HENMT: Head: normocephalic and atraumatic Ears: hearing grossly normal bilaterally Mouth: Yes moist mucous membranes Eyes: General: appearance normal, both eyes and all related structures Pupils: Equal, round and reactive pupils present Neck: Neck: normal visual inspection and full ROM Resp: Effort & Inspection: no respiratory distress Auscultation: clear to auscultation bilaterally Cardio: Rate: regular rate Rhythm: regular rhythm Peripheral pulses: Peripheral pulses 2+ throughout GI: Inspection: non-distended and scar (lower midline) GI Palp: Yes Soft to palpation, Yes Tenderness to palpation present (GI) (Very mild tenderness in right upper quadrant), No Guarding due to palpation present (GI), Yes Hernia present (Mid lower incisional hernia that is soft and reducible) incisional (at midline hysterectomy scar) 3-10 cm and No Rebound tenderness present Auscultation: normal bowel sounds Skin: General skin exam: normal color Neuro: General: moves all extremities and no focal motor deficits Speech: normal speech Motor exam (neuro): 5/5 motor strength present throughout Extrem: General: normal to inspection and no edema Psych: Mental Status: mental status grossly normal Attitude: cooperative Insight: Good insight present (Psych) Judgement: Good judgement present (Psych) Results Labs 05/16/24 03:48 05/16/24 03:48 Labs: Abnormal lab results 05/16/24 05/16/24 Range/Units 03:48 03:54 Neut % (Auto) 83.7 H (45.5-73.1) % Lymph % (Auto) 7.1 L (18.3-44.2) % [place] % (Auto) 8.7 H (2.6-8.5) % Lymph # (Auto) 0.70 L (0.9-3.2) K/mm3 [place] # (Auto) 0.9 H (0.1-0.6) K/mm3 Absolute Neuts (auto) 8.3 H (1.3-6.7) K/mm3 Sodium 136 L (137-145) mmol/L Glucose 156 H (65-110) mg/dL Total Bilirubin 2.5 H (0.2-1.3) mg/dL AST 548 H (14-36) U/L ALT 226 H (6-35) U/L Alkaline Phosphatase 167 H (38-126) U/L Urine Protein 1+ H (Negative) mg/dL Leukocyte Esterase Rfl 1+ H (Negative) FACUNDO/UL Urine RBC 3-5 H (0-2) /hpf Urine WBC 21-50 H (0-3) /hpf Urine Bacteria 2+ H /hpf Diabetes panel 05/16/24 Range/Units 03:48 Sodium 136 L (137-145) mmol/L Potassium 4.4 (3.4-5.0) mmol/L Chloride 98 (98-107) mmol/L Carbon Dioxide 27 (22-30) mmol/L BUN 14 D (7-17) mg/dL Creatinine 0.72 (0.7-1.0) mg/dL Glucose 156 H (65-110) mg/dL Calcium 9.5 (8.4-10.2) mg/dL AST 548 H (14-36) U/L ALT 226 H (6-35) U/L Alkaline Phosphatase 167 H (38-126) U/L Total Protein 7.0 (6.3-8.2) g/dL Albumin 4.2 (3.5-5.1) g/dL Calcium panel 05/16/24 Range/Units 03:48 Calcium 9.5 (8.4-10.2) mg/dL Albumin 4.2 (3.5-5.1) g/dL Pituitary panel 05/16/24 Range/Units 03:48 Sodium 136 L (137-145) mmol/L Potassium 4.4 (3.4-5.0) mmol/L Chloride 98 (98-107) mmol/L Carbon Dioxide 27 (22-30) mmol/L BUN 14 D (7-17) mg/dL Creatinine 0.72 (0.7-1.0) mg/dL Glucose 156 H (65-110) mg/dL Calcium 9.5 (8.4-10.2) mg/dL Adrenal panel 05/16/24 Range/Units 03:48 Sodium 136 L (137-145) mmol/L Potassium 4.4 (3.4-5.0) mmol/L Chloride 98 (98-107) mmol/L Carbon Dioxide 27 (22-30) mmol/L BUN 14 D (7-17) mg/dL Creatinine 0.72 (0.7-1.0) mg/dL Glucose 156 H (65-110) mg/dL Calcium 9.5 (8.4-10.2) mg/dL Total Bilirubin 2.5 H (0.2-1.3) mg/dL AST 548 H (14-36) U/L ALT 226 H (6-35) U/L Alkaline Phosphatase 167 H (38-126) U/L Total Protein 7.0 (6.3-8.2) g/dL Albumin 4.2 (3.5-5.1) g/dL All other labs normal. Imaging Additional studies: ITS Impressions Abdomen/Pelvis CT 05/16/24 06:34 Impression: Periportal edema mild gallbladder wall thickening, nonspecific findings. Correlate with LFTs. Consider right upper quadrant ultrasound as indicated. Low midline ventral hernia containing several small bowel loops, as detailed above. No bowel obstruction or bowel wall thickening. Moderate to severe bilateral hydronephrosis, unchanged.
[2024-05-16] MEDS: MEROPENEM 1 GM/NS 100 ML 1 GM/100 ML BAG IVPB ×2 (10:24→17:34)
[2024-05-16] MEDS: SODIUM CHLORIDE 0.9% IV 1,000 ML 125 ML IV CONT ×2 (10:24→22:56)
--- NOTE | 2024-05-16 10:39 | ADMGEN ---
This patient, Salma Murray, was admitted to [facility] Surg Room 314-02. Patient/family oriented to hospital policies and general routines including ID bracelet, bed and alarms, visiting hours, pain management, procedures, bathroom and other care routines, personal items, smoking policy, room service/diet, and visiting hours. Information on how to activate the Rapid Response Team has been discussed. Patient/Family are encouraged to report perceived risks to care and to ask questions if they do not understand what they are told or what they should do.
[2024-05-16 10:44] LABS: Add Urine Microscopic? YES; Appearance Urine Clear (Clear); Bacteria Urine 3+ /hpf; Bilirubin Urine Negative (Negative); Blood Urine Negative (Negative); Color Urine Dark Yellow (Yellow); Glucose Urine UA Negative (Negative); Ketones Urine Negative (Negative); Leukocyte Esterase Ur 1+ LEU/UL (Negative); Nitrate Urine Positive (Negative); Non Pathogenic Casts 0-2; Protein Urine Negative (Negative); RBC Urine 0-2 /hpf (0-2); Specific Grav Ur 1.041 (1.001-1.035); Squamous Epithelial Cell Urine None Seen /hpf (Few); WBC Urine 21-50 /hpf (0-3); pH Urine 7.5 (5.0-9.0)
[2024-05-16 14:00] VITALS: BP 136/61; PULSE 60; RESP 14; TEMP 37.1; O2SAT 96
--- NOTE | 2024-05-16 14:00 | P.CONGI_ITS ---
Assessment and Plan Assessment and plan (1) Abnormal CT of the abdomen: Code(s): R93.5 - Abnormal findings on diagnostic imaging of other abdominal regions, including retroperitoneum Status: Acute Assessment and Plan: The patient's clinical presentation suggests possible microlithiasis or biliary sludge. MRI and MRCP imaging are pending to determine the optimal management strategy. If choledocholithiasis is identified, ERCP will be considered. In the absence of choledocholithiasis, laparoscopic cholecystectomy with intraoperative cholangiogram will be pursued. The surgical service has been consulted. In the interim, the patient will receive intravenous hydration, remain NPO, and be treated with antibiotics. GI Consult Note Consult date/time: 05/16/24 14:00 HPI: Salma Murray is a 78 year old female With no significant past medical history. During last week he was suffering from upper respiratory infection which slowly recovered. Yesterday, after lunch, she felt moderate to severe increasing worsening right lower quadrant and epigastric pain, not associated with fever, chills, nausea or vomiting. This morning she decided to come to the emergency room due to persistence of pain. She was found to have a thickened gallbladder and frankly abnormal transaminases. He was admitted for diagnosis and management. 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 Code status: Full code. Smoking packs per day: 1 Smoking cigarettes per day: 20.0 Years smoked: 25 Smoking pack-years: 25.00 Smoking status: Current every day smoker Tobacco type: e-cigarettes/vaping Alcohol intake: never Alcohol use details: socially Substance use: never Substance use type: does not use Do You Feel Safe in your Home?: Yes Lack of Transportation: No Lack of Food: Never True Current Housing: I Have Housing Concerned About Future Housing: No Difficulty Paying Gas/Electric Bills: No Difficulty Paying for Meds: No Currently Unemployed: No Education: High School Diploma/GED Difficulty w/ Childcare or Family Care: No Living arrangements: alone Occupation/Education: retired Spiritual care concerns: No (zoroastrianism) Agree to blood products: Yes Meds Home Medications and Allergies Home Medications ?Medication ?Instructions ?Recorded ?Confirmed ?Type multivitamin 1 cap PO DAILY 09/05/19 05/16/24 History lactobacillus combination no.8 3 3,000 mmu cells PO DAILY 10/30/19 05/16/24 History billion cell capsule (Adult Probiotic) cholecalciferol (vitamin D3) 50 50 mcg PO DAILY 08/04/20 05/16/24 History mcg (2,000 unit) capsule cranberry 400 mg capsule 400 mg PO BID 12/05/23 05/16/24 History famotidine 20 mg tablet 20 mg PO DAILY PRN heartburn 03/27/24 05/16/24 History cefdinir 300 mg capsule 300 mg PO Q12H #8 caps 03/29/24 05/16/24 Rx simvastatin 20 mg tablet 20 mg PO QPM 05/16/24 05/16/24 History Allergies Allergy/AdvReac Type Severity Reaction Status Date / Time clarithromycin Allergy Severe RASH,DIARRH Verified 03/27/24 07:40 EA Penicillins Allergy Intermediate hives Verified 05/15/24 23:50 azithromycin Allergy Unknown Diarrhea Verified 05/15/24 23:50 Sulfa (Sulfonamide Allergy Unknown Hives Verified 05/15/24 23:50 Antibiotics) peanut AdvReac Intermediate Abdominal Verified 03/27/24 10:14 Pain Cephalosporins AdvReac Unknown Diarrhea Verified 05/15/24 23:50 ciprofloxacin AdvReac Unknown diarrhea Verified 05/15/24 23:50 Vital Signs Vital Signs - 24 hr 05/15/24 23:55 05/16/24 07:14 05/16/24 07:53 Temperature 98.3 F Pulse Rate 79 63 66 Respiratory Rate 20 14 18 Blood Pressure 119/75 106/42 L 116/58 L Pulse Oximetry 96 96 97 Oxygen Delivery Room Air 05/16/24 08:40 Temperature 97.6 F Pulse Rate 63 Respiratory Rate 16 Blood Pressure 119/49 L Pulse Oximetry 98 Oxygen Delivery Exam 2 Const: General: cooperative and healthy appearing Resp: Effort & Inspection: normal respiratory effort and able to speak in complete sentences Auscultation: clear to auscultation bilaterally Cardio: Rate: regular rate Rhythm: regular rhythm GI: Inspection: normal to inspection GI Palp: No No hepatosplenomegaly present Auscultation: normal bowel sounds Rectal Exam: deferred Skin: General skin exam: normal color Psych: Appearance: grossly normal Mental Status: mental status grossly normal Results Labs 05/16/24 03:48 05/16/24 03:48 Labs: Short CBC 05/16/24 Range/Units 03:48 WBC 9.9 (4.5-10.0) K/mm3 Hgb 13.5 (12.0-15.0) g/dL Hct 40.4 (37.0-47.0) % Plt Count 172 (150-375) k/mm3 BMP 05/16/24 03:48 Sodium 136 L Potassium 4.4 Chloride 98 Carbon Dioxide 27 BUN 14 D Creatinine 0.72 Glucose 156 H Calcium 9.5 Liver Function 05/16/24 Range/Units 03:48 Total Bilirubin 2.5 H (0.2-1.3) mg/dL AST 548 H (14-36) U/L ALT 226 H (6-35) U/L Alkaline Phosphatase 167 H (38-126) U/L Albumin 4.2 (3.5-5.1) g/dL Urine 05/16/24 05/16/24 Range/Units 03:54 10:07 Urine Color Dark yellow Dark yellow (Yellow) Urine Appearance Clear Clear (Clear) Urine pH 8.5 7.5 (5.0-9.0) Ur Specific [place] 1.013 1.041 H (1.001-1.035) Urine Protein 1+ H Negative (Negative) mg/dL Urine Glucose (UA) Negative Negative (Negative) mg/dL
[2024-05-16 21:03] VITALS: BP 134/52; PULSE 68; RESP 18; TEMP 36.9; O2SAT 96
[2024-05-17] VITALS (11 sets, daily range): BP systolic 132–174; BP diastolic 52–90; PULSE 63–88; RESP 16–20; TEMP 36.3–37; O2SAT 93–100
[2024-05-17] MEDS: MEROPENEM 1 GM/NS 100 ML 1 GM/100 ML BAG IVPB ×3 (00:41→18:18)
[2024-05-17] MEDS: SODIUM CHLORIDE 0.9% IV 1,000 ML 125 ML IV CONT ×2 (05:45→18:27)
[2024-05-17 07:17] LABS: Basophils Percent Auto 0.1 % (0.2-1.2); Eosinophils Absolute Auto 0.1 K/mm3 (0-0.3); Eosinophils Percent Auto 0.9 % (0-4.4); Hematocrit 37.4 % (37.0-47.0); Immature Granulocyte Absolute 0.02 K/mm3 (0.00-0.031); Immature Granulocyte Percent A 0.3 % (0-0.5); Lymphocytes Absolute Auto 2.09 K/mm3 (0.9-3.2); Lymphocytes Percent Auto 30.6 % (18.3-44.2); Mean Corpuscular HGB Conc 32.1 g/dl (32-36); Mean Corpuscular Hemoglobin 28.7 pg (26-34); Mean Corpuscular Volume 89.5 fl (80-100); Mean Platelet Volume 10.7 fl (7.4-10.4); Monocytes Absolute Auto 0.6 K/mm3 (0.1-0.6); Monocytes Percent Auto 8.8 % (2.6-8.5); Neutrophils Percent Auto 59.3 % (45.5-73.1); Platelet Count Result 186 k/mm3 (150-375); Red Blood Count 4.18 M/mm3 (4.2-5.4); Red Cell Distribution Width 13.2 % (11.5-14.5); White Blood Count 6.8 K/mm3 (4.5-10.0)
[2024-05-17 07:33] LABS: Alanine Aminotransferase 216 U/L (6-35); Albumin Level 3.3 g/dL (3.5-5.1); Alkaline Phosphatase 191 U/L (38-126); Anion Gap 8 mmol/L (4-12); Aspartate Amino Transferase 265 U/L (14-36); Bilirubin,Total 1.5 mg/dL (0.2-1.3); Blood Urea Nitrogen 7 mg/dL (7-17); Calcium 8.4 mg/dL (8.4-10.2); Carbon Dioxide 24 mmol/L (22-30); Chloride 108 mmol/L (98-107); Estimated CRCL calculation 74 ml/min; Estimated Glomerular Filt Rate > 60; Glucose 93 mg/dL (65-110); Potassium 4.1 mmol/L (3.4-5.0); Sodium 140 mmol/L (137-145)
--- NOTE | 2024-05-17 09:07 | P.PNIM_ITS ---
Progress Note: A&P Assessment and Plan (1) Urinary tract infection: Code(s): N39.0 - Urinary tract infection, site not specified Status: Inactive (2) Bilateral hydronephrosis: Code(s): N13.30 - Unspecified hydronephrosis Status: Acute (3) Abdominal wall hernia: Code(s): K43.9 - Ventral hernia without obstruction or gangrene Status: Acute (4) Right lateral abdominal pain: Code(s): R10.9 - Unspecified abdominal pain Status: Acute Plan Right lateral abdomen pain, elevated liver enzymes Patient had a sudden onset abdomen pain since yesterday evening, associated with nausea vomiting chemistry showed increased total bilirubin 2.5, elevated liver enzymes, AST 548, ALT 226, alk-phos 167. CT showed a per portal edema and mild gallbladder wall thickening Suspecting biliary obstruction, acute cholangitis? Patient received ceftriaxone and metronidazole in the ED, patient is allergic to penicillin and cephalosporin change to meropenem 1 g q.8 hour MRCP 1. 8 mm stone in the common bile duct with common duct dilatation. 2. Periportal edema. Gallbladder wall thickening may be secondary to interstitial edema or acute or chronic cholecystitis. 3. Chronic bilateral moderate hydronephrosis. 4. 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 Keep patient p.o. 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 Follow-up with general surgeon as recommendation Hold rest home medication during p.o. Subjective Date/time seen: 05/17/24 09:07 Interval history: Patient is afebrile, blood pressure stable, MRCP showed 8 mm stone in the common bile duct with common duct dilatation. Also suspect acute or chronic cholecystitis. Patient feels better today, pain is improving, denies nausea vomiting Exam Narrative: GENERAL: Ill-appearing in no acute distress. Well-nourished. - EYES: EOMI. Anicteric. - HENT: Moist mucous membranes. - LUNGS: Clear to auscultation bilateral ly, no wheezing, rhonchi, or rales. - CARDIOVASCULAR: Regular rate and rhyth m. No murmur. No JVD. - ABDOMEN: Soft, right abdominal tender and non-distended. No palpable masses. - EXTREMITIES: No edema. Peripheral puls es 2+. Non-tender. - NEUROLOGIC: No focal neurological defi cits. CN II-XII grossly intact. - PSYCHIATRIC: Awake, Alert and oriented x 3. Appropriate mood and affect. - SKIN: No rashes or lesions. Warm. - LYMPH: No cervical lymphadenopathy. Objective Data Vital Signs Vital Signs: Vital Signs - 24 hr 05/16/24 14:00 05/16/24 18:36 05/16/24 21:03 Temperature 98.7 F 98.4 F Pulse Rate 60 68 Respiratory Rate 14 18 Blood Pressure 136/61 134/52 L Pulse Oximetry 96 96 Oxygen Delivery Room Air 05/17/24 05:29 Temperature 97.4 F L Pulse Rate 73 Respiratory Rate 18 Blood Pressure 132/52 L Pulse Oximetry 93 Oxygen Delivery Intake/Output Intake/Output: Intake & Output 05/14/24 05/15/24 05/16/24 05/17/24 23:59 23:59 23:59 23:59 Intake Total 2320 1202.1 Output Total 700 Balance 2320 502.1 Meds/Results Medications: Active Medications Generic Name Dose Route Start Last Admin Trade Name Freq PRN Reason Stop Dose Admin Sodium Chloride 1,000 mls @ 125 mls/hr 05/16/24 07:05 05/17/24 05:45 Normal Saline Iv IV CONT 125 mls/hr .Q8H ANDRE Administration Meropenem 1 gm in 100 mls @ 200 mls/hr 05/16/24 09:00 05/17/24 00:41 IVPB 200 mls/hr Q8H ANDRE Administration Morphine Sulfate 2 mg 05/16/24 07:05 Morphine Sulfate (*Crx) 2 Mg/Ml Inj IV PUSH Q2H PRN Pain Rated 7-10 Ondansetron HCl 4 mg 05/16/24 07:05 Ondansetron Inj 4 Mg/2 Ml Vial IV PUSH Q4H PRN Nausea Radiology Results: ITS Impressions Abdomen/Pelvis CT 05/16/24 06:34 Impression: Periportal edema mild gallbladder wall thickening, nonspecific findings. Correlate with LFTs. Consider right upper quadrant ultrasound as indicated. Low midline ventral hernia containing several small bowel loops, as detailed above. No bowel obstruction or bowel wall thickening. Moderate to severe bilateral hydronephrosis, unchanged. MRCP 05/17/24 08:11 IMPRESSION: 1. 8 mm stone in the common bile duct with common duct dilatation. 2. Periportal edema. Gallbladder wall thickening may be secondary to interstitial edema or acute or chronic cholecystitis. 3. Chronic bilateral moderate hydronephrosis. 4. 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 Labs Labs: Laboratory Results - last 24 hr 05/16/24 05/17/24 10:07 06:43 WBC 6.8 RBC 4.18 L Hgb 12.0 Hct 37.4 MCV 89.5 MCH 28.7 MCHC 32.1 RDW 13.2 Plt Count 186 MPV 10.7 H Immature Gran % (Auto) 0.3 Neut % (Auto) 59.3 Lymph % (Auto) 30.6 [place] % (Auto) 8.8 H Eos % (Auto) 0.9 Baso % (Auto) 0.1 L Lymph # (Auto) 2.09 [place] # (Auto) 0.6 Eos # (Auto) 0.1 Baso # (Auto) 0.0 Abs Immat Gran (auto) 0.02 Absolute Neuts (auto) 4.0 Absolute Nucleated RBC 0.000 Nucleated RBC % 0.0 Sodium 140 Potassium 4.1 Chloride 108 H Carbon Dioxide 24 Anion Gap 8 BUN 7 D Creatinine 0.58 L Estim Creat Clear Calc 74 Estimated GFR > 60 Glucose 93 Calcium 8.4 Total Bilirubin 1.5 H AST 265 H ALT 216 H Alkaline Phosphatase 191 H Total Protein 6.0 L Albumin 3.3 L Urine Color Dark yellow Urine Appearance Clear Urine pH 7.5 Ur Specific [place] 1.041 H Urine Protein Negative Urine Glucose (UA) Negative Urine Ketones Negative Ur Blood (Man) Negative Urine Nitrate Positive Urine Bilirubin Negative Urine Urobilinogen 1.0 Ur Leukocyte Esterase 1+ H Urine RBC 0-2 Urine WBC 21-50 H Ur Squamous Epith Cells None seen Urine Bacteria 3+ H Urine Casts 0-2
--- NOTE | 2024-05-17 10:53 | ECG_ITS ---
Test Date: 2024-05-17 11:51:56 Measurements Intervals [place] Rate: 64 P: 50 MA: 168 QRS: -27 QRSD: 116 T: -5 QT: 412 QTc: 428 Interpretive Statements SINUS RHYTHM LEFT ANTERIOR FASCICULAR BLOCK No previous ECG available for comparison Electronically Signed On 05-17-2024 14:07:58 IMPREGNATOR HELPER by Buddy Rodriguez M.D.
--- NOTE | 2024-05-17 11:38 | P.PNGS_ITS ---
Progress Note: A&P Assessment and Plan (1) Choledocholithiasis: Code(s): K80.50 - Calculus of bile duct without cholangitis or cholecystitis without obstruction Status: Acute Assessment and Plan: * MRCP showed a stone in the common bile duct, but no cholelithiasis. She is scheduled for ERCP today. (2) Transaminitis: Code(s): R74.01 - Elevation of levels of liver transaminase levels Status: Acute Assessment and Plan: * Bilirubin down today. Likely related to choledocholithiasis. ERCP scheduled for today. (3) Abnormal CT of the abdomen: Code(s): R93.5 - Abnormal findings on diagnostic imaging of other abdominal regions, including retroperitoneum Status: Acute (4) Incisional hernia: Code(s): K43.2 - Incisional hernia without obstruction or gangrene Status: Chronic Plan I have discussed the patient's case and plan of care with Dr. Olivas. Subjective Subjective Date/Time Seen: 05/17/24 11:38 Patient reports: no new complaints, feels better, voiding w/o difficulty and afebrile Interval history: Patient doing well today with no complaints. Denies abdominal pain, nausea, vomiting. LFTs trending down. Exam Const: General: comfortable and no acute distress GI: Inspection: non-distended GI Palp: Yes Soft to palpation, No Tenderness to palpation present (GI), No Guarding due to palpation present (GI) and No Rebound tenderness present Auscultation: normal bowel sounds Objective Data Vital Signs Vital Signs: Vital Signs - 24 hr 05/16/24 14:00 05/16/24 18:36 05/16/24 21:03 Temperature 98.7 F 98.4 F Pulse Rate 60 68 Respiratory Rate 14 18 Blood Pressure 136/61 134/52 L Pulse Oximetry 96 96 Oxygen Delivery Room Air 05/17/24 05:29 Temperature 97.4 F L Pulse Rate 73 Respiratory Rate 18 Blood Pressure 132/52 L Pulse Oximetry 93 Oxygen Delivery Intake/Output Intake/Output: Intake & Output 05/14/24 05/15/24 05/16/24 05/17/24 23:59 23:59 23:59 23:59 Intake Total 2320 1520.1 Output Total 700 Balance 2320 820.1 Meds/Results Medications: Active Medications Generic Name Dose Route Start Last Admin Trade Name Freq PRN Reason Stop Dose Admin Sodium Chloride 1,000 mls @ 125 mls/hr 05/16/24 07:05 05/17/24 05:45 Normal Saline Iv IV CONT 125 mls/hr .Q8H ANDRE Administration Meropenem 1 gm in 100 mls @ 200 mls/hr 05/16/24 09:00 05/17/24 09:57 IVPB Infused Q8H ANDRE Infusion Morphine Sulfate 2 mg 05/16/24 07:05 Morphine Sulfate (*Crx) 2 Mg/Ml Inj IV PUSH Q2H PRN Pain Rated 7-10 Ondansetron HCl 4 mg 05/16/24 07:05 Ondansetron Inj 4 Mg/2 Ml Vial IV PUSH Q4H PRN Nausea Radiology Results: ITS Impressions Abdomen/Pelvis CT 05/16/24 06:34 Impression: Periportal edema mild gallbladder wall thickening, nonspecific findings. Correlate with LFTs. Consider right upper quadrant ultrasound as indicated. Low midline ventral hernia containing several small bowel loops, as detailed above. No bowel obstruction or bowel wall thickening. Moderate to severe bilateral hydronephrosis, unchanged. MRCP 05/17/24 08:11 IMPRESSION: 1. 8 mm stone in the common bile duct with common duct dilatation. 2. Periportal edema. Gallbladder wall thickening may be secondary to interstitial edema or acute or chronic cholecystitis. 3. Chronic bilateral moderate hydronephrosis. 4. 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 Labs Labs: Laboratory Results - last 24 hr 05/17/24 06:43 WBC 6.8 RBC 4.18 L Hgb 12.0 Hct 37.4 MCV 89.5 MCH 28.7 MCHC 32.1 RDW 13.2 Plt Count 186 MPV 10.7 H Immature Gran % (Auto) 0.3 Neut % (Auto) 59.3 Lymph % (Auto) 30.6 [place] % (Auto) 8.8 H Eos % (Auto) 0.9 Baso % (Auto) 0.1 L Lymph # (Auto) 2.09 [place] # (Auto) 0.6 Eos # (Auto) 0.1 Baso # (Auto) 0.0 Abs Immat Gran (auto) 0.02 Absolute Neuts (auto) 4.0 Absolute Nucleated RBC 0.000 Nucleated RBC % 0.0 Sodium 140 Potassium 4.1 Chloride 108 H Carbon Dioxide 24 Anion Gap 8 BUN 7 D Creatinine 0.58 L Estim Creat Clear Calc 74 Estimated GFR > 60 Glucose 93 Calcium 8.4 Total Bilirubin 1.5 H AST 265 H ALT 216 H Alkaline Phosphatase 191 H Total Protein 6.0 L Albumin 3.3 L
[2024-05-17] MEDS: LACTATED RINGERS 1,000 ML 150 ML IV CONT (13:39)
[2024-05-17] MEDS: INDOMETHACIN 50 MG SUPP.RECT 100 MG RECTAL (13:48)
--- NOTE | 2024-05-17 14:22 | WPDANESEPPF ---
Anes - Initial Pre Proc Eval Procedure: Operation Date: 05/17/24 14:00 Proposed Procedures p Endoscopic Retro Cholangiopancreatogram - Moo Salazar MD Date/Time: 05/17/24 14:22 Surgeon: Reyna Hensley DO Pre Op Diagnosis: Right upper quadrant pain elevated liver enzymes Patient Data Age: 78 Gender: F Height: 1.78 m Weight: 67.9 kg Last Vital Signs Temp 97.4 F L 05/17/24 13:34 Pulse 67 05/17/24 13:34 Resp 20 05/17/24 13:34 BP 150/60 H 05/17/24 13:34 Pulse Ox 96 05/17/24 13:34 O2 Del Method Room Air 05/17/24 13:34 Allergies Allergy/AdvReac Type Severity Reaction Status Date / Time clarithromycin Allergy Severe RASH,DIARRH Verified 05/17/24 13:28 EA Penicillins Allergy Intermediate hives Verified 05/17/24 13:28 azithromycin Allergy Unknown Diarrhea Verified 05/17/24 13:28 Sulfa (Sulfonamide Allergy Unknown Hives Verified 05/17/24 13:28 Antibiotics) peanut AdvReac Intermediate Abdominal Verified 05/17/24 13:28 Pain Cephalosporins AdvReac Unknown Diarrhea Verified 05/17/24 13:28 ciprofloxacin AdvReac Unknown diarrhea Verified 05/17/24 13:28 Home Medications ?Medication ?Instructions ?Recorded ?Confirmed ?Type multivitamin 1 cap PO DAILY 09/05/19 05/16/24 History lactobacillus combination no.8 3 3,000 mmu cells PO DAILY 10/30/19 05/16/24 History billion cell capsule (Adult Probiotic) cholecalciferol (vitamin D3) 50 50 mcg PO DAILY 08/04/20 05/16/24 History mcg (2,000 unit) capsule cranberry 400 mg capsule 400 mg PO BID 12/05/23 05/16/24 History famotidine 20 mg tablet 20 mg PO DAILY PRN heartburn 03/27/24 05/16/24 History cefdinir 300 mg capsule 300 mg PO Q12H #8 caps 03/29/24 05/16/24 Rx simvastatin 20 mg tablet 20 mg PO QPM 05/16/24 05/16/24 History Laboratory Tests 05/17/24 06:43 WBC 6.8 K/mm3 (4.5-10.0) RBC 4.18 L M/mm3 (4.2-5.4) Hgb 12.0 g/dL (12.0-15.0) Hct 37.4 % (37.0-47.0) MCV 89.5 fl (80-100) MCH 28.7 pg (26-34) MCHC 32.1 g/dl (32-36) RDW 13.2 % (11.5-14.5) Plt Count 186 k/mm3 (150-375) MPV 10.7 H fl (7.4-10.4) Immature Gran % (Auto) 0.3 % (0-0.5) Neut % (Auto) 59.3 % (45.5-73.1) Lymph % (Auto) 30.6 % (18.3-44.2) Carbon % (Auto) 8.8 H % (2.6-8.5) Eos % (Auto) 0.9 % (0-4.4) Baso % (Auto) 0.1 L % (0.2-1.2) Lymph # (Auto) 2.09 K/mm3 (0.9-3.2) Carbon # (Auto) 0.6 K/mm3 (0.1-0.6) Eos # (Auto) 0.1 K/mm3 (0-0.3) Baso # (Auto) 0.0 K/mm3 (0.0-0.1) Abs Immat Gran (auto) 0.02 K/mm3 (0.00-0.031) Absolute Neuts (auto) 4.0 K/mm3 (1.3-6.7) Absolute Nucleated RBC 0.000 K/mm3 (0.0-0.012) Nucleated RBC % 0.0 % (0.0-0.2) Sodium 140 mmol/L (137-145) Potassium 4.1 mmol/L (3.4-5.0) Chloride 108 H mmol/L (98-107) Carbon Dioxide 24 mmol/L (22-30) Anion Gap 8 mmol/L (4-12) BUN 7 D mg/dL (7-17) Creatinine 0.58 L mg/dL (0.7-1.0) Estim Creat Clear Calc 74 ml/min Estimated GFR > 60 (59 - ) Glucose 93 mg/dL (65-110) Calcium 8.4 mg/dL (8.4-10.2) Total Bilirubin 1.5 H mg/dL (0.2-1.3) AST 265 H U/L (14-36) ALT 216 H U/L (6-35) Alkaline Phosphatase 191 H U/L (38-126) Total Protein 6.0 L g/dL (6.3-8.2) Albumin 3.3 L g/dL (3.5-5.1) Patient hx anesthesia problems: post op nausea/vomiting Family hx anesthesia problems: none Results Review: All pre-operative results and documents have been reviewed as part of the pre-operative evaluation. 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 Code status: Full code. Smoking packs per day: 1 Smoking cigarettes per day: 20.0 Years smoked: 25 Smoking pack-years: 25.00 Smoking status: Current every day smoker Tobacco type: e-cigarettes/vaping Alcohol intake: never Alcohol use details: socially Substance use: never Substance use type: does not use Do You Feel Safe in your Home?: Yes Lack of Transportation: No Lack of Food: Never True Current Housing: I Have Housing Concerned About Future Housing: No Difficulty Paying Gas/Electric Bills: No Difficulty Paying for Meds: No Currently Unemployed: No Education: High School Diploma/GED Difficulty w/ Childcare or Family Care: No Living arrangements: alone Occupation/Education: retired 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 ) Neurological: alert and oriented Last oral intake: >/= 8 hours ASA classification: II Emergent: no Anesthetic plan: proceed Anesthesia type and monitoring: general ETT and standard monitoring Results Review: All pre-operative results and documents have been reviewed as part of the pre-operative evaluation. Overall good health w biliary stone. Pt typically walks laps at [facility], no cp or sob. Pt had URI last week approx 7 days ago, still w residual occ cough. Informed Consent: The patient's anesthetic plan and its attendant risks and benefits were discussed with the patient/family/POA. Questions were solicited and answers provided to the satisfaction of the patient/family/POA.
--- NOTE | 2024-05-17 16:01 | SUR.PHASEII ---
Peripheral access right forearm Intraoperative amount given Waste amount: 800 Container volume: 200 Infusion rate: 150
--- NOTE | 2024-05-17 16:08 | SUR.PHASEII ---
Peripheral access right forearm True waste Waste amount: 150 Container volume: 0 Infusion rate: 150
--- NOTE | 2024-05-17 17:03 | WPDGIPROGNO ---
Progress Note: A&P Assessment and Plan (1) Choledocholithiasis: Code(s): K80.50 - Calculus of bile duct without cholangitis or cholecystitis without obstruction Status: Acute Assessment and Plan: MRCP has confirmed choledocholithiasis in this patient. While clinically stable, her altered duodenal/ampullary anatomy precluded successful ERCP. Given the complexity of the case, I consulted with Dr. Emre Sheppard at [facility], a tertiary care center specializing in challenging endoscopic procedures. She will be discharged this evening, and will be contacted her tomorrow morning to coordinate ERCP for the afternoon. The patient understands that she will return to our institution for laparoscopic cholecystectomy after the choledocholithiasis has been addressed. Time Spent With Patient Time with patient: 25 - 35 minutes Subjective Date/time seen: 05/17/24 17:03 Interval history: Patient does not have abdominal pain at this moment. No fever. Please see EGD/ attempted ERCP note. Objective Data Vital Signs Vital Signs: Vital Signs - 24 hr 05/16/24 18:36 05/16/24 21:03 05/17/24 05:29 Temperature 98.4 F 97.4 F L Pulse Rate 68 73 Respiratory Rate 18 18 Blood Pressure 134/52 L 132/52 L Pulse Oximetry 96 93 Oxygen Delivery Room Air Oxygen Flow Rate 05/17/24 08:00 05/17/24 13:34 05/17/24 15:31 Temperature 97.4 F L 97.7 F Pulse Rate 67 88 Respiratory Rate 20 20 Blood Pressure 150/60 H 164/90 H Pulse Oximetry 96 100 Oxygen Delivery Room Air Room Air Simple Face Mask Oxygen Flow Rate 10 05/17/24 15:41 05/17/24 15:51 05/17/24 16:01 Temperature Pulse Rate 77 70 70 Respiratory Rate 19 17 17 Blood Pressure 159/71 H 161/78 H 168/79 H Pulse Oximetry 100 99 96 Oxygen Delivery Simple Face Mask Room Air Room Air Oxygen Flow Rate 8 05/17/24 16:11 05/17/24 16:21 Temperature Pulse Rate 76 70 Respiratory Rate 16 16 Blood Pressure 174/76 H 171/73 H Pulse Oximetry 96 96 Oxygen Delivery Room Air Room Air Oxygen Flow Rate Intake/Output Intake/Output: Intake & Output 03/03/25 03/04/25 03/05/25 03/06/25 23:59 23:59 23:59 23:59 Intake Total 2320 1720.1 Output Total 700 Balance 2320 1020.1 Meds/Results Medications: Active Medications Generic Name Dose Route Start Last Admin Trade Name Freq PRN Reason Stop Dose Admin Sodium Chloride 1,000 mls @ 125 mls/hr 05/16/24 07:05 05/17/24 05:45 Normal Saline Iv IV CONT 125 mls/hr .Q8H ANDRE Administration Meropenem 1 gm in 100 mls @ 200 mls/hr 05/16/24 09:00 05/17/24 09:57 IVPB Infused Q8H ANDRE Infusion Morphine Sulfate 2 mg 05/16/24 07:05 Morphine Sulfate (*Crx) 2 Mg/Ml Inj IV PUSH Q2H PRN Pain Rated 7-10 Ondansetron HCl 4 mg 05/16/24 07:05 Ondansetron Inj 4 Mg/2 Ml Vial IV PUSH Q4H PRN Nausea Radiology Results: ITS Impressions Abdomen/Pelvis CT 05/16/24 06:34 Impression: Periportal edema mild gallbladder wall thickening, nonspecific findings. Correlate with LFTs. Consider right upper quadrant ultrasound as indicated. Low midline ventral hernia containing several small bowel loops, as detailed above. No bowel obstruction or bowel wall thickening. Moderate to severe bilateral hydronephrosis, unchanged. MRCP 05/17/24 08:11 IMPRESSION: 1. 8 mm stone in the common bile duct with common duct dilatation. 2. Periportal edema. Gallbladder wall thickening may be secondary to interstitial edema or acute or chronic cholecystitis. 3. Chronic bilateral moderate hydronephrosis. 4. 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 Labs Labs: Laboratory Results - last 24 hr 05/17/24 06:43 WBC 6.8 RBC 4.18 L Hgb 12.0 Hct 37.4 MCV 89.5 MCH 28.7 MCHC 32.1 RDW 13.2 Plt Count 186 MPV 10.7 H Immature Gran % (Auto) 0.3 Neut % (Auto) 59.3 Lymph % (Auto) 30.6 [place] % (Auto) 8.8 H Eos % (Auto) 0.9 Baso % (Auto) 0.1 L Lymph # (Auto) 2.09 [place] # (Auto) 0.6 Eos # (Auto) 0.1 Baso # (Auto) 0.0 Abs Immat Gran (auto) 0.02 Absolute Neuts (auto) 4.0 Absolute Nucleated RBC 0.000 Nucleated RBC % 0.0 Sodium 140 Potassium 4.1 Chloride 108 H Carbon Dioxide 24 Anion Gap 8 BUN 7 D Creatinine 0.58 L Estim Creat Clear Calc 74 Estimated GFR > 60 Glucose 93 Calcium 8.4 Total Bilirubin 1.5 H AST 265 H ALT 216 H Alkaline Phosphatase 191 H Total Protein 6.0 L Albumin 3.3 L
[2024-05-18] MEDS: MEROPENEM 1 GM/NS 100 ML 1 GM/100 ML BAG IVPB ×2 (02:08→08:00)
[2024-05-18] MEDS: SODIUM CHLORIDE 0.9% IV 1,000 ML 125 ML IV CONT (02:08)
[2024-05-18 05:54] VITALS: BP 149/61; PULSE 85; RESP 16; TEMP 36.6; O2SAT 95
[2024-05-18 06:34] LABS: Basophils Percent Auto 0.3 % (0.2-1.2); Eosinophils Absolute Auto 0.1 K/mm3 (0-0.3); Hematocrit 36.4 % (37.0-47.0); Hemoglobin 11.8 g/dL (12.0-15.0); Immature Granulocyte Absolute 0.03 K/mm3 (0.00-0.031); Immature Granulocyte Percent A 0.5 % (0-0.5); Lymphocytes Absolute Auto 1.93 K/mm3 (0.9-3.2); Mean Corpuscular HGB Conc 32.4 g/dl (32-36); Mean Corpuscular Hemoglobin 28.5 pg (26-34); Mean Corpuscular Volume 87.9 fl (80-100); Monocytes Absolute Auto 0.7 K/mm3 (0.1-0.6); Monocytes Percent Auto 11.6 % (2.6-8.5); Neutrophils Absolute Auto 3.1 K/mm3 (1.3-6.7); Neutrophils Percent Auto 53.6 % (45.5-73.1); Platelet Count Result 219 k/mm3 (150-375); Red Blood Count 4.14 M/mm3 (4.2-5.4); Red Cell Distribution Width 12.8 % (11.5-14.5); White Blood Count 5.9 K/mm3 (4.5-10.0)
--- NOTE | 2024-05-18 08:32 | PM.IMPN ---
Progress Note: A&P Assessment and Plan (1) Urinary tract infection: Code(s): N39.0 - Urinary tract infection, site not specified Status: Inactive (2) Bilateral hydronephrosis: Code(s): N13.30 - Unspecified hydronephrosis Status: Acute (3) Abdominal wall hernia: Code(s): K43.9 - Ventral hernia without obstruction or gangrene Status: Acute (4) Right lateral abdominal pain: Code(s): R10.9 - Unspecified abdominal pain Status: Acute Plan Right lateral abdomen pain, elevated liver enzymes Patient had a sudden onset abdomen pain since yesterday evening, associated with nausea vomiting chemistry showed increased total bilirubin 2.5, elevated liver enzymes, AST 548, ALT 226, alk-phos 167. CT showed a per portal edema and mild gallbladder wall thickening Suspecting biliary obstruction, acute cholangitis? Patient received ceftriaxone and metronidazole in the ED, patient is allergic to penicillin and cephalosporin change to meropenem 1 g q.8 hour MRCP 1. 8 mm stone in the common bile duct with common duct dilatation. 2. Periportal edema. Gallbladder wall thickening may be secondary to interstitial edema or acute or chronic cholecystitis. 3. Chronic bilateral moderate hydronephrosis. 4. 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 Keep patient p.o. Start fluid resuscitation Consult GI and general surgeon for evaluation treatment ERCP on 05/17 was not successful GI consulted with Dr. Emre Sheppard at [facility], a tertiary care center specializing in challenging endoscopic procedures. 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 Follow-up with general surgeon as recommendation Hold rest home medication during p.o. Subjective Date/time seen: 05/18/24 08:32 Interval history: Patient does not have abdominal pain at this moment. No fever. Please see EGD/ attempted ERCP note. Exam Narrative: GENERAL: Ill-appearing in no acute distress. Well-nourished. - EYES: EOMI. Anicteric. - HENT: Moist mucous membranes. - LUNGS: Clear to auscultation bilaterally, no wheezing, rhonchi, or rales. - CARDIOVASCULAR: Regular rate and rhythm. No murmur. No JVD. - ABDOMEN: Soft, right abdominal tender and non-distended. No palpable masses. - EXTREMITIES: No edema. Peripheral pulses 2+. Non-tender. - NEUROLOGIC: No focal neurological deficits. CN II-XII grossly intact. - PSYCHIATRIC: Awake, Alert and oriented x 3. Appropriate mood and affect. - SKIN: No rashes or lesions. Warm. - LYMPH: No cervical lymphadenopathy. Objective Data Vital Signs Vital Signs: Vital Signs - 24 hr 05/17/24 13:34 05/17/24 14:00 05/17/24 15:31 Temperature 97.4 F L 98.4 F 97.7 F Pulse Rate 67 63 88 Respiratory Rate 20 18 20 Blood Pressure 150/60 H 167/65 H 164/90 H Pulse Oximetry 96 93 100 Oxygen Delivery Room Air Simple Face Mask Oxygen Flow Rate 10 05/17/24 15:41 05/17/24 15:51 05/17/24 16:01 Temperature Pulse Rate 77 70 70 Respiratory Rate 19 17 17 Blood Pressure 159/71 H 161/78 H 168/79 H Pulse Oximetry 100 99 96 Oxygen Delivery Simple Face Mask Room Air Room Air Oxygen Flow Rate 8 05/17/24 16:11 05/17/24 16:21 05/17/24 21:25 Temperature 98.6 F Pulse Rate 76 70 68 Respiratory Rate 16 16 16 Blood Pressure 174/76 H 171/73 H 134/52 L Pulse Oximetry 96 96 95 Oxygen Delivery Room Air Room Air Oxygen Flow Rate 05/17/24 21:33 05/18/24 05:54 Temperature 97.9 F Pulse Rate 85 Respiratory Rate 16 Blood Pressure 149/61 H Pulse Oximetry 95 95 Oxygen Delivery Room Air Oxygen Flow Rate Intake/Output Intake/Output: Intake & Output 05/15/24 05/16/24 05/17/24 05/18/24 23:59 23:59 23:59 23:59 Intake Total 2320 2820.1 1410.4 Output Total 700 Balance 2320 2120.1 1410.4 Meds/Results Medications: Active Medications Generic Name Dose Route Start Last Admin Trade Name Freq PRN Reason Stop Dose Admin Sodium Chloride 1,000 mls @ 125 mls/hr 05/16/24 07:05 05/18/24 02:08 Normal Saline Iv IV CONT 125 mls/hr .Q8H ANDRE Administration Meropenem 1 gm in 100 mls @ 200 mls/hr 05/16/24 09:00 05/18/24 08:00 IVPB 200 mls/hr Q8H ANDRE Administration Morphine Sulfate 2 mg 05/16/24 07:05 Morphine Sulfate (*Crx) 2 Mg/Ml Inj IV PUSH Q2H PRN Pain Rated 7-10 Ondansetron HCl 4 mg 05/16/24 07:05 Ondansetron Inj 4 Mg/2 Ml Vial IV PUSH Q4H PRN Nausea Radiology Results: ITS Impressions Abdomen/Pelvis CT 05/16/24 06:34 Impression: Periportal edema mild gallbladder wall thickening, nonspecific findings. Correlate with LFTs. Consider right upper quadrant ultrasound as indicated. Low midline ventral hernia containing several small bowel loops, as detailed above. No bowel obstruction or bowel wall thickening. Moderate to severe bilateral hydronephrosis, unchanged. MRCP 05/17/24 08:11 IMPRESSION: 1. 8 mm stone in the common bile duct with common duct dilatation. 2. Periportal edema. Gallbladder wall thickening may be secondary to interstitial edema or acute or chronic cholecystitis. 3. Chronic bilateral moderate hydronephrosis. 4. 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 Labs Labs: Laboratory Results - last 24 hr 05/18/24 06:18 WBC 5.9 RBC 4.14 L Hgb 11.8 L Hct 36.4 L MCV 87.9 MCH 28.5 MCHC 32.4 RDW 12.8 Plt Count 219 MPV 10.0 Immature Gran % (Auto) 0.5 Neut % (Auto) 53.6 Lymph % (Auto) 33.0 [place] % (Auto) 11.6 H Eos % (Auto) 1.0 Baso % (Auto) 0.3 Lymph # (Auto) 1.93 [place] # (Auto) 0.7 H Eos # (Auto) 0.1 Baso # (Auto) 0.0 Abs Immat Gran (auto) 0.03 Absolute Neuts (auto) 3.1 Absolute Nucleated RBC 0.000 Nucleated RBC % 0.0
--- NOTE | 2024-05-18 08:35 | PM.DS ---
DS: Admitting Diagnosis Discharge Date 05/18/24 Admitting Diagnosis (1) Urinary tract infection: Code(s): N39.0 - Urinary tract infection, site not specified Status: Inactive (2) Bilateral hydronephrosis: Code(s): N13.30 - Unspecified hydronephrosis Status: Acute (3) Abdominal wall hernia: Code(s): K43.9 - Ventral hernia without obstruction or gangrene Status: Acute (4) Right lateral abdominal pain: Code(s): R10.9 - Unspecified abdominal pain Status: Acute DS: Discharge Diagnosis Discharge Diagnosis (1) Urinary tract infection: Code(s): N39.0 - Urinary tract infection, site not specified Status: Inactive (2) Bilateral hydronephrosis: Code(s): N13.30 - Unspecified hydronephrosis Status: Acute (3) Abdominal wall hernia: Code(s): K43.9 - Ventral hernia without obstruction or gangrene Status: Acute (4) Right lateral abdominal pain: Code(s): R10.9 - Unspecified abdominal pain Status: Acute DS: Summary Hospital Course Hospital Course: 78-year-old female with history of of hypertension, hyperlipidemia, gastroesophageal reflux disease, non-Hodgkin lymphoma, and cervical cancer present ED with a chief complaint of right lower quadrant pain. Patient started have right lower quadrant pain of the 8:00 p.m. yesterday, associated based nausea vomiting, patient does not have diarrhea. Patient denies headache, chest pain, shortness of breath, focal weakness. Patient was recently admitted hospital because of UTI pyelonephritis and hydronephrosis Patient was discharged home on March 29 with cefdinir. Upon arrival to ED, blood pressure stable on the lower side, afebrile, no O2 desaturation on room air. CBC unremarkable, chemistry showed increased total bilirubin 2.5, elevated liver enzymes, AST 548, ALT 226, alk-phos 167. CT showed a per portal edema and mild gallbladder wall thickening, midline ventral hernia containing several small bowel loops no bowel obstruction, moderate to severe bilateral hydronephrosis unchanged The following med issues have been addressed during hospitalization Right lateral abdomen pain, elevated liver enzymes Patient had a sudden onset abdomen pain since yesterday evening, associated with nausea vomiting chemistry showed increased total bilirubin 2.5, elevated liver enzymes, AST 548, ALT 226, alk-phos 167. CT showed a per portal edema and mild gallbladder wall thickening Suspecting biliary obstruction, acute cholangitis? Patient received ceftriaxone and metronidazole in the ED, patient is allergic to penicillin and cephalosporin change to meropenem 1 g q.8 hour MRCP 1. 8 mm stone in the common bile duct with common duct dilatation. 2. Periportal edema. Gallbladder wall thickening may be secondary to interstitial edema or acute or chronic cholecystitis. 3. Chronic bilateral moderate hydronephrosis. 4. 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 Keep patient p.o. Start fluid resuscitation Consult GI and general surgeon for evaluation treatment ERCP on 05/17 was not successful GI consulted with Dr. Emre Sheppard at [facility], a tertiary care center specializing in challenging endoscopic procedures. 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 Follow-up with general surgeon as recommendation Hold rest home medication during p.o. Time Spent with Patient Time attestation: Total time spent providing and/or coordinating discharge services: Exam Narrative: GENERAL: Ill-appearing in no acute distress. Well-nourished. - EYES: EOMI. Anicteric. - HENT: Moist mucous membranes. - LUNGS: Clear to auscultation bilaterally, no wheezing, rhonchi, or rales. - CARDIOVASCULAR: Regular rate and rhythm. No murmur. No JVD. - ABDOMEN: Soft, right abdominal tender and non-distended. No palpable masses. - EXTREMITIES: No edema. Peripheral pulses 2+. Non-tender. - NEUROLOGIC: No focal neurological deficits. CN II-XII grossly intact. - PSYCHIATRIC: Awake, Alert and oriented x 3. Appropriate mood and affect. - SKIN: No rashes or lesions. Warm. - LYMPH: No cervical lymphadenopathy. DS: Data Data Completed and Pending Labs on day of discharge: Labs from last 24 hours 05/18/24 06:18 WBC 5.9 RBC 4.14 L Hgb 11.8 L Hct 36.4 L MCV 87.9 MCH 28.5 MCHC 32.4 RDW 12.8 Plt Count 219 MPV 10.0 Immature Gran % (Auto) 0.5 Neut % (Auto) 53.6 Lymph % (Auto) 33.0 [place] % (Auto) 11.6 H Eos % (Auto) 1.0 Baso % (Auto) 0.3 Lymph # (Auto) 1.93 [place] # (Auto) 0.7 H Eos # (Auto) 0.1 Baso # (Auto) 0.0 Abs Immat Gran (auto) 0.03 Absolute Neuts (auto) 3.1 Absolute Nucleated RBC 0.000 Nucleated RBC % 0.0 Preliminary micro results at discharge 05/16/24 08:12 Blood Culture - Preliminary Blood 05/16/24 08:13 Blood Culture - Preliminary Blood Discharge Plan Discharge Attending physician on discharge: Tommy Xiao Consulting providers: Colin Olivas Discharging Clinician: Tommy Xiao Anticipated Discharge Date/Time: 05/18/24 08:36 Patient Disposition: Other Activity: as tolerated Diet: NPO Discharge Instructions: Follow up with Dr Olivas as outpatient. Patient Instructions: ERCP (Endoscopic Retrograde Cholangiopancreatography) (DC) Patient Language: [place] Stand Alone Forms: General Discharge Information Follow-up/Referrals: Jodee Wilkinson MD [Primary Care Provider] - (See PCP in 1 week after discharge from [facility]) Discharge Medications: Continued multivitamin Capsule 1 cap PO DAILY Adult Probiotic 3 billion cell capsule 3,000 mmu cells PO DAILY Rx Instructions: administer with a meal cholecalciferol (vitamin D3) 50 mcg (2,000 unit) capsule 50 mcg PO DAILY famotidine 20 mg tablet 20 mg PO DAILY PRN (Reason: heartburn) simvastatin 20 mg tablet 20 mg PO QPM Discontinued cranberry 400 mg capsule 400 mg PO BID Rx Instructions: administer with a meal cefdinir 300 mg capsule 300 mg PO Q12H Qty: 8 0RF Date of admission: 05/16/24 07:33 Primary Care Provider: Jodee Wilkinson Admitting Provider: Reyna Hensley Attending physician on admission: Reyna Hensley Condition: Stable
--- NOTE | 2024-05-18 09:20 | PC.NURSE ---
Patient discharged from here going to [facility] for ERCP. Dr Olivas office number and address given.
== END 2024-05-18 09:20 | disposition home or self-care (01) | DRG 445 ==
LOC: ANHED 05-16 04:40 → ANH3MEDSUR 05-16 15:40
PROVIDERS: Internal Medicine Gastroenterology; Admitting Provider Internal Medicine; Emergency Provider Emergency Medicine; PCP Family Medicine; Visit Provider Hospitalist
PROC: 0DJ08ZZ Inspection of Upper Intestinal Tract, Via Natural or Artificial Opening Endoscopic (ICD-10-PCS; CPT 43260; principal; 2024-05-17 14:00)
DX: K80.50 Calculus of bile duct without cholangitis or cholecystitis without obstruction (principal); K26.3 Acute duodenal ulcer without hemorrhage or perforation; N39.0 Urinary tract infection, site not specified; N13.30 Unspecified hydronephrosis; K57.10 Diverticulosis of small intestine without perforation or abscess without bleeding; I10 Essential (primary) hypertension; I89.0 Lymphedema, not elsewhere classified; K21.9 Gastro-esophageal reflux disease without esophagitis; K43.9 Ventral hernia without obstruction or gangrene; E78.2 Mixed hyperlipidemia; F17.210 Nicotine dependence, cigarettes, uncomplicated; Z20.822 Contact with and (suspected) exposure to COVID-19; Z85.41 Personal history of malignant neoplasm of cervix uteri; Z85.72 Personal history of non-Hodgkin lymphomas
CPT/HCPCS: 36415; 74177; 74183; 76376; 80053; 81001; 83690; 85025; 87040; 87086; 87186; 87637; 93005; 96361; 96365; 96368; 96375; 96376; 99199; 99285; A9270; A9577; J0330; J0696; J2003; J2185; J2405; J2704; J3010; J7030; J7120; Q9966; Q9967

== ENCOUNTER 2024-05-23 13:43 | Outpatient (CLI) | payer MEDICARE, SELFPAY ==
--- NOTE | ~2024-05-23 | XR_ITS ---
EXAMINATION: CYSTOGRAM DATE: 05/23/2024 14:53 INDICATION: Multiple urinary tract infections. TECHNIQUE: Initial water service supervisor radiograph of the pelvis was performed. There was retrograde administration of Omnipaque 350 mixed with saline contrast into patient's existi ng [place] catheter (700 cc total) . Fluoroscopic images of the pelvis were obtained. A post-void image was also performed. Fluoroscopy exposure time was pending minutes. DLP: pending mGy-cm FINDINGS: Financial Management imaging demonstrated a stent within the right upper quadrant, presumably within patie nt's common bile duct. Air opacification of the cecum is suspected. No additional abnormality is appreciated. Multiple clips are identified projecting over the bilateral iliac chains. Bladder distention was visualized after contrast instillation. No reflux is detected into the bilateral ureters. Postevacuation imaging demonstrated complete evacuation without residual contrast. IMPRESSION: No reflux with significant bladder distention is detected bilaterally. Complete evacuation without residual. Reviewed, dictated and finalized at location A.
--- OUTSIDE RECORDS SUMMARY | 2024-05-23 15:23 | XMS_ITS | Clinical Summary ---
Author Organization [facility] Address [address] [place] [address] Care Team Providers Care Premium Note Interest Calculator Clerk Name Role Phone Unavailable Primary Care Provider Unavailabl e Source Comments [facility],non-owned Affiliates and Associated Physician Practices is amultiple site organization consisting of ambulatory clinics and hospital sitesin [place], [place], [place] and [place]. This disclosure is being madepursuant to the Care Everywhere program and may not contain all information available regarding this patient. Last updated 17.[facility] [email or web address] Allergies Active Allergy Reactions Criticality Noted Date Comments Penicillins Rash Medium 05/18/2024 Medications * Be aware that medications may not be up to date on this document. Alwaysverify current medications with the patient. Medication Sig Dispensed Refills Start Date End Date Status simvastatin (Zocor) 20 MG tablet Take 1 (one) tablet by mouth once daily 03/05/2024 Active prednisoLONE acetate (Pred Forte) 1 % ophthalmic suspension Instill 1 (one) drop into both eyes 2 times daily 07/08/2023 Active nitrofurantoin monohyd macro crystals (Macrobid) 100 MG capsule Take 1 (one) capsule by mouth 2 times daily 03/18/2024 Active Encounters Date Type Department Care Team Description 05/22/2024 Telephone [facility] [address] [place] [address] Teena Gordon Procedure (Ercp 2 month follow up, Dr. Sheppard) 05/18/2024 2:08 PM CANCER PROGRAM COORDINATOR Anesthesia Event [facility] [address] [place] [address] Destin Carmichael MD Nickelson, Liem Nguyen, Anes Assana lilia 05/18/2024 1:45 PM CANCER PROGRAM COORDINATOR - 05/18/2024 2:45 PM CANCER PROGRAM COORDINATOR Surgery [facility] [address] [place] [address] Emre Maddox MD ENDOSCOPIC RETROGRADE CHOLANGIOPANCREATOGRAPHY (ERCP) 05/18/2024 12:33 PM CANCER PROGRAM COORDINATOR - 05/18/2024 4:55 PM CANCER PROGRAM COORDINATOR Hospital Encounter [facility] [address] [place] [address] Emre Maddox MD Surgery General Discharge Disposition: Home or Self Care 05/18/2024 Travel 05/17/2024 Telephone [facility] [address] [place] [phone] Teena Gordon Procedure (External Referral, Ercp, Dr. Salazar) from Last 3 Months Social History Tobacco Use Types Packs/Day Years Used Date Smoking Tobacco: Former Cigarettes Smokeless Tobacco: Never Tobacco Cessation:Counseling Given: Not Answered Alcohol Use Standard Drinks/Week Comments Not Currently 0 (1 standard drink = 0.6 oz pur e alcohol) Sex and Gender Information Value Date Recorded Sex Assigned at Not on file Gender Identity Not on file Sexual Orientation Not on file Last Filed Vital Signs Vital Sign Reading Time Taken Comments Blood Pressure 163/82 05/18/2024 4:30 PM CANCER PROGRAM COORDINATOR Pulse 63 05/18/2024 4:30 PM CANCER PROGRAM COORDINATOR Temperature 36.6 C (97.9 F) 05/18/2024 4:09 PM CANCER PROGRAM COORDINATOR Respiratory Rate 10 05/18/2024 4:30 PM CANCER PROGRAM COORDINATOR Oxygen Saturation 94% 05/18/2024 4:30 PM CANCER PROGRAM COORDINATOR Inhaled Oxygen Concentration - - Weight 68.5 kg (151 lb) 05/18/2024 1:08 PM CANCER PROGRAM COORDINATOR Height 175.3 cm (5' 9 ) 05/18/2024 1:08 PM CANCER PROGRAM COORDINATOR Body Mass Index 22.3 05/18/2024 1:08 PM CANCER PROGRAM COORDINATOR Plan of Treatment Upcoming Encounters Date Type Department Care Team (Latest Contact Info) Description 07/23/2024 10:00 AM CDT Hospital Encounter [facility] [address] [place] [phone] Emre Maddox MD [address] [facility] [address] [place] [address] Surgery General 07/23/2024 10:00 AM CDT - 07/23/2024 11:00 AM CDT Surgery [facility] [address] [place] [phone] Emre Maddox MD [address] [facility] [address] [place] [address] ENDOSCOPIC RETROGRADE CHOLANGIOPANCREATOGRAPHY (ERCP) Scheduled Procedures Name Priority Associated Diagnoses Date/Ti me ENDOSCOPIC RETROGRADE CHOLANGIOPANCREATOGRAPHY (ERCP) Encounter for replacement of biliary stent 07/23/2024 10:00 AM CDT Health Maintenance Due Date Last Done Comments BONE DENSITY TESTING 1945 MEDICARE AWV 12 MONTHS 1945 HEPATITIS C SCREENING 07/21/1964 DTAP/TDAP/TD VACCINES (1 - Tdap) 1965 PNEUMOCOCCAL VACCINE 50+ (1 of 1 - PCV) 1996 ZOSTER VACCINE (1 of 2) 1996 Respiratory Syncytial Virus (RSV) Vaccine Pt: or over 60 yrs (1 - 1-dose 75+ series) 2021 COVID-19 VACCINE (1 - 2023- season) 2023 DEPRESSION SCREENING 03/14/2024 INFLUENZA VACCINE Completed 01/24/2024, , 02/01/2022, Additional history exists HEPATITIS B VACCINE Aged Out No longe r eligible based on patient's age to complete this topic HIB VACCINE Aged Out No longer eligi ble based on patient's age to complete this topic HPV VACCINE Aged Out No longer eligi ble based on patient's age to complete this topic MENINGOCOCCAL (Group B) VACCINE SHARED DECISION-MAKING Aged Out No longer eligible based on patient's age to complete this topic MENINGOCOCCAL GROUPS A/C/Y/W VACCINE Aged Out No longer eligible based on patient's age to complete this topic Medical Devices Implanted Type Area County Director Device Identifier Shelf Expiration Date Model / Serial / Lot Advanix Biliary 10f X 9cm Duodenal Bend Implanted:Qty: 1 on 05/18/2024 by Emre Maddox MD at [facility] Bile Duct [facility] [id number] 08/11/2025 [id number] / / [id number] Procedures Procedure Name Priority Date/Time Associated Diagnosis Comments ENDOTRACHEAL TUBE NOTE Routine 05/18/2024 2:29 PM CANCER PROGRAM COORDINATOR [place] ERCP DX W BRUSH WASH WHEN PERF 05/18/2024 2:04 PM CANCER PROGRAM COORDINATOR Calculus of bile duct without cholecystitis and without obstruction ERCP Routine 05/18/2024 1:49 PM CANCER PROGRAM COORDINATOR from Last 3 Months Results * ETT LINE PERFORMABLE (05/18/2024 2:29 PM CANCER PROGRAM COORDINATOR) Narrative Arie Gerard Anes Asst - 05/18/2024 2:29 PM CANCER PROGRAM COORDINATOR Arie Gerard Anes Asst 05/18/2024 2:30 PM Endotracheal Tube Placement: Patient Location: Other - please comment (endo). Intubation Event Date/Time: 05/18/2024 2:17 PM Procedure: intubation ([id number]) Procedure Section: Sedation: under general anesthesia. Indications for Airway Management: anesthesia Induction: standard IV Patient Position: supine Mask Ventilation: easy with oral airway. Blade Type: Clayton Blade Size: 3 Laryngoscopy View: grade 1 (full cords) Intubation Adjuncts: stylet Tube: endotracheal tube Placement: oral Tube type: cuff - inflated Tube Size (MM): 7 Depth of Insertion (CM): 20 Measured From: lips Cuff volume (mL): 6 Cuff Inflated With: air Number of Attempts: 1. Placement Verified By: direct visualization, bilateral breath sounds, CO2 monitor and chest auscultation Tube secured with: adhesive tape. Dentition unchanged? Yes Difficult Airway? No. Procedure Start Time: 05/18/2024 2:17 PM. Staff Section Anesthesia Provider: Model Anesthesiology Asst (Keshawn Shah), Performed the procedure Provider #1: Arie Gerard Anes Asst. Provider #2: Destin Carmichael MD. Destin Carmichael MD GENERAL ANESTHESIA O RDERABLES * ERCP (05/18/2024 1:49 PM CANCER PROGRAM COORDINATOR) Report Endoscopy POC Endoscopy Department Report _ Patient Name: Salma Murray Procedure Date: 05/18/2024 1:49 PM Date of : 1945 Classification: Outpatient Gender: Female Ethnicity: Not or Race: White _ Providers: Emre Bernabe MD Referring MD: Procedure: ERCP Indications: Common bile duct stone(s) Medications: Monitored Anesthesia Care. See the Anesthesia note for documentation of the administered medications. IVFs w/ LR, Indomethacin 100 mg NJ. Patient Profile: 78F w/ CBD stone, biliary dilation and elevated LFTs, s/p failed ERCP at OSH due to difficult cannulation in setting of rajani-ampullary and duodenal diverticula. Description of Procedure: After obtaining informed consent, the scope was passed under direct vision. Throughout the procedure, the patient's blood pressure, pulse, and oxygen saturations were monitored continuously. The duodenoscope was introduced through the mouth, and advanced to the duodenum and used to inject contrast into the bile duct. The ERCP was accomplished without difficulty. The patient tolerated the procedure well. Findings: The rail car mechanic film was normal. The esophagus was successfully intubated under direct vision without detailed examination of the upper GI tract given the use of a sideviewing duodenoscope. The major papilla was on the rim of a small diverticulum. A separate large diverticulum was found along the medial wall of the duodenal sweep. A short 0.025 inch Visiglide guidewire was passed into the biliary tree. A short-nosed traction sphincterotome cannula was passed over the guidewire and the bile duct was then deeply cannulated. Contrast was injected. I personally interpreted the bile duct images. Ductal flow of contrast was adequate. Image quality was adequate. Contrast extended to the hepatic ducts. The cholangiogram demonstrated deformity in the most distal common bile duct related to the adjacent diverticula, multiple stones impacted in the distal common bile duct, and diffuse upstream biliary dilation. A biliary sphincterotomy was made with a traction (standard) sphincterotome using ERBE electrocautery. There was no post-sphincterotomy bleeding. The biliary tree was swept with an adjustable biliary extraction balloon cannula starting at the bifurcation. A few stones were removed with incomplete clearance. Lithotripsy with a basket-type device was performed. The biliary tree was swept with the adjustable extraction balloon starting at the bifurcation. Multiple stone fragments were removed from the biliary tree with incomplete clearance. Preparations were made for cholangiography using the balloon occlusion technique. The balloon-tipped catheter was advanced to the hepatic duct bifurcation. The balloon was inflated to 12 mm in size. Contrast was then injected into the biliary tree and opacified the right and left hepatic ducts and main intrahepatic branches. There were few residual stone fragments in the distal common bile duct. One 10 Fr by 9 cm transpapillary plastic stent with a single external flap and a single internal flap was placed into the main bile duct. Bile flowed through the stent. The stent was in good position. Estimated Blood Loss: Estimated blood loss was minimal. Complications: No immediate complications. Impression: - Major papilla located on the rim of a small duodenal diverticulum. Separate large diverticulum noted in the duodenal sweep. - Cholangiogram with deformity in the most distal common bile duct related to the adjacent diverticula, multiple stones impacted in the distal common bile duct, and diffuse upstream biliary dilation. - Biliary sphincterotomy performed. - Multiple bile duct stones and fragments removed via balloon extraction and mechanical lithotripsy with incomplete clearance. - One 10 Fr by 9 cm transpapillary plastic stent placed into the main bile duct. Moderate Sedation: GA. Recommendation: - Monitor for fevers, bleeding, pain, jaundice. - Start clear liquid diet, and if pain free tomorrow then advance as tolerated. - Hold any anticoagulant medications ( blood thinners ) for 2 days. Resume rest of home medications today. - Plan for repeat ERCP in 1-2 months for stent and residual stone removal. - Expedited follow-up with Surgery for cholecystectomy. - The potential complications and concerning symptoms/findings, including but not limited to early or delayed fevers, infection, pain, bleeding, perforation, pancreatitis, and stent migration/obstruction were discussed with the patient/caregiver. Emergency contact information was provided. Attending Participation: I personally performed the entire procedure. Procedure Code(s): --- Professional --- 82652, Endoscopic retrograde cholangiopancreatography (ERCP); with placement of endoscopic stent into biliary or pancreatic duct, including pre- and post-dilation and guide wire passage, when performed, including sphincterotomy, when performed, each stent 06295, Endoscopic retrograde cholangiopancreatography (ERCP); with destruction of calculi, any method (eg, mechanical, electrohydraulic, lithotripsy) 16549, Endoscopic catheterization of the biliary ductal system, radiological supervision and interpretation Diagnosis Code(s): --- Professional --- K80.50, Calculus of bile duct without cholangitis or cholecystitis without obstruction CPT copyright 2021 [employer]. All rights reserved. The codes documented in this report are preliminary and upon clinical partner review may be revised to meet current compliance requirements. Emre Bernabe MD 05/18/2024 3:27:49 PM Note Initiated On: 05/18/2024 1:49 PM Number of Addenda: [address] PROVATION 05/18/2024 1:49 PM CANCER PROGRAM COORDINATOR Emre Bernabe MD GI PROCEDURE ORDERABLES [facility] from Last 3 Months Salma Murray Personal/Family Self 1945
--- OUTSIDE RECORDS SUMMARY | 2024-05-23 15:24 | XMS_ITS | Clinical Summary ---
Author Organization [facility] Address [address] [place] [address] Phone Care Team Providers Care Voice Studies Director Name Role Phone Juan Wilkinson MD Primary [...] on file Legal Sex Female 12:30 AM HUMAN RESOURCES PARTNER Gender Identity Not on file Sexual Orientation Not on file Obstetrics History Last Filed Vital Signs Vital Sign Reading Time Taken Comments Blood Pressure 137/71 01/24/2024 11:40 AM HUMAN RESOURCES PARTNER Pulse 68 01/24/2024 11:40 AM HUMAN RESOURCES PARTNER Temperature 36.4 C (97.5 F) 01/24/2024 11:40 AM HUMAN RESOURCES PARTNER Respiratory Rate 16 01/24/2024 11:40 AM HUMAN RESOURCES PARTNER Oxygen Saturation 98% 01/24/2024 11:40 AM HUMAN RESOURCES PARTNER Inhaled Oxygen Concentration - - Weight 68.1 kg (150 lb 3.2 oz) 01/24/2024 11:40 AM HUMAN RESOURCES PARTNER Height 177.8 cm (5' 10 ) 01/25/2023 1:48 PM HUMAN RESOURCES PARTNER Body Mass Index 21.55 01/25/2023 1:48 PM HUMAN RESOURCES PARTNER Plan of Treatment Health Maintenance Due Date [...] SUPPLEMENT MEDICARE AET SENIOR SUPPLEMENT Care Teams Voice Studies Director Relationship Specialty Start Date End Date Juan Wilkinson MD PCP - General Family Practice 02/01/20
--- OUTSIDE RECORDS SUMMARY | 2024-05-23 15:24 | XMS_ITS | Patient Health Summary ---
Author Organization [facility] [employer] Address [address] [place] [address] Care Team Providers Care Tape Maker Name Role Phone Unavailable Primary Care Provider Unavailabl e Note from [facility],non-owned Affiliates and Associated Physician Practices is amultiple site organization consisting of ambulatory clinics and hospital sitesin [place], [place], [place] and [place]. This disclosure is being madepursuant to the Care Everywhere program and may not contain all information available regarding this patient. Last updated 17.[facility] Allergies * Penicillins(Rash) -Medium Criticality Medications * Be aware that medications may not be up to date on this document. Alwaysverify current medications with the patient. * simvastatin (Zocor) 20 MG tablet(Started 03/05/2024) Take 1 (one) tablet by mouth once daily * prednisoLONE acetate (Pred Forte) 1 % ophthalmic suspension(Started 07/08/2023) Instill 1 (one) drop into both eyes 2 times daily * nitrofurantoin monohyd macro crystals (Macrobid) 100 MG capsule(Started 03/18/2024) Take 1 (one) capsule by mouth 2 times daily Social History Tobacco Use Types Packs/Day Years [...] Comments Blood Pressure 163/82 05/18/2024 4:30 PM COMMODITY INDUSTRY ANALYST Pulse 63 05/18/2024 4:30 PM COMMODITY INDUSTRY ANALYST Temperature 36.6 C (97.9 F) 05/18/2024 4:09 PM COMMODITY INDUSTRY ANALYST Respiratory Rate 10 05/18/2024 4:30 PM COMMODITY INDUSTRY ANALYST Oxygen Saturation 94% 05/18/2024 4:30 PM COMMODITY INDUSTRY ANALYST Inhaled Oxygen Concentration - - Weight 68.5 kg (151 lb) 05/18/2024 1:08 PM COMMODITY INDUSTRY ANALYST Height 175.3 cm (5' 9 ) 05/18/2024 1:08 PM COMMODITY INDUSTRY ANALYST Body Mass Index 22.3 05/18/2024 1:08 PM COMMODITY INDUSTRY ANALYST Medical Devices Implanted Type Area City Dispatcher Device Identifier Shelf Expiration Date Model / Serial / Lot Advanix Biliary 10f X 9cm Duodenal Bend Implanted:Qty: 1 on 05/18/2024 by Emre Maddox MD at [facility] Bile Duct [employer] [id number] 08/11/2025 [id number] / / [id number] Procedures * ENDOTRACHEAL TUBE NOTE(Performed 05/18/2024) * AL ERCP DX W BRUSH WASH WHEN PERF(Performed 05/18/2024) Performed for Calculus of bile duct without cholecystitis and without obstruction * ERCP(Performed 05/18/2024) Results * ETT LINE PERFORMABLE (05/18/2024 2:29 PM COMMODITY INDUSTRY ANALYST) Narrative Arie Gerard Anes Asst - 05/18/2024 2:29 PM COMMODITY INDUSTRY ANALYST Arie Gerard Anes Asst 05/18/2024 2:30 PM Endotracheal Tube Placement: Patient Location: Other - please comment (endo). Intubation Event Date/Time: 05/18/2024 2:17 PM Procedure: intubation ([id number]) Procedure Section: Sedation: under general anesthesia. Indications [...] Section Anesthesia Provider: Model Anesthesiology Asst (Keshawn Asst), Performed the procedure Provider #1: Arie Gerard Anes Asst. Provider #2: Destin Carmichael MD. Destin Carmichael MD GENERAL ANESTHESIA O RDERABLES * ERCP (05/18/2024 1:49 PM COMMODITY INDUSTRY ANALYST) Report Endoscopy POC Endoscopy Department Report _ Patient Name: Salma Murray Procedure Date: 05/18/2024 1:49 PM Date of : 1945 Classification: Outpatient Gender: Female Ethnicity: Not or Race: White _ Providers: Emre Bernabe MD Referring MD: Procedure: ERCP Indications: Common bile duct stone(s) Medications: Monitored Anesthesia Care. See the Anesthesia note for documentation of the administered medications. IVFs w/ LR, Indomethacin 100 mg AL. Patient Profile: 78F w/ CBD stone, biliary [...] patient tolerated the procedure well. Findings: The commercial artist lettering film was normal. The esophagus was successfully [...] entire procedure. Procedure Code(s): --- Professional --- 35753, Endoscopic retrograde cholangiopancreatography (ERCP); with placement of endoscopic stent into biliary or pancreatic duct, including pre- and post-dilation and guide wire passage, when performed, including sphincterotomy, when performed, each stent 26739, Endoscopic retrograde cholangiopancreatography (ERCP); with destruction of calculi, any method (eg, mechanical, electrohydraulic, lithotripsy) 40473, Endoscopic catheterization of the biliary ductal system, radiological supervision and interpretation Diagnosis Code(s): --- Professional --- K80.50, Calculus of bile duct without cholangitis or cholecystitis without obstruction CPT copyright 2021 [employer]. All rights reserved. The codes documented in this report are preliminary and upon mold press operator review may be revised to meet current compliance requirements. Emre Bernabe MD 05/18/2024 3:27:49 PM Note Initiated On: 05/18/2024 1:49 PM Number of Addenda: [id number] [place] [address] PROVATION 05/18/2024 1:49 PM COMMODITY INDUSTRY ANALYST Emre Bernabe MD GI PROCEDURE ORDERABLES Performing Organization Address City/State/[facility] Co de Phone Number [facility]
--- OUTSIDE RECORDS SUMMARY | 2024-05-23 15:24 | XMS_ITS | Encounter Summary ---
Author Organization [facility] Address [facility] [place] [address] Care Team Providers Care Guest Services Manager Name Role Phone Unavailable Primary Care Provider Unavailabl e Reason for Referral * Procedure (Routine) - Open Specialty Diagnoses / Procedures Referred By Norm sung Referred To Contact Gastroenterology Diagnoses Encounter for replacement of biliary stent Procedures ERCP Emre Maddox MD [address] [place] [address] [place] [address] Referral ID Status Reason Start Date Expiration Date Visits Re quested Visits Authorized [id number] Open 05/22/2024 05/22/2025 1 1 Reason for Visit * Reason Onset Date Comments Procedure 05/22/2024 Ercp 2 month fol low up, Dr. Sheppard Encounter Details Date Type Department Care Team ([facility] Contact Info) Description 05/22/2024 Telephone [facility] [address] [place] [address] Teena Gordon Procedure (Ercp 2 month follow up, Dr. Sheppard) Social History Tobacco Use Types Packs/Day Years Used Date Smoking Tobacco: Former Cigarettes Smokeless Tobacco: Never Alcohol Use Standard Drinks/Week Comments Not Currently 0 (1 standard drink = 0.6 oz pur e alcohol) Sex and Gender Information Value Date Recorded Sex Assigned at Not on file Gender Identity Not on file Sexual Orientation Not on file documented as of this encounter Functional Status Functional Status Response Date of Assess ment Is person deaf or have serious hearing difficult y? No 05/18/2024 Is person blind or have serious difficulty seein g? No 05/18/2024 Does person have serious dif ficulty walking/climbing stairs? No 05/18/2024 Does person have difficulty dressing/bathing? No 05/18/2024 Does person have difficulty doing errands alone? No 05/18/2024 Cognitive Status Response Date of Assessm ent Does person have difficulty concentrating/remembering/making decisions? No 05/18/2024 documented as of this encounter Miscellaneous Notes * Telephone Encounter - Teena Gordon - 05/22/2024 11:09 AM CDT ----- Message from Emre Bernabe MD sent at 05/18/2024 5:06 PM INSULATION TECHNICIAN ----- Regarding: ERCP in 2 months Please schedule patient for repeat ERCP in 2 months. MAC, 60 min. Patient agreed to schedule procedure on 07/23/2024 at 10:00 am at [facility]. Patient verbalized understanding of any prep instructions including NPO after midnight the day before procedure, needing to arrive 1 hour prior to procedure and the need for a laborer driver to take them home after procedure. Patient is not taking anticoagulant (blood thinning) medication and has been instructed with the following recommended guidelines if applicable: Aspirin 81mg does not need to be held. For Aspirin doses greater that 81mg, patient advised to check with their prescribing provider for hold instructions. Patient was advised to contact their anticoagulant prescribing healthcare provider for hold clearance and for additional instructions. N/A Pt has no active infectious diseases at this time. Letter with procedure date / time and instructions sent to patient via mail as requested. documented in this encounter Plan of Treatment Upcoming Encounters Date Type Department Care Team (Latest Contact Info) Description 07/23/2024 10:00 AM CDT Hospital Encounter [facility] [address] [place] [phone] Emre Maddox MD [address] [place] [address] Surgery General 07/23/2024 10:00 AM CDT - 07/23/2024 11:00 AM CDT Surgery [facility] [address] [place] [phone] Emre Maddox MD [address] [facility] [address] [facility] [place] [phone] ENDOSCOPIC RETROGRADE CHOLANGIOPANCREATOGRAPHY (ERCP) Scheduled Orders Name Type Priority Associated Diagnoses Orde r Schedule ERCP GI Routine Encounter for replacement of biliary stent 1 Occurrences starting 05/22/2024 until 05/22/2025 Scheduled Procedures Name Priority Associated Diagnoses Date/Ti me ENDOSCOPIC RETROGRADE CHOLANGIOPANCREATOGRAPHY (ERCP) Encounter for replacement of biliary stent 07/23/2024 10:00 AM CDT documented as of this encounter Visit Diagnoses Diagnosis Encounter for replacement of biliary stent- Primary Encounter for replacement of biliary stent documented in this encounter
--- OUTSIDE RECORDS SUMMARY | 2024-05-23 15:24 | XMS_ITS | Referral Summary ---
Author Organization [facility] Address [address] [place] [address] Care Team Providers Care Dungeon Master Name Role Phone Unavailable Primary Care Provider Unavailabl e Source Comments [facility],non-owned Affiliates and Associated Physician Practices is amultiple site organization consisting of ambulatory clinics and hospital sitesin [place], [place], [place] and [place]. This disclosure is being madepursuant to the Care Everywhere program and may not contain all information available regarding this patient. Last updated 17.[facility] Encounters Date Type Department Care Team Description 05/22/2024 Telephone [facility] [address] [place] [address] Teena Gordon Procedure (Ercp 2 month follow up, Dr. Sheppard) 05/18/2024 Travel 05/18/2024 2:08 PM SPEECH INSTRUCTOR Anesthesia Event [facility] [address] [place] [address] Destin Carmichael MD Nickelson, Liem Nguyen, Anes Asst 05/18/2024 1:45 PM SPEECH INSTRUCTOR - 05/18/2024 2:45 PM SPEECH INSTRUCTOR Surgery [facility] [address] [place] [address] Emre Maddox MD ENDOSCOPIC RETROGRADE CHOLANGIOPANCREATOGRAPHY (ERCP) 05/18/2024 12:33 PM SPEECH INSTRUCTOR - 05/18/2024 4:55 PM SPEECH INSTRUCTOR Hospital Encounter [facility] [address] [place] [address] Emre Maddox MD Surgery General Discharge Disposition: Home or Self Care 05/17/2024 Telephone [facility] [address] [place] [address] Teena Gordon Procedure (External Referral, Ercp, Dr. Salazar) from Last 3 Months Allergies Active Allergy [...] by mouth 2 times daily 03/18/2024 Active Social History Tobacco Use Types Packs/Day Years [...] Comments Blood Pressure 163/82 05/18/2024 4:30 PM SPEECH INSTRUCTOR Pulse 63 05/18/2024 4:30 PM SPEECH INSTRUCTOR Temperature 36.6 C (97.9 F) 05/18/2024 4:09 PM SPEECH INSTRUCTOR Respiratory Rate 10 05/18/2024 4:30 PM SPEECH INSTRUCTOR Oxygen Saturation 94% 05/18/2024 4:30 PM SPEECH INSTRUCTOR Inhaled Oxygen Concentration - - Weight 68.5 kg (151 lb) 05/18/2024 1:08 PM SPEECH INSTRUCTOR Height 175.3 cm (5' 9 ) 05/18/2024 1:08 PM SPEECH INSTRUCTOR Body Mass Index 22.3 05/18/2024 1:08 PM SPEECH INSTRUCTOR Functional Status Functional Status Response Date of [...] person have difficulty concentrating/remembering/making decisions? No 05/18/2024 Plan of Treatment Upcoming Encounters Date Type Department Care Team (Latest Contact Info) Description 07/23/2024 10:00 AM CDT Hospital Encounter [facility] [address] [place] [phone] Emre Maddox MD [address] [place] [address] [address] [place] [address] Surgery General 07/23/2024 10:00 AM CDT - 07/23/2024 11:00 AM CDT Surgery [facility] [address] [place] [address] Emre Maddox MD [address] [place] [address] [address] [place] [address] ENDOSCOPIC RETROGRADE CHOLANGIOPANCREATOGRAPHY (ERCP) Scheduled Procedures Name Priority Associated Diagnoses Date/Ti il ENDOSCOPIC RETROGRADE CHOLANGIOPANCREATOGRAPHY (ERCP) Encounter for replacement of biliary stent 07/23/2024 10:00 AM CDT Medical Devices Implanted Type Area Charger Operator Device Identifier Shelf Expiration Date Model / Serial / Lot Advanix Biliary 10f X 9cm Duodenal Bend Implanted:Qty: 1 on 05/18/2024 by Emre Maddox MD at [facility] Bile Duct [employer] [id number] 08/11/2025 [id number] / / [id number] Procedures Procedure Name Priority Date/Time Associated Diagnosis Comments ENDOTRACHEAL TUBE NOTE Routine 05/18/2024 2:29 PM SPEECH INSTRUCTOR CA ERCP DX W BRUSH WASH WHEN PERF 05/18/2024 2:04 PM SPEECH INSTRUCTOR Calculus of bile duct without cholecystitis and without obstruction ERCP Routine 05/18/2024 1:49 PM SPEECH INSTRUCTOR from Last 3 Months Results * ETT LINE PERFORMABLE (05/18/2024 2:29 PM SPEECH INSTRUCTOR) Narrative Arie Gerard Anes Assana lilia - 05/18/2024 2:29 PM SPEECH INSTRUCTOR Arie Gerard Anes Asst 05/18/2024 2:30 PM Endotracheal Tube Placement: Patient Location: Other - please comment (endo). Intubation Event Date/Time: 05/18/2024 2:17 PM Procedure: intubation (25254) Procedure Section: Sedation: under general anesthesia. Indications [...] 05/18/2024 2:17 PM. Staff Section Anesthesia Provider: , Anesthesiology Asst (Keshawn Shah), Performed the procedure Provider #1: Arie Gerard Anes Asst. Provider #2: Destin [place] MD. Destin Carmichael MD GENERAL ANESTHESIA O RDERABLES * ERCP (05/18/2024 1:49 PM SPEECH INSTRUCTOR) Report Endoscopy POC Endoscopy Department Report _ Patient Name: Salma Murray Procedure Date: 05/18/2024 1:49 PM Date of : 1945 Classification: Outpatient Gender: Female Ethnicity: Not or Race: White _ Providers: Emre Bernabe MD Referring MD: Procedure: ERCP Indications: Common bile duct stone(s) Medications: Monitored Anesthesia Care. See the Anesthesia note for documentation of the administered medications. IVFs w/ LR, Indomethacin 100 mg CA. Patient Profile: 78F w/ CBD stone, biliary [...] patient tolerated the procedure well. Findings: The shell fisherman film was normal. The esophagus was successfully [...] entire procedure. Procedure Code(s): --- Professional --- 76340, Endoscopic retrograde cholangiopancreatography (ERCP); with placement of endoscopic stent into biliary or pancreatic duct, including pre- and post-dilation and guide wire passage, when performed, including sphincterotomy, when performed, each stent 88142, Endoscopic retrograde cholangiopancreatography (ERCP); with destruction of calculi, any method (eg, mechanical, electrohydraulic, lithotripsy) 78090, Endoscopic catheterization of the biliary ductal system, radiological supervision and interpretation Diagnosis Code(s): --- Professional --- K80.50, Calculus of bile duct without cholangitis or cholecystitis without obstruction CPT copyright 2021 [employer]. All rights reserved. The codes documented in this report are preliminary and upon ripshear operator review may be revised to meet current compliance requirements. Emre Bernabe MD 05/18/2024 3:27:49 PM Note Initiated On: 05/18/2024 1:49 PM Number of Addenda: [id number] [place] [address] PROVATION 05/18/2024 1:49 PM SPEECH INSTRUCTOR Emre Bernabe MD GI PROCEDURE ORDERABLES [facility] Mon[facility] Salma Murray Personal/Family Self 1945
--- OUTSIDE RECORDS SUMMARY | 2024-05-23 15:24 | XMS_ITS | Referral Summary ---
Author Organization [facility] Address [address] [place] [address] Phone Care Team Providers Care Bobtailer Name Role Phone Juan Wilkinson MD Primary [...] on file Legal Sex Female 12:30 AM MICROGRAPHICS SERVICES SUPERVISOR Gender Identity Not on file Sexual Orientation Not on file Last Filed Vital Signs Vital Sign Reading Time Taken Comments Blood Pressure 137/71 01/24/2024 11:40 AM MICROGRAPHICS SERVICES SUPERVISOR Pulse 68 01/24/2024 11:40 AM MICROGRAPHICS SERVICES SUPERVISOR Temperature 36.4 C (97.5 F) 01/24/2024 11:40 AM MICROGRAPHICS SERVICES SUPERVISOR Respiratory Rate 16 01/24/2024 11:40 AM MICROGRAPHICS SERVICES SUPERVISOR Oxygen Saturation 98% 01/24/2024 11:40 AM MICROGRAPHICS SERVICES SUPERVISOR Inhaled Oxygen Concentration - - Weight 68.1 kg (150 lb 3.2 oz) 01/24/2024 11:40 AM MICROGRAPHICS SERVICES SUPERVISOR Height 177.8 cm (5' 10 ) 01/25/2023 1:48 PM MICROGRAPHICS SERVICES SUPERVISOR Body Mass Index 21.55 01/25/2023 1:48 PM MICROGRAPHICS SERVICES SUPERVISOR Plan of Treatment Not on file Insurance MEDICARE [facility] Address: [address] [address] [place] [address] [employer] SENIOR SUPPLEMENT MEDICARE [employer] SENIOR SUPPLEMENT Care Teams Bobtailer Relationship Specialty Start Date End Date Juan Wilkinson MD PCP - General Family Practice 02/01/20
== END 2024-05-23 13:44 | disposition home or self-care (01) ==
LOC: ANHIMG 13:45
PROVIDERS: PCP Family Medicine; Visit Provider Physician Assistant Medical
DX: N13.30 Unspecified hydronephrosis (principal)
CPT/HCPCS: 74455; Q9967

== ENCOUNTER 2024-05-30 14:43 | Outpatient (CLI) | payer MEDICARE, SELFPAY ==
--- OUTSIDE RECORDS SUMMARY | 2024-05-30 16:20 | XMS_ITS | Encounter Summary ---
Author Organization [facility] Address [address] [facility] [place] [address] Care Team Providers Care Weaver Hand Loom Name Role Phone Unavailable Primary Care Provider Unavailabl e Reason for Visit * Reason Onset Date Comments Follow-up 05/25/2024 Encounter Details Date Type Department Care Team (Late st Contact Info) Description 05/25/2024 Telephone [facility] [address] [place] [address] Teena Gordon Follow-up Social History Tobacco Use Types Packs/Day Years [...] encounter Miscellaneous Notes * Telephone Encounter - Israel Orellana RN - 05/30/2024 1:04 PM CDT Follow up call made to patient who said she is doing a lot better now and has no concerns at thistime. She took simethicone and pepto over the weekend and now has been passing gas and having normal, regular Bms this week. No N/V, fever or chest / abd pain. Appetite coming back. No follow up needed at this time. * Telephone Encounter - Teena Gordon - 05/25/2024 3:23 PM CDT Returned pt call regarding gas pain following Ercp on 05/18/2024 pt would like a medication prescribed informed pt a message will be sent to Dr. Sheppard will follow up with pt once a reply is received. documented in this encounter Plan of Treatment Upcoming Encounters Date Type Department Care Team (Latest Contact Info) Description 07/23/2024 10:00 AM CDT Hospital Encounter [facility] [address] [place] [phone] Emre Maddox MD [address] [facility] [address] [place] [address] Surgery General 07/23/2024 10:00 AM CDT - 07/23/2024 11:00 AM CDT Surgery [facility] [address] [place] [address] Emre Maddox MD [address] [place] [address] [address] [place] [phone] ENDOSCOPIC RETROGRADE CHOLANGIOPANCREATOGRAPHY (ERCP) Scheduled Procedures Name Priority Associated Diagnoses Date/Ti ma ENDOSCOPIC RETROGRADE CHOLANGIOPANCREATOGRAPHY (ERCP) Encounter for replacement of biliary stent 07/23/2024 10:00 AM CDT documented as of this encounter Visit Diagnoses Not on filedocumented in this encounter
--- OUTSIDE RECORDS SUMMARY | 2024-05-30 16:20 | XMS_ITS | Clinical Summary ---
Author Organization [facility] Address [address] [place] [address] Phone Care Team Providers Care Technical Support Consultant Name Role Phone Juan Wilkinson MD Primary [...] file Legal Sex Female 12:30 AM SENIOR PROCESS ENGINEER Gender Identity Not on file Sexual Orientation Not on file Obstetrics History Last Filed Vital Signs Vital Sign Reading Time Taken Comments Blood Pressure 137/71 01/24/2024 11:40 AM SENIOR PROCESS ENGINEER Pulse 68 01/24/2024 11:40 AM SENIOR PROCESS ENGINEER Temperature 36.4 C (97.5 F) 01/24/2024 11:40 AM SENIOR PROCESS ENGINEER Respiratory Rate 16 01/24/2024 11:40 AM SENIOR PROCESS ENGINEER Oxygen Saturation 98% 01/24/2024 11:40 AM SENIOR PROCESS ENGINEER Inhaled Oxygen Concentration - - Weight 68.1 kg (150 lb 3.2 oz) 01/24/2024 11:40 AM SENIOR PROCESS ENGINEER Height 177.8 cm (5' 10 ) 01/25/2023 1:48 PM SENIOR PROCESS ENGINEER Body Mass Index 21.55 01/25/2023 1:48 PM SENIOR PROCESS ENGINEER Plan of Treatment Health Maintenance Due Date [...] SUPPLEMENT MEDICARE AET SENIOR SUPPLEMENT Care Teams Technical Support Consultant Relationship Specialty Start Date End Date Juan Wilkinson MD PCP - General Family Practice 02/01/20
--- OUTSIDE RECORDS SUMMARY | 2024-05-30 16:20 | XMS_ITS | Referral Summary ---
Author Organization [facility] Address [address] [place] [address] Phone Care Team Providers Care Food Service Associate Name Role Phone Juan Wilkinson MD Primary [...] file Legal Sex Female 12:30 AM INSURANCE ACTUARY Gender Identity Not on file Sexual Orientation Not on file Last Filed Vital Signs Vital Sign Reading Time Taken Comments Blood Pressure 137/71 01/24/2024 11:40 AM INSURANCE ACTUARY Pulse 68 01/24/2024 11:40 AM INSURANCE ACTUARY Temperature 36.4 C (97.5 F) 01/24/2024 11:40 AM INSURANCE ACTUARY Respiratory Rate 16 01/24/2024 11:40 AM INSURANCE ACTUARY Oxygen Saturation 98% 01/24/2024 11:40 AM INSURANCE ACTUARY Inhaled Oxygen Concentration - - Weight 68.1 kg (150 lb 3.2 oz) 01/24/2024 11:40 AM INSURANCE ACTUARY Height 177.8 cm (5' 10 ) 01/25/2023 1:48 PM INSURANCE ACTUARY Body Mass Index 21.55 01/25/2023 1:48 PM INSURANCE ACTUARY Plan of Treatment Not on file Insurance MEDICARE [facility] Address: [address] [address] [place] [address] [employer] SENIOR [place]LE[place] [address] [employer] SENIOR SUPPLEMENT Care Teams Food Service Associate Relationship Specialty Start Date End Date Juan Wilkinson MD PCP - General Family Practice 02/01/20
--- OUTSIDE RECORDS SUMMARY | 2024-05-30 16:20 | XMS_ITS | Clinical Summary ---
Author Organization [facility] Address [address] [place] [address] Care Team Providers Care Vp Cardiovascular Name Role Phone Unavailable Primary Care Provider Unavailabl e Source Comments [facility],non-owned Affiliates and Associated Physician Practices is amultiple site organization consisting of ambulatory clinics and hospital sitesin [place], [place], [place] and [place]. This disclosure is being madepursuant to the Care Everywhere program and may not contain all information available regarding this patient. Last updated 17.[facility] Allergies Active Allergy Reactions Criticality Noted Date [...] Encounters Date Type Department Care Team Description 05/25/2024 Telephone [facility] [address] [place] [address] Teena Gordon Follow-up 05/22/2024 Telephone [facility] [address] [place] [phone] Teena Gordon Procedure (Ercp 2 month follow up, Dr. Sheppard) 05/18/2024 2:08 PM HEEL SEAT FITTER Anesthesia Event [facility] [address] [place] [address] Destin Carmichael MD Nickelson, Liem Nguyen, Anes Asst 05/18/2024 1:45 PM HEEL SEAT FITTER - 05/18/2024 2:45 PM HEEL SEAT FITTER Surgery [facility] [address] [place] [address] Emre Maddox MD ENDOSCOPIC RETROGRADE CHOLANGIOPANCREATOGRAPHY (ERCP) 05/18/2024 12:33 PM HEEL SEAT FITTER - 05/18/2024 4:55 PM HEEL SEAT FITTER Hospital Encounter [facility] [address] [place] [address] Emre Maddox MD Surgery General Discharge Disposition: Home or Self Care 05/18/2024 Travel 05/17/2024 Telephone [facility] [address] [place] [address] Teena Gordon Procedure (External Referral, Ercp, Dr. [...] Comments Blood Pressure 163/82 05/18/2024 4:30 PM HEEL SEAT FITTER Pulse 63 05/18/2024 4:30 PM HEEL SEAT FITTER Temperature 36.6 C (97.9 F) 05/18/2024 4:09 PM HEEL SEAT FITTER Respiratory Rate 10 05/18/2024 4:30 PM HEEL SEAT FITTER Oxygen Saturation 94% 05/18/2024 4:30 PM HEEL SEAT FITTER Inhaled Oxygen Concentration - - Weight 68.5 kg (151 lb) 05/18/2024 1:08 PM HEEL SEAT FITTER Height 175.3 cm (5' 9 ) 05/18/2024 1:08 PM HEEL SEAT FITTER Body Mass Index 22.3 05/18/2024 1:08 PM HEEL SEAT FITTER Plan of Treatment Upcoming Encounters Date Type Department Care Team (Latest Contact Info) Description 07/23/2024 10:00 AM CDT Hospital Encounter [facility] [address] [place] [phone] Emre Maddox MD [address] [place] [address] [address] [place] [phone] Surgery General 07/23/2024 10:00 AM CDT - 07/23/2024 11:00 AM CDT Surgery [facility] [address] [place] [phone] Emre Maddox MD [address] [place] [address] [address] [address] ENDOSCOPIC RETROGRADE CHOLANGIOPANCREATOGRAPHY (ERCP) Scheduled [...] - 1-dose 75+ series) 2021 COVID-19 VACCINE ( - season) 2023 DEPRESSION SCREENING 03/14/2024 INFLUENZA VACCINE [...] this topic Medical Devices Implanted Type Area Mud Jack Nozzleman Device Identifier Shelf Expiration Date Model / Serial / Lot Advanix Biliary 10f X 9cm Duodenal Bend Implanted:Qty: 1 on 05/18/2024 by Emre Maddox MD at [facility] Bile Duct [employer] [id number] 08/11/2025 [id number] / / [id number] Procedures Procedure Name Priority Date/Time Associated Diagnosis Comments ENDOTRACHEAL TUBE NOTE Routine 05/18/2024 2:29 PM HEEL SEAT FITTER UT ERCP DX W BRUSH WASH WHEN PERF 05/18/2024 2:04 PM HEEL SEAT FITTER Calculus of bile duct without cholecystitis and without obstruction ERCP Routine 05/18/2024 1:49 PM HEEL SEAT FITTER from Last 3 Months Results * ETT LINE PERFORMABLE (05/18/2024 2:29 PM HEEL SEAT FITTER) Narrative Arie Gerard Anes Asst - 05/18/2024 2:29 PM HEEL SEAT FITTER Arie Gerard Anes Asst 05/18/2024 2:30 PM Endotracheal Tube Placement: Patient Location: Other - please comment (endo). Intubation Event Date/Time: 05/18/2024 2:17 PM Procedure: intubation ([id number]) Procedure Section: Sedation: under general anesthesia. Indications [...] O RDERABLES * ERCP (05/18/2024 1:49 PM HEEL SEAT FITTER) Report Endoscopy POC Endoscopy Department Report _ Patient Name: Salma Murray Procedure Date: 05/18/2024 1:49 PM Date of : 1945 Classification: Outpatient Gender: Female Ethnicity: Not or Race: White _ Providers: Emre Bernabe MD Referring MD: Procedure: ERCP Indications: Common bile duct stone(s) Medications: Monitored Anesthesia Care. See the Anesthesia note for documentation of the administered medications. IVFs w/ LR, Indomethacin 100 mg UT. Patient Profile: 78F w/ CBD stone, biliary dilation and elevated LFTs, s/p failed ERCP at OSH due to difficult cannulation in setting of neli-ampullary and duodenal diverticula. Description of Procedure: After [...] patient tolerated the procedure well. Findings: The weft straightener film was normal. The esophagus was successfully [...] entire procedure. Procedure Code(s): --- Professional --- 88593, Endoscopic retrograde cholangiopancreatography (ERCP); with placement of endoscopic stent into biliary or pancreatic duct, including pre- and post-dilation and guide wire passage, when performed, including sphincterotomy, when performed, each stent 92219, Endoscopic retrograde cholangiopancreatography (ERCP); with destruction of calculi, any method (eg, mechanical, electrohydraulic, lithotripsy) 05632, Endoscopic catheterization of the biliary ductal system, radiological supervision and interpretation Diagnosis Code(s): --- Professional --- K80.50, Calculus of bile duct without cholangitis or cholecystitis without obstruction CPT copyright 2021 [employer]. All rights reserved. The codes documented in this report are preliminary and upon video production engineer review may be revised to meet current compliance requirements. Emre Bernabe MD 05/18/2024 3:27:49 PM Note Initiated On: 05/18/2024 1:49 PM Number of Addenda: [id number] [place] [address] PROVATION 05/18/2024 1:49 PM HEEL SEAT FITTER Emre Bernabe MD GI PROCEDURE ORDERABLES [facility] PROVATION from Last [address] Personal/Family Self 1945
[2024-05-30 20:14] LABS: Alanine Aminotransferase 17 U/L (6-35); Albumin Level 4.1 g/dL (3.5-5.1); Alkaline Phosphatase 128 U/L (38-126); Anion Gap 9 mmol/L (4-12); Aspartate Amino Transferase 36 U/L (14-36); Bilirubin,Total 0.3 mg/dL (0.2-1.3); Blood Urea Nitrogen 14 mg/dL (7-17); Calcium 9.3 mg/dL (8.4-10.2); Carbon Dioxide 28 mmol/L (22-30); Chloride 101 mmol/L (98-107); Estimated Glomerular Filt Rate > 60; Glucose 90 mg/dL (65-110); Potassium 4.4 mmol/L (3.4-5.0); Sodium 138 mmol/L (137-145)
== END 2024-05-30 14:44 | disposition home or self-care (01) ==
LOC: ANHGOSHLAB 14:44
PROVIDERS: PCP Family Medicine; Visit Provider Family Medicine
DX: R74.8 Abnormal levels of other serum enzymes (principal); K80.50 Calculus of bile duct without cholangitis or cholecystitis without obstruction
CPT/HCPCS: 36415; 80053

== ENCOUNTER 2024-06-19 11:21 | Outpatient (CLI) | payer MEDICARE, SELFPAY ==
[2024-06-19 11:36] LABS: Basophils Absolute Auto 0.1 K/mm3 (0.0-0.1); Basophils Percent Auto 0.6 % (0.2-1.2); Eosinophils Absolute Auto 0.2 K/mm3 (0-0.3); Eosinophils Percent Auto 2.3 % (0-4.4); Hematocrit 41.9 % (37.0-47.0); Hemoglobin 13.4 g/dL (12.0-15.0); Immature Granulocyte Absolute 0.03 K/mm3 (0.00-0.031); Immature Granulocyte Percent A 0.3 % (0-0.5); Lymphocytes Absolute Auto 3.75 K/mm3 (0.9-3.2); Lymphocytes Percent Auto 38.8 % (18.3-44.2); Mean Corpuscular Hemoglobin 28.2 pg (26-34); Mean Corpuscular Volume 88.2 fl (80-100); Monocytes Absolute Auto 0.8 K/mm3 (0.1-0.6); Neutrophils Absolute Auto 4.8 K/mm3 (1.3-6.7); Platelet Count Result 230 k/mm3 (150-375); Red Blood Count 4.75 M/mm3 (4.2-5.4); Red Cell Distribution Width 13.2 % (11.5-14.5); White Blood Count 9.7 K/mm3 (4.5-10.0)
[2024-06-19 11:56] LABS: Alanine Aminotransferase 13 U/L (6-35); Albumin Level 4.4 g/dL (3.5-5.1); Alkaline Phosphatase 89 U/L (38-126); Amylase 61 U/L (30-110); Aspartate Amino Transferase 30 U/L (14-36); Bilirubin,Total 0.5 mg/dL (0.2-1.3); Lipase 102 U/L (23-300)
--- OUTSIDE RECORDS SUMMARY | 2024-06-19 13:01 | XMS_ITS | Referral Summary ---
Author Organization [facility] Address [address] [place] [address] Phone Care Team Providers Care Photography Manager Name Role Phone Juan Wilkinson MD [...] file Legal Sex Female 12:30 AM TEACHER OF THE HANDICAPPED Gender Identity Not on file Sexual Orientation Not on file Last Filed Vital Signs Vital Sign Reading Time Taken Comments Blood Pressure 137/71 01/24/2024 11:40 AM TEACHER OF THE HANDICAPPED Pulse 68 01/24/2024 11:40 AM TEACHER OF THE HANDICAPPED Temperature 36.4 C (97.5 F) 01/24/2024 11:40 AM TEACHER OF THE HANDICAPPED Respiratory Rate 16 01/24/2024 11:40 AM TEACHER OF THE HANDICAPPED Oxygen Saturation 98% 01/24/2024 11:40 AM TEACHER OF THE HANDICAPPED Inhaled Oxygen Concentration - - Weight 68.1 kg (150 lb 3.2 oz) 01/24/2024 11:40 AM TEACHER OF THE HANDICAPPED Height 177.8 cm (5' 10 ) 01/25/2023 1:48 PM TEACHER OF THE HANDICAPPED Body Mass Index 21.55 01/25/2023 1:48 PM TEACHER OF THE HANDICAPPED Plan of Treatment Not on file Insurance MEDICARE [employer] SENIOR SUPPLEMENT MEDICARE AET[employer] SENIOR SUPPLEMENT Care Teams Photography Manager Relationship Specialty Start Date End Date Juan Wilkinson MD PCP - General Family Practice 02/01/20
--- OUTSIDE RECORDS SUMMARY | 2024-06-19 13:01 | XMS_ITS | Clinical Summary ---
Author Organization [facility] [employer] Address [address] [place] [address] Care Team Providers Care Gold Layer Name Role Phone Unavailable Primary Care Provider Unavailabl e Source Comments [facility],non-owned Affiliates and Associated Physician Practices is amultiple site organization consisting of ambulatory clinics and hospital sitesin [place], [place], [place] and [place]. This disclosure is being madepursuant to the Care Everywhere program and may not contain all information available regarding this patient. Last updated 17.[facility] Allergies Active Allergy Reactions Criticality Noted Date [...] Encounters Date Type Department Care Team Description 06/12/2024 Telephone [facility] [address] [place] [phone] Teena Gordon Follow-up 05/25/2024 Telephone [facility] [address] [place] [phone] Teena Gordon Follow-up 05/22/2024 Telephone [facility] [address] [place] [address] Teena Gordon Procedure (Ercp 2 month follow up, Dr. Sheppard) 05/18/2024 2:08 PM FLOORWORKER LASTING Anesthesia Event [facility] [address] [place] [address] Destin Carmichael MD Arie Gerard, CAA 05/18/2024 1:45 PM FLOORWORKER LASTING - 05/18/2024 2:45 PM FLOORWORKER LASTING Surgery [facility] [address] [place] [address] Emre Maddox MD ENDOSCOPIC RETROGRADE CHOLANGIOPANCREATOGRAPHY (ERCP) 05/18/2024 12:33 PM FLOORWORKER LASTING - 05/18/2024 4:55 PM FLOORWORKER LASTING Hospital Encounter [facility] [address] [place] [phone] Emre Maddox MD Surgery General Discharge Disposition: Home or Self Care 05/18/2024 Travel 05/17/2024 Telephone [facility] [address] [place] [phone] Teena Gordon Procedure (External Referral, Ercp, Dr. [...] Comments Blood Pressure 163/82 05/18/2024 4:30 PM FLOORWORKER LASTING Pulse 63 05/18/2024 4:30 PM FLOORWORKER LASTING Temperature 36.6 C (97.9 F) 05/18/2024 4:09 PM FLOORWORKER LASTING Respiratory Rate 10 05/18/2024 4:30 PM FLOORWORKER LASTING Oxygen Saturation 94% 05/18/2024 4:30 PM FLOORWORKER LASTING Inhaled Oxygen Concentration - - Weight 68.5 kg (151 lb) 05/18/2024 1:08 PM FLOORWORKER LASTING Height 175.3 cm (5' 9 ) 05/18/2024 1:08 PM FLOORWORKER LASTING Body Mass Index 22.3 05/18/2024 1:08 PM FLOORWORKER LASTING Plan of Treatment Upcoming Encounters Date Type Department Care Team (Latest Contact Info) Description 07/23/2024 10:00 AM CDT Hospital Encounter [facility] [address] [place] [phone] Emre Maddox MD [address] [place] [address] [address] [place] [address] Surgery General 07/23/2024 10:00 AM CDT - 07/23/2024 11:00 AM CDT Surgery [facility] [address] [place] [phone] Emre Maddox MD [address] [place] [address] [address] [place] [address] ENDOSCOPIC RETROGRADE CHOLANGIOPANCREATOGRAPHY (ERCP) Scheduled [...] this topic Medical Devices Implanted Type Area Indirect Fire Infantryman Device Identifier Shelf Expiration Date Model / Serial / Lot Advanix Biliary 10f X 9cm Duodenal Bend Implanted:Qty: 1 on 05/18/2024 by Emre Maddox MD at [facility] Bile Duct [employer] [facility] [id number] 08/11/2025 [id number] / / [id number] Procedures Procedure Name Priority Date/Time Associated Diagnosis Comments ENDOTRACHEAL TUBE NOTE Routine 05/18/2024 2:29 PM FLOORWORKER LASTING CA ERCP DX W BRUSH WASH WHEN PERF 05/18/2024 2:04 PM FLOORWORKER LASTING Calculus of bile duct without cholecystitis and without obstruction ERCP Routine 05/18/2024 1:49 PM FLOORWORKER LASTING from Last 3 Months Results * ETT LINE PERFORMABLE (05/18/2024 2:29 PM FLOORWORKER LASTING) Narrative Arie Gerard CAA - 05/18/2024 2:29 PM FLOORWORKER LASTING Arie Gerard Anes Asst 05/18/2024 2:30 PM Endotracheal Tube Placement: Patient Location: Other - please comment (endo). Intubation Event Date/Time: 05/18/2024 2:17 PM Procedure: intubation ([id number]) Procedure Section: Sedation: under general anesthesia. Indications [...] O RDERABLES * ERCP (05/18/2024 1:49 PM FLOORWORKER LASTING) Report Endoscopy POC Endoscopy Department Report _ [...] patient tolerated the procedure well. Findings: The trades helper film was normal. The esophagus was successfully [...] entire procedure. Procedure Code(s): --- Professional --- 60196, Endoscopic retrograde cholangiopancreatography (ERCP); with placement of endoscopic stent into biliary or pancreatic duct, including pre- and post-dilation and guide wire passage, when performed, including sphincterotomy, when performed, each stent 23872, Endoscopic retrograde cholangiopancreatography (ERCP); with destruction of calculi, any method (eg, mechanical, electrohydraulic, lithotripsy) 14259, Endoscopic catheterization of the biliary ductal system, radiological supervision and interpretation Diagnosis Code(s): --- Professional --- K80.50, Calculus of bile duct without cholangitis or cholecystitis without obstruction CPT copyright 2021 [employer]. All rights reserved. The codes documented in this report are preliminary and upon slag dumper review may be revised to meet current compliance requirements. Emre Bernabe MD 05/18/2024 3:27:49 PM Note Initiated On: 05/18/2024 1:49 PM Number of Addenda: [address] [id number] [facility] PROVATION 05/18/2024 1:49 PM FLOORWORKER LASTING Emre Bernabe MD GI PROCEDURE ORDERABLES [facility] from Last 3 Months Salma Murray Personal/Family Self 1945
--- OUTSIDE RECORDS SUMMARY | 2024-06-19 13:01 | XMS_ITS | Clinical Summary ---
Author Organization [facility] Address [address] [place] [address] Phone Care Team Providers Care Pharmacy Informatics Manager Name Role Phone Juan Wilkinson MD [...] on file Legal Sex Female 12:30 AM EMERGENCY MEDICINE PHYSICIAN Gender Identity Not on file Sexual Orientation Not on file Obstetrics History Last Filed Vital Signs Vital Sign Reading Time Taken Comments Blood Pressure 137/71 01/24/2024 11:40 AM EMERGENCY MEDICINE PHYSICIAN Pulse 68 01/24/2024 11:40 AM EMERGENCY MEDICINE PHYSICIAN Temperature 36.4 C (97.5 F) 01/24/2024 11:40 AM EMERGENCY MEDICINE PHYSICIAN Respiratory Rate 16 01/24/2024 11:40 AM EMERGENCY MEDICINE PHYSICIAN Oxygen Saturation 98% 01/24/2024 11:40 AM EMERGENCY MEDICINE PHYSICIAN Inhaled Oxygen Concentration - - Weight 68.1 kg (150 lb 3.2 oz) 01/24/2024 11:40 AM EMERGENCY MEDICINE PHYSICIAN Height 177.8 cm (5' 10 ) 01/25/2023 1:48 PM EMERGENCY MEDICINE PHYSICIAN Body Mass Index 21.55 01/25/2023 1:48 PM EMERGENCY MEDICINE PHYSICIAN Plan of Treatment Health Maintenance Due Date [...] SUPPLEMENT MEDICARE AET SENIOR SUPPLEMENT Care Teams Pharmacy Informatics Manager Relationship Specialty Start Date End Date Juan Wilkinson MD PCP - General Family Practice 02/01/20
== END 2024-06-19 11:22 | disposition home or self-care (01) ==
LOC: ANHSURGERY 11:25
PROVIDERS: PCP Family Medicine; Visit Provider Surgery
DX: K80.50 Calculus of bile duct without cholangitis or cholecystitis without obstruction (principal)
CPT/HCPCS: 36415; 80076; 82150; 83690; 85025

== ENCOUNTER 2024-06-21 01:29 | Day surgery (SDC) | payer MEDICARE, SELFPAY ==
--- NOTE | 2024-06-15 13:53 | PC.NURSE ---
Report to the Outpatient Waiting Room, entrance under the green pavilion located off [facility], at time __12:30 PM on date __06/21/24 . Planned Procedure Time: __2:30 PM .? Time changes happen often and if your time is changed the preop area will call you the afternoon before. - You and your visitor will be asked to self-screen and do not enter if you have any COVID symptoms. Please call surgeon if you need to reschedule. - A mask is optional within the hospital at this time. Patients may have clear liquids (water, carbonated beverages, clear teas, apple juice) until 3 hours prior to surgery ( 11:30 AM) with a maximum of 20 ounces. - No food from midnight until time of surgery and no smoking, or chewing tobacco (or any form of nicotine). No chewing gum, candy or mints. Take only the following medications with a SIP of water on the morning of surgery: ___NONE DO NOT STOP ANY OF YOUR OTHER PRESCRIPTION MEDICATIONS PRIOR TO SURGERY EXCEPT THE FOLLOWING Hold all vitamins and supplements for 3 days per anesthesiologist.LAST DOSE 06/17/24 Medications to discontinue per physician NONE Please no make-up, nail sinhala, hairspray, perfume, deodorant, or body powder the day of surgery.? No jewelry (including any body piercings) or valuables the day of surgery, leave them at home.? Please take a shower or bath the night before, or the morning of, surgery with an antibacterial soap.? Wear comfortable, loose fitting clothing.? Children are encouraged to wear pajamas. - Jewelry must be removed prior to entering the operating room.? Rings and piercings that are not removed may be cut off. - The hospital will not accept responsibility for valuables.? - Please leave all valuables, including medications, at home the day of surgery. If you are going home after surgery, a licensed driver's license reviewing officer must drive you home.? - NO public transportation without another adult if you receive anesthesia. - We recommend that an adult stay with you for 24 hours following discharge. - We also recommend that you do not drive, make important decision, drink alcoholic beverages, or take any drugs that were not prescribed by your health care provider for at least 24 hours after your discharge time. For Pediatric surgeries, we recommend two adults accompany the child home. Follow any additional instructions given to you from your surgeon. Telephone instructions given to _PATIENT and asked if any additional questions and then verbalized understanding. Patient advised to call surgeon office or pre surgery nurse liaison [phone] if any additional questions.
[2024-06-15 14:06] VITALS: BMI 22.1
[2024-06-21] VITALS (9 sets, daily range): BP systolic 99–162; BP diastolic 48–76; PULSE 60–80; RESP 10–16; TEMP 36.1–36.2; O2SAT 99–100
--- OUTSIDE RECORDS SUMMARY | 2024-06-21 01:32 | XMS_ITS | Referral Summary ---
Author Organization [facility] Address [address] [place] [address] Phone Care Team Providers Care Wine Blender Name Role Phone Juan Wilkinson MD Primary [...] on file Legal Sex Female 12:30 AM REELING MACHINE OPERATOR Gender Identity Not on file Sexual Orientation Not on file Last Filed Vital Signs Vital Sign Reading Time Taken Comments Blood Pressure 137/71 01/24/2024 11:40 AM REELING MACHINE OPERATOR Pulse 68 01/24/2024 11:40 AM REELING MACHINE OPERATOR Temperature 36.4 C (97.5 F) 01/24/2024 11:40 AM REELING MACHINE OPERATOR Respiratory Rate 16 01/24/2024 11:40 AM REELING MACHINE OPERATOR Oxygen Saturation 98% 01/24/2024 11:40 AM REELING MACHINE OPERATOR Inhaled Oxygen Concentration - - Weight 68.1 kg (150 lb 3.2 oz) 01/24/2024 11:40 AM REELING MACHINE OPERATOR Height 177.8 cm (5' 10 ) 01/25/2023 1:48 PM REELING MACHINE OPERATOR Body Mass Index 21.55 01/25/2023 1:48 PM REELING MACHINE OPERATOR Plan of Treatment Not on file Insurance MEDICARE [facility] Address: [address] [address] [place] [address] [employer] SENIOR [place] [address] A[employer] SENIOR SUPPLEMENT Care Teams Wine Blender Relationship Specialty Start Date End Date Juan Wilkinson MD PCP - General Family Practice 02/01/20
--- OUTSIDE RECORDS SUMMARY | 2024-06-21 01:32 | XMS_ITS | Clinical Summary ---
Author Organization [facility] Address [address] [place] [address] Phone Care Team Providers Care Fraud Manager Name Role Phone Juan Wilkinson MD [...] on file Legal Sex Female 12:30 AM SITE INSPECTOR Gender Identity Not on file Sexual Orientation Not on file Obstetrics History Last Filed Vital Signs Vital Sign Reading Time Taken Comments Blood Pressure 137/71 01/24/2024 11:40 AM SITE INSPECTOR Pulse 68 01/24/2024 11:40 AM SITE INSPECTOR Temperature 36.4 C (97.5 F) 01/24/2024 11:40 AM SITE INSPECTOR Respiratory Rate 16 01/24/2024 11:40 AM SITE INSPECTOR Oxygen Saturation 98% 01/24/2024 11:40 AM SITE INSPECTOR Inhaled Oxygen Concentration - - Weight 68.1 kg (150 lb 3.2 oz) 01/24/2024 11:40 AM SITE INSPECTOR Height 177.8 cm (5' 10 ) 01/25/2023 1:48 PM SITE INSPECTOR Body Mass Index 21.55 01/25/2023 1:48 PM SITE INSPECTOR Plan of Treatment Health Maintenance Due Date [...] SUPPLEMENT MEDICARE AET SENIOR SUPPLEMENT Care Teams Fraud Manager Relationship Specialty Start Date End Date Juan Wilkinson MD PCP - General Family Practice 02/01/20
--- OUTSIDE RECORDS SUMMARY | 2024-06-21 01:32 | XMS_ITS | Clinical Summary ---
Author Organization [facility] [employer] Address [address] [place] [address] Care Team Providers Care Dispatcher Service Or Work Name Role Phone Unavailable Primary Care Provider Unavailabl e Source Comments [facility],non-owned Affiliates and Associated Physician Practices is amultiple site organization consisting of ambulatory clinics and hospital sitesin [place], [place], [place] and [place]. This disclosure is being madepursuant to the Care Everywhere program and may not contain all information available regarding this patient. Last updated 17.[facility] [employer] Allergies Active Allergy Reactions Criticality Noted Date [...] Type Department Care Team Description 06/12/2024 Telephone [facility] [address] [place] [phone] Teena Gordon Follow-up 05/25/2024 Telephone [facility] [address] [place] [phone] Teena Gordon Follow-up 05/22/2024 Telephone [facility] [address] [place] [address] Teena Gordon Procedure (Ercp 2 month follow up, Dr. Sheppard) 05/18/2024 2:08 PM PATIENT SCHEDULING MANAGER Anesthesia Event [facility] [address] [place] [address] Destin Carmichael MD Arie Gerard, CAA 05/18/2024 1:45 PM PATIENT SCHEDULING MANAGER - 05/18/2024 2:45 PM PATIENT SCHEDULING MANAGER Surgery [facility] [address] [place] [phone] Emre Maddox MD ENDOSCOPIC RETROGRADE CHOLANGIOPANCREATOGRAPHY (ERCP) 05/18/2024 12:33 PM PATIENT SCHEDULING MANAGER - 05/18/2024 4:55 PM PATIENT SCHEDULING MANAGER Hospital Encounter [facility] [place] [address] [place] [phone] Emre Maddox MD Surgery General Discharge Disposition: Home or Self Care 05/18/2024 Travel 05/17/2024 Telephone [facility] [address] [place] [phone] Teena Gordon Procedure (External Referral, Ercp, Dr. [...] Comments Blood Pressure 163/82 05/18/2024 4:30 PM PATIENT SCHEDULING MANAGER Pulse 63 05/18/2024 4:30 PM PATIENT SCHEDULING MANAGER Temperature 36.6 C (97.9 F) 05/18/2024 4:09 PM PATIENT SCHEDULING MANAGER Respiratory Rate 10 05/18/2024 4:30 PM PATIENT SCHEDULING MANAGER Oxygen Saturation 94% 05/18/2024 4:30 PM PATIENT SCHEDULING MANAGER Inhaled Oxygen Concentration - - Weight 68.5 kg (151 lb) 05/18/2024 1:08 PM PATIENT SCHEDULING MANAGER Height 175.3 cm (5' 9 ) 05/18/2024 1:08 PM PATIENT SCHEDULING MANAGER Body Mass Index 22.3 05/18/2024 1:08 PM PATIENT SCHEDULING MANAGER Plan of Treatment Upcoming Encounters Date Type Department Care Team (Latest Contact Info) Description 07/23/2024 10:00 AM CDT Hospital Encounter [facility]COPY [address] [place] [phone] Emre Maddox MD [address] [place] [address] [address] [place] [address] Surgery General 07/23/2024 10:00 AM CDT - 07/23/2024 11:00 AM CDT Surgery [facility] [address] [place] [phone] Emre Maddox MD [address] [place] [address] [address] [place] [address] ENDOSCOPIC RETROGRADE CHOLANGIOPANCREATOGRAPHY (ERCP) Scheduled [...] this topic Medical Devices Implanted Type Area Ecologist Device Identifier Shelf Expiration Date Model / Serial / Lot Advanix Biliary 10f X 9cm Duodenal Bend Implanted:Qty: 1 on 05/18/2024 by Emre Maddox MD at [facility] Bile Duct [place] [employer] [facility] [id number] 08/11/2025 [id number] / / [id number] Procedures Procedure Name Priority Date/Time Associated Diagnosis Comments ENDOTRACHEAL TUBE NOTE Routine 05/18/2024 2:29 PM PATIENT SCHEDULING MANAGER VT ERCP DX W BRUSH WASH WHEN PERF 05/18/2024 2:04 PM PATIENT SCHEDULING MANAGER Calculus of bile duct without cholecystitis and without obstruction ERCP Routine 05/18/2024 1:49 PM PATIENT SCHEDULING MANAGER from Last 3 Months Results * ETT LINE PERFORMABLE (05/18/2024 2:29 PM PATIENT SCHEDULING MANAGER) Narrative Arie Gerard CAA - 05/18/2024 2:29 PM PATIENT SCHEDULING MANAGER Arie Gerard Anes Asst 05/18/2024 2:30 PM Endotracheal Tube Placement: Patient Location: Other - please comment (endo). Intubation Event Date/Time: 05/18/2024 2:17 PM Procedure: intubation (86143) Procedure Section: Sedation: under general anesthesia. Indications [...] O RDERABLES * ERCP (05/18/2024 1:49 PM PATIENT SCHEDULING MANAGER) Report Endoscopy POC Endoscopy Department Report _ Patient Name: Salma Murray Procedure Date: 05/18/2024 1:49 PM Date of : 1945 Classification: Outpatient Gender: Female Ethnicity: Not or Race: White _ Providers: Emre Bernabe MD Referring MD: Procedure: ERCP Indications: Common bile duct stone(s) Medications: Monitored Anesthesia Care. See the Anesthesia note for documentation of the administered medications. IVFs w/ LR, Indomethacin 100 mg VT. Patient Profile: 78F w/ CBD stone, biliary [...] patient tolerated the procedure well. Findings: The drafter film was normal. The esophagus was successfully [...] entire procedure. Procedure Code(s): --- Professional --- 74225, Endoscopic retrograde cholangiopancreatography (ERCP); with placement of endoscopic stent into biliary or pancreatic duct, including pre- and post-dilation and guide wire passage, when performed, including sphincterotomy, when performed, each stent 49302, Endoscopic retrograde cholangiopancreatography (ERCP); with destruction of calculi, any method (eg, mechanical, electrohydraulic, lithotripsy) 10122, Endoscopic catheterization of the biliary ductal system, radiological supervision and interpretation Diagnosis Code(s): --- Professional --- K80.50, Calculus of bile duct without cholangitis or cholecystitis without obstruction CPT copyright 2021 [employer]. All rights reserved. The codes documented in this report are preliminary and upon breast surgeon review may be revised to meet current compliance requirements. Emre Bernabe MD 05/18/2024 3:27:49 PM Note Initiated On: 05/18/2024 1:49 PM Number of Addenda: [address] [address] [facility]ATION 05/18/2024 1:49 PM PATIENT SCHEDULING MANAGER Emre Bernabe MD GI PROC[facility]URE ORDERABLES [facility] Last 3 Months Salma Murray Personal/Family Self 1945
[2024-06-21] MEDS: KETOROLAC 15 MG/ML VIAL (*BKC) IV PUSH (13:20)
[2024-06-21] MEDS: LACTATED RINGERS 1,000 ML 30 ML IV CONT ×3 (13:20→17:59)
[2024-06-21] MEDS: ACETAMINOPHEN 500 MG TABLET 1000 MG PO (13:20)
--- NOTE | 2024-06-21 13:48 | P.PNAN_ITS ---
Anes - Initial Pre Proc Eval Procedure: Operation Date: 06/21/24 14:30 Proposed Procedures p Laparoscopic Cholecystectomy, Possible Open - Adryan Alexander MD Date/Time: 06/21/24 13:48 Surgeon: Adryan Alexander MD Pre Op Diagnosis: chronic cholecystitis, choledocholithiasis Patient Data Age: 78 Gender: F Height: 1.75 m Weight: 67 kg Last Vital Signs Temp 97.1 F L 06/21/24 13:20 Pulse 80 06/21/24 13:20 Resp 14 06/21/24 13:20 BP 99/48 L 06/21/24 13:20 Pulse Ox 99 06/21/24 13:20 O2 Del Method Room Air 06/21/24 13:20 Allergies Allergy/AdvReac Type Severity Reaction Status Date / Time clarithromycin Allergy Severe RASH,DIARRH Verified 06/21/24 13:33 EA Penicillins Allergy Intermediate hives Verified 06/21/24 13:33 azithromycin Allergy Unknown Diarrhea Verified 06/21/24 13:33 Sulfa (Sulfonamide Allergy Unknown Hives Verified 06/21/24 13:33 Antibiotics) peanut AdvReac Intermediate Abdominal Verified 06/21/24 13:33 Pain Cephalosporins AdvReac Unknown Diarrhea Verified 06/21/24 13:33 ciprofloxacin AdvReac Unknown diarrhea Verified 06/21/24 13:33 Home Medications ?Medication ?Instructions ?Recorded ?Confirmed ?Type multivitamin 1 cap PO DAILY 09/05/19 06/21/24 History lactobacillus combination no.8 3 3,000 mmu cells PO DAILY 10/30/19 06/21/24 History billion cell capsule (Adult Probiotic) cholecalciferol (vitamin D3) 50 50 mcg PO DAILY 08/04/20 06/21/24 History mcg (2,000 unit) capsule famotidine 20 mg tablet 20 mg PO DAILY PRN heartburn 03/27/24 06/15/24 History simvastatin 20 mg tablet 20 mg PO QPM 05/16/24 06/15/24 History omeprazole 40 mg capsule,delayed 40 mg PO DAILY #90 caps 05/30/24 06/15/24 Rx release Patient hx anesthesia problems: post op nausea/vomiting Family hx anesthesia problems: none Results Review: All pre-operative results and documents have been reviewed as part of the pre- operative evaluation. [facility] Past Medical History Medical History Abdominal aortic aneurysm (AAA) 3.0 cm to 5.0 cm in diameter in female (~05/2024) Incisional hernia Dilation of aorta slight dilatation of the mid abdominal aorta measuring 3.[address] in March 2024 Cervical cancer (1996) S/p TARUN-BSO in Hypertension Lymphedema Non-Hodgkin lymphoma Diagnosed around 2007 and treated with chemotherapy, follows with Oncology yearly GERD without esophagitis Mixed hyperlipidemia Postmenopausal Surgical History Surgical History History of section History of total hysterectomy (1996) for cervical cancer Hx of section Family History Family History Mother Family history of dementia Father Cancer Social History Social History Social History: Surrogate medical decision maker: Ashley Patterson, daughter. Code status: Full code. Smoking packs per day: 1 Smoking cigarettes per day: 20.0 Years smoked: 25 Smoking pack-years: 25.00 Smoking status: Former smoker Tobacco type: cigarettes Smoking end date: 03/14/09 Alcohol intake: never Alcohol use details: socially Substance use: never Substance use type: does not use Do You Feel Safe in your Home?: Yes Lack of Transportation: No Lack of Food: Never True Current Housing: I Have Housing Concerned About Future Housing: No Difficulty Paying Gas/Electric Bills: No Difficulty Paying for Meds: No Currently Unemployed: No Education: High School Diploma/GED Difficulty w/ Childcare or Family Care: No Living arrangements: alone Occupation/Education: retired Spiritual care concerns: No (anabaptist) Agree to blood products: Yes Anes - Eval Final PreProcedure Day of Procedure 06/21/24 13:48 Patient weight: normal Lungs: normal air movement Airway: Mallampati scale class II Neurological: alert and oriented Last oral intake: >/= 8 hours ASA classification: III Emergent: no Anesthetic plan: proceed Anesthesia type and monitoring: general ETT and standard monitoring Results Review: All pre-operative results and documents have been reviewed as part of the pre- operative evaluation. HTN (no meds), hyperlipidemia, hx nonhodgkins lymphoma,/ovarian ca, hx AAA at 3.1 cm. Informed Consent: The patient's anesthetic plan and its attendant risks and benefits were discussed with the patient/family/POA. Questions were solicited and answers provided to the satisfaction of the patient/family/POA.
--- NOTE | 2024-06-21 14:59 | WPDHPUPDATE1 ---
History and Physical Update Update Date/Time: 06/21/24 14:59 History and Physical has been reviewed, including an updated exam of the patient. There are NO changes in the patient's condition. Risks, benefits, and alternatives have been discussed and questions answered. Patient agrees to proceed with procedure.
[2024-06-21] MEDS: CLINDAMYCIN 900 MG/D5W 50 ML 900 MG/50 ML PIGGYBACK 50 MG IVPB (15:11)
[2024-06-21] MEDS: BUPIVACAINE/EPINEPHRINE 0.5% 50 ML VIAL 30 ML INFILTRATE (15:11)
--- NOTE | 2024-06-21 16:40 | P.OP_ITS ---
Procedure Note - Detailed Date of Procedure 06/21/24 Pre-op Diagnosis chronic cholecystitis, choledocholithiasis Post-op Diagnosis Same Procedure Performed Laparoscopic cholecystectomy Surgeon Adryan Alexander MD Junior Programmer Analyst Coco HORTA Anesthesia General and Local Indications Patient came to the emergency room in early May with severe epigastric abdominal pain. She was noted to have elevated liver function tests and gallstones. MRCP showed abundant gallstones and she was transferred to [facility]. ERCP with laser treatment was performed. Many stones were removed. Sphincterotomy was performed and a stent was placed. The clearance of the stones was not complete. She continues to have upper abdominal pain. She is taken to surgery now for laparoscopic cholecystectomy for common bile duct stones and chronic cholecystitis. Findings Acute and chronic inflammation was noted. Cystic duct was dilated. No liver abnormalities were appreciated. Description of Procedure The patient was taken to surgery and induced into general anesthesia. The abdomen is prepped and draped. Trocars were placed in the usual fashion using itzat optical trocars and a 5 mm camera. The gallbladder was decompressed with a laparoscopic aspirator. The gallbladder wall was thick and edematous. The gallbladder was then retracted anterosuperiorly. Traction was p laced on the infundibulum. There was evidence of acute and chronic inflammation in the cholecystohepatic triangle. There was a lot of edema and hypervascularity. Dissection of the cystic duct and cystic artery was carried out. Both structures were identified clearly. The gallbladder was dissected off the liver over its lower 3rd. Critical view was achieved. I securely clipped and divided both the cystic duct and cystic artery. We then carefully dissected the gallbladder free of its remaining attachments to the liver. The gallbladder was then retrieved through the epigastric trocar site after being placed in an Endo-Catch bag. The epigastric trocar was then replaced. We reviewed the gallbladder fossa and right upper quadrant. Irrigation and suction were carried out. Additional cautery on the gallbladder fossa was carried out until hemostasis was achieved. We irrigated and suctioned the area further. All looked good with no evidence of bleeding or bile leakage. I then used the Luther cone and an 0 Vicryl suture. The fascia at the epigastric trocar site was closed with the 0 Vicryl suture using the Luther cone. CO2 was evacuated and the trocar sleeves were removed. All skin wounds were closed with subcuticular 4-0 Monocryl skin suture. The wounds were dressed with Exofin surgical adhesive. Patient was then awakened and taken to recovery in good condition. Sponge and needle counts were correct x2. Estimated Blood Loss -35 Drains No Packing No Pathology Yes (Gallbladder) Complications None Condition Stable Disposition PACU [facility] Billing Surgery - Charge Forward: Surgery Billing (Laparoscopic cholecystectomy)
[2024-06-21] MEDS: ONDANSETRON INJ 4 MG/2 ML VIAL IV PUSH (17:12)
--- NOTE | 2024-06-21 17:43 | SUR.PHASEII ---
STATES NAUSEA IS BETTER BUT FEELS GAS PRESSURE TO RIGHT LOWER ABDOMEN. ABLE TO TRANSFER TO CHAIR.
[2024-06-21] MEDS: diphenhydrAMINE HCl INJ 50 MG/ML VIAL 25 MG IV PUSH (17:59)
== END 2024-06-21 19:10 | disposition home or self-care (01) ==
PROVIDERS: PCP Family Medicine; Visit Provider Surgery
PROC: 0FT44ZZ Resection of Gallbladder, Percutaneous Endoscopic Approach (ICD-10-PCS; CPT 47562; principal; 2024-06-21 14:30)
DX: K80.62 Calculus of gallbladder and bile duct with acute cholecystitis without obstruction (principal); Z87.891 Personal history of nicotine dependence
CPT/HCPCS: 47562; 88304; A9270; J1100; J1200; J1885; J2405; J2704; J3010; J7120

== ENCOUNTER 2024-07-03 14:19 | Outpatient (CLI) | payer MEDICARE, SELFPAY ==
--- NOTE | ~2024-07-03 | NM_ITS ---
EXAMINATION: NM hepatobiliary wo pharm DATE: 07/03/2024 16:08 INDICATION: Assess for bile leak post cholecystectomy COMPARISON: Ultrasound dated 07/03/2024 TECHNIQUE: 4.9 mCi Tc-99m mebrofenin (Choletec) was administered intravenously. Scintigraphic images of the abdomen were obtained for one hour. Additional 90 minute delay scintigrams obtained. FINDINGS: There is normal clearance of radiotracer from the blood pool. There is homogeneous tracer u ptake by the liver. There is delayed hepatic excretion of activity with small amount of activity firs t visualized in the common bile duct at 35 minutes which gradually progresses to the remaining 25 min utes of imaging with large amount of residual activity in the liver and minimal bowel activity at 60 minutes of imaging. Increased small amount of activity in the bowels on the 90 minute delayed image b ut still with the majority activity within the liver. No evident biliary ductal dilation on the immed iately prior ultrasound to suggest biliary obstruction. No evident bile leak. IMPRESSION: 1. Delayed hepatic excretion of activity without evident biliary obstruction with no biliary ductal dilation prior ultrasound and with small amount of activity seen in the small bowel on the 60 minute images. Findings are suggestive of hepatocellular dysfunction. Reviewed, dictated and finalized at location A. IMPRESSION: 1. Delayed hepatic excretion of activity without evident biliary obstruction w ith no biliary ductal dilation prior ultrasound and with small amount of activi ty seen in the small bowel on the 60 minute images. Findings are suggestive of hepatocellular dysfunction.
--- NOTE | ~2024-07-03 | US_ITS ---
RIGHT UPPER QUADRANT ABDOMINAL ULTRASOUND (Doppler ultrasound interrogation techniques used as needed for this exam.) Ordering provider: Adryan Alexander MD History: . Z90.49 - Acquired absence of other specified parts of dig... . Comparison: None. FINDINGS: PANCREAS: Not well demonstrated. PORTAL VEIN: Hepatopedal flow demonstrated. LIVER: Normal size and echotexture. No focal hepatic lesions or perihepatic fluid collections are chris ntified. BILIARY DUCTS: No intra or extrahepatic biliary dilation. Common bile duct measures 5 mm in diameter which is normal for patient's age. GALLBLADDER: Status post cholecystectomy. RIGHT INFERIOR VENA CAVA: PATENT. ABDOMINAL AORTA: PATENT. FREE FLUID: None visualized within the upper abdomen. Possible right kidney hydronephrotic changes. Clinical correlation and if warranted Ultrasound kidney s advised. IMPRESSION: Status post cholecystectomy. Possible right kidney hydronephrotic changes. Clinical correlation and i f warranted ultrasound is advised. Otherwise, normal right upper quadrant ultrasound. Reviewed, dictated and finalized at location A. IMPRESSION: Status post cholecystectomy. Possible right kidney hydronephrotic changes. Clin ical correlation and if warranted ultrasound is advised. Otherwise, normal righ t upper quadrant ultrasound.
[2024-07-03 16:22] LABS: Basophils Absolute Auto 0.1 K/mm3 (0.0-0.1); Basophils Percent Auto 0.5 % (0.2-1.2); Eosinophils Absolute Auto 0.1 K/mm3 (0-0.3); Eosinophils Percent Auto 0.7 % (0-4.4); Hematocrit 40.6 % (37.0-47.0); Hemoglobin 13.2 g/dL (12.0-15.0); Immature Granulocyte Absolute 0.02 K/mm3 (0.00-0.031); Immature Granulocyte Percent A 0.2 % (0-0.5); Lymphocytes Absolute Auto 2.73 K/mm3 (0.9-3.2); Lymphocytes Percent Auto 27.4 % (18.3-44.2); Mean Corpuscular HGB Conc 32.5 g/dl (32-36); Mean Corpuscular Hemoglobin 28.4 pg (26-34); Mean Corpuscular Volume 87.5 fl (80-100); Mean Platelet Volume 10.6 fl (7.4-10.4); Monocytes Absolute Auto 0.8 K/mm3 (0.1-0.6); Monocytes Percent Auto 7.9 % (2.6-8.5); Neutrophils Absolute Auto 6.3 K/mm3 (1.3-6.7); Neutrophils Percent Auto 63.3 % (45.5-73.1); Platelet Count Result 251 k/mm3 (150-375); Red Blood Count 4.64 M/mm3 (4.2-5.4); Red Cell Distribution Width 13.2 % (11.5-14.5)
[2024-07-03 16:33] LABS: Alanine Aminotransferase 102 U/L (6-35); Albumin Level 4.3 g/dL (3.5-5.1); Alkaline Phosphatase 205 U/L (38-126); Anion Gap 11 mmol/L (4-12); Aspartate Amino Transferase 321 U/L (14-36); Bilirubin,Total 0.5 mg/dL (0.2-1.3); Blood Urea Nitrogen 9 mg/dL (7-17); Calcium 9.7 mg/dL (8.4-10.2); Carbon Dioxide 28 mmol/L (22-30); Chloride 104 mmol/L (98-107); Estimated Glomerular Filt Rate > 60; Glucose 105 mg/dL (65-110); Potassium 3.9 mmol/L (3.4-5.0); Sodium 143 mmol/L (137-145)
--- OUTSIDE RECORDS SUMMARY | 2024-07-03 16:39 | XMS_ITS | Referral Summary ---
Author Organization [facility] Address [address] [place] [address] Phone Care Team Providers Care Matcher Name Role Phone Juan Wilkinson MD Primary [...] file Legal Sex Female 12:30 AM POLITICAL SCIENCE CHAIR Gender Identity Not on file Sexual Orientation Not on file Last Filed Vital Signs Vital Sign Reading Time Taken Comments Blood Pressure 137/71 01/24/2024 11:40 AM POLITICAL SCIENCE CHAIR Pulse 68 01/24/2024 11:40 AM POLITICAL SCIENCE CHAIR Temperature 36.4 C (97.5 F) 01/24/2024 11:40 AM POLITICAL SCIENCE CHAIR Respiratory Rate 16 01/24/2024 11:40 AM POLITICAL SCIENCE CHAIR Oxygen Saturation 98% 01/24/2024 11:40 AM POLITICAL SCIENCE CHAIR Inhaled Oxygen Concentration - - Weight 68.1 kg (150 lb 3.2 oz) 01/24/2024 11:40 AM POLITICAL SCIENCE CHAIR Height 177.8 cm (5' 10 ) 01/25/2023 1:48 PM POLITICAL SCIENCE CHAIR Body Mass Index 21.55 01/25/2023 1:48 PM POLITICAL SCIENCE CHAIR Plan of Treatment Not on file Insurance MEDICARE [employer] SENIOR [place] [address] [employer] SENIOR SU[employer]MENT Care Teams Matcher Relationship Specialty Start Date End Date Juan Wilkinson MD PCP - General Family Practice 02/01/20
--- OUTSIDE RECORDS SUMMARY | 2024-07-03 16:39 | XMS_ITS | Encounter Summary ---
Author Organization [facility] Address [address] [place] [address] Care Team Providers Care Heating And Cooling Technician Name Role Phone Unavailable Primary Care Provider Unavailabl e Reason for Referral * Procedure (Routine) - Pending Review Specialty Diagnoses / Procedures Referred By Norm sung Referred To Contact Gastroenterology Diagnoses Calculus of bile duct without cholecystitis with obstruction Procedures ERCP Emre Maddox MD [facility] [place] [address] Phone: tel: fax: Referral ID Status Reason Start Date Expiration Date V isits Requested Visits Authorized [id number] Pending Review 05/22/2024 05/22/2025 1 1 Reason for Visit * Reason Onset Date Comments Procedure 05/22/2024 Ercp 2 month fol low up, Dr. Sheppard Encounter Details Date Type Department Care Team (Late st Contact Info) Description 05/22/2024 Telephone [facility] [address] [place] [address] Teena Gordon Procedure (Ercp 2 month follow up, Dr. Sheppard) Social History Tobacco Use Types Packs/Day Years Used Date Smoking Tobacco: Former Cigarettes Smokeless Tobacco: Never Alcohol Use Standard Drinks/Week Comments Not Currently 0 (1 standard drink = 0.6 oz pur e alcohol) Comments Unknown Sex and Gender Information Value Date Recorded Sex Assigned at Not on file Legal Sex Female 4:41 PM STAINED GLASS JOINER Gender Identity Not on file Sexual Orientation Not on file documented as of this encounter Functional Status * Is person deaf or have serious hearing difficulty? Answer Date of Assessment Author No 05/18/2024 4:09 PM Isabell Taylor RN * Is person blind or have serious difficulty seeing? Answer Date of Assessment Author No 05/18/2024 4:09 PM Isabell Taylor RN * Does person have serious difficulty walking/climbing stairs? Answer Date of Assessment Author No 05/18/2024 4:09 PM Isabell Taylor RN * Does person have difficulty dressing/bathing? Answer Date of Assessment Author No 05/18/2024 4:09 PM Isabell Taylor RN * Does person have difficulty doing errands alone? Answer Date of Assessment Author No 05/18/2024 4:09 PM Isabell Taylor RN documented as of this encounter Mental Status * Does person have difficulty concentrating/remembering/making decisions? Answer Entry Date Author No 05/18/2024 4:09 PM Isabell Taylor RN documented in this encounter Miscellaneous Notes * Telephone Encounter - Teena Gordon J - 05/22/2024 11:09 AM CDT ----- Message from Emre Bernabe MD sent at 05/18/2024 5:06 PM STAINED GLASS JOINER ----- Regarding: ERCP in 2 months Please schedule patient for repeat ERCP in 2 months. MAC, 60 min. Patient agreed to schedule procedure on 07/23/2024 at 10:00 am at [facility]. Patient verbalized understanding of any prep instructions including NPO after midnight the day before procedure, needing to arrive 1 hour prior to procedure and the need for a driver's education instructor to take them home after procedure. Patient [...] Description 07/23/2024 10:00 AM CDT Hospital Encounter [facility] [address] [place] [phone] Emre Maddox MD [address] [place] [address] [address] [place] [phone] Surgery General 07/23/2024 10:00 AM CDT - 07/23/2024 11:00 AM CDT Surgery [facility] [address] [place] [phone] Emre Maddox MD [address] [place] [address] [address] [place] [phone] ENDOSCOPIC RETROGRADE CHOLANGIOPANCREATOGRAPHY (ERCP) Scheduled Orders Name Type Priority Associated Diagnoses Orde r Schedule ERCP GI Routine Calculus of bile duct without cholecystitis with obstruction 1 Occurrences starting 05/22/2024 until 05/22/2025 Scheduled Procedures Name Priority Associated Diagnoses Date/Ti wv ENDOSCOPIC RETROGRADE CHOLANGIOPANCREATOGRAPHY (ERCP) Encounter for replacement of biliary stent 07/23/2024 10:00 AM CDT documented as of this encounter Visit Diagnoses Diagnosis Calculus of bile duct without cholecystitis with obstruction- Primary Encounter for replacement of biliary stent Encounter for replacement of biliary stent documented in this encounter
--- OUTSIDE RECORDS SUMMARY | 2024-07-03 16:39 | XMS_ITS | Clinical Summary ---
Author Organization [facility] [employer] Address [address] [place] [address] Care Team Providers Care Pharmacy Customer Care Specialist Name Role Phone Unavailable Primary Care Provider Unavailabl e Source Comments [facility] [employer],non-owned Affiliates and Associated Physician Practices is amultiple site organization consisting of ambulatory clinics and hospital sitesin [place], [place], [place] and [place]. This disclosure is being madepursuant to the Care Everywhere program and may not contain all information available regarding this patient. Last updated 17.[facility] [employer] Allergies Active Allergy Reactions Criticality Noted Date Comments Penicillins Rash Medium 05/18/2024 Medications * Be aware that medications may not be up to date on this document. Alwaysverify current medications with the patient. simvastatin (Zocor) 20 MG tablet Take 1 (one) tablet by mouth once daily 03/05/2024 Active prednisoLONE acetate (Pred Forte) 1 % ophthalmic suspension Instill 1 (one) drop into both eyes 2 times daily 07/08/2023 Active nitrofurantoin monohyd macro crystals (Macrobid) 100 MG capsule Take 1 (one) capsule by mouth 2 times daily 03/18/2024 Active Encounters Date Type Department Care Team Description 06/12/2024 Telephone [facility] [address] [place] [phone] Teena Gordon Follow-up 05/25/2024 Telephone [facility] [address] [place] [phone] Teena Gordon Follow-up 05/22/2024 Telephone [facility] [address] [place] [address] Teena Gordon Procedure (Ercp 2 month follow up, Dr. Sheppard) 05/18/2024 2:08 PM PLANT CHANGER Anesthesia Event [facility] [address] [place] [address] Destin Carmichael MD Nickelson, Liem Nguyen, PEGGY 05/18/2024 1:45 PM PLANT CHANGER - 05/18/2024 2:45 PM PLANT CHANGER Surgery [facility] [address] [place] [phone] Emre Maddox MD ENDOSCOPIC RETROGRADE CHOLANGIOPANCREATOGRAPHY (ERCP) 05/18/2024 12:33 PM PLANT CHANGER - 05/18/2024 4:55 PM PLANT CHANGER Hospital Encounter [facility] [address] [place] [phone] Emre Maddox MD Surgery General Discharge Disposition: Home or Self Care 05/18/2024 Travel 05/17/2024 Telephone [facility] [address] [place] [phone] Teena Gordon Procedure (External Referral, Ercp, Dr. [...] on file Legal Sex Female 4:41 PM PLANT CHANGER Gender Identity Not on file Sexual Orientation Not on file Last Filed Vital Signs Vital Sign Reading Time Taken Comments Blood Pressure 163/82 05/18/2024 4:30 PM PLANT CHANGER Pulse 63 05/18/2024 4:30 PM PLANT CHANGER Temperature 36.6 C (97.9 F) 05/18/2024 4:09 PM PLANT CHANGER Respiratory Rate 10 05/18/2024 4:30 PM PLANT CHANGER Oxygen Saturation 94% 05/18/2024 4:30 PM PLANT CHANGER Inhaled Oxygen Concentration - - Weight 68.5 kg (151 lb) 05/18/2024 1:08 PM PLANT CHANGER Height 175.3 cm (5' 9 ) 05/18/2024 1:08 PM PLANT CHANGER Body Mass Index 22.3 05/18/2024 1:08 PM PLANT CHANGER Plan of Treatment Upcoming Encounters Date Type Department Care Team (Latest Contact Info) Description 07/23/2024 10:00 AM CDT Hospital Encounter [facility] [address] [place] [phone] Emre Maddox MD [address] [place] [address] [address] [place] [address] Surgery General 07/23/2024 10:00 AM CDT - 07/23/2024 11:00 AM CDT Surgery [facility] [address] [place] [phone] Emre Maddox MD [address] [place] [address] [address] [place] [address] ENDOSCOPIC RETROGRADE CHOLANGIOPANCREATOGRAPHY (ERCP) Scheduled [...] this topic Medical Devices Implanted Type Area Pencil Sorter Device Identifier Shelf Expiration Date Model / Serial / Lot Advanix Biliary 10f X 9cm Duodenal Bend Implanted:Qty: 1 on 05/18/2024 by Emre Maddox MD at [facility] Bile Duct [employer] [facility] [id number] 08/11/2025 [id number] / / [id number] Procedures Procedure Name Priority Date/Time Associated Diagnosis Comments ENDOTRACHEAL TUBE NOTE Routine 05/18/2024 2:29 PM PLANT CHANGER DE ERCP DX W BRUSH WASH WHEN PERF 05/18/2024 2:04 PM PLANT CHANGER Calculus of bile duct without cholecystitis and without obstruction ERCP Routine 05/18/2024 1:49 PM PLANT CHANGER from Last 3 Months Results * ETT LINE PERFORMABLE (05/18/2024 2:29 PM PLANT CHANGER) Narrative Arie Gerard CAA - 05/18/2024 2:29 PM PLANT CHANGER Arie Gerard Anes Asst 05/18/2024 2:30 PM Endotracheal Tube Placement: Patient Location: Other - please comment (endo). Intubation Event Date/Time: 05/18/2024 2:17 PM Procedure: intubation (18846) Procedure Section: Sedation: under general anesthesia. Indications [...] Section Anesthesia Provider: , Anesthesiology Asst (Keshawn Johnsont), Performed the procedure Provider #1: Arie Gerard Anes Asst. Provider #2: Destin Carmichael MD. Destin Carmichael MD GENERAL ANESTHESIA ORDERABLES Final Result * ERCP (05/18/2024 1:49 PM PLANT CHANGER) Report Endoscopy POC Endoscopy Department Report _ Patient Name: Jordi Simons Procedure Date: 05/18/2024 1:49 PM Date of : 1945 Classification: Outpatient Gender: Female Ethnicity: Not or Race: White _ Providers: Emre Bernabe MD Referring MD: Procedure: ERCP Indications: Common bile duct stone(s) Medications: Monitored Anesthesia Care. See the Anesthesia note for documentation of the administered medications. IVFs w/ LR, Indomethacin 100 mg DE. Patient Profile: 78F w/ CBD stone, biliary [...] patient tolerated the procedure well. Findings: The online producer film was normal. The esophagus was successfully [...] entire procedure. Procedure Code(s): --- Professional --- 94678, Endoscopic retrograde cholangiopancreatography (ERCP); with placement of endoscopic stent into biliary or pancreatic duct, including pre- and post-dilation and guide wire passage, when performed, including sphincterotomy, when performed, each stent 03750, Endoscopic retrograde cholangiopancreatography (ERCP); with destruction of calculi, any method (eg, mechanical, electrohydraulic, lithotripsy) 28854, Endoscopic catheterization of the biliary ductal system, radiological supervision and interpretation Diagnosis Code(s): --- Professional --- K80.50, Calculus of bile duct without cholangitis or cholecystitis without obstruction CPT copyright 2021 [employer]. All rights reserved. The codes documented in this report are preliminary and upon brick cleaner review may be revised to meet current compliance requirements. Emre Bernabe MD 05/18/2024 3:27:49 PM Note Initiated On: 05/18/2024 1:49 PM Number of Addenda: 0 [facility] [address] [place] [address] [facility] 05/18/2024 1:4 9 PM PLANT CHANGER Emre Bernabe MD GI PROCEDURE ORDERAB LES Edited Result - Final [facility] CHIKISATION from Last 3 Months Insurance MEDICARE [employer] SELF PAY NO INSURANCE Member Subscriber Plan / Payer (Ef fective for All Dates) Name:Trevor Jordi Member ID:Not on file Relation to Subscriber:Not on file Name:JORDI SIMONS Subscriber ID:Not on file (Home) Address: [address] [place] [id number] Payer ID:Not on file Group ID:Not on file Type:Self Pay Address: [place], [place]
--- OUTSIDE RECORDS SUMMARY | 2024-07-03 16:39 | XMS_ITS | Clinical Summary ---
Author Organization [facility] Address [address] [place] [address] Phone Care Team Providers Care Physician Ophthalmologist Name Role Phone Juan Wilkinson MD Primary [...] on file Legal Sex Female 12:30 AM MUD MIXER OPERATOR Gender Identity Not on file Sexual Orientation Not on file Obstetrics History Last Filed Vital Signs Vital Sign Reading Time Taken Comments Blood Pressure 137/71 01/24/2024 11:40 AM MUD MIXER OPERATOR Pulse 68 01/24/2024 11:40 AM MUD MIXER OPERATOR Temperature 36.4 C (97.5 F) 01/24/2024 11:40 AM MUD MIXER OPERATOR Respiratory Rate 16 01/24/2024 11:40 AM MUD MIXER OPERATOR Oxygen Saturation 98% 01/24/2024 11:40 AM MUD MIXER OPERATOR Inhaled Oxygen Concentration - - Weight 68.1 kg (150 lb 3.2 oz) 01/24/2024 11:40 AM MUD MIXER OPERATOR Height 177.8 cm (5' 10 ) 01/25/2023 1:48 PM MUD MIXER OPERATOR Body Mass Index 21.55 01/25/2023 1:48 PM MUD MIXER OPERATOR Plan of Treatment Health Maintenance Due [...] SUPPLEMENT MEDICARE AET SENIOR SUPPLEMENT Care Teams Physician Ophthalmologist Relationship Specialty Start Date End Date Juan Wilkinson MD PCP - General Family Practice 02/01/20
== END 2024-07-03 14:20 | disposition home or self-care (01) ==
PROVIDERS: PCP Family Medicine; Visit Provider Surgery
DX: R10.13 Epigastric pain (principal); Z90.49 Acquired absence of other specified parts of digestive tract
CPT/HCPCS: 36415; 76705; 78226; 80053; 85025; A9537

== ENCOUNTER 2024-07-05 11:09 | Outpatient (CLI) | payer MEDICARE, SELFPAY ==
--- NOTE | 2024-07-05 11:35 | ECG_ITS ---
Test Date: 2024-07-05 11:38:25 Measurements Intervals [place] Rate: 74 P: 73 MS: 184 QRS: -14 QRSD: 121 T: 72 QT: 387 QTc: 430 Interpretive Statements SINUS RHYTHM WITH ATRIAL COUPLET AND ATRIAL PREMATURE COMPLEX INTRAVENTRICULAR CONDUCTION DELAY DELAYED PRECORDIAL R/S TRANSITION BASELINE ARTIFACT- I, II, AVR, V5 ABNORMAL ECG Compared to ECG 05/17/2024 11:51:56 ATRIAL PREMATURE COMPLEXES NOW PRESENT Electronically Signed On 07-05-2024 11:51:08 CDT by Jl Mancia D.O.
[2024-07-05 12:11] LABS: Basophils Absolute Auto 0.1 K/mm3 (0.0-0.1); Basophils Percent Auto 0.5 % (0.2-1.2); Eosinophils Absolute Auto 0.1 K/mm3 (0-0.3); Eosinophils Percent Auto 1.1 % (0-4.4); Hematocrit 42.3 % (37.0-47.0); Hemoglobin 13.8 g/dL (12.0-15.0); Immature Granulocyte Absolute 0.05 K/mm3 (0.00-0.031); Immature Granulocyte Percent A 0.4 % (0-0.5); Lymphocytes Absolute Auto 4.18 K/mm3 (0.9-3.2); Lymphocytes Percent Auto 33.5 % (18.3-44.2); Mean Corpuscular HGB Conc 32.6 g/dl (32-36); Mean Corpuscular Hemoglobin 28.3 pg (26-34); Mean Corpuscular Volume 86.9 fl (80-100); Mean Platelet Volume 10.8 fl (7.4-10.4); Monocytes Absolute Auto 0.9 K/mm3 (0.1-0.6); Monocytes Percent Auto 7.4 % (2.6-8.5); Neutrophils Absolute Auto 7.1 K/mm3 (1.3-6.7); Neutrophils Percent Auto 57.1 % (45.5-73.1); Platelet Count Result 287 k/mm3 (150-375); Red Blood Count 4.87 M/mm3 (4.2-5.4); Red Cell Distribution Width 13.2 % (11.5-14.5); White Blood Count 12.5 K/mm3 (4.5-10.0)
[2024-07-05 12:26] LABS: Alanine Aminotransferase 59 U/L (6-35); Albumin Level 4.6 g/dL (3.5-5.1); Alkaline Phosphatase 186 U/L (38-126); Aspartate Amino Transferase 70 U/L (14-36); Bilirubin,Total 0.4 mg/dL (0.2-1.3)
--- OUTSIDE RECORDS SUMMARY | 2024-07-05 12:47 | XMS_ITS | Clinical Summary ---
Author Organization [facility] Address [address] [place] [address] Phone Care Team Providers Care Melter Clerk Name Role Phone Juan Wilkinson MD Primary [...] on file Legal Sex Female 12:30 AM SWATCH MAKER Gender Identity Not on file Sexual Orientation Not on file Obstetrics History Last Filed Vital Signs Vital Sign Reading Time Taken Comments Blood Pressure 137/71 01/24/2024 11:40 AM SWATCH MAKER Pulse 68 01/24/2024 11:40 AM SWATCH MAKER Temperature 36.4 C (97.5 F) 01/24/2024 11:40 AM SWATCH MAKER Respiratory Rate 16 01/24/2024 11:40 AM SWATCH MAKER Oxygen Saturation 98% 01/24/2024 11:40 AM SWATCH MAKER Inhaled Oxygen Concentration - - Weight 68.1 kg (150 lb 3.2 oz) 01/24/2024 11:40 AM SWATCH MAKER Height 177.8 cm (5' 10 ) 01/25/2023 1:48 PM SWATCH MAKER Body Mass Index 21.55 01/25/2023 1:48 PM SWATCH MAKER Plan of Treatment Health Maintenance Due Date [...] SUPPLEMENT MEDICARE AET SENIOR SUPPLEMENT Care Teams Melter Clerk Relationship Specialty Start Date End Date Juan Wilkinson MD PCP - General Family Practice 02/01/20
--- OUTSIDE RECORDS SUMMARY | 2024-07-05 12:47 | XMS_ITS | Encounter Summary ---
Author Organization [facility] Address [address] [place] [address] Care Team Providers Care Small Engine Technician Name Role Phone Unavailable Primary Care Provider Unavailabl e Encounter Details Date Type Department Care Team (Late st Contact Info) Description 07/05/2024 Telephone [facility] [address] [place] [address] Teena Gordon Social History Tobacco Use Types Packs/Day Years Used Date Smoking Tobacco: Former Cigarettes Smokeless Tobacco: Never Alcohol Use Standard Drinks/Week Comments Not Currently 0 (1 standard drink = 0.6 oz pur e alcohol) Comments Unknown Sex and Gender Information Value Date Recorded Sex Assigned at Not on file Legal Sex Female 4:41 PM 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 Pt contacted Dr. Sheppard office requesting to have Ercp procedure scheduled sooner a message was sent to Dr. Sheppard who is agreeable with rescheduling procedure sooner than 07/23/2024 Emre Maddox MD Warren, Amanda J Hi, ok to schedule sooner. Many thanks! Message left for patient to return my call. documented in this encounter Plan of Treatment Upcoming Encounters Date Type Department Care Team (Latest Contact Info) Description 07/23/2024 10:00 AM CDT Hospital Encounter [facility] [address] [place] [phone] Emre Maddox MD [address] [facility] [address] [place] [phone] Surgery General 07/23/2024 10:00 AM CDT - 07/23/2024 11:00 AM CDT Surgery [facility] [address] [place] [address] Emre Maddox MD [address] [facility] [address] [place] [phone] ENDOSCOPIC RETROGRADE CHOLANGIOPANCREATOGRAPHY (ERCP) Scheduled Procedures Name Priority Associated Diagnoses Date/Ti oh ENDOSCOPIC RETROGRADE CHOLANGIOPANCREATOGRAPHY (ERCP) Encounter for replacement of biliary stent 07/23/2024 10:00 AM CDT documented as of this encounter Visit Diagnoses Not on filedocumented in this encounter
--- OUTSIDE RECORDS SUMMARY | 2024-07-05 12:47 | XMS_ITS | Referral Summary ---
Author Organization [facility] Address [address] [place] [address] Phone Care Team Providers Care Nut Sifter Name Role Phone Juan Wilkinson MD Primary [...] on file Legal Sex Female 12:30 AM ENTEROSTOMAL NURSE Gender Identity Not on file Sexual Orientation Not on file Last Filed Vital Signs Vital Sign Reading Time Taken Comments Blood Pressure 137/71 01/24/2024 11:40 AM ENTEROSTOMAL NURSE Pulse 68 01/24/2024 11:40 AM ENTEROSTOMAL NURSE Temperature 36.4 C (97.5 F) 01/24/2024 11:40 AM ENTEROSTOMAL NURSE Respiratory Rate 16 01/24/2024 11:40 AM ENTEROSTOMAL NURSE Oxygen Saturation 98% 01/24/2024 11:40 AM ENTEROSTOMAL NURSE Inhaled Oxygen Concentration - - Weight 68.1 kg (150 lb 3.2 oz) 01/24/2024 11:40 AM ENTEROSTOMAL NURSE Height 177.8 cm (5' 10 ) 01/25/2023 1:48 PM ENTEROSTOMAL NURSE Body Mass Index 21.55 01/25/2023 1:48 PM ENTEROSTOMAL NURSE Plan of Treatment Not on file Insurance MEDICARE [facility] Address: [address] [address] [place] [address] A[employer] SENIOR SUPPLEMENT MEDICARE AETNA SENIOR SUPPLEMENT Care Teams Nut Sifter Relationship Specialty Start Date End Date Juan Wilkinson MD PCP - General Family Practice 02/01/20
--- OUTSIDE RECORDS SUMMARY | 2024-07-05 12:47 | XMS_ITS | Clinical Summary ---
Author Organization [facility] [employer] Address [address] [place] [address] Care Team Providers Care Stained Glass Window Designer Name Role Phone Unavailable Primary Care Provider Unavailabl e Source Comments [facility] [employer],non-owned Affiliates and Associated Physician Practices is amultiple site organization consisting of ambulatory clinics and hospital sitesin [place], [place], [place] and [place]. This disclosure is being madepursuant to the Care Everywhere program and may not contain all information available regarding this patient. Last updated 17.[facility] [employer] Allergies Active Allergy Reactions Criticality Noted Date [...] Encounters Date Type Department Care Team Description 07/05/2024 Telephone [facility] [address] [place] [phone] Teena Gordon 06/12/2024 Telephone [facility] [address] [place] [phone] Teena Gordon Follow-up 05/25/2024 Telephone [facility] [address] [place] [address] Teena Gordon Follow-up 05/22/2024 Telephone [facility] [address] [place] [address] Teena Gordon Procedure (Ercp 2 month follow up, Dr. Sheppard) 05/18/2024 2:08 PM SPIRAL RUNNER Anesthesia Event [facility] [address] [place] [phone] Destin Carmichael MD Nickelson, Liem Moreno, CAA 05/18/2024 1:45 PM SPIRAL RUNNER - 05/18/2024 2:45 PM SPIRAL RUNNER Surgery [facility] [address] [place] [phone] Emre Maddox MD ENDOSCOPIC RETROGRADE CHOLANGIOPANCREATOGRAPHY (ERCP) 05/18/2024 12:33 PM SPIRAL RUNNER - 05/18/2024 4:55 PM SPIRAL RUNNER Hospital Encounter [facility] [place] [address] [place] [phone] Emre Maddox MD Surgery General Discharge Disposition: Home or Self Care 05/18/2024 Travel 05/17/2024 Telephone [facility] [address] [place] [phone] Teena Gordon Procedure (External Referral, Ercp, Dr. [...] on file Legal Sex Female 4:41 PM SPIRAL RUNNER Gender Identity Not on file Sexual Orientation Not on file Last Filed Vital Signs Vital Sign Reading Time Taken Comments Blood Pressure 163/82 05/18/2024 4:30 PM SPIRAL RUNNER Pulse 63 05/18/2024 4:30 PM SPIRAL RUNNER Temperature 36.6 C (97.9 F) 05/18/2024 4:09 PM SPIRAL RUNNER Respiratory Rate 10 05/18/2024 4:30 PM SPIRAL RUNNER Oxygen Saturation 94% 05/18/2024 4:30 PM SPIRAL RUNNER Inhaled Oxygen Concentration - - Weight 68.5 kg (151 lb) 05/18/2024 1:08 PM SPIRAL RUNNER Height 175.3 cm (5' 9 ) 05/18/2024 1:08 PM SPIRAL RUNNER Body Mass Index 22.3 05/18/2024 1:08 PM SPIRAL RUNNER Plan of Treatment Upcoming Encounters Date Type Department Care Team (Latest Contact Info) Description 07/23/2024 10:00 AM CDT Hospital Encounter [facility] [address] [place] [phone] Emre Maddox MD [address] [place] [address] [address] [place] [address] Surgery General 07/23/2024 10:00 AM CDT - 07/23/2024 11:00 AM CDT Surgery [facility] [address] [place] [phone] Emre Maddox MD [address] [place] [address] [address] [place] [address] ENDOSCOPIC RETROGRADE CHOLANGIOPANCREATOGRAPHY (ERCP) Scheduled [...] 75+ series) 2021 COVID-19 VACCINE (1 - season) 2023 DEPRESSION SCREENING 03/14/2024 INFLUENZA [...] this topic Medical Devices Implanted Type Area Athletic Training Internship Device Identifier Shelf Expiration Date Model / Serial / Lot Advanix Biliary 10f X 9cm Duodenal Bend Implanted:Qty: 1 on 05/18/2024 by Emre Maddox MD at [facility] Bile Duct [place] [employer] [id number] 08/11/2025 [id number] / / [id number] Procedures Procedure Name Priority Date/Time Associated Diagnosis Comments ENDOTRACHEAL TUBE NOTE Routine 05/18/2024 2:29 PM SPIRAL RUNNER [place] ERCP DX W BRUSH WASH WHEN PERF 05/18/2024 2:04 PM SPIRAL RUNNER Calculus of bile duct without cholecystitis and without obstruction ERCP Routine 05/18/2024 1:49 PM SPIRAL RUNNER from Last 3 Months Results * ETT LINE PERFORMABLE (05/18/2024 2:29 PM SPIRAL RUNNER) Narrative Arie Gerard CAA - 05/18/2024 2:29 PM SPIRAL RUNNER Arie Gerard Anes Asst 05/18/2024 2:30 PM Endotracheal Tube Placement: Patient Location: Other - please comment (endo). Intubation Event Date/Time: 05/18/2024 2:17 PM Procedure: intubation (50901) Procedure Section: Sedation: under general anesthesia. Indications [...] Anes Asst. Provider #2: Destin Carmichael MD. us Destin Carmichael MD GENERAL ANESTHESIA ORDERABLES Final Result * ERCP (05/18/2024 1:49 PM SPIRAL RUNNER) Report Endoscopy POC Endoscopy Department Report _ [...] patient tolerated the procedure well. Findings: The director speech language film was normal. The esophagus was successfully [...] entire procedure. Procedure Code(s): --- Professional --- 25530, Endoscopic retrograde cholangiopancreatography (ERCP); with placement of endoscopic stent into biliary or pancreatic duct, including pre- and post-dilation and guide wire passage, when performed, including sphincterotomy, when performed, each stent 98877, Endoscopic retrograde cholangiopancreatography (ERCP); with destruction of calculi, any method (eg, mechanical, electrohydraulic, lithotripsy) 74940, Endoscopic catheterization of the biliary ductal system, radiological supervision and interpretation Diagnosis Code(s): --- Professional --- K80.50, Calculus of bile duct without cholangitis or cholecystitis without obstruction CPT copyright 2021 [employer]. All rights reserved. The codes documented in this report are preliminary and upon surgical coder review may be revised to meet current compliance requirements. Emre Bernabe MD 05/18/2024 3:27:49 PM Note Initiated On: 05/18/2024 1:49 PM Number of Addenda: [id number] [place] [address] PROVATION 05/18/2024 1:49 PM SPIRAL RUNNER us Emre Bernabe MD GI PROCEDURE ORDERAB LES Edited Result - Final [facility] PROVATION from Last 3 Months [place] [address] SELF PAY NO INSURANCE Member Subscriber Plan / Payer (Ef fective for All Dates) Name:Jordi Simons Member ID:Not on file Relation to Subscriber:Not on file Name:JORDI SIMONS Subscriber ID:Not on file (Home) Address: [address] [place] [phone] Payer ID:Not on file Group ID:Not on file Type:Self Pay Address: [place], [place]
== END 2024-07-05 11:10 | disposition home or self-care (01) ==
PROVIDERS: PCP Family Medicine; Visit Provider Surgery
DX: R10.13 Epigastric pain (principal); R74.8 Abnormal levels of other serum enzymes; Z90.49 Acquired absence of other specified parts of digestive tract
CPT/HCPCS: 36415; 80076; 85025; 93005

== ENCOUNTER 2024-07-09 10:19 | Outpatient (CLI) | payer MEDICARE, SELFPAY ==
[2024-07-09 10:43] LABS: Basophils Percent Auto 0.5 % (0.2-1.2); Eosinophils Absolute Auto 0.1 K/mm3 (0-0.3); Eosinophils Percent Auto 1.4 % (0-4.4); Hematocrit 42.3 % (37.0-47.0); Hemoglobin 13.4 g/dL (12.0-15.0); Immature Granulocyte Absolute 0.02 K/mm3 (0.00-0.031); Immature Granulocyte Percent A 0.3 % (0-0.5); Lymphocytes Absolute Auto 3.44 K/mm3 (0.9-3.2); Lymphocytes Percent Auto 44.2 % (18.3-44.2); Mean Corpuscular HGB Conc 31.7 g/dl (32-36); Mean Corpuscular Hemoglobin 27.9 pg (26-34); Mean Corpuscular Volume 87.9 fl (80-100); Monocytes Absolute Auto 0.6 K/mm3 (0.1-0.6); Monocytes Percent Auto 7.4 % (2.6-8.5); Neutrophils Absolute Auto 3.6 K/mm3 (1.3-6.7); Neutrophils Percent Auto 46.2 % (45.5-73.1); Platelet Count Result 247 k/mm3 (150-375); Red Blood Count 4.81 M/mm3 (4.2-5.4); Red Cell Distribution Width 13.1 % (11.5-14.5); White Blood Count 7.8 K/mm3 (4.5-10.0)
[2024-07-09 11:04] LABS: Alanine Aminotransferase 24 U/L (6-35); Albumin Level 4.4 g/dL (3.5-5.1); Alkaline Phosphatase 131 U/L (38-126); Aspartate Amino Transferase 32 U/L (14-36); Bilirubin,Total 0.4 mg/dL (0.2-1.3)
--- OUTSIDE RECORDS SUMMARY | 2024-07-09 11:53 | XMS_ITS | Encounter Summary ---
Author Organization [facility] Address [address] [place] [address] Care Team Providers Care Cook Roast Name Role Phone Unavailable Primary Care Provider Unavailabl e Encounter Details Date Type Department Care Team (Late st Contact Info) Description 07/05/2024 Telephone [facility] [address] [place] [address] Teena Gordon Social History Tobacco Use Types Packs/Day Years Used Date Smoking Tobacco: Former Cigarettes Smokeless Tobacco: Never Alcohol Use Standard Drinks/Week Comments Not Currently 0 (1 standard drink = 0.6 oz pur e alcohol) Comments Unknown Sex and Gender Information Value Date Recorded Sex Assigned at Not on file Legal Sex Female 4:41 PM POSTAL INSPECTOR Gender Identity Not on file Sexual [...] Description 07/23/2024 10:00 AM CDT Hospital Encounter [facility] [address] [place] [phone] Emre Maddox MD [address] [facility] [address] [place] [phone] Surgery General 07/23/2024 10:00 AM CDT - 07/23/2024 11:00 AM CDT Surgery [facility] [address] [place] [address] Emre Maddox MD [address] [facility] [address] [place] [phone] ENDOSCOPIC RETROGRADE CHOLANGIOPANCREATOGRAPHY (ERCP) Scheduled Procedures Name Priority Associated Diagnoses Date/Ti md ENDOSCOPIC RETROGRADE CHOLANGIOPANCREATOGRAPHY (ERCP) Encounter for replacement of biliary stent 07/23/2024 10:00 AM CDT documented as of this encounter Visit Diagnoses Not on filedocumented in this encounter
--- OUTSIDE RECORDS SUMMARY | 2024-07-09 11:53 | XMS_ITS | Clinical Summary ---
Author Organization [facility] Address [address] [place] [address] Care Team Providers Care Office Manager Executive Assistant Name Role Phone Unavailable Primary Care Provider Unavailabl e Source Comments [facility],non-owned Affiliates and Associated Physician Practices is amultiple site organization consisting of ambulatory clinics and hospital sitesin [place], [place], [place] and [place]. This disclosure is being madepursuant to the Care Everywhere program and may not contain all information available regarding this patient. Last updated 17.[facility] Allergies Active Allergy Reactions Criticality Noted Date [...] Type Department Care Team Description 07/05/2024 Telephone [facility] [address] [place] [phone] Teena Gordon 06/12/2024 Telephone [facility] [address] [place] [phone] Teena Gordon Follow-up 05/25/2024 Telephone [facility] [address] [place] [address] Teena Gordon Follow-up 05/22/2024 Telephone [facility] [address] [place] [address] Teena Gordon Procedure (Ercp 2 month follow up, Dr. Sheppard) 05/18/2024 2:08 PM HEAD OPERATOR SULFIDE Anesthesia Event [facility] [address] [place] [phone] Destin Carmichael MD Nickelson, Liem Moreno, CAA 05/18/2024 1:45 PM HEAD OPERATOR SULFIDE - 05/18/2024 2:45 PM HEAD OPERATOR SULFIDE Surgery [facility] [address] [place] [phone] Emre Maddox MD ENDOSCOPIC RETROGRADE CHOLANGIOPANCREATOGRAPHY (ERCP) 05/18/2024 12:33 PM HEAD OPERATOR SULFIDE - 05/18/2024 4:55 PM HEAD OPERATOR SULFIDE Hospital Encounter [facility] [address] [place] [phone] Emre Maddox MD Surgery General Discharge Disposition: Home or Self Care 05/18/2024 Travel 05/17/2024 Telephone [facility] [address] [place] [phone] Teena Gordon Procedure (External Referral, Ercp, Dr. [...] on file Legal Sex Female 4:41 PM HEAD OPERATOR SULFIDE Gender Identity Not on file Sexual Orientation Not on file Last Filed Vital Signs Vital Sign Reading Time Taken Comments Blood Pressure 163/82 05/18/2024 4:30 PM HEAD OPERATOR SULFIDE Pulse 63 05/18/2024 4:30 PM HEAD OPERATOR SULFIDE Temperature 36.6 C (97.9 F) 05/18/2024 4:09 PM HEAD OPERATOR SULFIDE Respiratory Rate 10 05/18/2024 4:30 PM HEAD OPERATOR SULFIDE Oxygen Saturation 94% 05/18/2024 4:30 PM HEAD OPERATOR SULFIDE Inhaled Oxygen Concentration - - Weight 68.5 kg (151 lb) 05/18/2024 1:08 PM HEAD OPERATOR SULFIDE Height 175.3 cm (5' 9 ) 05/18/2024 1:08 PM HEAD OPERATOR SULFIDE Body Mass Index 22.3 05/18/2024 1:08 PM HEAD OPERATOR SULFIDE Plan of Treatment Upcoming Encounters Date Type Department Care Team (Latest Contact Info) Description 07/23/2024 10:00 AM CDT Hospital Encounter [facility] [address] [place] [phone] Emre Maddox MD [address] [place] [address] [address] [place] [address] Surgery General 07/23/2024 10:00 AM CDT - 07/23/2024 11:00 AM CDT Surgery [facility] [address] [place] [phone] Emre Maddox MD [address] [place] [address] [address] [place] [address] ENDOSCOPIC RETROGRADE CHOLANGIOPANCREATOGRAPHY (ERCP) Scheduled [...] this topic Medical Devices Implanted Type Area Customer Insight Analyst Device Identifier Shelf Expiration Date Model / Serial / Lot Advanix Biliary 10f X 9cm Duodenal Bend Implanted:Qty: 1 on 05/18/2024 by Emre Maddox MD at [facility] Bile Duct [employer] [id number] 08/11/2025 [id number] / / [id number] Procedures Procedure Name Priority Date/Time Associated Diagnosis Comments ENDOTRACHEAL TUBE NOTE Routine 05/18/2024 2:29 PM HEAD OPERATOR SULFIDE AR ERCP DX W BRUSH WASH WHEN PERF 05/18/2024 2:04 PM HEAD OPERATOR SULFIDE Calculus of bile duct without cholecystitis and without obstruction ERCP Routine 05/18/2024 1:49 PM HEAD OPERATOR SULFIDE from Last 3 Months Results * ETT LINE PERFORMABLE (05/18/2024 2:29 PM HEAD OPERATOR SULFIDE) Narrative Arie Gerard CAA - 05/18/2024 2:29 PM HEAD OPERATOR SULFIDE Arie Gerard Anes Asst 05/18/2024 2:30 PM Endotracheal Tube Placement: Patient Location: Other - please comment (endo). Intubation Event Date/Time: 05/18/2024 2:17 PM Procedure: intubation ([id number]) Procedure Section: Sedation: under general anesthesia. Indications [...] Final Result * ERCP (05/18/2024 1:49 PM HEAD OPERATOR SULFIDE) Report Endoscopy POC Endoscopy Department Report _ Patient Name: Jordi Simons Procedure Date: 05/18/2024 1:49 PM Date of : 1945 Classification: Outpatient Gender: Female Ethnicity: Not or Race: White _ Providers: Emre Bernabe MD Referring MD: Procedure: ERCP Indications: Common bile duct stone(s) Medications: Monitored Anesthesia Care. See the Anesthesia note for documentation of the administered medications. IVFs w/ LR, Indomethacin 100 mg AR. Patient Profile: 78F w/ CBD stone, biliary [...] patient tolerated the procedure well. Findings: The health service worker film was normal. The esophagus was successfully [...] entire procedure. Procedure Code(s): --- Professional --- 29586, Endoscopic retrograde cholangiopancreatography (ERCP); with placement of endoscopic stent into biliary or pancreatic duct, including pre- and post-dilation and guide wire passage, when performed, including sphincterotomy, when performed, each stent 61185, Endoscopic retrograde cholangiopancreatography (ERCP); with destruction of calculi, any method (eg, mechanical, electrohydraulic, lithotripsy) 67164, Endoscopic catheterization of the biliary ductal system, radiological supervision and interpretation Diagnosis Code(s): --- Professional --- K80.50, Calculus of bile duct without cholangitis or cholecystitis without obstruction CPT copyright 2021 [employer]. All rights reserved. The codes documented in this report are preliminary and upon traffic control technician review may be revised to meet current compliance requirements. Emre Bernabe MD 05/18/2024 3:27:49 PM Note Initiated On: 05/18/2024 1:49 PM Number of Addenda: [id number] [place] [address] PROVATION 05/18/2024 1:49 PM HEAD OPERATOR SULFIDE us Emre Bernabe MD GI PROCEDURE ORDERAB LES Edited Result - Final [facility] PROVATION from Last 3 Months Insurance MEDICARE [employer] SELF PAY NO INSURANCE Member Subscriber Plan / Payer (Ef fective for All Dates) Name:Jordi Simons Member ID:Not on file Relation to Subscriber:Not on file Name:JORDI SIMONS Subscriber ID:Not on file (Home) Address: [address] [place] [phone] Payer ID:Not on file Group ID:Not on file Type:Self Pay Address: [place], [place]
--- OUTSIDE RECORDS SUMMARY | 2024-07-09 11:53 | XMS_ITS | Clinical Summary ---
Author Organization [facility] Address [address] [place] [address] Phone Care Team Providers Care Acidity Tester Name Role Phone Juan Wilkinson MD Primary [...] on file Legal Sex Female 12:30 AM SUPERINTENDENT STORAGE AREA Gender Identity Not on file Sexual Orientation Not on file Obstetrics History Last Filed Vital Signs Vital Sign Reading Time Taken Comments Blood Pressure 137/71 01/24/2024 11:40 AM SUPERINTENDENT STORAGE AREA Pulse 68 01/24/2024 11:40 AM SUPERINTENDENT STORAGE AREA Temperature 36.4 C (97.5 F) 01/24/2024 11:40 AM SUPERINTENDENT STORAGE AREA Respiratory Rate 16 01/24/2024 11:40 AM SUPERINTENDENT STORAGE AREA Oxygen Saturation 98% 01/24/2024 11:40 AM SUPERINTENDENT STORAGE AREA Inhaled Oxygen Concentration - - Weight 68.1 kg (150 lb 3.2 oz) 01/24/2024 11:40 AM SUPERINTENDENT STORAGE AREA Height 177.8 cm (5' 10 ) 01/25/2023 1:48 PM SUPERINTENDENT STORAGE AREA Body Mass Index 21.55 01/25/2023 1:48 PM SUPERINTENDENT STORAGE AREA Plan of Treatment Health Maintenance Due Date [...] SUPPLEMENT MEDICARE AET SENIOR SUPPLEMENT Care Teams Acidity Tester Relationship Specialty Start Date End Date Juan Wilkinson MD PCP - General Family Practice 02/01/20
--- OUTSIDE RECORDS SUMMARY | 2024-07-09 11:53 | XMS_ITS | Referral Summary ---
Author Organization [facility] Address [address] [place] [address] Phone Care Team Providers Care Tool And Die Assembler Name Role Phone Juan Wilkinson MD Primary [...] on file Legal Sex Female 12:30 AM SFDC DEVELOPER Gender Identity Not on file Sexual Orientation Not on file Last Filed Vital Signs Vital Sign Reading Time Taken Comments Blood Pressure 137/71 01/24/2024 11:40 AM SFDC DEVELOPER Pulse 68 01/24/2024 11:40 AM SFDC DEVELOPER Temperature 36.4 C (97.5 F) 01/24/2024 11:40 AM SFDC DEVELOPER Respiratory Rate 16 01/24/2024 11:40 AM SFDC DEVELOPER Oxygen Saturation 98% 01/24/2024 11:40 AM SFDC DEVELOPER Inhaled Oxygen Concentration - - Weight 68.1 kg (150 lb 3.2 oz) 01/24/2024 11:40 AM SFDC DEVELOPER Height 177.8 cm (5' 10 ) 01/25/2023 1:48 PM SFDC DEVELOPER Body Mass Index 21.55 01/25/2023 1:48 PM SFDC DEVELOPER Plan of Treatment Not on file Insurance MEDICARE [facility] Address: [address] [address] [place] [address] AETNA SENIOR SUPPLEMENT MEDICARE AETNA SENIOR SUPPLEMENT Care Teams Tool And Die Assembler Relationship Specialty Start Date End Date Juan Wilkinson MD PCP - General Family Practice 02/01/20
== END 2024-07-09 10:20 | disposition home or self-care (01) ==
PROVIDERS: PCP Family Medicine; Visit Provider Surgery
DX: R10.13 Epigastric pain (principal); Z90.49 Acquired absence of other specified parts of digestive tract
CPT/HCPCS: 36415; 80076; 85025

== ENCOUNTER 2024-10-26 07:49 | Emergency (ER) | payer MEDICARE, SELFPAY ==
--- NOTE | ~2024-10-26 | XR_ITS ---
EXAMINATION: XR chest 1V portable 10/26/2024 09:41 INDICATION: Weakness. UTI. PROCEDURE: AP portable chest COMPARISON: 11/02/2006 FINDINGS: The lungs are clear. The lungs are hyperinflated which is consistent with, but not diagnost ic of chronic obstructive pulmonary disease. The cardiomediastinal silhouette is within normal limits . There are no pleural effusions. There is no pneumothorax suspected. IMPRESSION: 1: NO ACUTE CARDIOPULMONARY DISEASE. Reviewed, dictated and finalized at location A.
--- OUTSIDE RECORDS SUMMARY | 2024-10-26 07:52 | XMS_ITS | Clinical Summary ---
Author Organization [facility] Address [address] [place] [address] Phone Care Team Providers Care Feather Trimmer Name Role Phone Juan Wilkinson MD Primary [...] on file Legal Sex Female 12:30 AM MANAGER CHINESE Gender Identity Not on file Sexual Orientation Not on file Obstetrics History Last Filed Vital Signs Vital Sign Reading Time Taken Comments Blood Pressure 137/71 01/24/2024 11:40 AM MANAGER CHINESE Pulse 68 01/24/2024 11:40 AM MANAGER CHINESE Temperature 36.4 C (97.5 F) 01/24/2024 11:40 AM MANAGER CHINESE Respiratory Rate 16 01/24/2024 11:40 AM MANAGER CHINESE Oxygen Saturation 98% 01/24/2024 11:40 AM MANAGER CHINESE Inhaled Oxygen Concentration - - Weight 68.1 kg (150 lb 3.2 oz) 01/24/2024 11:40 AM MANAGER CHINESE Height 177.8 cm (5' 10) 01/25/2023 1:48 PM MANAGER CHINESE Body Mass Index 21.55 01/25/2023 1:48 PM MANAGER CHINESE Plan of Treatment Health Maintenance Due Date Last Done Comments Depression Screening 1945 Fall Risk Assessment 1945 Hepatitis C Screening 1945 Osteoporosis Screening-Bone Density Scan 1945 DTaP/Tdap/Td Vaccine (1 - Tdap) 1957 Hepatitis B Screening 1964 Pneumococcal vaccine 65+ (1 of 2 - PCV) 1965 Zoster Vaccine (1 of 2) 1965 Well Visit 65+ 07/27/2011 Influenza Vaccine (#1) 2024 4, 01/25/2023, 02/01/2022, Additional history exists Insurance MEDICARE AET SENIOR SUPPLEMENT MEDICARE T SENIOR SUPPLEMENT Care Teams Feather Trimmer Relationship Specialty Start Date End Date Juan Wilkinson MD PCP - General Family Practice 02/01/20
--- OUTSIDE RECORDS SUMMARY | 2024-10-26 07:52 | XMS_ITS | Clinical Summary ---
Author Organization [facility] Address [address] [place] [address] Care Team Providers Care Compounding Scaler Name Role Phone Unavailable Primary Care Provider Unavailabl e Source Comments [facility],non-owned Affiliates and Associated Physician Practices is amultiple site organization consisting of ambulatory clinics and hospital sitesin [place], [place], [place] and [place]. This disclosure is being madepursuant to the Care Everywhere program and may not contain all information available regarding this patient. Last updated 17.[facility] Allergies Active Allergy Reactions Criticality Noted Date Comments Penicillins Rash Medium 05/18/2024 Medications * Be aware that medications may not be up to date on this document. Alwaysverify current medications with the patient. simvastatin (Zocor) 20 MG tablet Take 1 (one) tablet by mouth once daily 03/05/2024 Active omeprazole (PriLOSEC) 40 MG capsule Take 1 (one) capsule by mouth once daily 05/31/2024 Active Social History Tobacco Use Types Packs/Day Years Used Date Smoking Tobacco: Former Cigarettes Q uit: 03/14/2009 Smokeless Tobacco: Never Tobacco Cessation:Counseling Given: Not Answered Alcohol Use Standard Drinks/Week Comments Not Currently 0 (1 standard drink = 0.6 oz pur e alcohol) Comments No Sex and Gender Information Value Date Recorded Sex Assigned at Not on file Legal Sex Female 4:41 PM BACK HANGER Gender Identity Not on file Sexual Orientation Not on file Last Filed Vital Signs Vital Sign Reading Time Taken Comments Blood Pressure 157/71 07/16/2024 1:30 PM CDT Pulse 66 07/16/2024 1:30 PM CDT Temperature 36.1 C (97 F) 07/16/2024 12:21 PM CDT Respiratory Rate 17 07/16/2024 1:30 PM CDT Oxygen Saturation 99% 07/16/2024 1:30 PM CDT Inhaled Oxygen Concentration - - Weight 65.8 kg (145 lb) 07/13/2024 10:50 AM CDT Height 177.8 cm (5' 10) 07/13/2024 10:50 AM CDT Body Mass Index 20.81 07/13/2024 10:50 AM CDT Plan of Treatment Health Maintenance Due Date [...] season) 2023 DEPRESSION SCREENING 03/14/2024 INFLUENZA VACCINE (#1) 2024 , 01/25/2023, 02/01/2022, Additional history exists HEPATITIS B VACCINE [...] age to complete this topic Medical Devices Explanted Type Area Manager Speech Device Identifier Shelf Expiration Date Model / Serial / Lot Advanix Biliary 10f X 9cm Duodenal Bend Implanted:Qty: 1 on 05/18/2024 by Emre Maddox MD at [facility] Explanted:Qty: 1 on 07/16/2024 at [facility] Bile Duct [employer] [id number] 08/11/2025 [id number] / / [id number] Insurance MEDICARE AETNA SELF PAY NO INSURANCE Member Subscriber Plan / Payer (Ef fective for All Dates) Name:RodgerJordi neal Member ID:Not on file Relation to Subscriber:Not on file Name:RONAKAVEA Subscriber ID:Not on file (Home) Address: [address] [place] [id number] Payer ID:Not on file Group ID:Not on file Type:Self Pay Address: [place], [place]
[2024-10-26 07:57] VITALS: BP 124/61; PULSE 93; RESP 17; TEMP 36.6; O2SAT 100
[2024-10-26 08:04] VITALS: BP 124/61; PULSE 93; RESP 17; TEMP 36.6; O2SAT 100
[2024-10-26 08:21] LABS: Add Urine Microscopic? YES; Appearance Urine Turbid (Clear); Glucose Urine UA Negative (Negative); Leukocyte Esterase Ur 3+ LEU/UL (Negative); Nitrate Urine Positive (Negative); Non Pathogenic Casts 0-2; Specific Grav Ur 1.006 (1.001-1.035)
[2024-10-26 08:25] LABS: Need Manual Microscopic Reviewed
--- OUTSIDE RECORDS SUMMARY | 2024-10-26 08:29 | XMS_ITS | Clinical Summary ---
Author Organization [facility] Address [address] [place] [address] Care Team Providers Care Development System Efficiency Manager Name Role Phone Unavailable Primary Care Provider Unavailabl e Source Comments [facility],non-owned Affiliates and Associated Physician Practices is amultiple site organization consisting of ambulatory clinics and hospital sitesin [place], [place], [place] and [place]. This disclosure is being madepursuant to the Care Everywhere program and may not contain all information available regarding this patient. Last updated 17.[facility] Allergies Active Allergy Reactions Criticality Noted Date [...] on file Legal Sex Female 4:41 PM ANALYSIS LEAD Gender Identity Not on file Sexual Orientation [...] this topic Medical Devices Explanted Type Area 3Rd Mate Device Identifier Shelf Expiration Date Model / Serial / Lot Advanix Biliary 10f X 9cm Duodenal Bend Implanted:Qty: 1 on 05/18/2024 by Emre Maddox MD at [facility] Explanted:Qty: 1 on 07/16/2024 at [facility] Bile Duct [employer] [id number] 08/11/2025 [id number] / / [id number] Insurance MEDICARE AETNA SELF PAY NO INSURANCE Member Subscriber Plan / Payer (Ef fective for All Dates) Name:RodgerJordi neal Member ID:Not on file Relation to Subscriber:Not on file Name:RONAKAVEA Subscriber ID:Not on file (Home) Address: [address] [place] [phone] Payer ID:Not on file Group ID:Not on file Type:Self Pay Address: [place], [place]
--- OUTSIDE RECORDS SUMMARY | 2024-10-26 08:29 | XMS_ITS | Clinical Summary ---
Author Organization [facility] Address [address] [place] [address] Phone Care Team Providers Care Converter Operator Name Role Phone Juan Wilkinson MD [...] on file Legal Sex Female 12:30 AM MANAGEMENT TRAINEE PROGRAM STORES Gender Identity Not on file Sexual Orientation Not on file Obstetrics History Last Filed Vital Signs Vital Sign Reading Time Taken Comments Blood Pressure 137/71 01/24/2024 11:40 AM MANAGEMENT TRAINEE PROGRAM STORES Pulse 68 01/24/2024 11:40 AM MANAGEMENT TRAINEE PROGRAM STORES Temperature 36.4 C (97.5 F) 01/24/2024 11:40 AM MANAGEMENT TRAINEE PROGRAM STORES Respiratory Rate 16 01/24/2024 11:40 AM MANAGEMENT TRAINEE PROGRAM STORES Oxygen Saturation 98% 01/24/2024 11:40 AM MANAGEMENT TRAINEE PROGRAM STORES Inhaled Oxygen Concentration - - Weight 68.1 kg (150 lb 3.2 oz) 01/24/2024 11:40 AM MANAGEMENT TRAINEE PROGRAM STORES Height 177.8 cm (5' 10) 01/25/2023 1:48 PM MANAGEMENT TRAINEE PROGRAM STORES Body Mass Index 21.55 01/25/2023 1:48 PM MANAGEMENT TRAINEE PROGRAM STORES Plan of Treatment Health Maintenance Due Date [...] SUPPLEMENT MEDICARE T SENIOR SUPPLEMENT Care Teams Converter Operator Relationship Specialty Start Date End Date Juan Wilkinson MD PCP - General Family Practice 02/01/20
[2024-10-26 08:39] VITALS: BP 105/52; PULSE 87; RESP 15; O2SAT 96
[2024-10-26 09:24] LABS: Hematocrit 38.1 % (37.0-47.0); Hemoglobin 12.7 g/dL (12.0-15.0); Immature Granulocyte Percent A 0.6 % (0-0.5); Lymphocytes Absolute Auto 1.28 K/mm3 (0.9-3.2); Mean Corpuscular HGB Conc 33.3 g/dl (32-36); Mean Corpuscular Hemoglobin 28.7 pg (26-34); Mean Corpuscular Volume 86.2 fl (80-100); Nucleated Red Blood Cells Absolute Auto 0.000 K/mm3 (0.0-0.012); Nucleated Red Blood Cells Perc 0.0 % (0.0-0.2); Platelet Count Result 193 k/mm3 (150-375); Red Blood Count 4.42 M/mm3 (4.2-5.4); White Blood Count 10.6 K/mm3 (4.5-10.0)
[2024-10-26 09:29] LABS: Alanine Aminotransferase 65 U/L (6-35); Albumin Level 3.7 g/dL (3.5-5.1); Alkaline Phosphatase 190 U/L (38-126); Anion Gap 8 mmol/L (4-12); Aspartate Amino Transferase 82 U/L (14-36); Bilirubin,Total 0.7 mg/dL (0.2-1.3); Blood Urea Nitrogen 14 mg/dL (7-17); Calcium 9.2 mg/dL (8.4-10.2); Carbon Dioxide 25 mmol/L (22-30); Chloride 100 mmol/L (98-107); Estimated CRCL calculation 55 ml/min; Estimated Glomerular Filt Rate > 60; Glucose 117 mg/dL (65-110); Potassium 4.2 mmol/L (3.4-5.0); Sodium 133 mmol/L (137-145); Total Protein 6.8 g/dL (6.3-8.2)
[2024-10-26] MEDS: LACTATED RINGERS 1,000 ML 999 ML IV CONT ×2 (09:36)
[2024-10-26 09:37] VITALS: BP 111/54; PULSE 78; RESP 17; O2SAT 97
[2024-10-26] MEDS: SULFAMETHOXAZOLE/TRIMETHOPRIM 800/160 MG DS TABLET 1 TAB PO (10:03)
--- NOTE | 2024-10-26 10:21 | ED.GENADULT ---
HPI - General Adult General Chief complaint: Urogenital-Female Stated complaint: uti Time Seen by Provider: 10/26/24 08:17 History of Present Illness HPI narrative: This is a 71-year-old female presenting with UTI symptoms. She has been having dysuria, urgency and frequency since Tuesday. She was initially put on an antibiotic that starts with ?M which was ineffective. She then saw her urologist and was placed on cefdinir. Her symptoms have not improved. She was sent into the ED for evaluation and possible IV antibiotics. Related Data Home Medications ?Medication ?Instructions ?Recorded ?Confirmed ?Last Taken ?Type simvastatin 20 mg tablet 20 mg PO QPM 05/16/24 07/09/24 05/14/24 20:26 History Allergies Allergy/AdvReac Type Severity Reaction Status Date / Time clarithromycin Allergy Severe RASH,DIARRH Verified 10/26/24 10:05 EA Penicillins Allergy Intermediate hives Verified 10/26/24 10:05 azithromycin Allergy Unknown Diarrhea Verified 10/26/24 10:05 Sulfa (Sulfonamide Allergy Unknown Hives Verified 10/26/24 10:05 Antibiotics) peanut AdvReac Intermediate Abdominal Verified 10/26/24 10:05 Pain Cephalosporins AdvReac Unknown Diarrhea Verified 10/26/24 10:05 ciprofloxacin AdvReac Unknown diarrhea Verified 10/26/24 10:05 PMFSH Past Medical History Medical History (Updated 10/26/24 @ 10:56 by Ramses Oliveira MD) Abdominal aortic aneurysm (AAA) 3.0 cm to 5.0 cm in diameter in female (~05/2024) Incisional hernia Dilation of aorta slight dilatation of the mid abdominal aorta measuring 3.[address] in March 2024 Cervical cancer (1996) S/p TARUN-BSO in Hypertension Lymphedema Non-Hodgkin lymphoma Diagnosed around 2007 and treated with chemotherapy, follows with Oncology yearly GERD without esophagitis Mixed hyperlipidemia Postmenopausal Surgical History Surgical History (Updated 07/09/24 @ 10:04 by Alejandra Ferrer) Hx laparoscopic cholecystectomy 06/21/[address] Alexander History of section History of total hysterectomy (1996) for cervical cancer Hx of section Family History Family History Mother Family history of dementia Father Cancer Social History Social History (Updated 07/09/24 @ 09:39 by Coco Easley MA) Social History: Surrogate medical decision maker: Ashley Patterson, daughter. Code status: Full code. Smoking packs per day: 1 Smoking cigarettes per day: 20.0 Years smoked: 25 Smoking pack-years: 25.00 Smoking status: Former smoker Tobacco type: cigarettes Smoking end date: 03/14/09 Alcohol intake: never Alcohol use details: socially Substance use: never Substance use type: does not use Current Housing: Decline to Answer Concerned About Future Housing: Decline to Answer Difficulty Paying Gas/Electric Bills: Decline to Answer Difficulty Paying for Meds: Decline to Answer Currently Unemployed: Decline to Answer Difficulty w/ Childcare or Family Care: Decline to Answer Living arrangements: alone Occupation/Education: retired Spiritual care concerns: No (sikhism) Agree to blood products: Yes Exam Narrative: APPEARANCE: No apparent distress. Head: atraumatic. EYES: EOMI, NOSE: Atraumatic NECK: Trachea midline RESPIRATORY: No increased rate of breathing, CTAB CARDIOVASCULAR: RRR, no peripheral edema ABDOMINAL: Soft nontender no guarding rebound, no CVA tenderness MUSCULOSKELETAl: No obvious deformities NEURO: Alert. Moving 4/4 extremities SKIN:: Warm, dry. Normal color PSYCHIATRIC: Normal affect Course Vital Signs Vital signs: Vital Signs Temperature 97.9 F 10/26/24 07:57 Pulse Rate 93 10/26/24 07:57 Respiratory Rate 17 10/26/24 07:57 Blood Pressure 124/61 10/26/24 07:57 Pulse Oximetry 100 10/26/24 07:57 Oxygen Delivery Room Air 10/26/24 07:57 Temperature 97.9 F 10/26/24 08:04 Pulse Rate 76 10/26/24 10:58 Respiratory Rate 17 10/26/24 10:58 Blood Pressure 121/76 10/26/24 10:58 Pulse Oximetry 96 10/26/24 10:58 Oxygen Delivery Room Air 10/26/24 07:57 Medical Decision Making MDM Narrative Medical decision making narrative: -Course: 71-year-old female presenting with treatment failure of UTI. Vital signs stable. Abdominal exam benign. Laboratory studies within normal limits. Presentation consistent with simple cystitis. 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 It has resistance to cefdinir which is what she has been treated with. This was discussed with our Infectious Disease pharmacist Dr. Adams. In this case we will give a 1 time dose of gentamicin which has been effective for treatment. Patient will also be discharged on a 5 day course of Bactrim for which the previous cultures were susceptible to. Patient had a listed sulfa allergy with hives although she was given Bactrim here with no reaction. Patient discharged with primary care follow-up and return precautions. -DDX includes but is not limited to: UTI, MDRO, pyelonephritis, Vital Signs Vital Signs: Vital Signs Temperature 97.9 F 10/26/24 07:57 Pulse Rate 93 10/26/24 07:57 Respiratory Rate 17 10/26/24 07:57 Blood Pressure 124/61 10/26/24 07:57 Pulse Oximetry 100 10/26/24 07:57 Oxygen Delivery Room Air 10/26/24 07:57 Temperature 97.9 F 10/26/24 08:04 Pulse Rate 76 10/26/24 10:58 Respiratory Rate 17 10/26/24 10:58 Blood Pressure 121/76 10/26/24 10:58 Pulse Oximetry 96 10/26/24 10:58 Oxygen Delivery Room Air 10/26/24 07:57 Lab Data 10/26/24 09:13 10/26/24 09:13 Labs: Lab Results 10/26/24 10/26/24 Range/Units 08:06 09:13 WBC 10.6 H (4.5-10.0) K/mm3 RBC 4.42 (4.2-5.4) M/mm3 Hgb 12.7 (12.0-15.0) g/dL Hct 38.1 (37.0-47.0) % MCV 86.2 (80-100) fl MCH 28.7 (26-34) pg MCHC 33.3 (32-36) g/dl RDW 13.0 (11.5-14.5) % Plt Count 193 (150-375) k/mm3 MPV 10.2 (7.4-10.4) fl Immature Gran % (Auto) 0.6 H (0-0.5) % Neut % (Auto) 70.5 (45.5-73.1) % Lymph % (Auto) 12.1 L (18.3-44.2) % [place] % (Auto) 16.1 H (2.6-8.5) % Eos % (Auto) 0.3 (0-4.4) % Baso % (Auto) 0.4 (0.2-1.2) % Lymph # (Auto) 1.28 (0.9-3.2) K/mm3 [place] # (Auto) 1.7 H (0.1-0.6) K/mm3 Eos # (Auto) 0.0 (0-0.3) K/mm3 Baso # (Auto) 0.0 (0.0-0.1) K/mm3 Abs Immat Gran (auto) 0.06 H (0.00-0.031) K/mm3 Absolute Neuts (auto) 7.4 H (1.3-6.7) K/mm3 Absolute Nucleated RBC 0.000 (0.0-0.012) K/mm3 Nucleated RBC % 0.0 (0.0-0.2) % Sodium 133 L (137-145) mmol/L Potassium 4.2 (3.4-5.0) mmol/L Chloride 100 (98-107) mmol/L Carbon Dioxide 25 (22-30) mmol/L Anion Gap 8 (4-12) mmol/L BUN 14 D (7-17) mg/dL Creatinine 0.75 (0.7-1.0) mg/dL Estim Creat Clear Calc 55 ml/min Estimated GFR > 60 (59 - ) Glucose 117 H (65-110) mg/dL Lactic Acid 0.7 (0.7-2.0) mmol/L Calcium 9.2 (8.4-10.2) mg/dL Total Bilirubin 0.7 (0.2-1.3) mg/dL AST 82 H (14-36) U/L ALT 65 H (6-35) U/L Alkaline Phosphatase 190 H (38-126) U/L Total Protein 6.8 (6.3-8.2) g/dL Albumin 3.7 (3.5-5.1) g/dL Urine Color Dark yellow (Yellow) Urine Appearance Turbid H (Clear) Urine pH 6.5 (5.0-9.0) Ur Specific [place] 1.006 (1.001-1.035) Urine Protein 1+ H (Negative) mg/dL Urine Glucose (UA) Negative (Negative) mg/dL Urine Ketones Negative (Negative) mg/dL Ur Blood (Man) 2+ H (Negative) Urine Nitrate Positive H (Negative) Urine Bilirubin Negative (Negative) Urine Urobilinogen 0.2 (<2.0) mg/dL Add Ur Microanalysis Reviewed Leukocyte Esterase Rfl 3+ H (Negative) FACUNDO/UL Urine RBC 0-2 (0-2) /hpf Urine WBC >100 H (0-3) /hpf Ur Squamous Epith Cells None seen (Few) /hpf Urine Bacteria 4+ H /hpf Urine Casts 0-2 Discharge Plan Discharge Clinical Impression: Acute UTI Patient Disposition: Home Condition: Stable Instructions: Antibiotic Form, Urinary Tract Infection in Women (ED) Additional Instructions: You were seen in the ED for a UTI. Please complete the course of Bactrim as instructed. Please follow-up with your primary care physician for further management. If you develop fevers or feel your condition is getting worse and when to return to the emergency department for re-evaluation. Patient Language: Mosoth[place] Prescriptions: New sulfamethoxazole-trimethoprim 800-160 mg tablet 1 tablet PO Q12H 5 Days Qty: 10 0RF No Action simvastatin 20 mg tablet 20 mg PO QPM Follow-up/Referrals: Jodee Wilkinson MD [Primary Care Provider] - 3 Days (UTI f/u )
[2024-10-26] MEDS: GENTAMICIN SULFATE INJ 320 MG in DEXTROSE 5% 100 ML 100 MG IVPB (10:52)
[2024-10-26 10:58] VITALS: BP 121/76; PULSE 76; RESP 17; O2SAT 96
[2024-10-26 12:20] VITALS: BP 109/55; PULSE 73; RESP 15; TEMP 36.4; O2SAT 98
== END 2024-10-26 12:22 | disposition home or self-care (01) ==
PROVIDERS: Emergency Provider Emergency Medicine; PCP Family Medicine
DX: N39.0 Urinary tract infection, site not specified (principal); I10 Essential (primary) hypertension; E78.2 Mixed hyperlipidemia; K21.9 Gastro-esophageal reflux disease without esophagitis; Z92.21 Personal history of antineoplastic chemotherapy; Z85.72 Personal history of non-Hodgkin lymphomas; Z85.41 Personal history of malignant neoplasm of cervix uteri; Z87.891 Personal history of nicotine dependence; Z90.49 Acquired absence of other specified parts of digestive tract; Z90.710 Acquired absence of both cervix and uterus
CPT/HCPCS: 36415; 71045; 80053; 81001; 83605; 85025; 87086; 96361; 96365; 99284; A9270; J1580; J7120

== ENCOUNTER 2024-12-26 08:12 | Outpatient (CLI) | payer MEDICARE, SELFPAY ==
--- OUTSIDE RECORDS SUMMARY | 2024-12-26 08:23 | XMS_ITS | Clinical Summary ---
Author Organization [facility] Address [address] 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 This disclosure is being madepursuant to the Care Everywhere program and may not contain all information available regarding this patient. 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 Gender Identity Not on file Sexual [...] yrs (1 - 1-dose 75+ series) 2021 DEPRESSION SCREENING 03/14/2024 COVID-19 VACCINE ( - season) 2024 INFLUENZA VACCINE (#1) 2024 4, 01/25/2023, 02/01/2022, Additional history exists HEPATITIS B [...] this topic Medical Devices Explanted Type Area Water Pump Installer Device Identifier Shelf Expiration Date Model / Serial / Lot Advanix Biliary 10f X 9cm Duodenal Bend Implanted:Qty: 1 on 05/18/2024 by Emre Maddox MD at [facility] Explanted:Qty: 1 on 07/16/2024 at [facility] Bile Duct [employer] [id number] 08/11/2025 [id number] / / [id number] Insurance MEDICARE [employer] SELF PAY NO INSURANCE Member Subscriber Plan / Payer (Ef fective for All Dates) Name:RodgerJordi neal Member ID:Not on file Relation to Subscriber:Not on file Name:RONAKAVEA Subscriber ID:Not on file (Home) Address: [address] [place] [id number] Payer ID:Not on file Group ID:Not on file Type:Self Pay Address: [place], [place]
--- OUTSIDE RECORDS SUMMARY | 2024-12-26 08:23 | XMS_ITS | Clinical Summary ---
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 Gender Identity Not on file Sexual Orientation Not on file Obstetrics History Last Filed Vital Signs Vital Sign Reading Time Taken Comments Blood Pressure 137/71 01/24/2024 11:40 AM PILATES COORDINATOR Pulse 68 01/24/2024 11:40 AM PILATES COORDINATOR Temperature 36.4 C (97.5 F) 01/24/2024 11:40 AM PILATES COORDINATOR Respiratory Rate 16 01/24/2024 11:40 AM PILATES COORDINATOR Oxygen Saturation 98% 01/24/2024 11:40 AM PILATES COORDINATOR Inhaled Oxygen Concentration - - Weight 68.1 kg (150 lb 3.2 oz) 01/24/2024 11:40 AM PILATES COORDINATOR Height 177.8 cm (5' 10) 01/25/2023 1:48 PM PILATES COORDINATOR Body Mass Index 21.55 01/25/2023 1:48 PM PILATES COORDINATOR Plan of Treatment Health Maintenance Due Date [...] SUPPLEMENT MEDICARE T SENIOR SUPPLEMENT Care Teams Digital Marketing Apprentice Relationship Specialty Start Date End Date Juan Wilkinson MD PCP - General Family Practice 02/01/20
[2024-12-26 12:54] LABS: Hematocrit 41.9 % (37.0-47.0); Hemoglobin 13.5 g/dL (12.0-15.0); Immature Granulocyte Percent A 0.5 % (0-0.5); Lymphocytes Absolute Auto 3.30 K/mm3 (0.9-3.2); Mean Corpuscular HGB Conc 32.2 g/dl (32-36); Mean Corpuscular Hemoglobin 29.3 pg (26-34); Mean Corpuscular Volume 90.9 fl (80-100); Nucleated Red Blood Cells Absolute Auto 0.000 K/mm3 (0.0-0.012); Nucleated Red Blood Cells Perc 0.0 % (0.0-0.2); Platelet Count Result 189 k/mm3 (150-375); Red Blood Count 4.61 M/mm3 (4.2-5.4); White Blood Count 7.5 K/mm3 (4.5-10.0)
[2024-12-26 13:11] LABS: Alanine Aminotransferase 11 U/L (6-35); Albumin Level 4.0 g/dL (3.5-5.1); Alkaline Phosphatase 86 U/L (38-126); Anion Gap 4 mmol/L (4-12); Aspartate Amino Transferase 71 U/L (14-36); Bilirubin,Total 0.4 mg/dL (0.2-1.3); Blood Urea Nitrogen 12 mg/dL (7-17); Calcium 9.0 mg/dL (8.4-10.2); Carbon Dioxide 29 mmol/L (22-30); Chloride 103 mmol/L (98-107); Cholesterol 177 mg/dL (0-200); Estimated Glomerular Filt Rate > 60; Glucose 75 mg/dL (65-110); HDL Direct 40 mg/dL; Potassium 4.0 mmol/L (3.4-5.0); Sodium 136 mmol/L (137-145); Total Protein 6.6 g/dL (6.3-8.2); Triglycerides 210 mg/dL (<150)
[2024-12-26 13:39] LABS: Thyroid Stimulating Hormone Reflex 2.020 uIU/mL (0.465-4.68)
[2024-12-26 14:07] LABS: Vitamin B12 644.0 pg/mL (239-931)
[2024-12-26 14:19] LABS: Hemoglobin A1C 4.9 % (<5.7)
== END 2024-12-26 08:13 | disposition home or self-care (01) ==
PROVIDERS: PCP Family Medicine; Visit Provider Family Medicine
DX: E78.2 Mixed hyperlipidemia (principal); I10 Essential (primary) hypertension; E55.9 Vitamin D deficiency, unspecified; R73.9 Hyperglycemia, unspecified; E53.8 Deficiency of other specified B group vitamins; Z79.899 Other long term (current) drug therapy
CPT/HCPCS: 36415; 80053; 80061; 82306; 82607; 83036; 84443; 85025